=== PATIENT | female | born 1945 | race Caucasian/White ===

== ENCOUNTER 2020-01-03 16:15 | Emergency (ER) | payer MEDICARE, OTHER, SELFPAY ==
[2020-01-03 16:30] VITALS: BP 174/62; PULSE 79; RESP 16; TEMP 37.2; O2SAT 100
--- NOTE | 2020-01-03 16:47 | ED.SKABFB ---
HPI - Skin/Abscess/Foreign Bdy General Chief complaint: Skin/Abscess/Foreign Body Stated complaint: rash Time Seen by Provider: 01/03/20 16:33 Source: patient and RN notes reviewed Mode of arrival: ambulatory Limitations: no limitations History of Present Illness HPI narrative: Patient presents today complaining of widespread severely pruritic rash over her entire body for the past 4 months. Reports the symptoms wax and wane and state symptoms are better than they were yesterday. She has had her house checked twice for fleas and once for bedbugs without positive results. States she cannot stop scratching. States she has tried every [id number] treatment for rash that she can find, all without relief. She has not seen her health communications specialist or PCP since symptoms began. MD complaint: rash Related Data Home Medications Medication Instructions Recorded Confirmed carvedilol 12.5 mg tablet 12.5 mg PO Q12H 07/05/19 01/03/20 duloxetine 60 mg capsule,delayed 60 mg PO DAILY 07/05/19 07/06/19 release sprinkle sitagliptin 50 mg tablet 50 mg PO DAILY 07/05/19 07/06/19 tramadol 50 mg tablet 50 mg PO Q8H PRN tablet 07/05/19 07/06/19 clopidogrel 75 mg DAILY 01/03/20 01/03/20 duloxetine 60 mg PO 01/03/20 losartan-hydrochlorothiazide 50 tablet 01/03/20 Allergies Allergy/AdvReac Type Severity Reaction Status Date / Time adhesive tape Allergy Severe RASH Verified 07/06/19 13:23 amitriptyline Allergy Unknown Unknown Verified 07/06/19 13:23 ciprofloxacin Allergy Unknown Unknown Verified 07/06/19 13:23 levofloxacin Allergy Unknown Swelling Verified 07/06/19 13:23 Review of Systems Review of Systems: Narrative: CONSTITUTIONAL: Denies body aches, fever, chills, or sweats. EYES: Denies visual changes, redness, or discharge. ENT: Denies rhinorrhea, congestion, sore throat, or otalgia. CARDIOVASCULAR: Denies chest pain, palpitations, or edema. RESPIRATORY: Denies cough or dyspnea. GASTROINTESTINAL: Denies abdominal pain, nausea, vomiting, or diarrhea. GENITOURINARY: Denies dysuria or hematuria. SKIN: + Pruritic rash MUSCULOSKELETAL: Denies back pain, joint pain, or myalgia. NEUROLOGIC: Denies headache, numbness, tingling, or weakness. PSYCH: Denies depression or anxiety. [facility] Past Medical History Medical History (Updated 01/03/20 @ 17:02 by Yoko Rodrigez, [facility], ) Urinary incontinence Surgical History Surgical History History of knee replacement Social History Social History Smoking status: Never smoker Alcohol intake: current Gender identity (if verbalized by the patient): Female Comments At time of signature, I have reviewed and agree with nursing past medical, surgical, social and family history unless otherwise noted. Please see nursing chart for further information. There is no relevant family history pertinent to the presenting complaint Exam Narrative: Exam Narrative: GENERAL: Well-appearing, well-nourished, and in no acute distress. HEAD: Normocephalic, atraumatic. EYES: EOMI. No redness or drainage. Conjunctivae normal. ENT: Mucous membranes pink and moist. NECK: Normal AROM. Supple. No lymphadenopathy. CHEST: No respiratory distress. Clear to auscultation. HEART: Regular rate and rhythm. No murmur appreciated. Normal peripheral pulses. ABDOMEN: Soft, nontender, nondistended, normal active bowel sounds. MUSCULOSKELETAL: No bony tenderness. EXTREMITIES: Normal range of motion. No edema. SKIN: Warm, dry. Capillary refill normal. Normal skin turgor. Patient has multiple tiny, round scabs over her arms and upper back. No erythema, induration, fluctuance or signs of infection. She has a very small area of erythematous macular rash to the posterior right upper arm consistent with dermatitis. Patient was compulsively scratching her arms during entire exam, even after she had been asked to stop
== END 2020-01-03 17:07 | disposition home or self-care (01) ==
PROVIDERS: Emergency Provider Nurse Practitioner; PCP Internal Medicine
DX: R21 Rash and other nonspecific skin eruption (principal); E11.9 Type 2 diabetes mellitus without complications; I10 Essential (primary) hypertension; F03.90 Unspecified dementia, unspecified severity, without behavioral disturbance, psychotic disturbance, mood disturbance, and anxiety; Z86.73 Personal history of transient ischemic attack (TIA), and cerebral infarction without residual deficits; Z96.659 Presence of unspecified artificial knee joint
CPT/HCPCS: 99213; G0463

== ENCOUNTER 2020-01-07 08:57 | Outpatient (CLI) | payer MEDICARE, OTHER, SELFPAY ==
[2020-01-07 09:45] LABS: Alanine Aminotransferase 10 U/L (4-35); Albumin Level 4.2 g/dL (3.5-5.1); Alkaline Phosphatase 67 U/L (38-126); Aspartate Amino Transferase 21 U/L (14-36); Bilirubin,Total 0.5 mg/dL (0.2-1.3); Blood Urea Nitrogen 25 mg/dL (7-17); Calcium 9.3 mg/dL (8.4-10.2); Carbon Dioxide 26 mmol/L (22-30); Chloride 107 mmol/L (98-107); Cholesterol 208 mg/dL (0-200); Estimated Glomerular Filt Rate 37; Glucose 113 mg/dL (65-105); HDL Direct 39 mg/dL; Potassium 4.7 mmol/L (3.4-5.0); Sodium 140 mmol/L (137-145); Triglycerides 141 mg/dL (<150)
[2020-01-07 09:56] LABS: LDL Cholesterol Direct 131 mg/dL
[2020-01-07 10:08] LABS: Creatinine Urine 105.3 mg/dL
[2020-01-07 10:11] LABS: MALB Creatinine Ratio 79.7 mg/g (0-30); Microalbumin Urine Random 83.9 mg/L (0-16.7)
== END 2020-01-07 08:58 | disposition home or self-care (01) ==
PROVIDERS: PCP Internal Medicine; Visit Provider Nurse Practitioner
DX: E11.22 Type 2 diabetes mellitus with diabetic chronic kidney disease (principal); N18.1 Chronic kidney disease, stage 1; E78.5 Hyperlipidemia, unspecified
CPT/HCPCS: 36415; 80053; 80061; 82043; 83036

== ENCOUNTER 2020-01-18 14:13 | Outpatient (CLI) | payer MEDICARE, OTHER, SELFPAY ==
[2020-01-18 14:33] LABS: Hematocrit 33.7 % (37.0-47.0); Hemoglobin 10.6 g/dL (12.0-15.0)
== END 2020-01-18 14:14 | disposition home or self-care (01) ==
PROVIDERS: PCP Internal Medicine; Visit Provider Internal Medicine
DX: R53.83 Other fatigue (principal)
CPT/HCPCS: 36415; 82607; 85014; 85018

== ENCOUNTER 2020-01-21 14:23 | Outpatient (CLI) | payer MEDICARE, OTHER, SELFPAY ==
[2020-01-21 15:33] LABS: Iron 44 ug/dL (37-170)
[2020-01-21 15:42] LABS: Percent Iron Saturation 13 % (20-50)
== END 2020-01-21 14:24 | disposition home or self-care (01) ==
PROVIDERS: PCP Internal Medicine; Visit Provider Internal Medicine
DX: D64.9 Anemia, unspecified (principal)
CPT/HCPCS: 36415; 83540; 83550

== ENCOUNTER 2020-05-06 06:51 | Outpatient (NON) | payer MEDICARE, OTHER, SELFPAY ==
[2020-05-09 13:56] LABS: SARS-CoV-2 RNA PCR Negative
== END 2020-05-06 06:52 ==
PROVIDERS: PCP Internal Medicine; Visit Provider Internal Medicine
DX: Z20.828 Contact with and (suspected) exposure to other viral communicable diseases (principal); R68.89 Other general symptoms and signs
CPT/HCPCS: 87635; C9803; U0003

== ENCOUNTER 2020-06-22 13:08 | Outpatient (CLI) | payer MEDICARE, OTHER, SELFPAY ==
[2020-06-22 13:38] LABS: Hematocrit 33.6 % (37.0-47.0); Hemoglobin 10.5 g/dL (12.0-15.0); Mean Corpuscular HGB Conc 31.3 g/dl (32-36); Mean Corpuscular Hemoglobin 30.1 pg (26-34); Mean Corpuscular Volume 96.3 fl (80-100); Mean Platelet Volume 9.3 fl (7.4-10.4); Platelet Count Result 309 k/mm3 (150-375); Red Blood Count 3.49 M/mm3 (4.2-5.4); Red Cell Distribution Width 12.7 % (11.5-14.5); White Blood Count 7.9 K/mm3 (4.5-10.0)
[2020-06-22 13:51] LABS: Alanine Aminotransferase 11 U/L (4-35); Albumin Level 4.3 g/dL (3.5-5.1); Alkaline Phosphatase 65 U/L (38-126); Anion Gap 9 mmol/L (8-16); Aspartate Amino Transferase 28 U/L (14-36); Bilirubin,Total 0.5 mg/dL (0.2-1.3); Blood Urea Nitrogen 20 mg/dL (7-17); Carbon Dioxide 26 mmol/L (22-30); Chloride 107 mmol/L (98-107); Cholesterol 225 mg/dL (0-200); Estimated Glomerular Filt Rate 37; Glucose 104 mg/dL (65-105); HDL Direct 41 mg/dL; Potassium 5.1 mmol/L (3.4-5.0); Sodium 142 mmol/L (137-145); Triglycerides 113 mg/dL (<150)
[2020-06-22 13:53] LABS: Hemoglobin A1C 5.6 % (<5.7)
[2020-06-22 14:02] LABS: LDL Cholesterol Direct 162 mg/dL
== END 2020-06-22 13:09 | disposition home or self-care (01) ==
LOC: ANHLAB 13:11
PROVIDERS: PCP Internal Medicine; Visit Provider Nurse Practitioner
DX: E11.9 Type 2 diabetes mellitus without complications (principal); D64.9 Anemia, unspecified; E78.5 Hyperlipidemia, unspecified; R63.4 Abnormal weight loss
CPT/HCPCS: 36415; 80053; 80061; 83036; 84443; 85027

== ENCOUNTER 2020-06-28 08:35 | Outpatient (CLI) | payer MEDICARE, OTHER, SELFPAY ==
--- NOTE | ~2020-06-28 | CT_ITS ---
EXAMINATION: CT chest abdomen pelvis w con DATE: 06/28/2020 09:03 INDICATION: Abnormal weight loss TECHNIQUE: Computed tomography (CT) of the chest, abdomen, and pelvis was performed 100 cc Omnipaque 350 intravenous contrast. Automated exposure control and iterative reconstruction technique were empl oyed. Exam dose: 650.76 mGy-cm total exam DLP. COMPARISON: 09/08/2018 CT abdomen pelvis 03/12/2017 two-view chest FINDINGS: CHEST CT: No pulmonary consolidation or pulmonary mass lesion is detected. There is minimal right lower lobe pe rihilar infiltrate or atelectasis and mild discoid atelectasis or scarring at the left lung base, lef t lower lobe. Normal heart size. No pericardial or pleural effusion. No hilar or mediastinal mass lesion or lymphadenopathy. No thoracic aortic aneurysm or dissection. Coronary artery and mild aortic calcification. Very small sliding hiatal hernia. ABDOMEN/PELVIS CT: Diffuse hepatic steatosis. No hepatic space-occupying mass lesion is detected. Status post cholecystectomy. No significant bile duct or pancreatic duct dilatation. No pancreatic ma ss lesion or calcification. Normal morphology of the adrenal glands. Normal splenic size. No renal mass lesion or urinary tract calculus or hydroureteronephrosis. The urinary bladder is relat ively evacuated, essentially unremarkable. There is atherosclerotic calcification of the abdominal aorta and aortic branches but no abdominal ao rtic aneurysm or dissection. No intraperitoneal or retroperitoneal or pelvic mass lesion or adenopathy or ascites. There are numerous diverticula of the sigmoid and descending colon, splenic flexure; no CT evidence o f diverticulitis. No evidence of appendicitis. No bowel obstruction, bowel wall thickening, pneumatosis or intraperiton eal free air. Fat-containing right supraumbilical and bilateral infraumbilical fat-containing hernias. Small umbili sebastian fat-containing hernia. Degenerative changes of the thoracic and lumbar spine. No suspicious osteolytic or osteoblastic lesio ns are noted. IMPRESSION: No cause for abnormal weight loss is identified Very small sliding hiatal hernia Diffuse hepatic steatosis Status post cholecystectomy Diverticulosis of the left colon; no CT evidence of diverticulitis Reviewed, dictated and finalized at [facility] Reviewed, dictated and finalized at [facility]. [employer]
== END 2020-06-28 08:36 | disposition home or self-care (01) ==
PROVIDERS: PCP Internal Medicine; Visit Provider Nurse Practitioner
DX: R63.4 Abnormal weight loss (principal); K44.9 Diaphragmatic hernia without obstruction or gangrene; K76.0 Fatty (change of) liver, not elsewhere classified; Z90.49 Acquired absence of other specified parts of digestive tract; K57.90 Diverticulosis of intestine, part unspecified, without perforation or abscess without bleeding
CPT/HCPCS: 71260; 74177; Q9967

== ENCOUNTER 2020-07-03 13:28 | Outpatient (CLI) | payer MEDICARE, OTHER, SELFPAY ==
[2020-07-03 20:19] LABS: IFOB Positive Control Positive; Immunochemical Fecal Occult Bl Negative (N)
== END 2020-07-03 13:29 | disposition home or self-care (01) ==
PROVIDERS: PCP Internal Medicine; Visit Provider Nurse Practitioner
DX: R19.7 Diarrhea, unspecified (principal)
CPT/HCPCS: 82274; 87045; 87046; 87177; 87209; 87427

== ENCOUNTER → 2020-08-19 01:41 | Outpatient (CLI) | payer MEDICARE, OTHER, SELFPAY ==
[2020-08-19 19:42] LABS: SARS-CoV-2 RNA PCR Negative
== END ==
PROVIDERS: PCP Internal Medicine; Visit Provider Internal Medicine Gastroenterology
DX: Z01.812 Encounter for preprocedural laboratory examination (principal); Z20.822 Contact with and (suspected) exposure to COVID-19
CPT/HCPCS: C9803; U0003; U0005

== ENCOUNTER 2020-08-22 01:46 | Day surgery (SDC) | payer MEDICARE, OTHER, SELFPAY ==
[2020-08-07 10:27] VITALS: BMI 29.2
--- NOTE | 2020-08-09 15:36 | PC.NURSE ---
CALLED PT TO UPDATE ON DATE TO STOP PLAVIX PER DR. MILLER. SPOKE WITH DAUGHTER EFFIE WHO IS A PHARMACIST HERE AT [facility]. SHE STATES SHE TOOK HER MOM TO DR. LAND OFFICE AND SAY STEVEN POMPA IN OFFICE. MOM HAD TOLD HER A FEW DAYS AGO SHE HAD STOPPED ALL HER MEDS ABOUT A MONTH AGO BECAUSE SHE THOUGHT THEY WERE MAKING HER ILL. EFFIE AND HER MOTHER JORGE LUIS MET WITH STEVEN HERANNDEZ TODAY TO DISCUSS MEDS. HE HAS STOPPED SOME AND SHE IS TO RESUME TAKING THE OTHERS. SHE IS NO LONGER ON PLAVIX WHICH WE HAD RECEIVED CLEARANCE TO STOP PER DR. MILLER. PT HAS NOT TAKEN FOR AT LEAST A MONTH. SHE IS TO START A ENTERIC COATED BABY ASA 81MG.
[2020-08-22 08:45] VITALS: BP 167/78; PULSE 71; RESP 16; TEMP 36.1; O2SAT 99
[2020-08-22] MEDS: LACTATED RINGERS 1,000 ML 150 ML IV CONT (08:53)
--- NOTE | 2020-08-22 08:56 | WPDHPUPDATE1 ---
History and Physical Update Update Date/Time: 08/22/20 08:56 History and Physical has been reviewed, including an updated exam of the patient. There are NO changes in the patient's condition. Risks, benefits, and alternatives have been discussed and questions answered. Patient agrees to proceed with procedure.
--- NOTE | 2020-08-22 09:00 | WPDANESEPPF ---
Anes - Initial Pre Proc Eval Procedure: Operation Date: 08/22/20 09:30 Proposed Procedures p Esophagogastroduodenoscopy & Colonoscopy - Jameson Dhillon MD Date/Time: 08/22/20 09:00 Surgeon: Jameson Dhillon MD Pre Op Diagnosis: wt.Loss, Diarrhea Patient Data Age: 75 Gender: F Height: 5 ft Weight: 68.2 kg Last Vital Signs Temp 96.9 F L 08/22/20 08:45 Pulse 71 08/22/20 08:45 Resp 16 08/22/20 08:45 BP 167/78 H 08/22/20 08:45 Pulse Ox 99 08/22/20 08:45 Allergies Allergy/AdvReac Type Severity Reaction Status Date / Time adhesive tape Allergy Severe RASH Verified 08/22/20 08:43 amitriptyline Allergy Unknown Rash Verified 08/22/20 08:43 ciprofloxacin Allergy Unknown Dizziness Verified 08/22/20 08:43 levofloxacin Allergy Unknown Swelling Verified 08/22/20 08:43 Home Medications Medication Instructions Recorded Confirmed Type loperamide 2 mg capsule 2 mg PO BID PRN #60 cap 07/26/20 08/22/20 Rx sodium,potassium,mag sulfates 17.5 See Rx Instructions PO .COMPLEX 08/01/20 08/22/20 Rx gram-3.13 gram-1.6 gram oral soln #354 ml aspirin [Adult Aspirin EC Low 81 mg PO DAILY 08/09/20 08/22/20 History Strength] atorvastatin 10 mg tablet 10 mg PO DAILY #90 tablet 08/09/20 08/22/20 Rx cholecalciferol (vitamin D3) 25 25 mcg PO DAILY #30 tablet 08/09/20 08/22/20 Rx mcg (1,000 unit) tablet duloxetine 60 mg capsule,delayed 60 mg PO DAILY #90 cap 08/09/20 08/22/20 Rx release loratadine 10 mg tablet 10 mg PO .prn PRN tablet 08/09/20 08/22/20 History losartan-hydrochlorothiazide 1 tablet PO DAILY 08/09/20 08/22/20 History multivitamin 1 tablet PO DAILY 08/09/20 08/22/20 History Laboratory Tests 08/22/20 08:49 POC Capillary Glucose Pending Patient hx anesthesia problems: none Family hx anesthesia problems: none PMFSH Past Medical History Medical History Benign essential hypertension Hyperlipidemia, unspecified Statin intolerance Type 2 diabetes mellitus with stage 1 chronic kidney disease Urinary incontinence Surgical History Surgical History History of knee replacement History of laparoscopic cholecystectomy Family History Family History Mother Family history of osteoporosis Father Family history of diabetes mellitus in first degree relative Other Diabetes mellitus Family history of arthritis Family history of cardiovascular disease Hypertension Social History Social History Alcohol intake: current Drinks per week: 2 Living arrangements: alone Gender identity (if verbalized by the patient): Female Spiritual care concerns: No Anes - Eval Final PreProcedure Day of Procedure 08/22/20 09:00 Patient weight: overweight Heart: regular rate and rhythm Lungs: clear to auscultation Airway: Mallampati scale class II Neurological: alert and oriented Last oral intake: >/= 8 hours ASA classification: III Emergent: no Anesthetic plan: proceed Anesthesia type and monitoring: general GIVS and standard monitoring Informed Consent: The patient's anesthetic plan and its attendant risks and benefits were discussed with the patient/family/POA. Questions were solicited and answers provided to the satisfaction of the patient/family/POA.
[2020-08-22 09:01] LABS: Glucose Point of Care 94 (65-105)
[2020-08-22 09:36] VITALS: BP 119/40; PULSE 59; RESP 15; O2SAT 100
[2020-08-22 09:46] VITALS: BP 135/58; PULSE 61; RESP 17; O2SAT 100
--- NOTE | 2020-08-22 09:53 | SUR.OPER ---
EGD START 907, END 913 COLONOSCOPY START 918, END 930
[2020-08-22 09:56] VITALS: BP 152/69; PULSE 59; RESP 16; O2SAT 100
== END 2020-08-22 10:00 | disposition home or self-care (01) ==
PROVIDERS: PCP Internal Medicine; Visit Provider Internal Medicine Gastroenterology
PROC: 0DJ08ZZ Inspection of Upper Intestinal Tract, Via Natural or Artificial Opening Endoscopic (ICD-10-PCS; CPT 43235; principal; 2020-08-22 09:30)
DX: R19.7 Diarrhea, unspecified (principal); R63.4 Abnormal weight loss; D12.3 Benign neoplasm of transverse colon; K57.30 Diverticulosis of large intestine without perforation or abscess without bleeding; K62.3 Rectal prolapse; R63.0 Anorexia; K29.50 Unspecified chronic gastritis without bleeding; B96.81 Helicobacter pylori [H. pylori] as the cause of diseases classified elsewhere; K20.90 Esophagitis, unspecified without bleeding; E78.5 Hyperlipidemia, unspecified; I12.9 Hypertensive chronic kidney disease with stage 1 through stage 4 chronic kidney disease, or unspecified chronic kidney disease; N18.1 Chronic kidney disease, stage 1; E11.22 Type 2 diabetes mellitus with diabetic chronic kidney disease; R32 Unspecified urinary incontinence
CPT/HCPCS: 45380; 45385; 43239; 82948; 88305; 88312; 88342; J2001; J2704; J7120

== ENCOUNTER 2020-09-15 11:40 | Observation (INO) | payer MEDICARE, OTHER, SELFPAY ==
--- NOTE | ~2020-09-15 | CT_ITS ---
EXAMINATION: CT abdomen pelvis wo con DATE: 09/15/2020 12:38 INDICATION: Abdominal pain. Nausea for one year. TECHNIQUE: Computed tomography (CT) of the abdomen and pelvis was performed without intravenous contr ast. Automated exposure control and iterative reconstruction technique were employed. Exam dose: 459 .06 mGy-cm total exam DLP. COMPARISON: 06/28/2020 CT chest abdomen pelvis FINDINGS: The lung bases are clear of infiltrate or consolidation. Normal heart size. Coronary and aortic atherosclerosis. No pericardial or pleural effusion. Very small sliding hiatal hernia. Status post cholecystectomy. The liver, spleen, pancreas, and adrenal glands and kidneys are unremark able on this limited noncontrast examination. No bile duct or pancreatic duct dilatation. No renal mass lesion is evident on this limited noncontrast examination. No urinary tract calculus or hydroureteronephrosis. There is atherosclerotic calcification of the abdominal aorta but no aneurysm. There is prominent sebastian cification at the origins of the celiac and superior mesenteric and renal arteries as well as iliac a nd femoral artery calcifications. No intraperitoneal or retroperitoneal or pelvic mass lesion or adenopathy or ascites. The urinary bladder is unremarkable. Status post hysterectomy. There are innumerable diverticula of the sigmoid colon and descending colon; no CT evidence of divert iculitis. No bowel obstruction, bowel wall thickening, pneumatosis or intraperitoneal free air. Small fat-containing umbilical hernia. There are supraumbilical and infraumbilical ventral abdominal wall hernias variable size containing fat. No bowel herniation. Diffuse idiopathic skeletal hyperostosis of the thoracic spine. Grade 1 anterolisthesis at L3-4. There is degenerative disc disease of the lumbar and lumbosacral spi ne, involving particularly at L1-2, L2-3, L4-5 and L5-S1, with associated minimal retrolisthesis at L 2-3 and L4-5. Prominent degenerative spurring at the apophyseal joints. IMPRESSION: Status post cholecystectomy Status post hysterectomy Very small sliding hiatal hernia. Diverticulosis of the colon; no CT evidence of diverticulitis Small fat-containing umbilical hernia and multiple infraumbilical and supraumbilical ventral abdomina l wall hernias containing fat Degenerative changes of the thoracic and lumbar spine Reviewed, dictated and finalized at [facility]. Reviewed, dictated and finalized at [facility]. IMPRESSION: Status post cholecystectomy Status post hysterectomy Very small sliding hiatal hernia. Diverticulosis of the colon; no CT evidence of diverticulitis Small fat-containing umbilical hernia and multiple infraumbilical and supraumbi lical ventral abdominal wall hernias containing fat Degenerative changes of the thoracic and lumbar spine
[2020-09-15 11:50] VITALS: BP 173/92; PULSE 103; RESP 18; TEMP 36.6; O2SAT 100
[2020-09-15 12:08] LABS: Basophils Absolute Auto 0.1 K/mm3 (0.0-0.1); Basophils Percent Auto 1.1 % (0.2-1.2); Eosinophils Absolute Auto 0.6 K/mm3 (0-0.3); Eosinophils Percent Auto 7.2 % (0-4.4); Hematocrit 39.5 % (37.0-47.0); Hemoglobin 12.3 g/dL (12.0-15.0); Immature Granulocyte Absolute 0.02 K/mm3 (0.00-0.031); Immature Granulocyte Percent A 0.2 % (0-0.5); Lymphocytes Absolute Auto 2.53 K/mm3 (0.9-3.2); Lymphocytes Percent Auto 29.5 % (18.3-44.2); Mean Corpuscular HGB Conc 31.1 g/dl (32-36); Mean Corpuscular Hemoglobin 29.5 pg (26-34); Mean Corpuscular Volume 94.7 fl (80-100); Monocytes Absolute Auto 0.5 K/mm3 (0.1-0.6); Monocytes Percent Auto 6.3 % (2.6-8.5); Neutrophils Absolute Auto 4.8 K/mm3 (1.3-6.7); Neutrophils Percent Auto 55.7 % (45.5-73.1); Platelet Count Result 418 k/mm3 (150-375); Red Blood Count 4.17 M/mm3 (4.2-5.4); Red Cell Distribution Width 12.7 % (11.5-14.5); White Blood Count 8.6 K/mm3 (4.5-10.0)
[2020-09-15 12:15] LABS: Add Urine Microscopic? YES; Appearance Urine Cloudy (Clear); Bilirubin Urine Negative (Negative); Blood Urine Negative (Negative); Color Urine Yellow (Yellow); Glucose Urine UA Negative (Negative); Ketones Urine Negative (Negative); Leukocyte Esterase Ur Negative LEU/UL (Negative); Mucus Urine Rare /lpf; Nitrate Urine Negative (Negative); Protein Urine 2+ mg/dL (Negative); Specific Grav Ur 1.017 (1.001-1.035); Squamous Epithelial Cell Urine Few /hpf (Few); Urobilinogen Urine Negative mg/dL (<2.0); WBC Urine 0-3 /hpf
[2020-09-15 12:21] LABS: Alanine Aminotransferase 21 U/L (4-35); Alkaline Phosphatase 105 U/L (38-126); Anion Gap 15 mmol/L (8-16); Aspartate Amino Transferase 36 U/L (14-36); Bilirubin,Total 0.8 mg/dL (0.2-1.3); Blood Urea Nitrogen 57 mg/dL (7-17); Calcium 10.4 mg/dL (8.4-10.2); Carbon Dioxide 21 mmol/L (22-30); Chloride 106 mmol/L (98-107); Estimated CRCL calculation 18 ml/min; Estimated Glomerular Filt Rate 23; Glucose 156 mg/dL (65-105); Lipase 406 U/L (23-300); Potassium 4.5 mmol/L (3.4-5.0); Sodium 142 mmol/L (137-145)
[2020-09-15] MEDS: SODIUM CHLORIDE 0.9% IV 1,000 ML 999 ML IV CONT (12:43)
[2020-09-15] MEDS: ONDANSETRON INJ 4 MG/2 ML VIAL IV PUSH (12:44)
[2020-09-15 12:51] VITALS: BP 158/87; PULSE 110; RESP 18; O2SAT 97
--- NOTE | 2020-09-15 13:19 | ED.GENADULT ---
HPI - General Adult General Chief complaint: Abdominal Pain Stated complaint: abdominal pain Time Seen by Provider: 09/15/20 11:42 Source: RN notes reviewed History of Present Illness HPI narrative: Patient presents to emergency department from home for abdominal pain. Patient states that she has been having ongoing issues with abdominal pain for the past several weeks states that the pain is described as cramping with some burning as well is gotten worse over the past 2 days associated with nausea denies any fevers or chills chest pain shortness of breath vomiting. She states she has had intermittent diarrhea she states that she had an endoscopy and colonoscopy by Dr. Christian the beginning of August and is currently on 3 antibiotics for infections in her colon and her stomach states she not take any medications morning for the symptoms Related Data Home Medications Medication Instructions Recorded Confirmed aspirin [Adult Aspirin EC Low 81 mg PO DAILY 08/09/20 08/22/20 Strength] loratadine 10 mg tablet 10 mg PO .prn PRN tablet 08/09/20 08/22/20 losartan-hydrochlorothiazide 1 tablet PO DAILY 08/09/20 08/22/20 multivitamin 1 tablet PO DAILY 08/09/20 08/22/20 Allergies Allergy/AdvReac Type Severity Reaction Status Date / Time adhesive tape Allergy Severe RASH Verified 09/15/20 11:57 amitriptyline Allergy Unknown Rash Verified 09/15/20 11:57 ciprofloxacin Allergy Unknown Dizziness Verified 09/15/20 11:57 levofloxacin Allergy Unknown Swelling Verified 09/15/20 11:57 Review of Systems Review of Systems: Narrative: Gen.: Denies fevers or chills ENT: Denies congestion Respiratory: Denies shortness of breath or cough CV: Denies chest pain or palpitations GI: See HPI denies burning, urgency, frequency or hematuria Musculoskeletal: Denies back pain or muscle pain Neuro: Denies numbness, tingling, weakness or focal weakness Skin: Denies rash Except as documented, all other systems reviewed and negative PMF Past Medical History Medical History Benign essential hypertension Hyperlipidemia, unspecified Statin intolerance Type 2 diabetes mellitus with stage 1 chronic kidney disease Urinary incontinence Surgical History Surgical History History of knee replacement History of laparoscopic cholecystectomy Family History Family History Mother Family history of osteoporosis Father Family history of diabetes mellitus in first degree relative Other Diabetes mellitus Family history of arthritis Family history of cardiovascular disease Hypertension Social History Social History Alcohol intake: current Drinks per week: 2 Gender identity (if verbalized by the patient): Female Spiritual care concerns: No Exam Narrative: Exam Narrative: APPEARANCE: No acute distress, nontoxic, resting in bed HEENT: Normocephalic, atraumatic, OMM RESPIRATORY: No respiratory distress, clear to auscultation bilaterally with no rhonchi wheezing or rales CARDIOVASCULAR: RRR s murmur ABDOMINAL: Soft nondistended diffuse a turn palpation no rebound or guarding MUSCULOSKELETAl: Moves all extremities. No clubbing, cyanosis or edema. NEURO: Awake and alert. Following commands, speech normal, no focal deficits SKIN:: Warm, dry. Normal Color PSYCHIATRIC: Normal affect/mood Course Course Emergency Course: Reviewed old records Discussed with SARI Bustamante for Dr. Castellanos presentation work-up agrees with mission at this time Discussed with Dr. Christian presentation work-up agrees with consult at this time Discussed with patient and family results of workup and diagnosis. Discussed need for admission. Patient and family understand and agree to current treatment plan Vital Signs Vital signs: Vital Signs Temperature 97.8 F 0
[2020-09-15 14:13] VITALS: BP 154/74; PULSE 59; RESP 18; O2SAT 100
--- NOTE | 2020-09-15 14:39 | ADMGEN ---
This patient, Swetha Golden, was admitted to Medical Room 345-01. Patient/family oriented to hospital policies and general routines including ID bracelet, bed and alarms, visiting hours, pain management, procedures, bathroom and other care routines, personal items, smoking policy, room service/diet, and visiting hours. Information on how to activate the Rapid Response Team has been discussed. Patient/Family are encouraged to report perceived risks to care and to ask questions if they do not understand what they are told or what they should do.
[2020-09-15] MEDS: SODIUM CHLORIDE 0.9% IV 1,000 ML 125 ML IV CONT ×2 (14:47→23:49)
--- NOTE | 2020-09-15 15:30 | PM.IMHP ---
H&P: HPI History of Present Illness Date/Time: 09/15/20 15:30Thiviji is a 75-year-old female patient came to the emergency room from home for abdominal pain. The patient stated that she has been having diarrhea for many years since she had a cholecystectomy probably about 30 years ago. The patient stated that she did lose 50 some lb in the last year. She did have an endoscopy on 08/22/2020 due to weight loss. She had unintentional weight loss. The patient had 3 of the 3 mm to 5 mm - polyps in the transverse colon at that time. all 3 polyps were removed. she also had a small reducible rectal prolapse which was noted the anus. She has diverticulosis without rupture abscess. The patient was started on 3 different medications including an antibiotic. The patient had stool cultures sent which were all negative. Creatinine is 2.1 which her baseline is somewhere around 1.3 and 1.4. She denied any nausea vomiting. No fever or chills. Patient no longer has any diarrhea but has been having constipation. Calcium is 10.4. Urine was negative. Patient is CT of the abdomen and pelvis which was read as status post cholecystectomy. Status post hysterectomy. Very small sliding hiatal hernia. Diverticulosis of the colon; no CT evidence of diverticulitis. Small fat containing umbilical hernia and multiple infra umbilical and supraumbilical ventral abdominal wall hernias containing fat. Degenerative changes of the thoracic and lumbar spine. The patient was started on IV fluids, IV Tylenol and Zofran. The patient is being admitted for observation on the date of service of 09/15/2020. Chief Complaint: Abdominal pain Review of Systems Review of Systems: All systems reviewed & are unremarkable except as noted in HPI and below Constitutional: Constitutional: Reports as per HPI and Reports no additional constitutional complaints Eyes: Eyes: Reports as per HPI and Reports no additional eye complaints ENT: Reports system reviewed and no additional complaints, except as documented and Reports Normal hearing present Cardiovascular: Cardiovascular: Reports no additional cardiovascular complaints Respiratory: Respiratory: Reports no additional respiratory complaints and Reports no additional respiratory complaints Gastrointestinal: Gastrointestinal: Reports as per HPI and Reports no additional gastrointestinal complaints Musculoskeletal: Musculoskeletal: Reports no additional musculoskeletal complaints Integumentary/Breasts: Skin/Breast: Reports system reviewed and no additional complaints, except as docu and Reports as per HPI Neurologic: Reports system reviewed and no additional complaints, except as documented, Reports as per HPI and Reports Normal hearing present Psychiatric: Psychiatric: Reports no additional psychiatric complaints and Reports as per HPI Endocrine: Endocrine: Reports no additional endocrine complaints Hematologic/Lymphatic: Hematologic/Lymphatic: Reports no additional hematologic/lymphatic complaints Allergic/Immunologic: Allergic/Immunologic: Reports no additional allergic/immunologic complaints [facility] Past Medical History Medical History (Updated 09/15/20 @ 15:56 by Dianna Nur NP) Benign essential hypertension History of CVA (cerebrovascular accident) HTN (hypertension) with goal to be determined Hyperlipidemia, unspecified LUKE on CPAP Intolerant of a CPAP Statin intolerance Type 2 diabetes mellitus with stage 1 chronic kidney disease Urinary incontinence Surgical History Surgical History (Updated 09/15/20 @ 15:44 by Dianna Nur NP) H/O rectal polypectomy H/O: hysterectomy History of knee replacement bilateral knee replaced History of laparoscopic cholecystectomy Family History Family History (Updated 09/15/20 @ 15:45 by Dianna Nur NP) Mother Family history of osteoporosis Father Family history of diabetes mellitus in first degree relative Sibling Diabetes mellitus 2 sisters Ot
[2020-09-15 17:03] VITALS: BMI 29.3
[2020-09-15 17:58] LABS: Glucose Point of Care 72 (65-105)
--- NOTE | 2020-09-15 18:42 | PC.NURSE ---
Pt unable to confirm medications. Family member to bring in medication list.
--- NOTE | 2020-09-15 18:53 | PC.NURSE ---
Daughter Karma called and confirmed medication list.
[2020-09-15 20:21] VITALS: BP 178/76; PULSE 72; RESP 18; TEMP 36.2; O2SAT 100
[2020-09-15 21:36] VITALS: BP 185/62
[2020-09-15] MEDS: hydrALAZINE HCL 20 MG/ML VIAL 10 MG IV PUSH (21:37)
[2020-09-15 22:05] LABS: Glucose Point of Care 151 (65-105)
[2020-09-15 22:36] VITALS: BP 170/44
[2020-09-16 04:23] VITALS: BP 182/56; PULSE 65; RESP 18; TEMP 35.9; O2SAT 100
[2020-09-16 04:53] VITALS: BP 161/69
[2020-09-16 05:38] LABS: Basophils Absolute Auto 0.1 K/mm3 (0.0-0.1); Basophils Percent Auto 1.1 % (0.2-1.2); Eosinophils Absolute Auto 0.7 K/mm3 (0-0.3); Eosinophils Percent Auto 11.3 % (0-4.4); Hematocrit 34.9 % (37.0-47.0); Hemoglobin 10.8 g/dL (12.0-15.0); Immature Granulocyte Absolute 0.02 K/mm3 (0.00-0.031); Immature Granulocyte Percent A 0.3 % (0-0.5); Lymphocytes Absolute Auto 2.47 K/mm3 (0.9-3.2); Lymphocytes Percent Auto 39.3 % (18.3-44.2); Mean Corpuscular HGB Conc 30.9 g/dl (32-36); Mean Corpuscular Hemoglobin 29.5 pg (26-34); Mean Corpuscular Volume 95.4 fl (80-100); Monocytes Absolute Auto 0.5 K/mm3 (0.1-0.6); Monocytes Percent Auto 8.1 % (2.6-8.5); Neutrophils Absolute Auto 2.5 K/mm3 (1.3-6.7); Neutrophils Percent Auto 39.9 % (45.5-73.1); Platelet Count Result 296 k/mm3 (150-375); Red Blood Count 3.66 M/mm3 (4.2-5.4); Red Cell Distribution Width 12.8 % (11.5-14.5); White Blood Count 6.3 K/mm3 (4.5-10.0)
[2020-09-16 05:45] LABS: Hemoglobin A1C 5.5 % (<5.7)
[2020-09-16 05:56] LABS: Alanine Aminotransferase 21 U/L (4-35); Albumin Level 3.6 g/dL (3.5-5.1); Alkaline Phosphatase 87 U/L (38-126); Anion Gap 8 mmol/L (8-16); Aspartate Amino Transferase 35 U/L (14-36); Bilirubin,Total 0.6 mg/dL (0.2-1.3); Blood Urea Nitrogen 48 mg/dL (7-17); Calcium 9.2 mg/dL (8.4-10.2); Carbon Dioxide 21 mmol/L (22-30); Chloride 112 mmol/L (98-107); Estimated CRCL calculation 22 ml/min; Estimated Glomerular Filt Rate 29; Glucose 95 mg/dL (65-105); Lipase 386 U/L (23-300); Potassium 4.7 mmol/L (3.4-5.0); Sodium 141 mmol/L (137-145)
[2020-09-16 05:58] LABS: Lactic Acid Reflex 0.7 mmol/L (0.7-2.1)
[2020-09-16 08:00] VITALS: PULSE 65; RESP 18; O2SAT 100
[2020-09-16] MEDS: SODIUM CHLORIDE 0.9% IV 1,000 ML 125 ML IV CONT (08:05)
[2020-09-16] MEDS: PANTOPRAZOLE 40 MG TABLET PO ×2 (08:08→17:33)
[2020-09-16] MEDS: DULoxetine HCL 60 MG CAPSULE.DR PO (08:08)
[2020-09-16] MEDS: ASPIRIN 81 MG ENTERIC TABLET PO (08:09)
[2020-09-16 08:17] LABS: Glucose Point of Care 78 (65-105)
[2020-09-16] MEDS: ATORVASTATIN 10 MG TABLET PO (08:32)
[2020-09-16] MEDS: ACETAMINOPHEN 325 MG TABLET 650 MG PO ×2 (09:21→20:21)
[2020-09-16 10:06] VITALS: O2SAT 99
--- NOTE | 2020-09-16 10:36 | PM.IMPN ---
Progress Note: A&P Assessment and Plan (1) Abdominal pain: Qualifiers: Abdominal location: unspecified location Qualified Code(s): R10.9 - Unspecified abdominal pain Code(s): R10.9 - Unspecified abdominal pain Status: Acute Assessment and Plan: May be related to her known gastritis; may be side effects from medical regimen recently. EGD 08/22/[address] Christian - demonstrated anurag esophagitis (already completed 7-day course of fluconazole); h.pylori gastritis (completing abx therapy through 09/19 - continue tetracycline); microscopic lymphocytic colitis (continue oral budesonide). Continue tetracycline for h. pylori; increase PPI to BID; continue budesonide per Dr Christian recommendations. Otherwise continue supportive care, increase diet as tolerated. (2) Acute on chronic kidney failure: Qualifiers: Acute renal failure type: unspecified Chronic kidney disease stage: unspecified stage Qualified Code(s): N17.9 - Acute kidney failure, unspecified; N18.9 - Chronic kidney disease, unspecified Code(s): N17.9 - Acute kidney failure, unspecified; N18.9 - Chronic kidney disease, unspecified Status: Acute Assessment and Plan: Cr at baseline appears around 1.3 - 1.6 on review of previous labs. Cr 2.1 on arrival yesterday suspect related to poor oral intake; improving with IV hydration. Continue IV hydration, reduce the rate; avoid nephrotoxic agents - her HCTZ and losartan are held currently; monitor renal function daily. (3) Type 2 diabetes mellitus with stage 1 chronic kidney disease: Qualifiers: Diabetes mellitus termite control servicer insulin use: without termite control servicer use Qualified Code(s): E11.22 - Type 2 diabetes mellitus with diabetic chronic kidney disease; N18.1 - Chronic kidney disease, stage 1 Code(s): E11.22 - Type 2 diabetes mellitus with diabetic chronic kidney disease; N18.1 - Chronic kidney disease, stage 1 Status: Acute Assessment and Plan: Hgb 5.5%. She does not think she takes the Januvia anymore. Since her weight loss she has come off the medication. Continue to monitor with accu-cheks and adjust treatment as needed, cover with SSI. (4) Hyperlipidemia, unspecified: Qualifiers: Hyperlipidemia type: other hyperlipidemia Qualified Code(s): E78.49 - Other hyperlipidemia Code(s): E78.5 - Hyperlipidemia, unspecified Status: Acute Assessment and Plan: Maintained on home statin therapy. (5) Benign essential hypertension: Code(s): I10 - Essential (primary) hypertension Status: Chronic Assessment and Plan: Blood pressures elevated since holding her HCTZ and losartan due to renal failure. Monitor BP and adjust treatment as needed. PRN IV hydralazine with p. (6) Obstructive sleep apnea: Code(s): G47.33 - Obstructive sleep apnea (adult) (pediatric) Status: Acute Assessment and Plan: Intolerant to CPAP. Subjective Date/time seen: 09/16/20 10:30 Interval history: Ms. Golden is a 75yo F admitted for abdominal pain. She reports abdominal pain ongoing for several weeks that comes and goes, worse after she eats certain foods. She reports some intermittent mild nausea at times, none today. No vomiting today. She denies chest pain or shortness of breath. Wants more to eat than clear liquids. Review of Systems Review of Systems: All systems reviewed & are unremarkable except as noted in HPI and below Exam Narrative: Exam Narrative: General: Female resting comfortably supine in bed in no acute distress. HEENT: Normocephalic, EOMI, oral mucosa moist. Cardiovascular: Rate and rhythm are regular, some occasional ectopic beats
[2020-09-16] MEDS: BUDESONIDE 3 MG CAP.SR.24H PO (11:09)
[2020-09-16 11:50] LABS: Glucose Point of Care 95 (65-105)
--- NOTE | 2020-09-16 11:50 | WPDGICN ---
Assessment and Plan Assessment and plan (1) Upper abdominal pain: Code(s): R10.10 - Upper abdominal pain, unspecified Status: Acute Assessment and Plan: recent treatment for anurag esophagitis (completed) and also h pylori gastritis (about to complete) continue with ppi bid advance diet as tolerated probably also effect from new medical treatment (2) Acute renal insufficiency: Code(s): N28.9 - Disorder of kidney and ureter, unspecified Status: Acute Assessment and Plan: improved with fluids, monitor renal function (3) Dehydration: Code(s): E86.0 - Dehydration Status: Acute Assessment and Plan: treated (4) Microscopic colitis: Code(s): K52.839 - Microscopic colitis, unspecified Status: Acute Assessment and Plan: no more diarrhea continue with budesonide 3mg daily and she can follow up office in 6-8 weeks (5) Helicobacter pylori gastritis: Code(s): K29.70 - Gastritis, unspecified, without bleeding; B96.81 - Helicobacter pylori [H. pylori] as the cause of diseases classified elsewhere Status: Acute Assessment and Plan: we can check h pylori Ag in stool in 2-3 months to document eradication (6) Unintentional weight loss: Code(s): R63.4 - Abnormal weight loss Status: Acute Assessment and Plan: probably multifactorial but also had microscopic colitis and h pylori (7) Diarrhea: Qualifiers: Diarrhea type: unspecified type Qualified Code(s): R19.7 - Diarrhea, unspecified Code(s): R19.7 - Diarrhea, unspecified Status: Acute (8) Chronic fatigue: Code(s): R53.82 - Chronic fatigue, unspecified Status: Acute GI Consult Note Consult date/time: 09/16/20 11:50 Reason for consult: abdominal pain, microscopic colitis HPI: Swetha Golden is a 75 year old female wiht history of DM type 2, CKD, HLD, HTN, chronic anemia (since 2010), GERD, CVA (on Plavix), cholecystectomy and early memory loss who I met her last month when she was referred to us because 50 pound weight loss since August and diarrhea with decrease appetite, had negative stool sample for infection. Finally we scheduled her for outpatient EGD and colonoscopy, finding of H pylori gastritis, anurag esophagitis and microscopic colitis (confirmed by biopsies- reviewed), she was prescribed budesonide for microscopic colitis and now she denies any more diarrhea, also 7 days course of fluconazole and H pylori treatment (amoxicilin, tetracycline and ppi). She came here because just feeling tired in general, also some abdominal discomfort. ER evaluation showed elevated creatinine 2.1 (baseline 1.4), CT of the abdomen and pelvis reviewed, post cholecystectomy, post hysterectomy, small sliding hiatal hernia, diverticulosis of the colon; no CT evidence of diverticulitis, no major findings. She was admitted to hospital with dehydration. Review of Systems Constitutional: Constitutional: Denies chills, Reports fatigue and Reports lethargy Eyes: Eyes: Denies blurry vision ENT: Reports Normal hearing present Cardiovascular: Cardiovascular: Denies chest pain Respiratory: Respiratory: Denies dyspnea Gastrointestinal: Gastrointestinal: Reports abdominal pain Genitourinary: Genitourinary: Denies hematuria Musculoskeletal: Musculoskeletal: Denies neck pain Integumentary/Breasts: Skin/Breast: Denies dry skin Neurologic: Denies headache(s) Psychiatric: Psychiatric: Reports anxiety PMFSH Past Medical History Medical History (Updated 09/16/20 @ 11:59 by Jameson Dhillon MD) Benign essential hypertension Dehydration Helicobacter pylori gastritis History of CVA (cerebrovascular accident) HTN (hypertension) with goal to be determined Hyperlipidemia, unspecified Microscopic colitis LUKE on CPAP Intolerant of a CPAP Statin intolerance Type 2 diabetes mellitus with stage 1 chronic kidney disease Upper abdominal pain Urinary
[2020-09-16 15:11] VITALS: BP 159/74; PULSE 74; RESP 16; TEMP 36.4; O2SAT 99
[2020-09-16 16:32] LABS: Glucose Point of Care 94 (65-105)
[2020-09-16] MEDS: TETRACYCLINE HCL 250 MG CAPSULE 500 MG PO (17:32)
[2020-09-16] MEDS: SODIUM CHLORIDE 0.9% IV 1,000 ML 100 ML IV CONT (18:10)
[2020-09-16 22:00] VITALS: BP 148/90; PULSE 105; RESP 16; TEMP 36.6; O2SAT 99
[2020-09-16 22:07] LABS: Glucose Point of Care 104 (65-105)
[2020-09-17] MEDS: SODIUM CHLORIDE 0.9% IV 1,000 ML 100 ML IV CONT (04:59)
[2020-09-17 06:00] VITALS: BP 178/70; PULSE 65; RESP 16; TEMP 36.2; O2SAT 100
[2020-09-17 06:16] LABS: Anion Gap 10 mmol/L (8-16); Blood Urea Nitrogen 40 mg/dL (7-17); Carbon Dioxide 19 mmol/L (22-30); Chloride 112 mmol/L (98-107); Estimated CRCL calculation 23 ml/min; Estimated Glomerular Filt Rate 31; Glucose 88 mg/dL (65-105); Magnesium 1.3 mg/dL (1.6-2.3); Potassium 4.6 mmol/L (3.4-5.0); Sodium 141 mmol/L (137-145)
[2020-09-17 06:19] LABS: Basophils Absolute Auto 0.1 K/mm3 (0.0-0.1); Basophils Percent Auto 0.8 % (0.2-1.2); Eosinophils Absolute Auto 0.7 K/mm3 (0-0.3); Eosinophils Percent Auto 8.6 % (0-4.4); Hematocrit 34.7 % (37.0-47.0); Hemoglobin 10.9 g/dL (12.0-15.0); Immature Granulocyte Absolute 0.02 K/mm3 (0.00-0.031); Immature Granulocyte Percent A 0.2 % (0-0.5); Lymphocytes Absolute Auto 3.17 K/mm3 (0.9-3.2); Lymphocytes Percent Auto 37.8 % (18.3-44.2); Mean Corpuscular HGB Conc 31.4 g/dl (32-36); Mean Corpuscular Hemoglobin 29.7 pg (26-34); Mean Corpuscular Volume 94.6 fl (80-100); Mean Platelet Volume 10.5 fl (7.4-10.4); Monocytes Absolute Auto 0.6 K/mm3 (0.1-0.6); Monocytes Percent Auto 6.6 % (2.6-8.5); Neutrophils Absolute Auto 3.9 K/mm3 (1.3-6.7); Platelet Count Result 287 k/mm3 (150-375); Red Blood Count 3.67 M/mm3 (4.2-5.4); Red Cell Distribution Width 12.8 % (11.5-14.5); White Blood Count 8.4 K/mm3 (4.5-10.0)
[2020-09-17 07:29] LABS: HIV 1/2 Ab P24 Ag Result Negative (Negative)
[2020-09-17] MEDS: ACETAMINOPHEN 325 MG TABLET 650 MG PO (07:49)
[2020-09-17 07:57] LABS: Glucose Point of Care 88 (65-105)
[2020-09-17 08:00] VITALS: PULSE 65; RESP 16; O2SAT 100
[2020-09-17] MEDS: ASPIRIN 81 MG ENTERIC TABLET PO (08:27)
[2020-09-17] MEDS: TETRACYCLINE HCL 250 MG CAPSULE 500 MG PO (08:27)
[2020-09-17] MEDS: DULoxetine HCL 60 MG CAPSULE.DR PO (08:28)
[2020-09-17] MEDS: BUDESONIDE 3 MG CAP.SR.24H PO (08:28)
[2020-09-17] MEDS: ATORVASTATIN 10 MG TABLET PO (08:28)
[2020-09-17] MEDS: PANTOPRAZOLE 40 MG TABLET PO (08:28)
[2020-09-17] MEDS: MAGNESIUM SULF 2 GM/WATER 50ML 2 GM/50 ML BAG IVPB (08:37)
--- NOTE | 2020-09-17 09:42 | WPDGIPROGNO ---
Progress Note: A&P Assessment and Plan (1) Upper abdominal pain: Code(s): R10.10 - Upper abdominal pain, unspecified Status: Acute Assessment and Plan: improved, exam is benign and tolerated diet she can go home and follow-up office in 6-8 weeks (2) Helicobacter pylori gastritis: Code(s): K29.70 - Gastritis, unspecified, without bleeding; B96.81 - Helicobacter pylori [H. pylori] as the cause of diseases classified elsewhere Status: Acute Assessment and Plan: about to complete treatment we can check h pylori ag in stool in 8 weeks or so to confirm eradication (3) Microscopic colitis: Code(s): K52.839 - Microscopic colitis, unspecified Status: Acute Assessment and Plan: no more diarrhea, continue with 3 mg of budesonide daily (4) Acute on chronic kidney failure: Qualifiers: Acute renal failure type: unspecified Chronic kidney disease stage: unspecified stage Qualified Code(s): N17.9 - Acute kidney failure, unspecified; N18.9 - Chronic kidney disease, unspecified Code(s): N17.9 - Acute kidney failure, unspecified; N18.9 - Chronic kidney disease, unspecified Status: Acute Assessment and Plan: improved after fluids (5) Dehydration: Code(s): E86.0 - Dehydration Status: Acute Subjective Date/time seen: 09/17/20 09:42 Interval history: still had some abdominal pain but better and also had good night sleep, tolerated diet Review of Systems Review of Systems: All systems reviewed & are unremarkable except as noted in HPI and below Exam Const: General: comfortable and no acute distress Other: pleasant elderly HENMT: General nose exam: Normal nares present Eyes: General: appearance normal, both eyes and all related structures Neck: Neck: supple Resp: Auscultation: clear to auscultation bilaterally Cardio: Rate: regular rate GI: Inspection: non-distended GI Palp: Yes Soft to palpation, Yes Tenderness to palpation present (GI) (mild ttp epigastric, no rebound) and No Guarding due to palpation present (GI) Auscultation: normal bowel sounds Skin: General skin exam: normal color Neuro: Speech: normal speech Motor exam (neuro): Normal motor muscle tone present throughout Extrem: General: normal to inspection Psych: Affect: Anxious affect present Objective Data Vital Signs Vital Signs: Vital Signs - 24 hr 09/16/20 10:06 09/16/20 15:11 09/16/20 22:00 Temperature 97.6 F 97.8 F Pulse Rate 74 105 H Respiratory Rate 16 16 Blood Pressure 159/74 H 148/90 H Pulse Oximetry 99 99 99 09/17/20 06:00 Temperature 97.1 F L Pulse Rate 65 Respiratory Rate 16 Blood Pressure 178/70 H Pulse Oximetry 100 Intake/Output Intake/Output: Intake & Output 09/14/20 09/15/20 09/16/20 09/17/20 23:59 23:59 23:59 23:59 Intake Total 2100 3220 2040 Output Total 200 1200 200 Balance 1900 2020 1840 Meds/Results Medications: Active Medications Generic Name Dose Route Start Last Admin Trade Name Freq PRN Reason Stop Dose Admin Acetaminophen 650 mg 09/16/20 08:43 09/17/20 07:49 Acetaminophen 325 Mg Tablet PO 650 mg Q4H PRN Administration Pain or Fever Aspirin 81 mg 09/16/20 09:00 09/17/20 08:27 Aspirin 81 Mg Enteric Tablet PO 81 mg DAILY JEANA Administration Atorvastatin Calcium 10 mg 09/16/20 09:00 09/17/20 08:28 Atorvastatin 10 Mg Tablet PO 10 mg DAILY JEANA Administration Budesonide 3 mg 09/16/20 11:00 09/17/20 08:28 Budesonide 3 Mg Cap.Sr.24h PO 3 mg DAILY JEANA Administration Dextrose 12.5 gm 09/15/20 15:52 Dextrose 50% 25 Gm/50 Ml Syringe IV PUSH PRN PRN Hypoglycemia Protocol Duloxetine HCl 60 mg 09/16/20 09:00 09/17/20 08:28 Duloxetine Hcl 60 Mg Capsule.Dr PO 60 mg DAILY JEANA Administration Glucagon 1 mg 09/15/20 15:52 Glucagon For Inj 1 Mg Vial IM PRN PRN Hypoglycemia Protocol Glucose 15 gm 09/15
[2020-09-17 13:12] LABS: Glucose Point of Care 115 (65-105)
--- NOTE | 2020-09-17 14:27 | PM.DS ---
DS: Admitting Diagnosis Admitting Diagnosis Admitting Diagnosis: Abdominal pain DS: Discharge Diagnosis Discharge Diagnosis (1) Abdominal pain: Qualifiers: Abdominal location: unspecified location Qualified Code(s): R10.9 - Unspecified abdominal pain Code(s): R10.9 - Unspecified abdominal pain Status: Acute Assessment and Plan: Date of Admission 09/15/20 Date of Discharge 09/17/20 Ms. Golden is a 75yo F with history of CKD, hypertension, previous history of type 2 diabetes mellitus no longer on medications after recent weight loss, who presented to the ED for evaluation of abdominal pain. She recently had an outpatient EGD 08/22/[address] Christian which was performed due to unintentional 50 lb weight loss in the last 1 year, which demonstrated anurag esophagitis, h.pylori gastritis, and microscopic lymphocytic colitis. She completed 7-day course of fluconazole outpatient for the esophagitis. She was continued on tetracycline (started outpatient) for the h.pylori, and continued on oral budesonide inpatient. These 3 medications were prescribed by Dr Christian's office outpatient after her EGD. She presents now with abdominal pain which is suspected to be related to the above known issues, CT abdomen/pelvis detailed below. She was seen by Dr Christian here. She was treated with supportive care to include bowel rest and IV hydration. Creatinine was mildly elevated above her baseline and improved with IV fluids prior to discharge. Her symptoms were improved and her diet was advanced. GI recommended increasing her protonix to BID. She was evaluated by PT and walked 40' contact guard. She was discharged home in stable condition on 09/17/20 with instructions to continue her antibiotic therapy and follow up with Dr Christian outpatient. May be related to her known gastritis; may be side effects from medical regimen recently. EGD 08/22/[address] Christian - demonstrated anurag esophagitis (already completed 7-day course of fluconazole); h.pylori gastritis (completing abx therapy through 09/19 - continue tetracycline); microscopic lymphocytic colitis (continue oral budesonide). Continue tetracycline for h. pylori; increase PPI to BID; continue budesonide per Dr Christian recommendations. (2) Acute on chronic kidney failure: Qualifiers: Acute renal failure type: unspecified Chronic kidney disease stage: unspecified stage Qualified Code(s): N17.9 - Acute kidney failure, unspecified; N18.9 - Chronic kidney disease, unspecified Code(s): N17.9 - Acute kidney failure, unspecified; N18.9 - Chronic kidney disease, unspecified Status: Acute Assessment and Plan: Cr at baseline appears around 1.3 - 1.6 on review of previous labs. Cr 2.1 on arrival suspect related to poor oral intake; improved to 1.6 with IV hydration. Her HCTZ and losartan were held briefly and resumed once renal function improved. Monitor renal function outpatient. (3) Type 2 diabetes mellitus with stage 1 chronic kidney disease: Qualifiers: Diabetes mellitus chcf insulin use: without chcf use Qualified Code(s): E11.22 - Type 2 diabetes mellitus with diabetic chronic kidney disease; N18.1 - Chronic kidney disease, stage 1 Code(s): E11.22 - Type 2 diabetes mellitus with diabetic chronic kidney disease; N18.1 - Chronic kidney disease, stage 1 Status: Chronic Assessment and Plan: A1c 5.5%. She does not think she takes the Januvia anymore. Since her weight loss she has come off the medication. She was monitored with accu-cheks. (4) Hyperlipidemia, unspecified: Qualifiers: Hyperlipidemia type: other hyperlipidemia Qualified Code(s): E78.49 - Other hyperlipidemia Code(s): E78.5 - Hyperlipidemia, unspecified Status
== END 2020-09-17 16:30 | disposition home or self-care (01) ==
LOC: ANHED 13:21 → ANH3MED 13:38
PROVIDERS: Nurse Practitioner; Physician Assistant; Admitting Provider Family Medicine; Emergency Provider Emergency Medicine; PCP Internal Medicine; Visit Provider Internal Medicine
DX: R10.9 Unspecified abdominal pain (principal); K29.70 Gastritis, unspecified, without bleeding; B96.81 Helicobacter pylori [H. pylori] as the cause of diseases classified elsewhere; K52.839 Microscopic colitis, unspecified; E11.22 Type 2 diabetes mellitus with diabetic chronic kidney disease; E78.5 Hyperlipidemia, unspecified; G47.33 Obstructive sleep apnea (adult) (pediatric); I12.9 Hypertensive chronic kidney disease with stage 1 through stage 4 chronic kidney disease, or unspecified chronic kidney disease; N18.1 Chronic kidney disease, stage 1; N17.9 Acute kidney failure, unspecified; R63.4 Abnormal weight loss; Z90.49 Acquired absence of other specified parts of digestive tract; Z90.710 Acquired absence of both cervix and uterus; Z68.29 Body mass index [BMI] 29.0-29.9, adult; Z11.4 Encounter for screening for human immunodeficiency virus [HIV]
CPT/HCPCS: 36415; 74176; 80048; 80053; 81001; 82948; 83036; 83605; 83690; 83735; 84443; 85025; 86703; 96361; 96365; 96374; 96375; 97161; 97165; 99285; A9270; G0378; G0432; J0131; J0360; J2405; J3475; J7030

== ENCOUNTER 2020-09-22 15:29 | Inpatient (IN) | payer MEDICARE, OTHER, SELFPAY ==
--- NOTE | ~2020-09-22 | MR_ITS ---
EXAMINATION: MR abdomen wo/w con DATE: 09/27/2020 10:36 INDICATION: Worsening abdominal pain. Weight loss. TECHNIQUE: Magnetic resonance imaging (MRI) of the abdomen was performed without and with 14 mL Multi Gerson intravenous contrast. Sequences included coronal T2-weighted FS FSE, coronal and axial FS FIEST A, axial T2-weighted FSE, coronal LAVA-flex, axial STIR FSE, axial DWI, axial dual-echo T1-weighted F SPGR, and axial LAVA. Postcontrast sequences included coronal LAVA-flex and a time course of axial LA VA. COMPARISON: CT abdomen and pelvis 09/22/2020, 06/28/20 FINDINGS: There is heterogeneous hepatic steatosis. The gallbladder is absent. The spleen, pancreas, and adrena l glands are normal. There is cortical thinning of the kidneys. There is a 5 mm cyst in left kidney. There are no dilated loops of bowel. Aortic atherosclerosis is noted. There is mild stenosis of juan m c axis and moderate stenosis of superior mesenteric artery. There is severe stenosis of right renal a rtery. There are no pathologically enlarged lymph nodes. There is no free intraperitoneal fluid. Ther e are ventral hernias containing fat. IMPRESSION: 1. Right renal artery stenosis. 2. Ventral hernias containing fat. 3. Hepatic steatosis. Reviewed, dictated and finalized at location A.
--- NOTE | ~2020-09-22 | CT_ITS ---
EXAMINATION: CT abdomen pelvis wo con DATE: 09/22/2020 17:06 INDICATION: Abdominal pain. Nausea and vomiting. Diarrhea. TECHNIQUE: Computed tomography (CT) of the abdomen and pelvis was performed without intravenous contr ast. Automated exposure control and iterative reconstruction technique were employed. The dose-length product was 385.81 mGy-cm. COMPARISON: CT abdomen and pelvis 09/15/2020 FINDINGS: The visualized portions of the lung bases demonstrate mild atelectasis. No pleural effusion . The heart size is normal. There are coronary artery calcifications. There is a small pericardial ef fusion. There is diffuse hepatic steatosis. There are changes of cholecystectomy. The pancreas, adren al glands, and kidneys are normal. There is cortical thinning of the kidneys. There is no urolithiasi s. There is diverticulosis of the colon without evidence of diverticulitis. There are no dilated loop s of bowel. The appendix is not visualized. There are no pathologically enlarged lymph nodes. There i s no free intraperitoneal fluid. There are multiple supraumbilical and infraumbilical ventral hernias containing fat. There is severe thoracolumbar spondylosis. IMPRESSION: 1. Ventral hernias containing fat. 2. Diffuse hepatic steatosis. 3. New small pericardial effusion. Reviewed, dictated and finalized at location A.
--- NOTE | ~2020-09-22 | CT_ITS ---
EXAMINATION: CTA chest PE protocol DATE: 09/27/2020 13:38 INDICATION: Tachycardia. Elevated troponin. TECHNIQUE: Computed tomography angiography (CTA) of the chest was performed with 100 mL Omnipaque-350 intravenous contrast timed to evaluate the pulmonary arteries. Coronal maximum intensity projection 3D-reconstructions were created by the technologist. Automated exposure control and iterative reconst ruction technique were employed. Exam dose: 273.31 mGy-cm total exam DLP. COMPARISON: 06/28/2020 CT chest abdomen PA and lateral chest FINDINGS: There is diagnostic contrast enhancement of the pulmonary arteries. Intraluminal thrombus i s identified within posterior segment right upper lobe pulmonary artery. There is limited right lower lobe pulmonary embolism as well. There is thoracic aortic calcification and ectasia. No hilar or mediastinal mass lesion or lymphadeno lexus. Heart size is within normal range. There is coronary artery calcification. No pulmonary infiltrate or consolidation or pulmonary mass lesion. Small sliding hiatal hernia. Status post cholecystectomy. Diffuse idiopathic skeletal hyperostosis of the thoracic spine. Degenerative changes of the lower cer vical and upper lumbar spine. IMPRESSION: Mild right upper and lower lobe segmental pulmonary embolism Dr. Keyes telephoned the finding of right pulmonary embolism to the third mid third nurse Sissy on 09/27 at 1400 hours. Reviewed, dictated and finalized at [facility]. Reviewed, dictated and finalized at location A. IMPRESSION: Mild right upper and lower lobe segmental pulmonary embolism Dr. Keyes telephoned the finding of right pulmonary embolism to the third mid th ird nurse Sissy on 09/27/2020 at 1400 hours.
--- NOTE | ~2020-09-22 | US_ITS ---
EXAMINATION: US venous doppler [facility] EXAM DATE: 09/27/2020 15:55 INDICATION: Pulmonary embolism. Elevated troponin. TECHNIQUE: Multiple grayscale, color flow and Doppler images of the lower extremity deep venous syste ms bilaterally were obtained and reviewed. Comparison is made to prior examination from 02/07/2019. FINDINGS: Right side: The right common femoral, femoral and profunda veins demonstrate normal color flow, respi ratory variation, augmentation and compressibility. Compressibility, color flow confirmed within the right popliteal, posterior tibial, peroneal, and greater saphenous veins. Left side: The left common femoral, femoral and profunda veins demonstrate normal color flow, respira tory variation, augmentation and compressibility. Compressibility, color flow confirmed within the l eft popliteal, posterior tibial, peroneal, and greater saphenous veins. IMPRESSION: No lower extremity deep venous thrombosis bilaterally. Reviewed, dictated and finalized at location A.
--- NOTE | ~2020-09-22 | XR_ITS ---
EXAMINATION: XR chest 2V DATE: 09/27/2020 13:24 INDICATION: Tachycardia. TECHNIQUE: Frontal and lateral views of the chest were obtained. COMPARISON: Chest 2 views 07/14/2018 FINDINGS: The chest demonstrates clear lungs without pneumonia, pleural effusion, or pneumothorax. Th e heart size is normal. Surgical clips in the right upper quadrant are likely from cholecystectomy. IMPRESSION: 1. No acute cardiopulmonary disease. Reviewed, dictated and finalized at location A.
--- NOTE | ~2020-09-22 | US_ITS ---
EXAMINATION: US abdomen duplex complete DATE: 09/25/2020 09:07 INDICATION: Intractable abdominal pain. TECHNIQUE: Multiple grayscale and Doppler ultrasound images of the abdomen were obtained. COMPARISON: CT abdomen and pelvis 06/28/2020 FINDINGS: Peak systolic velocity is 167 cm/s diastolic axis, 297 cm/s in superior mesenteric artery, 114 cm/s in common hepatic artery, and 146 cm/s in splenic artery. IMPRESSION: 1. 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 Note that the CT from 06/28/20 d emonstrates moderate stenosis. Reviewed, dictated and finalized at location A. IMPRESSION: 1. 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 Note byron t the CT from 06/28/20 demonstrates moderate stenosis.
[2020-09-22 15:31] VITALS: BP 150/102; PULSE 96; RESP 20; TEMP 36.4; O2SAT 97
[2020-09-22] MEDS: SODIUM CHLORIDE 0.9% IV 500 ML 999 ML IV CONT (16:26)
[2020-09-22] MEDS: PANTOPRAZOLE SODIUM IV 40 MG VIAL IV PUSH (16:27)
[2020-09-22] MEDS: HYOSCYAMINE SULFATE 0.125 MG TABLET PO (16:27)
[2020-09-22 16:30] LABS: Basophils Absolute Auto 0.1 K/mm3 (0.0-0.1); Basophils Percent Auto 0.5 % (0.2-1.2); Eosinophils Percent Auto 0.3 % (0-4.4); Hematocrit 42.8 % (37.0-47.0); Hemoglobin 13.6 g/dL (12.0-15.0); Immature Granulocyte Absolute 0.04 K/mm3 (0.00-0.031); Immature Granulocyte Percent A 0.4 % (0-0.5); Lymphocytes Absolute Auto 2.58 K/mm3 (0.9-3.2); Lymphocytes Percent Auto 28.4 % (18.3-44.2); Mean Corpuscular HGB Conc 31.8 g/dl (32-36); Mean Corpuscular Hemoglobin 29.5 pg (26-34); Mean Corpuscular Volume 92.8 fl (80-100); Mean Platelet Volume 10.5 fl (7.4-10.4); Monocytes Absolute Auto 0.5 K/mm3 (0.1-0.6); Monocytes Percent Auto 4.9 % (2.6-8.5); Neutrophils Percent Auto 65.5 % (45.5-73.1); Platelet Count Result 283 k/mm3 (150-375); Red Blood Count 4.61 M/mm3 (4.2-5.4); Red Cell Distribution Width 12.8 % (11.5-14.5); White Blood Count 9.1 K/mm3 (4.5-10.0)
[2020-09-22 16:42] LABS: Alanine Aminotransferase 73 U/L (4-35); Albumin Level 4.2 g/dL (3.5-5.1); Alkaline Phosphatase 134 U/L (38-126); Anion Gap 15 mmol/L (8-16); Aspartate Amino Transferase 75 U/L (14-36); Bilirubin,Total 0.7 mg/dL (0.2-1.3); Blood Urea Nitrogen 55 mg/dL (7-17); Calcium 9.5 mg/dL (8.4-10.2); Carbon Dioxide 16 mmol/L (22-30); Chloride 106 mmol/L (98-107); Estimated Glomerular Filt Rate 21; Glucose 198 mg/dL (65-105); Lipase 517 U/L (23-300); Potassium 4.8 mmol/L (3.4-5.0); Sodium 137 mmol/L (137-145)
--- NOTE | 2020-09-22 16:42 | ED.GENADULT ---
HPI - General Adult General Chief complaint: Abdominal Pain Stated complaint: abd pain Time Seen by Provider: 09/22/20 15:34 Source: patient Mode of arrival: ambulatory Limitations: no limitations History of Present Illness HPI narrative: Patient is a 75-year-old female who presents to emergency department for evaluation of abdominal pain with nausea and vomiting today patient has been having for the last year bouts of abdominal pain noting history of diverticulitis patient had recent hospitalization with similar occurrence was sent home on antibiotics but notes she quit taking them due to nausea patient was seen by GI Dr. Christian and managed by primary care patient since her hospitalization has not followed up with her casting carrier. Patient denies any rectal bleeding or melena but does note loose stools. Patient lives at home by herself and notes that she has also had increasing weakness with her diarrhea. Patient denies fever Related Data Home Medications Medication Instructions Recorded Confirmed aspirin 81 mg PO DAILY 08/09/20 09/15/20 losartan-hydrochlorothiazide 1 tablet PO DAILY 08/09/20 09/15/20 tetracycline 500 mg PO BID 09/15/20 09/15/20 budesonide 3 mg PO DAILY 09/16/20 09/16/20 Allergies Allergy/AdvReac Type Severity Reaction Status Date / Time adhesive tape Allergy Severe RASH Verified 09/22/20 15:37 amitriptyline Allergy Unknown Rash Verified 09/22/20 15:37 ciprofloxacin Allergy Unknown Dizziness Verified 09/22/20 15:37 levofloxacin Allergy Unknown Swelling Verified 09/22/20 15:37 tetracycline AdvReac Nausea and Verified 09/22/20 15:38 Vomiting Review of Systems Review of Systems: All systems reviewed & are unremarkable except as noted in HPI and below PMFSH Past Medical History Medical History Benign essential hypertension Dehydration Helicobacter pylori gastritis History of CVA (cerebrovascular accident) HTN (hypertension) with goal to be determined Hyperlipidemia, unspecified Microscopic colitis LUKE on CPAP Intolerant of a CPAP Statin intolerance Type 2 diabetes mellitus with stage 1 chronic kidney disease Upper abdominal pain Urinary incontinence Surgical History Surgical History H/O rectal polypectomy H/O: hysterectomy History of knee replacement bilateral knee replaced History of laparoscopic cholecystectomy Family History Family History (Updated 09/15/20 @ 15:45 by Dianna Nur NP) Mother Family history of osteoporosis Father Family history of diabetes mellitus in first degree relative Sibling Diabetes mellitus 2 sisters Other Family history of arthritis Family history of cardiovascular disease Hypertension Social History Social History Social History: the patient has 4 children. She is . 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 She lives home alone with her little 6 lb dog. She rarely drinks. She is a lifelong nonsmoker. She does not use any marijuana or illicit drugs. Smoking status: Never smoker Alcohol intake: current Drinks per week: 2 Substance use: never Gender identity (if verbalized by the patient): Female Spiritual care concerns: No Exam Narrative: Exam Narrative: GENERAL: Well-appearing, well-nourished, and in no acute distress. HEAD: Normocephalic, atraumatic. EYES: PERRLA and EOMI. ENT: Nares clear, no rhinorrhea or epistaxis. Mucous membranes moist. CHEST: Clear to auscultation. No respiratory distress. No wheezes rales or rhonchi HEART: Regular rate and rhythm. No murmur heard. Normal peripheral pulses. ABDOMEN: Soft, generalized tenderness, nondistended, normal active bowel sounds. EXTREMITIES: Normal range of motion. No edema. SKIN: Warm, dry, no rash. NEURO: No focal deficits. Alert and oriented x3.
[2020-09-22 16:58] LABS: Add Urine Microscopic? YES; Appearance Urine Clear (Clear); Bilirubin Urine Negative (Negative); Blood Urine Negative (Negative); Color Urine Yellow (Yellow); Glucose Urine UA Negative (Negative); Ketones Urine Negative (Negative); Leukocyte Esterase Ur Negative LEU/UL (Negative); Mucus Urine Rare /lpf; Nitrate Urine Negative (Negative); Protein Urine 1+ mg/dL (Negative); RBC Urine 0-2 /hpf (0-2); Specific Grav Ur 1.016 (1.001-1.035); Squamous Epithelial Cell Urine Rare /hpf (Few); Urobilinogen Urine Negative mg/dL (<2.0); WBC Urine 0-3 /hpf
[2020-09-22 17:26] VITALS: BP 139/88; PULSE 76; RESP 18; O2SAT 100
[2020-09-22 18:41] VITALS: BP 137/95; PULSE 109; RESP 18; O2SAT 100
[2020-09-22 19:28] LABS: Reflex Lactic Acid Yes or No Add Lactic
[2020-09-22 19:48] VITALS: BP 146/81; PULSE 84; RESP 18; O2SAT 100
[2020-09-22 20:00] LABS: Lactic Acid 1.4 mmol/L (0.7-2.1)
--- NOTE | 2020-09-22 20:28 | PM.IMHP ---
H&P: HPI History of Present Illness Date/Time: 09/22/20 20:28 Chief Complaint: epigastric pain+ Narrative: This is a pleasant 75-year-old diabetic female with known history of chronic kidney disease stage III, chronic anemia, GERD, hypertension, among many other comorbidities who was just admitted to our hospitalist service and discharged this past weekend and now returned with similar complaints of severe epigastric pain and dyspepsia. During the patient's most recent hospitalization she had an endoscopy performed which demonstrated H pylori gastritis as well as Tess esophagitis. The patient remarks that she felt slightly better when she got home although she was too weak to do her normal activities of daily living and has not been able to tolerate much intake of food or fluid. She describes getting very nauseated and having abdominal pain with intake of any food. She reports vomiting for more than half an hour last night and having ongoing diarrhea which she states is chronic. Tonight she denies any fever, chills, chest pain, shortness of breath, cough, dysuria, hematuria, rectal bleeding, or focal neurological deficits. The patient was evaluated emergency room today and found to have acute renal failure with a creatinine of 2.30. It appears that her baseline creatinine is between 1.3-1.6. CT abdomen pelvis was obtained in the emergency room tonight and showed ventral hernias containing fat, diffuse hepatic steatosis, and a new small pericardial effusion. Patient has been treated emergency room with IV fluids, pain medication, Protonix and gastroenterology has been consulted by ER provider. We have been asked to admit the patient to the hospital for further care. She has no other complaints at this time. Review of Systems Review of Systems: All systems reviewed & are unremarkable except as noted in HPI and below PMFSH Past Medical History Medical History Benign essential hypertension Dehydration Helicobacter pylori gastritis History of CVA (cerebrovascular accident) HTN (hypertension) with goal to be determined Hyperlipidemia, unspecified Microscopic colitis LUKE on CPAP Intolerant of a CPAP Statin intolerance Type 2 diabetes mellitus with stage 1 chronic kidney disease Upper abdominal pain Urinary incontinence Surgical History Surgical History H/O rectal polypectomy H/O: hysterectomy History of knee replacement bilateral knee replaced History of laparoscopic cholecystectomy Family History Family History Mother Family history of osteoporosis Father Family history of diabetes mellitus in first degree relative Sibling Diabetes mellitus 2 sisters Other Family history of arthritis Family history of cardiovascular disease Hypertension Social History Social History Social History: the patient has 4 children. She is . 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 She lives home alone with her little 6 lb dog. She rarely drinks. She is a lifelong nonsmoker. She does not use any marijuana or illicit drugs. Smoking status: Never smoker Alcohol intake: current Drinks per week: 2 Substance use: never Gender identity (if verbalized by the patient): Female Spiritual care concerns: No Meds Home Medications and Allergies Home Medications Medication Instructions Recorded Confirmed Type aspirin 81 mg PO DAILY 08/09/20 09/15/20 History atorvastatin 10 mg tablet 10 mg PO DAILY #90 tablet 08/09/20 09/15/20 Rx duloxetine 60 mg capsule,delayed 60 mg PO DAILY #90 cap 08/09/20 09/15/20 Rx release losartan-hydrochlorothiazide 1 tablet PO DAILY 08/09/20 09/15/20 History tetracycline 500 mg PO BID 09/15/20 09/15/20 History budesonide 3 mg PO DAILY 09/16/20
[2020-09-22] MEDS: ONDANSETRON INJ 4 MG/2 ML VIAL IV PUSH (20:30)
[2020-09-22 20:54] VITALS: BP 137/99; PULSE 87; RESP 25; O2SAT 100
--- NOTE | 2020-09-22 21:20 | PC.NURSE ---
Report given to floor RN.
[2020-09-22 21:35] VITALS: BP 147/79; PULSE 84; RESP 18; TEMP 36.1; O2SAT 97; BMI 27.6
[2020-09-22] MEDS: LACTATED RINGERS 1,000 ML 80 ML IV CONT (22:13)
[2020-09-22 22:32] LABS: Glucose Point of Care 96 (65-105)
[2020-09-23 01:49] VITALS: PULSE 80; O2SAT 94
[2020-09-23 05:56] LABS: Glucose Point of Care 82 (65-105)
[2020-09-23 06:00] VITALS: BP 145/74; PULSE 76; RESP 18; TEMP 36.4; O2SAT 99
[2020-09-23 06:37] LABS: Basophils Absolute Auto 0.1 K/mm3 (0.0-0.1); Basophils Percent Auto 0.7 % (0.2-1.2); Eosinophils Absolute Auto 0.1 K/mm3 (0-0.3); Eosinophils Percent Auto 0.9 % (0-4.4); Hemoglobin 12.2 g/dL (12.0-15.0); Immature Granulocyte Absolute 0.05 K/mm3 (0.00-0.031); Immature Granulocyte Percent A 0.4 % (0-0.5); Lymphocytes Absolute Auto 4.08 K/mm3 (0.9-3.2); Lymphocytes Percent Auto 33.2 % (18.3-44.2); Mean Corpuscular HGB Conc 32.1 g/dl (32-36); Mean Corpuscular Hemoglobin 29.2 pg (26-34); Mean Corpuscular Volume 90.9 fl (80-100); Mean Platelet Volume 11.1 fl (7.4-10.4); Monocytes Absolute Auto 0.9 K/mm3 (0.1-0.6); Monocytes Percent Auto 7.5 % (2.6-8.5); Neutrophils Absolute Auto 7.1 K/mm3 (1.3-6.7); Neutrophils Percent Auto 57.3 % (45.5-73.1); Platelet Count Result 250 k/mm3 (150-375); Red Blood Count 4.18 M/mm3 (4.2-5.4); Red Cell Distribution Width 12.7 % (11.5-14.5); White Blood Count 12.3 K/mm3 (4.5-10.0)
[2020-09-23 06:45] LABS: Alanine Aminotransferase 62 U/L (4-35); Albumin Level 3.3 g/dL (3.5-5.1); Alkaline Phosphatase 120 U/L (38-126); Anion Gap 9 mmol/L (8-16); Aspartate Amino Transferase 58 U/L (14-36); Bilirubin,Total 0.6 mg/dL (0.2-1.3); Blood Urea Nitrogen 57 mg/dL (7-17); Calcium 9.1 mg/dL (8.4-10.2); Carbon Dioxide 19 mmol/L (22-30); Chloride 107 mmol/L (98-107); Estimated CRCL calculation 19 ml/min; Estimated Glomerular Filt Rate 24; Glucose 99 mg/dL (65-105); Potassium 4.7 mmol/L (3.4-5.0); Sodium 135 mmol/L (137-145)
--- NOTE | 2020-09-23 07:01 | ADMGEN ---
This patient, Swetha Golden, was admitted to 3 [facility] Room 330-01. Patient/family oriented to hospital policies and general routines including ID bracelet, bed and alarms, visiting hours, pain management, procedures, bathroom and other care routines, personal items, smoking policy, room service/diet, and visiting hours. Information on how to activate the Rapid Response Team has been discussed. Patient/Family are encouraged to report perceived risks to care and to ask questions if they do not understand what they are told or what they should do. Patient arrived at 2135, she was pleasant and her memory appeared to be intact in spite of a diagnosis of early dementia. She discussed her plans over the past year and that she had been unable to carry through with them r/t her condition. She states that she has lost 60 lbs in the past year and had chronic intermittent nausea and vomiting. We discussed hospital policy, call light use, and the importance of calling for assistance r/t mobility problems.
[2020-09-23] MEDS: PANTOPRAZOLE SODIUM IV 40 MG VIAL IV PUSH ×2 (08:39→21:06)
[2020-09-23] MEDS: ONDANSETRON INJ 4 MG/2 ML VIAL IV PUSH ×2 (09:50→18:10)
[2020-09-23] MEDS: MORPHINE SULFATE (*CRX) 2 MG/ML INJ IV PUSH ×2 (09:51→18:15)
--- NOTE | 2020-09-23 09:58 | P.PNIM_ITS ---
Progress Note: A&P Assessment and Plan (1) Epigastric pain: Code(s): R10.13 - Epigastric pain Status: Acute Assessment and Plan: Appears to be secondary to gastritis although other etiologies including acute vs chronic pancreatitis or gastroparesis in differential. Lipase mildly elevated although no correlation on CT imaging. GI consulted from ED and appreciate recommendations. T * NPO with sips with meds; Bowel rest. * Pain control as needed. * Continue PPI BID therapy. * Continue GI recommendations. * IV fluids for now * Pending GI rec, will consider further imaging * Lipase/amylase now; lipid panel tomorrow am (2) Acute on chronic renal failure: Code(s): N17.9 - Acute kidney failure, unspecified; N18.9 - Chronic kidney disease, unspecified Status: Acute Assessment and Plan: Secondary to nausea vomiting and diarrhea. Cr 2.00 today; improved with IV fluids * Continue IV fluid * Monitor renal function and urine output. * Avoid nephrotoxic agents, renally dose medications. (3) Acute dehydration: Code(s): E86.0 - Dehydration Status: Acute Assessment and Plan: * Continue IV fluids. * Monitor urine output and vital signs. (4) Helicobacter pylori gastritis: Code(s): K29.70 - Gastritis, unspecified, without bleeding; B96.81 - Helicobacter pylori [H. pylori] as the cause of diseases classified elsewhere Status: Chronic Assessment and Plan: * Continue GI recommendations for same (5) Transaminitis: Code(s): R74.01 - Elevation of levels of liver transaminase levels Status: Acute Assessment and Plan: Improving. Appears to be secondary to fatty liver disease. * Monitor LFTs * Hold statin (6) Type 2 diabetes mellitus with stage 1 chronic kidney disease: Qualifiers: Diabetes mellitus fdc insulin use: without intermediate card tender use Qualified Code(s): E11.22 - Type 2 diabetes mellitus with diabetic chronic kidney disease; N18.1 - Chronic kidney disease, stage 1 Code(s): E11.22 - Type 2 diabetes mellitus with diabetic chronic kidney disease; N18.1 - Chronic kidney disease, stage 1 Status: Chronic Assessment and Plan: A1c 5.5 * Accu-Cheks Q6hr, sliding scale insulin coverage, hypoglycemia protocol. * Monitor closely (7) Hyperlipidemia, unspecified: Qualifiers: Hyperlipidemia type: other hyperlipidemia Qualified Code(s): E78.49 - Other hyperlipidemia Code(s): E78.5 - Hyperlipidemia, unspecified Status: Chronic Assessment and Plan: * Resume atorvastatin when LFTs improved (8) Benign essential hypertension: Code(s): I10 - Essential (primary) hypertension Status: Chronic Assessment and Plan: BP 140s sys * Monitor blood pressure. * Resume losartan hydrochlorothiazide when the patient's renal function has improved. * P.r.n. IV antihypertensives as needed. (9) Gastroesophageal reflux disease: Qualifiers: Esophagitis presence: esophagitis presence not specified Qualified Code(s): K21.9 - Gastro-esophageal reflux disease without esophagitis Code(s): K21.9 - Gastro-esophageal reflux disease without esophagitis Status: Chronic Assessment and Plan: * C
--- NOTE | 2020-09-23 09:58 | PM.IMPN ---
Progress Note: A&P Assessment and Plan (1) Epigastric pain: Code(s): R10.13 - Epigastric pain Status: Acute Assessment and Plan: Appears to be secondary to gastritis although other etiologies including acute vs chronic pancreatitis or gastroparesis in differential. Lipase mildly elevated although no correlation on CT imaging. GI consulted from ED and appreciate recommendations. T NPO with sips with meds; Bowel rest. Pain control as needed. Continue PPI BID therapy. Continue GI recommendations. IV fluids for now Pending GI rec, will consider further imaging Lipase/amylase now; lipid panel tomorrow am (2) Acute on chronic renal failure: Code(s): N17.9 - Acute kidney failure, unspecified; N18.9 - Chronic kidney disease, unspecified Status: Acute Assessment and Plan: Secondary to nausea vomiting and diarrhea. Cr 2.00 today; improved with IV fluids Continue IV fluid Monitor renal function and urine output. Avoid nephrotoxic agents, renally dose medications. (3) Acute dehydration: Code(s): E86.0 - Dehydration Status: Acute Assessment and Plan: Continue IV fluids. Monitor urine output and vital signs. (4) Helicobacter pylori gastritis: Code(s): K29.70 - Gastritis, unspecified, without bleeding; B96.81 - Helicobacter pylori [H. pylori] as the cause of diseases classified elsewhere Status: Chronic Assessment and Plan: Continue GI recommendations for same (5) Transaminitis: Code(s): R74.01 - Elevation of levels of liver transaminase levels Status: Acute Assessment and Plan: Improving. Appears to be secondary to fatty liver disease. Monitor LFTs Hold statin (6) Type 2 diabetes mellitus with stage 1 chronic kidney disease: Qualifiers: Diabetes mellitus usp insulin use: without cracker sprayer use Qualified Code(s): E11.22 - Type 2 diabetes mellitus with diabetic chronic kidney disease; N18.1 - Chronic kidney disease, stage 1 Code(s): E11.22 - Type 2 diabetes mellitus with diabetic chronic kidney disease; N18.1 - Chronic kidney disease, stage 1 Status: Chronic Assessment and Plan: A1c 5.5 Accu-Cheks Q6hr, sliding scale insulin coverage, hypoglycemia protocol. Monitor closely (7) Hyperlipidemia, unspecified: Qualifiers: Hyperlipidemia type: other hyperlipidemia Qualified Code(s): E78.49 - Other hyperlipidemia Code(s): E78.5 - Hyperlipidemia, unspecified Status: Chronic Assessment and Plan: Resume atorvastatin when LFTs improved (8) Benign essential hypertension: Code(s): I10 - Essential (primary) hypertension Status: Chronic Assessment and Plan: BP 140s sys Monitor blood pressure. Resume losartan hydrochlorothiazide when the patient's renal function has improved. P.r.n. IV antihypertensives as needed. (9) Gastroesophageal reflux disease: Qualifiers: Esophagitis presence: esophagitis presence not specified Qualified Code(s): K21.9 - Gastro-esophageal reflux disease without esophagitis Code(s): K21.9 - Gastro-esophageal reflux disease without esophagitis Status: Chronic Assessment and Plan: Continue Protonix Q12 hr for now Subjective Date/time seen: 09/23/20 09:58 Interval history: Patient is a 75 yo F with history of diabetic female with known history of chronic kidney disease stage III, chronic anemia, GERD, hypertension, among many other comorbidities who was just admitted to our hospitalist service and discharged on 09/17 and now returned to hospital
[2020-09-23 10:22] LABS: Amylase 105 U/L (30-110); Lipase 456 U/L (23-300)
[2020-09-23] MEDS: LACTATED RINGERS 1,000 ML 80 ML IV CONT (10:57)
[2020-09-23 11:39] LABS: Glucose Point of Care 92 (65-105)
[2020-09-23 14:00] VITALS: BP 137/72; PULSE 82; RESP 18; TEMP 36.8; O2SAT 99
[2020-09-23] MEDS: SODIUM CHLORIDE 0.9% IV 500 ML IV CONT (14:09)
[2020-09-23 14:21] VITALS: BP 124/72; BP 132/78
[2020-09-23 18:36] LABS: Glucose Point of Care 83 (65-105)
[2020-09-23 21:36] VITALS: BP 143/72; PULSE 86; RESP 16; TEMP 36.2; O2SAT 100
[2020-09-23 22:22] VITALS: PULSE 85; O2SAT 99
[2020-09-24] MEDS: ONDANSETRON INJ 4 MG/2 ML VIAL IV PUSH ×3 (00:19→11:04)
[2020-09-24 00:24] LABS: Glucose Point of Care 98 (65-105)
[2020-09-24] MEDS: LACTATED RINGERS 1,000 ML 80 ML IV CONT ×2 (02:28→18:01)
[2020-09-24 06:00] VITALS: BP 151/80; PULSE 80; RESP 18; TEMP 36.4; O2SAT 97
[2020-09-24 06:07] LABS: Glucose Point of Care 82 (65-105)
[2020-09-24 06:09] LABS: Hematocrit 34.6 % (37.0-47.0); Hemoglobin 10.9 g/dL (12.0-15.0); Mean Corpuscular HGB Conc 31.5 g/dl (32-36); Mean Corpuscular Hemoglobin 29.5 pg (26-34); Mean Corpuscular Volume 93.5 fl (80-100); Mean Platelet Volume 11.2 fl (7.4-10.4); Platelet Count Result 213 k/mm3 (150-375); Red Cell Distribution Width 12.8 % (11.5-14.5); White Blood Count 9.3 K/mm3 (4.5-10.0)
[2020-09-24 06:21] LABS: Alanine Aminotransferase 54 U/L (4-35); Alkaline Phosphatase 109 U/L (38-126); Anion Gap 7 mmol/L (8-16); Aspartate Amino Transferase 56 U/L (14-36); Bilirubin,Total 0.5 mg/dL (0.2-1.3); Blood Urea Nitrogen 52 mg/dL (7-17); Calcium 8.5 mg/dL (8.4-10.2); Carbon Dioxide 22 mmol/L (22-30); Chloride 108 mmol/L (98-107); Cholesterol 63 mg/dL (0-200); Estimated CRCL calculation 20 ml/min; Estimated Glomerular Filt Rate 26; Glucose 83 mg/dL (65-105); HDL Direct 30 mg/dL; Magnesium 1.6 mg/dL (1.6-2.3); Potassium 5.1 mmol/L (3.4-5.0); Sodium 137 mmol/L (137-145); Triglycerides 56 mg/dL (<150)
--- NOTE | 2020-09-24 06:25 | PC.NURSE ---
Patient repetitively dry heaving this morning, vomited minimal amount, gave PRN Zofran. -AEW RN
[2020-09-24 06:35] LABS: LDL Cholesterol Direct < 30 mg/dL
[2020-09-24] MEDS: BUDESONIDE 3 MG CAP.SR.24H PO (10:04)
[2020-09-24] MEDS: ASPIRIN 81 MG ENTERIC TABLET PO (10:04)
[2020-09-24] MEDS: DULoxetine HCL 60 MG CAPSULE.DR PO (10:04)
[2020-09-24] MEDS: PANTOPRAZOLE SODIUM IV 40 MG VIAL IV PUSH ×2 (10:05→19:43)
[2020-09-24] MEDS: MORPHINE SULFATE (*CRX) 2 MG/ML INJ IV PUSH (11:04)
[2020-09-24 11:25] LABS: Hepatitis B Surface Antigen Negative (Negative)
[2020-09-24 11:30] LABS: HAV RESULT Negative (Negative); Hepatitis B Core IgM Result Negative (Negative)
[2020-09-24 11:42] LABS: Hepatitis C Virus Antibody Negative (Negative)
[2020-09-24 12:21] LABS: Glucose Point of Care 82 (65-105)
--- NOTE | 2020-09-24 12:38 | P.PNIM_ITS ---
Progress Note: A&P Assessment and Plan (1) Epigastric pain: Code(s): R10.13 - Epigastric pain Status: Acute Assessment and Plan: Appears to be secondary to gastritis as patient's daughter now believes she did not complete more than 5 days of treatment; although other etiologies including acute vs chronic pancreatitis vs gastroparesis vs ischemic bowel in differential. Lipase mildly elevated although no correlation on CT imaging in regards to her pancreas. GI consulted from ED and appreciate recommendations. Patient thinks celiac testing was negative; this has been redrawn today. * NPO with sips with meds; Bowel rest. * Pain control as needed. * Continue PPI BID therapy. * Continue GI recommendations. * IV fluids for now * Pending GI rec, will consider further imaging * Will likely need further treatment for H. Pyloir; await rec from GI (2) Acute on chronic renal failure: Code(s): N17.9 - Acute kidney failure, unspecified; N18.9 - Chronic kidney disease, unspecified Status: Acute Assessment and Plan: Secondary to nausea vomiting and diarrhea. Cr 1.90 today; improved with IV fluids * Continue IV fluid * Monitor renal function and urine output. * Avoid nephrotoxic agents, renally dose medications. (3) Acute dehydration: Code(s): E86.0 - Dehydration Status: Acute Assessment and Plan: * Continue IV fluids. * Monitor urine output and vital signs. (4) Helicobacter pylori gastritis: Code(s): K29.70 - Gastritis, unspecified, without bleeding; B96.81 - Helicobacter pylori [H. pylori] as the cause of diseases classified elsewhere Status: Chronic Assessment and Plan: * Continue GI recommendations for same (5) Transaminitis: Code(s): R74.01 - Elevation of levels of liver transaminase levels Status: Acute Assessment and Plan: Slowly improving/stable. Appears to be secondary to fatty liver disease. * Monitor LFTs * Hold statin for now (6) Type 2 diabetes mellitus with stage 1 chronic kidney disease: Qualifiers: Diabetes mellitus remote computer terminal operator insulin use: without remote computer terminal operator use Qualifi ed Code(s): E11.22 - Type 2 diabetes mellitus with diabetic chronic kidney disease; N18.1 - Chronic kidney disease, stage 1 Code(s): E11.22 - Type 2 diabetes mellitus with diabetic chronic kidney disease; N18.1 - Chronic kidney disease, stage 1 Status: Chronic Assessment and Plan: A1c 5.5 * Accu-Cheks Q6hr, sliding scale insulin coverage, hypoglycemia protocol. * Monitor closely (7) Hyperlipidemia, unspecified: Qualifiers: Hyperlipidemia type: other hyperlipidemia Qualified Code(s): E78.49 - Other hyperlipidemia Code(s): E78.5 - Hyperlipidemia, unspecified Status: Chronic Assessment and Plan: * Resume atorvastatin when LFTs improved (8) Benign essential hypertension: Code(s): I10 - Essential (primary) hypertension Status: Chronic Assessment and Plan: BP 150s sys * Monitor blood pressure. * Resume losartan hydrochlorothiazide when the patient's renal function has improved. * P.r.n. IV antihypertensives as needed. (9) Gastroesophageal reflux disease: Qualifiers: Esophagitis presence: esophagitis pre
--- NOTE | 2020-09-24 12:38 | PM.IMPN ---
Progress Note: A&P Assessment and Plan (1) Epigastric pain: Code(s): R10.13 - Epigastric pain Status: Acute Assessment and Plan: Appears to be secondary to gastritis as patient's daughter now believes she did not complete more than 5 days of treatment; although other etiologies including acute vs chronic pancreatitis vs gastroparesis vs ischemic bowel in differential. Lipase mildly elevated although no correlation on CT imaging in regards to her pancreas. GI consulted from ED and appreciate recommendations. Patient thinks celiac testing was negative; this has been redrawn today. NPO with sips with meds; Bowel rest. Pain control as needed. Continue PPI BID therapy. Continue GI recommendations. IV fluids for now Pending GI rec, will consider further imaging Will likely need further treatment for H. Pyloir; await rec from GI (2) Acute on chronic renal failure: Code(s): N17.9 - Acute kidney failure, unspecified; N18.9 - Chronic kidney disease, unspecified Status: Acute Assessment and Plan: Secondary to nausea vomiting and diarrhea. Cr 1.90 today; improved with IV fluids Continue IV fluid Monitor renal function and urine output. Avoid nephrotoxic agents, renally dose medications. (3) Acute dehydration: Code(s): E86.0 - Dehydration Status: Acute Assessment and Plan: Continue IV fluids. Monitor urine output and vital signs. (4) Helicobacter pylori gastritis: Code(s): K29.70 - Gastritis, unspecified, without bleeding; B96.81 - Helicobacter pylori [H. pylori] as the cause of diseases classified elsewhere Status: Chronic Assessment and Plan: Continue GI recommendations for same (5) Transaminitis: Code(s): R74.01 - Elevation of levels of liver transaminase levels Status: Acute Assessment and Plan: Slowly improving/stable. Appears to be secondary to fatty liver disease. Monitor LFTs Hold statin for now (6) Type 2 diabetes mellitus with stage 1 chronic kidney disease: Qualifiers: Diabetes mellitus local company intermodal truck driver insulin use: without residential use Qualified Code(s): E11.22 - Type 2 diabetes mellitus with diabetic chronic kidney disease; N18.1 - Chronic kidney disease, stage 1 Code(s): E11.22 - Type 2 diabetes mellitus with diabetic chronic kidney disease; N18.1 - Chronic kidney disease, stage 1 Status: Chronic Assessment and Plan: A1c 5.5 Accu-Cheks Q6hr, sliding scale insulin coverage, hypoglycemia protocol. Monitor closely (7) Hyperlipidemia, unspecified: Qualifiers: Hyperlipidemia type: other hyperlipidemia Qualified Code(s): E78.49 - Other hyperlipidemia Code(s): E78.5 - Hyperlipidemia, unspecified Status: Chronic Assessment and Plan: Resume atorvastatin when LFTs improved (8) Benign essential hypertension: Code(s): I10 - Essential (primary) hypertension Status: Chronic Assessment and Plan: BP 150s sys Monitor blood pressure. Resume losartan hydrochlorothiazide when the patient's renal function has improved. P.r.n. IV antihypertensives as needed. (9) Gastroesophageal reflux disease: Qualifiers: Esophagitis presence: esophagitis presence not specified Qualified Code(s): K21.9 - Gastro-esophageal reflux disease without esophagitis Code(s): K21.9 - Gastro-esophageal reflux disease without esophagitis Status: Chronic Assessment and Plan: Continue Protonix Q12 hr for now Subjective Date/time seen: 09/24/20 12:38 Interval history: Patient is a 75 yo F with his
[2020-09-24 14:00] VITALS: BP 150/75; PULSE 75; RESP 16; TEMP 36.6; O2SAT 97
--- NOTE | 2020-09-24 15:56 | WPDGIPROGNO ---
Progress Note: A&P Additional Plan Full consult dictated. Duplex U/S in am. Increase diet. Case r/w PEÑA Hughes. #[id number] Subjective Date/time seen: 09/24/20 15:56 Objective Data Vital Signs Vital Signs: Vital Signs - 24 hr 09/23/20 21:36 09/23/20 22:22 09/24/20 06:00 Temperature 36.2 C L 36.4 C L Pulse Rate 86 85 80 Respiratory Rate 16 18 Blood Pressure 143/72 H 151/80 H Pulse Oximetry 100 99 97 09/24/20 14:00 Temperature 36.6 C Pulse Rate 75 Respiratory Rate 16 Blood Pressure 150/75 H Pulse Oximetry 97 Intake/Output Intake/Output: Intake & Output 09/21/20 09/22/20 09/23/20 09/24/20 23:59 23:59 23:59 23:59 Intake Total 700 2700 300 Output Total 900 1000 Balance 700 1800 -700 Meds/Results Medications: Active Medications Generic Name Dose Route Start Last Admin Trade Name Freq PRN Reason Stop Dose Admin Aspirin 81 mg 09/23/20 09:00 09/24/20 10:04 Aspirin 81 Mg Enteric Tablet PO 81 mg DAILY JEANA Administration Atorvastatin Calcium 10 mg 09/23/20 09:00 Atorvastatin 10 Mg Tablet PO DAILY JEANA Budesonide 3 mg 09/23/20 09:00 09/24/20 10:04 Budesonide 3 Mg Cap.Sr.24h PO 3 mg DAILY JEANA Administration Dextrose 12.5 gm 09/22/20 20:56 Dextrose 50% 25 Gm/50 Ml Syringe IV PUSH PRN PRN Hypoglycemia Protocol Duloxetine HCl 60 mg 09/23/20 09:00 09/24/20 10:04 Duloxetine Hcl 60 Mg Capsule.Dr PO 60 mg DAILY JEANA Administration Glucagon 1 mg 09/22/20 20:56 Glucagon For Inj 1 Mg Vial IM PRN PRN Hypoglycemia Protocol Lactated Ringer's 1,000 mls @ 80 mls/hr 09/22/20 17:40 09/24/20 02:28 Lr - Lactated Ringers Iv IV CONT 80 mls/hr .[id number] JEANA Administration Dextrose 1,000 mls @ 100 mls/hr 09/22/20 20:56 Dextrose 5% 1,000 Ml IVPB PRN PRN Hypoglycemia Protocol Acetaminophen 1,000 mg in 100 mls @ 400 mls/hr 09/24/20 12:03 Ofirmev 1,000 Mg Ivpb IVPB 09/25/20 12:04 Q6H PRN Pain Rated 5 or Less Insulin Aspart 2 - 5 units 09/23/20 00:00 09/24/20 12:24 Insulin Aspart (*Bkc) 100 Units/Ml SUB-Q Not Given Q6HR [facility] Protocol Morphine Sulfate 2 mg 09/23/20 09:24 09/24/20 11:04 Morphine Sulfate (*Crx) 2 Mg/Ml Inj IV PUSH 2 mg Q4H PRN Administration Pain Rated 6-10 Non-Formulary Medication 1 tablet 09/23/20 09:00 Losartan-Hydrochlorothiazide PO 10/23/20 09:01 DAILY JEANA Ondansetron HCl 4 mg 09/23/20 09:24 09/24/20 11:04 Ondansetron Inj 4 Mg/2 Ml Vial IV PUSH 4 mg Q6H PRN Administration Nausea And Vomiting Pantoprazole Sodium 40 mg 09/23/20 09:00 09/24/20 10:05 Pantoprazole Sodium Iv 40 Mg Vial IV PUSH 40 mg Q12HR JEANA Administration Radiology Results: ITS Impressions Abdomen/Pelvis CT 09/22/20 17:14 IMPRESSION: 1. Ventral hernias containing fat. 2. Diffuse hepatic steatosis. 3. New small pericardial effusion. Labs Labs: Laboratory Results - last 24 hr 09/23/20 09/24/20 09/24/20 18:34 00:18 05:33 WBC 9.3 RBC 3.70 L Hgb 10.9 L Hct 34.6 L MCV 93.5 MCH 29.5 MCHC 31.5 L RDW 12.8 Plt Count 213 MPV 11.2 H Sodium Potassium Chloride Carbon Dioxide Anion Gap BUN Creatinine Estim Creat Clear Calc Estimated GFR Glucose POC Capillary Glucose 83 98 Calcium Magnesium Total Bilirubin AST ALT Alkaline Phosphatase Total Protein Albumin Triglycerides Cholesterol LDL Cholesterol Direct HDL Direct Hepatitis A IgM Ab Hep Bs Antigen Hep B Core IgM Ab Hepatitis C Ab Screen 09/24/20 09/24/20 09/24/20 05:33 06:03 08:13 WBC RBC Hgb Hct MCV MCH MCHC RDW Plt Count MPV Sodium 137 Potassium 5.1 H Chloride 108 H Carbon Dioxide 22 Anion Gap 7 L BUN 52 H Creatinine 1.90 H Estim Creat Clear Calc 20 Estimated GFR 26 L
[2020-09-24 18:01] LABS: Glucose Point of Care 89 (65-105)
[2020-09-24 19:44] VITALS: PULSE 76; RESP 15
[2020-09-24 22:00] VITALS: BP 149/89; PULSE 90; RESP 20; TEMP 36.6; O2SAT 95
[2020-09-24 22:03] VITALS: PULSE 95; O2SAT 97
--- NOTE | 2020-09-24 22:47 | CONS_ITS ---
DATE OF CONSULTATION: 09/24/2020 HISTORY OF PRESENT ILLNESS: 75-year-old female with history of diabetes, chronic kidney disease stage 3, chronic blood loss anemia, hypertension, hyperlipidemia, CVA, sleep apnea with CPAP, hysterectomy, cholecystectomy, and bilateral total knee replacement. She also has history of GERD, H pylori, and collagenous colitis diagnosed recently. PRIMARY CARE PROVIDER: Yinka Archer DO. PRIMARY BLOCKLAYER: Jameson Christian MD. I am now asked to provide GI evaluation at the request of the hospitalist service for abdominal pain. Patient saw Dr. Christian in early August of this year for 50-pound weight loss. On August 22, 2020, the patient had a colonoscopy with 3 small tubular adenomas and diverticulosis. Upper endoscopy showed esophageal candidiasis, proven on biopsy. Stomach was normal, but biopsies were positive for H pylori. Small bowel was biopsied and was negative. The patient was treated with Diflucan. The patient also had random colon biopsies positive for collagenous colitis. The patient was started on budesonide. Patient is a very poor historian. On admission, she was having severe abdominal pain that is now much improved. It sounds like she was treated for H pylori beginning only toward the end of August with tetracycline-based treatment and that seems to be when her severe abdominal pain started. She has nausea but no vomiting. She has poor appetite and has lost almost 60 pounds. She otherwise denies heartburn, trouble swallowing, diarrhea, constipation, hematochezia, melena, fever, jaundice, scleral icterus, dark urine, light stools, itching, hot or cold intolerance, chest pain, shortness of breath at rest, hematuria, dysuria, new cough or visual changes, easy bruising, tingling of the skin, bone pain, or tremors. No endocarditis risk factors. ALLERGIES: SEE LIST. MEDICATIONS: See list but includes baby aspirin, Plavix, Protonix 40 mg twice a day. It sounds like she had about 5 days of tetracycline. SOCIAL HISTORY: Nonsmoker, nondrinker. FAMILY HISTORY: Negative for GI malignancy. PHYSICAL EXAM: GENERAL: Well-developed, well-nourished female, lying in bed, no apparent distress. She has no lower extremity edema, jaundice, spider angioma, or palmar erythema. HEENT: Skull is normocephalic, atraumatic. Pupils nonicteric. Oropharynx clear. NECK: Supple without thyromegaly. LUNGS: Clear to auscultation. HEART: Rate and rhythm regular. S1, S2 normal. ABDOMEN: Normoactive bowel sounds. Soft, nontender, nonrigid, nondistended without hepatosplenomegaly or masses. RECTAL: Deferred. NEURO: Conscious and alert. IMAGING PROCEDURE: CT scan of the abdomen and the pelvis done September 22 has ventral hernia and hepatic steatosis. On September 26, CT scan shows hiatal hernia, diverticulosis coli, umbilical hernia, and ventral hernia. LABS: On September 24, hemoglobin 11, hematocrit 35, MCV 94. T bilirubin 0.5, alkaline phosphatase 109, AST is 56, ALT is 54. On 09/23, hematocrit 38, MCV 91, creatinine 2, lipase 456, amylase 105, T bilirubin 0.6, alkaline phosphatase 120, AST 58, ALT is 62. ASSESSMENT AND PLAN: 1. Abdominal pain, nausea, weight loss. Her acute abdominal pain sounds like it is most related to her acute tetracycline usage. This would not explain any chronic symptoms, especially weight loss. If she has been having this pain before and it is postprandial in nature, associated with her weight loss and poor appetite, I would be concerned about small-bowel intestinal ischemia. The patient has poor kidney function. So, case was discussed with PEÑA Hughes and would proceed with duplex ultrasound and follow up with other tests as needed. The patient appears to have been c
[2020-09-25 00:12] LABS: Glucose Point of Care 78 (65-105)
[2020-09-25] MEDS: LACTATED RINGERS 1,000 ML 80 ML IV CONT ×2 (03:36→15:11)
[2020-09-25 06:00] VITALS: BP 153/88; PULSE 76; RESP 20; TEMP 36.6; O2SAT 95
[2020-09-25 06:05] LABS: Hematocrit 31.3 % (37.0-47.0); Hemoglobin 10.1 g/dL (12.0-15.0); Mean Corpuscular HGB Conc 32.3 g/dl (32-36); Mean Corpuscular Hemoglobin 29.8 pg (26-34); Mean Corpuscular Volume 92.3 fl (80-100); Mean Platelet Volume 11.3 fl (7.4-10.4); Platelet Count Result 189 k/mm3 (150-375); Red Blood Count 3.39 M/mm3 (4.2-5.4); Red Cell Distribution Width 12.8 % (11.5-14.5); White Blood Count 8.3 K/mm3 (4.5-10.0)
[2020-09-25 06:19] LABS: Alanine Aminotransferase 47 U/L (4-35); Albumin Level 2.9 g/dL (3.5-5.1); Alkaline Phosphatase 105 U/L (38-126); Anion Gap 6 mmol/L (8-16); Aspartate Amino Transferase 51 U/L (14-36); Bilirubin,Total 0.5 mg/dL (0.2-1.3); Blood Urea Nitrogen 44 mg/dL (7-17); Calcium 8.8 mg/dL (8.4-10.2); Carbon Dioxide 22 mmol/L (22-30); Chloride 108 mmol/L (98-107); Estimated CRCL calculation 22 ml/min; Estimated Glomerular Filt Rate 29; Glucose 77 mg/dL (65-105); Magnesium 1.6 mg/dL (1.6-2.3); Potassium 4.6 mmol/L (3.4-5.0); Sodium 136 mmol/L (137-145)
[2020-09-25 06:50] LABS: Glucose Point of Care 71 (65-105)
[2020-09-25 07:53] LABS: Glucose Point of Care 77 (65-105)
[2020-09-25] MEDS: PANTOPRAZOLE SODIUM IV 40 MG VIAL IV PUSH ×2 (08:04→20:52)
[2020-09-25] MEDS: ONDANSETRON INJ 4 MG/2 ML VIAL IV PUSH (08:13)
[2020-09-25] MEDS: ASPIRIN 81 MG ENTERIC TABLET PO (10:34)
[2020-09-25] MEDS: DULoxetine HCL 60 MG CAPSULE.DR PO (10:35)
[2020-09-25] MEDS: BUDESONIDE 3 MG CAP.SR.24H PO (10:35)
[2020-09-25 11:31] LABS: Glucose Point of Care 104 (65-105)
[2020-09-25 14:00] VITALS: BP 109/70; PULSE 111; RESP 16; TEMP 36.3; O2SAT 96
[2020-09-25 14:57] VITALS: BMI 30.1
--- NOTE | 2020-09-25 17:39 | PM.IMPN ---
Progress Note: A&P Assessment and Plan (1) Epigastric pain: Code(s): R10.13 - Epigastric pain Status: Acute Assessment and Plan: Likely due to H pyelori and pt is not tolerating the initial treatment of this. Will ask GI their recommendations on further treatment options for this -vascular u/s and CT abd/pelv showed moderate stensosis of the SMA but doubt it is causing the pain since the other arteries are patent and 2 of the 3 arteries need to be affected before it typically causes limited blood flow cuasing pain -She also has Collagenous colitis. GI is considering increasing entocort from 3mg to 9mg. This may not help her epigastric pain but certainly may help further pain in her GI tract. -Continue PPI therapy -Await GI recs -Consider MRA of the abdomen _will advance diet as tolerated since pt is hungry today and pain is better (2) Acute on chronic renal failure: Code(s): N17.9 - Acute kidney failure, unspecified; N18.9 - Chronic kidney disease, unspecified Status: Acute Assessment and Plan: Secondary to nausea vomiting and diarrhea. Cr 1.70 today; improved with IV fluids -Continue IV fluid -Monitor renal function and urine output. -Avoid nephrotoxic agents, renally dose medications. (3) Acute dehydration: Code(s): E86.0 - Dehydration Status: Acute Assessment and Plan: Improving (4) Helicobacter pylori gastritis: Code(s): K29.70 - Gastritis, unspecified, without bleeding; B96.81 - Helicobacter pylori [H. pylori] as the cause of diseases classified elsewhere Status: Chronic Assessment and Plan: Continue GI recommendations as stated above (5) Transaminitis: Code(s): R74.01 - Elevation of levels of liver transaminase levels Status: Acute Assessment and Plan: Slowly improving/stable. Appears to be secondary to fatty liver disease. -Monitor LFTs (6) Type 2 diabetes mellitus with stage 1 chronic kidney disease: Qualifiers: Diabetes mellitus mcc insulin use: without intermediate designer use Qualified Code(s): E11.22 - Type 2 diabetes mellitus with diabetic chronic kidney disease; N18.1 - Chronic kidney disease, stage 1 Code(s): E11.22 - Type 2 diabetes mellitus with diabetic chronic kidney disease; N18.1 - Chronic kidney disease, stage 1 Status: Chronic Assessment and Plan: A1c 5.5 -Continue Accu-Cheks , sliding scale insulin coverage, hypoglycemia protocol. -Monitor closely (7) Hyperlipidemia, unspecified: Qualifiers: Hyperlipidemia type: other hyperlipidemia Qualified Code(s): E78.49 - Other hyperlipidemia Code(s): E78.5 - Hyperlipidemia, unspecified Status: Chronic Assessment and Plan: chronic, resume statin at discharge (8) Benign essential hypertension: Code(s): I10 - Essential (primary) hypertension Status: Chronic Assessment and Plan: last bp 109/70. -Resume losartan hydrochlorothiazide when the patient's renal function has improved. -P.r.n. IV antihypertensives as needed. (9) Gastroesophageal reflux disease: Qualifiers: Esophagitis presence: esophagitis presence not specified Qualified Code(s): K21.9 - Gastro-esophageal reflux disease without esophagitis Code(s): K21.9 - Gastro-esophageal reflux disease without esophagitis Status: Chronic Assessment and Plan: Continue Protonix Q12 hr for now Subjective Date/time seen: 09/25/20 17:39 Interval history: Patient is a 75 yo F with history of diabetic female here for abdominal pain. She recently was diagnosed with H pylori but only was able to complete 3 days of treatment. She continues to have nausea/vomiting and abdominal pain but did tolerate the clear liquids today. She says this abdominal pain has been long standing and has caused her to lose a significant amount of weight. She is afraid to eat at times. She
[2020-09-25 17:43] LABS: Glucose Point of Care 100 (65-105)
[2020-09-25 21:00] LABS: Glucose Point of Care 106 (65-105)
[2020-09-25 22:00] VITALS: BP 136/67; PULSE 103; RESP 20; TEMP 36.2; O2SAT 97
[2020-09-26] MEDS: LACTATED RINGERS 1,000 ML 80 ML IV CONT (03:08)
[2020-09-26 06:00] VITALS: BP 154/71; PULSE 73; RESP 16; TEMP 36.9; O2SAT 100
[2020-09-26 06:26] LABS: Anion Gap 4 mmol/L (8-16); Blood Urea Nitrogen 34 mg/dL (7-17); Calcium 8.7 mg/dL (8.4-10.2); Carbon Dioxide 27 mmol/L (22-30); Chloride 105 mmol/L (98-107); Estimated CRCL calculation 25 ml/min; Estimated Glomerular Filt Rate 34; Glucose 103 mg/dL (65-105); Magnesium 1.5 mg/dL (1.6-2.3); Phosphorus 3.1 mg/dL (2.5-4.5); Potassium 4.3 mmol/L (3.4-5.0); Sodium 136 mmol/L (137-145)
[2020-09-26 06:31] LABS: Glucose Point of Care 107 (65-105)
[2020-09-26 07:51] LABS: Glucose Point of Care 96 (65-105)
[2020-09-26] MEDS: ASPIRIN 81 MG ENTERIC TABLET PO (08:16)
[2020-09-26] MEDS: PANTOPRAZOLE SODIUM IV 40 MG VIAL IV PUSH ×2 (08:16→21:02)
[2020-09-26] MEDS: BUDESONIDE 3 MG CAP.SR.24H PO (08:16)
[2020-09-26] MEDS: DULoxetine HCL 60 MG CAPSULE.DR PO (08:16)
[2020-09-26] MEDS: MAGNESIUM SULF 2 GM/WATER 50ML 2 GM/50 ML BAG IVPB (08:20)
[2020-09-26] MEDS: CLARITHROMYCIN 500 MG TABLET PO ×2 (11:37→21:02)
[2020-09-26 14:00] VITALS: BP 139/79; PULSE 94; RESP 20; TEMP 36.3; O2SAT 100
[2020-09-26 15:28] LABS: Glucose Point of Care 154 (65-105)
--- NOTE | 2020-09-26 15:42 | PM.IMPN ---
Progress Note: A&P Assessment and Plan (1) Epigastric pain: Code(s): R10.13 - Epigastric pain Status: Acute Assessment and Plan: Likely due to H pyelori and pt is not tolerating the initial treatment of this -I started the PPI, clarithromycin, and flagyl treatment plan from [facility] as the pt states that she thinks she has an allergy to PCN although now is thinking she was getting it confused to tetracycline. -vascular u/s and CT abd/pelv showed moderate stannosis of the SMA but doubt it is causing the pain since the other arteries are patent and 2 of the 3 arteries need to be affected before it typically causes limited blood flow causing pain -She also has Collagenous colitis. GI is considering increasing entocort from 3mg to 9mg. This may not help her epigastric pain but certainly may help further pain in her GI tract although she is not having any further diarrhea -Continue PPI therapy -GI consulted -MRA of the abdomen (2) Acute on chronic renal failure: Code(s): N17.9 - Acute kidney failure, unspecified; N18.9 - Chronic kidney disease, unspecified Status: Acute Assessment and Plan: Secondary to nausea vomiting and diarrhea. Cr 1.50 today; improved with IV fluids -pt is now drinking, stop IV fluids -Monitor renal function and urine output. -Avoid nephrotoxic agents, renally dose medications. (3) Acute dehydration: Code(s): E86.0 - Dehydration Status: Acute Assessment and Plan: Improving (4) Helicobacter pylori gastritis: Code(s): K29.70 - Gastritis, unspecified, without bleeding; B96.81 - Helicobacter pylori [H. pylori] as the cause of diseases classified elsewhere Status: Chronic Assessment and Plan: as stated above (5) Transaminitis: Code(s): R74.01 - Elevation of levels of liver transaminase levels Status: Acute Assessment and Plan: Slowly improving/stable. Appears to be secondary to fatty liver disease. -Monitor LFTs (6) Type 2 diabetes mellitus with stage 1 chronic kidney disease: Qualifiers: Diabetes mellitus terminal clerk insulin use: without mcfp use Qualified Code(s): E11.22 - Type 2 diabetes mellitus with diabetic chronic kidney disease; N18.1 - Chronic kidney disease, stage 1 Code(s): E11.22 - Type 2 diabetes mellitus with diabetic chronic kidney disease; N18.1 - Chronic kidney disease, stage 1 Status: Chronic Assessment and Plan: A1c 5.5 -Continue Accu-Cheks , sliding scale insulin coverage, hypoglycemia protocol. -Monitor closely (7) Hyperlipidemia, unspecified: Qualifiers: Hyperlipidemia type: other hyperlipidemia Qualified Code(s): E78.49 - Other hyperlipidemia Code(s): E78.5 - Hyperlipidemia, unspecified Status: Chronic Assessment and Plan: chronic, resume statin at discharge (8) Benign essential hypertension: Code(s): I10 - Essential (primary) hypertension Status: Chronic Assessment and Plan: last bp 139/79 -Resume losartan hydrochlorothiazide when the patient's renal function has improved. -P.r.n. IV antihypertensives as needed. (9) Gastroesophageal reflux disease: Qualifiers: Esophagitis presence: esophagitis presence not specified Qualified Code(s): K21.9 - Gastro-esophageal reflux disease without esophagitis Code(s): K21.9 - Gastro-esophageal reflux disease without esophagitis Status: Chronic Assessment and Plan: Continue Protonix Q12 hr for now Subjective Date/time seen: 09/26/20 15:42 Interval history: Patient is a 75 yo F with history of diabetic female here for abdominal pain. She recently was diagnosed with H pylori but only was able to complete 3 days of treatment. She continues to have nausea/vomiting and abdominal pain that is really unchanged. She states she has been sick every day for the last year and nothing is making it bett
[2020-09-26] MEDS: metroNIDAZOLE 250 MG TABLET 500 MG PO ×2 (16:34→21:02)
[2020-09-26 16:50] LABS: Glucose Point of Care 115 (65-105)
--- NOTE | 2020-09-26 17:27 | WPDGIPROGNO ---
Progress Note: A&P Assessment and Plan (1) Nausea & vomiting: Code(s): R11.2 - Nausea with vomiting, unspecified Status: Acute Assessment and Plan: on admission with dehydration and kristin, now feeling better and eating more tetracycline discontinued altogether (she was using as part of treatment for h pylori)- patient believes that probably made her sick (2) Epigastric pain: Code(s): R10.13 - Epigastric pain Status: Acute (3) Acute on chronic renal failure: Code(s): N17.9 - Acute kidney failure, unspecified; N18.9 - Chronic kidney disease, unspecified Status: Acute Assessment and Plan: at baseline after treatment (4) Acute dehydration: Code(s): E86.0 - Dehydration Status: Acute (5) Acute on chronic kidney failure: Qualifiers: Acute renal failure type: unspecified Chronic kidney disease stage: unspecified stage Qualified Code(s): N17.9 - Acute kidney failure, unspecified; N18.9 - Chronic kidney disease, unspecified Code(s): N17.9 - Acute kidney failure, unspecified; N18.9 - Chronic kidney disease, unspecified Status: Acute (6) Helicobacter pylori gastritis: Code(s): K29.70 - Gastritis, unspecified, without bleeding; B96.81 - Helicobacter pylori [H. pylori] as the cause of diseases classified elsewhere Status: Chronic Assessment and Plan: now she can take another treatment (clarithromycin, flagyl and ppi) probably for another 7 days then we can check stool for h pylori ag in 2 months or so (7) Microscopic colitis: Code(s): K52.839 - Microscopic colitis, unspecified Status: Acute Assessment and Plan: no more diarrhea, on budesonide Subjective Date/time seen: 09/26/20 17:27 Interval history: she came with more nausea and vomiting, probably from recent treatment for H pylori but in any regards she is feeling better today and eating more. Review of Systems Review of Systems: All systems reviewed & are unremarkable except as noted in HPI and below Exam Const: General: comfortable and no acute distress HENMT: General nose exam: Normal nares present Eyes: General: appearance normal, both eyes and all related structures Neck: Neck: supple Resp: Auscultation: clear to auscultation bilaterally Cardio: Rate: regular rate GI: Inspection: non-distended GI Palp: Yes Soft to palpation Auscultation: normal bowel sounds Skin: General skin exam: normal color Neuro: Speech: normal speech Motor exam (neuro): Normal motor muscle tone present throughout Extrem: General: normal to inspection Psych: Affect: normal affect Objective Data Vital Signs Vital Signs: Vital Signs - 24 hr 09/25/20 22:00 09/26/20 06:00 09/26/20 14:00 Temperature 97.2 F L 98.4 F 97.4 F L Pulse Rate 103 H 73 94 Respiratory Rate 20 16 20 Blood Pressure 136/67 154/71 H 139/79 Pulse Oximetry 97 100 100 Intake/Output Intake/Output: Intake & Output 09/23/20 09/24/20 09/25/20 09/26/20 23:59 23:59 23:59 23:59 Intake Total 2700 1910 3330 1650 Output Total 900 5925 482 4455 Balance 5646 059 5317 -50 Meds/Results Medications: Active Medications Generic Name Dose Route Start Last Admin Trade Name Freq PRN Reason Stop Dose Admin Aspirin 81 mg 09/23/20 09:00 09/26/20 08:16 Aspirin 81 Mg Enteric Tablet PO 81 mg DAILY JEANA Administration Atorvastatin Calcium 10 mg 09/23/20 09:00 Atorvastatin 10 Mg Tablet PO DAILY JEANA Budesonide 3 mg 09/23/20 09:00 09/26/20 08:16 Budesonide 3 Mg Cap.Sr.24h PO 3 mg DAILY JEANA Administration Clarithromycin 500 mg 09/26/20 09:00 09/26/20 11:37 Clarithromycin 500 Mg Tablet PO 500 mg Q12HR JEANA Administration Dextrose 12.5 gm 09/22/20 20:56 Dextrose 50% 25 Gm/50 Ml Syringe IV PUSH PRN PRN Hypoglycemia Protocol Duloxetine HCl 60 mg 09/23/20 09:00 09/26/20 08:16 Duloxetine Hcl 60 Mg Capsule.Dr PO 60 mg VAN
[2020-09-26 18:42] VITALS: BP 137/77
[2020-09-26 18:43] VITALS: BP 140/67; BP 142/65
[2020-09-26 22:00] VITALS: BP 129/66; PULSE 86; RESP 20; TEMP 36.8; O2SAT 99
[2020-09-27] VITALS (14 sets, daily range): BP systolic 132–153; BP diastolic 78–99; PULSE 71–125; RESP 12–20; TEMP 36.5–36.8; O2SAT 99–100
--- NOTE | 2020-09-27 | ECHO_ITS ---
Patient Info Name: Swetha Golden Age: 75 years : 1945 Gender: Female Ht: 60 in Wt: 154 lbs BSA: 1.75 m2 HR: 111 bpm BP: 144 / 93 mmHg Heart Rhythm: Sinus Rhythm Technical Quality: Good Exam Date: 09/27/2020 2:26 PM Exam Location: [facility] Pulmonary Patient Status: Inpatient Admit Date: 09/23/2020 Staff Ordering Physician: Jackie Simpson PA-C Cuff Slitter: Emiliano Bauer RDCS, RT Attending Provider: Jackie Simpson PA-C Referring Physician: Calvin SAEED; Exam Type: CA echo dop color flow w con Study Info Indications R00.0 - Tachycardia, unspecified Complete two-dimensional, color flow and Doppler transthoracic echocardiogram is performed with contrast to opacify the left ventricle and to improve the deliniation of the left ventricle endocardial borders. Strain analysis performed. Summary 1. Left ventricular systolic function is moderately reduced, estimated at 35-40%. There is moderate to severe hypokinesis of the apex, apical septal, and apical anterior mahajan. 2. There is moderately increased left ventricular wall thickness. 3. There is mild aortic valve stenosis with a peak velocity of 163.62 cm/s, mean gradient of 4 mmHg, and aortic valve area of 1.76 cm2. 4. There is trace mitral valve regurgitation. 5. There is trace tricuspid valve regurgitation. 6. Unable to estimate PA systolic pressure due to poor spectral resolution of tricuspid regurgitant jet velocity. 7. There is a moderate pericardial effusion up to 1.3 cm with fibrinous material within the pericardial space most prominent in the anterior location. No tamponade physiology. Left Ventricle Left ventricular chamber dimension is normal. Left ventricular systolic function is moderately reduced, estimated at 35-40%. There is moderate to severe hypokinesis of the apex, apical septal, and apical anterior mahajan. There is moderately increased left ventricular wall thickness. The left ventricular diastolic function is abnormal. Global longitudinal strain is moderately elevated at -8 %. Right Ventricle Right ventricular chamber dimension is normal. Right ventricular systolic function is normal. Left Atria Left atrial chamber dimension is mildly enlarged. Right Atria Right atrial chamber dimension is normal. Aortic Valve The aortic valve is not well visualized. There is mild aortic valve stenosis with a peak velocity of 163.62 cm/s, mean gradient of 4 mmHg, and aortic valve area of 1.76 cm2. There is no aortic valve regurgitation. Pulmonic Valve The pulmonic valve is not well visualized. There is trace pulmonic regurgitation. Mitral Valve The mitral valve has thickened leaflets. There is trace mitral valve regurgitation. The mitral valve annulus is moderately calcified. Tricuspid Valve The tricuspid valve leaflets are normal. There is trace tricuspid valve regurgitation. Unable to estimate PA systolic pressure due to poor spectral resolution of tricuspid regurgitant jet velocity. Pericardium/Pleural The pericardium appears normal. There is a moderate pericardial effusion up to 1.3 cm with fibrinous material within the pericardial space most prominent in the anterior location. No tamponade physiology. Inferior Vena Cava Dilated inferior vena cava with >50% collapse upon inspiration consistent with elevated right atrial pressure, 10 mmHg. Aorta The aortic root size at the sinus of Valsalva is normal. There is mild aortic atherosclerosis. Left Ventricular Outflow Tract ----
[2020-09-27] MEDS: metroNIDAZOLE 250 MG TABLET 500 MG PO ×3 (05:21→21:12)
[2020-09-27 06:04] LABS: Glucose Point of Care 97 (65-105)
[2020-09-27 06:34] LABS: Anion Gap 5 mmol/L (8-16); Blood Urea Nitrogen 24 mg/dL (7-17); Calcium 8.6 mg/dL (8.4-10.2); Carbon Dioxide 30 mmol/L (22-30); Chloride 104 mmol/L (98-107); Estimated CRCL calculation 28 ml/min; Estimated Glomerular Filt Rate 40; Glucose 114 mg/dL (65-105); Magnesium 1.8 mg/dL (1.6-2.3); Potassium 3.8 mmol/L (3.4-5.0); Sodium 139 mmol/L (137-145)
[2020-09-27 07:56] LABS: Glucose Point of Care 112 (65-105)
[2020-09-27] MEDS: ONDANSETRON INJ 4 MG/2 ML VIAL IV PUSH (08:14)
--- NOTE | 2020-09-27 11:25 | ECG_ITS ---
Measurements Intervals Leslie Rate: 128 P: -8 UT: 145 QRS: -10 QRSD: 93 T: 160 QT: 316 QTc: 462 Interpretive Statements SINUS OR ECTOPIC ATRIAL TACHYCARDIA LEFT VENTRICULAR HYPERTROPHY AND ST-T CHANGE BORDERLINE R WAVE PROGRESSION, ANTERIOR LEADS ST-T WAVE ABNORMALITY IN HIGH LATERAL LEADS- CONSIDER ISCHEMIA ABNORMAL ECG Electronically Signed On 09-27-2020 11:50:18 CDT by Lopez Lacey D.O.
[2020-09-27 11:46] LABS: Glucose Point of Care 176 (65-105)
[2020-09-27] MEDS: ASPIRIN 81 MG ENTERIC TABLET PO (11:48)
[2020-09-27] MEDS: BUDESONIDE 3 MG CAP.SR.24H PO (11:48)
[2020-09-27] MEDS: DULoxetine HCL 60 MG CAPSULE.DR PO (11:48)
[2020-09-27] MEDS: CLARITHROMYCIN 500 MG TABLET PO ×2 (11:48→21:11)
[2020-09-27] MEDS: PANTOPRAZOLE SODIUM IV 40 MG VIAL IV PUSH ×2 (11:48→21:11)
--- NOTE | 2020-09-27 12:04 | PM.IMPN ---
Progress Note: A&P Assessment and Plan (1) Tachycardia: Code(s): R00.0 - Tachycardia, unspecified Status: Acute Assessment and Plan: patient became tachycardic today up to 135 on my exam - EKG reviewed which showed some T-wave changes - patient does not have any chest pain, shortness of breath, jaw pain or arm pain - no personal history of cardiac disease but has a long history of cardiac disease in her family. she said her last stress test was long ago - 2.5 mg of Lopressor now and check a stat D-dimer, troponin, BNP, and check echo -ddx: PE, underlying ACS, infection brewing ( nothing prevalent on exam), anxiety (less likely) or other cardiac disease, await echo and labs (2) Epigastric pain: Code(s): R10.13 - Epigastric pain Status: Acute Assessment and Plan: Likely due to H pyelori and pt is not tolerating the initial treatment of this -I started the PPI, clarithromycin, and flagyl treatment plan from [facility] as the pt states that she thinks she has an allergy to PCN although now is thinking she was getting it confused to tetracycline. -vascular u/s and CT abd/pelv showed moderate stannosis of the SMA but doubt it is causing the pain since the other arteries are patent and 2 of the 3 arteries need to be affected before it typically causes limited blood flow causing pain -She also has Collagenous colitis. GI is considering increasing entocort from 3mg to 9mg. This may not help her epigastric pain but certainly may help further pain in her GI tract although she is not having any further diarrhea -Continue PPI therapy -GI consulted -MR of the abdomen does not show any etiology (3) Acute on chronic renal failure: Code(s): N17.9 - Acute kidney failure, unspecified; N18.9 - Chronic kidney disease, unspecified Status: Acute Assessment and Plan: Secondary to nausea vomiting and diarrhea. Cr 1.30 today; improved with IV fluids - unilateral renal artery stenosis noted on MRA, continue on losartan at discharge -Monitor renal function and urine output. -Avoid nephrotoxic agents, renally dose medications. (4) Acute dehydration: Code(s): E86.0 - Dehydration Status: Acute Assessment and Plan: Improving (5) Helicobacter pylori gastritis: Code(s): K29.70 - Gastritis, unspecified, without bleeding; B96.81 - Helicobacter pylori [H. pylori] as the cause of diseases classified elsewhere Status: Chronic Assessment and Plan: as stated above (6) Transaminitis: Code(s): R74.01 - Elevation of levels of liver transaminase levels Status: Acute Assessment and Plan: Slowly improving/stable. Appears to be secondary to fatty liver disease. -Monitor LFTs (7) Type 2 diabetes mellitus with stage 1 chronic kidney disease: Qualifiers: Diabetes mellitus parts counterman insulin use: without parts counterman use Qualified Code(s): E11.22 - Type 2 diabetes mellitus with diabetic chronic kidney disease; N18.1 - Chronic kidney disease, stage 1 Code(s): E11.22 - Type 2 diabetes mellitus with diabetic chronic kidney disease; N18.1 - Chronic kidney disease, stage 1 Status: Chronic Assessment and Plan: A1c 5.5 -Continue Accu-Cheks , sliding scale insulin coverage, hypoglycemia protocol. -Monitor closely (8) Hyperlipidemia, unspecified: Qualifiers: Hyperlipidemia type: other hyperlipidemia Qualified Code(s): E78.49 - Other hyperlipidemia Code(s): E78.5 - Hyperlipidemia, unspecified Status: Chronic Assessment and Plan: chronic, resume statin at discharge (9) Benign essential hypertension: Code(s): I10 - Essential (primary) hypertension Status: Chronic Assessment and Plan: last bp 144/93 -Resume losartan hydrochlorothiazide when the patient's renal function has improved. -P.r.n. IV antihypertensives as needed. (10) Gastroesophageal ref
[2020-09-27 12:26] LABS: D Dimer 1.08 ug/mL (<0.48)
[2020-09-27 12:42] LABS: Creatine Kinase MB 3.1 ng/mL (0.0-2.37); NT Pro B Type Natriuretic Pept 12800 PG/ML (5-100); Troponin I 0.241 ng/mL (0.000-0.034)
--- NOTE | 2020-09-27 12:52 | PCPTNOTE ---
Per PA, hold therapy evaluation this AM due to rapid HR, awaiting EEG.
--- NOTE | 2020-09-27 13:08 | PCPTNOTE ---
Attempted PT evaluation this afternoon, patient transferring to IMU, will check back later.
--- NOTE | 2020-09-27 13:52 | PCOTNOTE ---
Attempted OT evaluation this afternoon, patient transferring to IMU. Hold this date per RN. Will attempt OT evaluation tomorrow if medically appropriate.
[2020-09-27] MEDS: ENOXAPARIN 80 MG/0.8 ML SYRINGE 70 MG SUB-Q (14:52)
--- NOTE | 2020-09-27 14:53 | ECG_ITS ---
Measurements Intervals Felda Rate: 98 P: 0 NC: 168 QRS: -3 QRSD: 94 T: 139 QT: 379 QTc: 486 Interpretive Statements SINUS RHYTHM ATRIAL PREMATURE COMPLEX LEFT VENTRICULAR HYPERTROPHY AND ST-T CHANGE T WAVE ABNORMALITY IN ANTEROLAT/HIGH LAT LEADS- CONSIDER ISCHEMIA ABNORMAL ECG Electronically Signed On 09-27-2020 19:14:20 CDT by Lopez Lacey D.O.
[2020-09-27 16:03] LABS: Troponin I 0.254 ng/mL (0.000-0.034)
--- NOTE | 2020-09-27 16:43 | PC.NURSE ---
1458 - Definity 1.5ml given per RIght arm IV for visualization for echo. IV site flushes easily with good blood return.
--- NOTE | 2020-09-27 16:49 | PM.CNCAR ---
Assessment and Plan Assessment and plan (1) Type 2 myocardial infarction: Code(s): I21.A1 - Myocardial infarction type 2 Status: Acute Assessment and Plan: Not likely acute coronary syndrome. Abnormal EKG with atypical chest pain in setting of elevated troponin with new diagnosis pulmonary embolism which is the most likely cause. However, given new diagnosis cardiomyopathy cannot exclude underlying CAD (but no prior known history). Troponin trend x2 flat thus far continue serial evaluation. Transferred to IMU. Telemetry. I would advise adding aspirin 81 mg daily, statin therapy and low-dose beta-dirk as tolerated. FANY-inhibitor or ARB as renal function allows. However, mild transaminitis noted and may potentially be problematic with statin therapy. Repeat LFT's in AM and EKG. (2) Cardiomyopathy: Code(s): I42.9 - Cardiomyopathy, unspecified Status: Acute Assessment and Plan: New diagnosis, Moderate LV systolic dysfunction EF 35-40% with apical apical septal wall motion abnormalities. Discussed ischemic evaluation options. Given acute on chronic renal failure only recently improved like to avoid significant contrast exposure particularly after CT angiogram. Serial troponins x2 flat thus far. Patient compensated at present. Clinically, patient is very complicated with multiple issues. We discussed at length given new LV dysfunction, elevated troponin possibility of coronary angiography. We discussed particular risk with regard to anemia, concern for bleeding risk from GI tract, acute renal insufficiency, stroke, and bleeding complication from procedure. Patient was understanding. Will attempt manage more conservatively if possible apparent however, the presence size etiology of her cardiomyopathy remains unknown be given wall motion abnormalities concern for significant obstructive CAD. Further recommendations to follow based on pain chills clinical course and response to therapy. Spent 70 minutes in the care of this patient at bedside, chart review. (3) Tachycardia: Code(s): R00.0 - Tachycardia, unspecified Status: Acute Assessment and Plan: Intermittent probable atrial tachycardia, asymptomatic. No evidence for atrial fibrillation atrial flutter thus far yet patient was not previously on telemetry. Continue telemetry for further clarification. Maintaining sinus rhythm generally. (4) Pulmonary embolism: Code(s): I26.99 - Other pulmonary embolism without acute cor pulmonale Status: Acute Assessment and Plan: CT angiogram today reveals right upper and lower lobe segmental pulmonary embolism. Continue systemic anticoagulation. Monitor H&H. Management per primary service. Lower extremity venous Doppler negative for DVT. (5) Acute on chronic renal failure: Code(s): N17.9 - Acute kidney failure, unspecified; N18.9 - Chronic kidney disease, unspecified Status: Acute Assessment and Plan: Improving. Continue to monitor closely. We need to exercise caution with additional contrast exposure and her resumption of ARB at this time. (6) Epigastric pain: Code(s): R10.13 - Epigastric pain Status: Acute Assessment and Plan: Chronic, complex considerations. GI involved. 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 She does not have an acute abdomen at this time or active suggestion of mesenteric ischemia. Continue aggressive atherosclerotic risk reduction. Patient has H pylori but was intolerant to initial therapy. Management per GI. Aspirin would be recommended given elevated troponin, cardiomyopathy and concern for underlying CAD if able to tolerate. Will need to clarify with GI. (7) Anemia, unspecified: Qualifiers: Anemia type: unspecified type Qualified Code(s): D64.9 - Anemia, unspecified Code(s): D64.9 - Anemia, unspecified
--- NOTE | 2020-09-27 16:51 | WPDGIPROGNO ---
Progress Note: A&P Assessment and Plan (1) Microscopic colitis: Code(s): K52.839 - Microscopic colitis, unspecified Status: Acute Assessment and Plan: no more diarrhea, on budesonide (2) Epigastric pain: Code(s): R10.13 - Epigastric pain Status: Acute (3) Nausea & vomiting: Code(s): R11.2 - Nausea with vomiting, unspecified Status: Acute Assessment and Plan: on admission with dehydration and kristin, now feeling better and eating more (4) Pulmonary embolism: Code(s): I26.99 - Other pulmonary embolism without acute cor pulmonale Status: Acute Assessment and Plan: new diagnosis found in CTA chest (5) Type 2 myocardial infarction: Code(s): I21.A1 - Myocardial infarction type 2 Status: Acute Assessment and Plan: cardiology to see, had elevated troponins (6) Helicobacter pylori gastritis: Code(s): K29.70 - Gastritis, unspecified, without bleeding; B96.81 - Helicobacter pylori [H. pylori] as the cause of diseases classified elsewhere Status: Chronic Assessment and Plan: now she can take another treatment (clarithromycin, flagyl and ppi) probably for another 7 days then we can check stool for h pylori ag in 2 months or so Subjective Date/time seen: 09/27/20 16:51 Interval history: she was tachycardic and work up revealed PE (had CTA chest- reviewed), now she is feeling better Review of Systems Review of Systems: All systems reviewed & are unremarkable except as noted in HPI and below Exam Const: General: comfortable and no acute distress HENMT: General nose exam: Normal nares present Eyes: General: appearance normal, both eyes and all related structures Neck: Neck: supple Resp: Auscultation: clear to auscultation bilaterally Cardio: Rate: regular rate GI: Inspection: non-distended GI Palp: Yes Soft to palpation Auscultation: normal bowel sounds Skin: General skin exam: normal color Neuro: Speech: normal speech Motor exam (neuro): Normal motor muscle tone present throughout Extrem: General: normal to inspection Psych: Affect: normal affect Objective Data Vital Signs Vital Signs: Vital Signs - 24 hr 09/26/20 18:42 09/26/20 18:43 09/26/20 22:00 Temperature 98.2 F Pulse Rate 86 Respiratory Rate 20 Blood Pressure 137/77 142/65 H 129/66 Pulse Oximetry 99 09/27/20 06:00 09/27/20 06:05 09/27/20 06:10 Temperature 97.9 F Pulse Rate 110 H 125 H 120 H Respiratory Rate 16 16 16 Blood Pressure 132/78 133/81 144/93 H Pulse Oximetry 99 100 99 09/27/20 14:00 09/27/20 15:22 09/27/20 15:30 Temperature 98.3 F Pulse Rate 105 H 100 Respiratory Rate 20 Blood Pressure 145/99 H Pulse Oximetry 99 99 09/27/20 16:00 Temperature 97.7 F Pulse Rate 88 Respiratory Rate 14 Blood Pressure 153/84 H Pulse Oximetry 100 Intake/Output Intake/Output: Intake & Output 09/24/20 09/25/20 09/26/20 09/27/20 23:59 23:59 23:59 23:59 Intake Total 1910 3330 1770 580 Output Total 9423 368 1568 500 Balance 570 2730 70 80 Meds/Results Medications: Active Medications Generic Name Dose Route Start Last Admin Trade Name Freq PRN Reason Stop Dose Admin Aspirin 81 mg 09/23/20 09:00 09/27/20 11:48 Aspirin 81 Mg Enteric Tablet PO 81 mg DAILY JEANA Administration Atorvastatin Calcium 10 mg 09/23/20 09:00 Atorvastatin 10 Mg Tablet PO DAILY JEANA Budesonide 3 mg 09/23/20 09:00 09/27/20 11:48 Budesonide 3 Mg Cap.Sr.24h PO 3 mg DAILY JEANA Administration Clarithromycin 500 mg 09/26/20 09:00 09/27/20 11:48 Clarithromycin 500 Mg Tablet PO 500 mg Q12HR JEANA Administration Dextrose 12.5 gm 09/22/20 20:56 Dextrose 50% 25 Gm/50 Ml Syringe IV PUSH PRN PRN Hypoglycemia Protocol Duloxetine HCl 60 mg 09/23/20 09:00 09/27/20 11:48 Duloxetine Hcl 60 Mg Capsule.Dr PO 60 mg DAILY JEANA Administration Enoxaparin Sodium 70 mg 0
[2020-09-27 17:17] LABS: Glucose Point of Care 147 (65-105)
[2020-09-27 19:09] LABS: Troponin I 0.206 ng/mL (0.000-0.034)
[2020-09-27 20:16] LABS: Glucose Point of Care 221 (65-105)
[2020-09-27] MEDS: METOPROLOL TARTRATE 12.5 MG TABLET PO (21:11)
[2020-09-28] VITALS (14 sets, daily range): BP systolic 115–148; BP diastolic 62–85; PULSE 69–103; RESP 16–20; TEMP 36.1–36.9; O2SAT 94–100
[2020-09-28] MEDS: metroNIDAZOLE 250 MG TABLET 500 MG PO ×3 (05:14→21:03)
[2020-09-28 05:30] LABS: Hematocrit 28.8 % (37.0-47.0); Hemoglobin 9.1 g/dL (12.0-15.0); Mean Corpuscular HGB Conc 31.6 g/dl (32-36); Mean Corpuscular Hemoglobin 29.4 pg (26-34); Mean Corpuscular Volume 92.9 fl (80-100); Mean Platelet Volume 11.4 fl (7.4-10.4); Platelet Count Result 191 k/mm3 (150-375); White Blood Count 7.5 K/mm3 (4.5-10.0)
[2020-09-28 05:57] LABS: Alanine Aminotransferase 35 U/L (4-35); Albumin Level 3.1 g/dL (3.5-5.1); Alkaline Phosphatase 88 U/L (38-126); Anion Gap 2 mmol/L (8-16); Aspartate Amino Transferase 33 U/L (14-36); Bilirubin,Total 0.2 mg/dL (0.2-1.3); Blood Urea Nitrogen 17 mg/dL (7-17); CRP 1.4 mg/dL (<1.0); Calcium 8.7 mg/dL (8.4-10.2); Carbon Dioxide 29 mmol/L (22-30); Chloride 105 mmol/L (98-107); Estimated CRCL calculation 31 ml/min; Estimated Glomerular Filt Rate 44; Glucose 110 mg/dL (65-105); Potassium 4.2 mmol/L (3.4-5.0); Sodium 136 mmol/L (137-145)
[2020-09-28 06:31] LABS: Thyroid Stimulating Hormone Reflex 0.715 uIU/mL (0.465-4.68)
[2020-09-28 09:04] LABS: Glucose Point of Care 102 (65-105)
[2020-09-28] MEDS: BUDESONIDE 3 MG CAP.SR.24H PO (09:19)
[2020-09-28] MEDS: PANTOPRAZOLE SODIUM IV 40 MG VIAL IV PUSH ×2 (09:19→21:05)
[2020-09-28] MEDS: DULoxetine HCL 60 MG CAPSULE.DR PO (09:19)
[2020-09-28] MEDS: CLARITHROMYCIN 500 MG TABLET PO ×2 (09:19→21:03)
[2020-09-28] MEDS: METOPROLOL TARTRATE 12.5 MG TABLET PO ×2 (09:20→21:05)
[2020-09-28] MEDS: ASPIRIN 81 MG ENTERIC TABLET PO (09:20)
--- NOTE | 2020-09-28 10:49 | PCDIET ---
Nutrition Follow-Up Complete: Nutrition Diagnosis: Altered GI function related to diarrhea, constipation as evidence by diagnosis of IBS and pt report of abdominal pain Nutrition Goal: PO intake of 50% with oral tolerance to foods Goal met. Patient consumed average of 70% of meals since 09/26/20 on diabetic, soft and bite size diet. Reports feeling much better and is eating more here than she has at home for the past year, she feels. Would like to stop Glucerna, as has not tried it and would prefer to eat food instead of supplements. Snacks between meals suggested to maximize intake. Last recorded weight is 70 kg which is stable with last review. Bowel Motility: Last documented BM on 09/27/20 x 1. Patient reports significant improvement in diarrhea. Labs Reviewed: Hgb (9.1), Hct (28.8), Glu (110), Cr (1.2), Na (136), Alb (3.1) Meds Noted: Lipitor, Entocort EC, Novolog, Lopressor, Flagyl, Morphine, Protonix Additional Notes: No documented skin breakdown. Will continue to monitor with same goal. Nutrition Monitoring and Evaluation: Follow up every 5 days.
--- NOTE | 2020-09-28 12:00 | PM.IMPN ---
Progress Note: A&P Assessment and Plan (1) Pulmonary embolism: Code(s): I26.99 - Other pulmonary embolism without acute cor pulmonale Status: Acute Assessment and Plan: Noted on CTA after pt experienced tachycardia 09/27/20 -Pt has no SOB or CP at this time -renally dosed lovenox started 09/27/20 -Awaiting on CC to [place] eliquis. Either start Eliquis or wafarin tonight -Echo detailed below (2) Type 2 myocardial infarction: Code(s): I21.A1 - Myocardial infarction type 2 Status: Acute Assessment and Plan: 2/ to PE in addition to undiagnosed cardiomyopathy that was not known to the pt -continue lovenox -no CP -will likely need cath outpt -aspirin started (3) Cardiomyopathy: Code(s): I42.9 - Cardiomyopathy, unspecified Status: Acute Assessment and Plan: Echo shows EF of 35-45% -Spoke with cardiology, metoprolol started -restart losartan if pt tolerates the metoprlol -plan for outpt evaluation at a later date (4) Tachycardia: Code(s): R00.0 - Tachycardia, unspecified Status: Acute Assessment and Plan: As above (5) Epigastric pain: Code(s): R10.13 - Epigastric pain Status: Acute Assessment and Plan: Likely due to H pyelori and pt is not tolerating the initial treatment of this -Pt states her stomach pain has improved since admission and is feeling better than she has in awhile -I started the PPI, clarithromycin, and flagyl treatment plan from [facility] as the pt states that she thinks she has an allergy to PCN although now is thinking she was getting it confused to tetracycline. -vascular u/s and CT abd/pelv showed moderate stannosis of the SMA but doubt it is causing the pain since the other arteries are patent and 2 of the 3 arteries need to be affected before it typically causes limited blood flow causing pain -She also has Collagenous colitis. GI is considering increasing entocort from 3mg to 9mg. This may not help her epigastric pain but certainly may help further pain in her GI tract although she is not having any further diarrhea -Continue PPI therapy -GI consulted -MR of the abdomen does not show any etiology (6) Acute on chronic renal failure: Code(s): N17.9 - Acute kidney failure, unspecified; N18.9 - Chronic kidney disease, unspecified Status: Acute Assessment and Plan: Secondary to nausea vomiting and diarrhea. Cr 1.20 today - unilateral renal artery stenosis noted on MRA, continue on losartan at discharge -Monitor renal function and urine output. -Avoid nephrotoxic agents, renally dose medications. (7) Acute dehydration: Code(s): E86.0 - Dehydration Status: Acute Assessment and Plan: Resolved (8) Helicobacter pylori gastritis: Code(s): K29.70 - Gastritis, unspecified, without bleeding; B96.81 - Helicobacter pylori [H. pylori] as the cause of diseases classified elsewhere Status: Chronic Assessment and Plan: as stated above (9) Transaminitis: Code(s): R74.01 - Elevation of levels of liver transaminase levels Status: Acute Assessment and Plan: Resolved (10) Type 2 diabetes mellitus with stage 1 chronic kidney disease: Qualifiers: Diabetes mellitus termite control technician insulin use: without group home use Qualified Code(s): E11.22 - Type 2 diabetes mellitus with diabetic chronic kidney disease; N18.1 - Chronic kidney disease, stage 1 Code(s): E11.22 - Type 2 diabetes mellitus with diabetic chronic kidney disease; N18.1 - Chronic kidney disease, stage 1 Status: Chronic Assessment and Plan: A1c 5.5 -Continue Accu-Cheks , sliding scale insulin coverage, hypoglycemia protocol. -Monitor closely (11) Hyperlipidemia, unspecified: Qualifiers: Hyperlipidemia type: other hyperlipidemia Qualified Code(s): E78.49 - Other hyperlipidemia Code(s): E78.5 - Hyperlipidemia
--- NOTE | 2020-09-28 12:51 | PM.PNCARD ---
Progress Note: A&P Assessment and Plan (1) Type 2 myocardial infarction: Code(s): I21.A1 - Myocardial infarction type 2 Status: Acute Assessment and Plan: Not likely acute coronary syndrome. Abnormal EKG with atypical chest pain in setting of elevated troponin with new diagnosis pulmonary embolism which is the most likely cause. However, given new diagnosis cardiomyopathy cannot exclude underlying CAD (but no prior known history). Troponin trend x2 flat thus far continue serial evaluation. Transferred to IMU. Telemetry. ASA 81mg daily, monitor for bleeding. Follow H/H which has declined since admission. (2) Cardiomyopathy: Code(s): I42.9 - Cardiomyopathy, unspecified Status: Acute Assessment and Plan: New diagnosis, Moderate LV systolic dysfunction EF 35-40% with apical apical septal wall motion abnormalities. Discussed ischemic evaluation options. Given acute on chronic renal failure only recently improved like to avoid significant contrast exposure particularly after CT angiogram. Serial troponins x2 flat thus far. Patient compensated at present. Clinically, patient is very complicated with multiple issues. Ischemic evaluation in future likely C, however, given PE continue A/C without interruption for now. Doing well at present. Resume losartan 25 mg daily in a.m.. Monitor renal function. Transition to Toprol XL 25 mg once daily tomorrow morning with discontinuation of metoprolol tartrate after this evening's dose. (3) Tachycardia: Code(s): R00.0 - Tachycardia, unspecified Status: Acute Assessment and Plan: Telemetry is most consistent with 1 episode of sinus tachycardia thus far. Will monitor. No evidence for atrial fibrillation atrial flutter thus far yet patient was not previously on telemetry. Continue telemetry for further clarification. Maintaining sinus rhythm generally. (4) Pulmonary embolism: Code(s): I26.99 - Other pulmonary embolism without acute cor pulmonale Status: Acute Assessment and Plan: CT angiogram today reveals right upper and lower lobe segmental pulmonary embolism. Continue systemic anticoagulation. Monitor H&H. Management per primary service. Lower extremity venous Doppler negative for DVT. (5) Acute on chronic renal failure: Code(s): N17.9 - Acute kidney failure, unspecified; N18.9 - Chronic kidney disease, unspecified Status: Acute Assessment and Plan: Improving. Continue to monitor closely. We need to exercise caution with additional contrast exposure and her resumption of ARB at this time. (6) Epigastric pain: Code(s): R10.13 - Epigastric pain Status: Acute Assessment and Plan: Per GI and primary service. (7) Anemia, unspecified: Qualifiers: Anemia type: unspecified type Qualified Code(s): D64.9 - Anemia, unspecified Code(s): D64.9 - Anemia, unspecified Status: Acute Assessment and Plan: With slow drift downward. Continue to monitor closely on systemic anticoagulation and aspirin. Subjective Date/time seen: Date of service: 09/28/20 12:51 Follow-up for elevated troponin, new diagnosis cardiomyopathy CT angiogram revealed pulmonary emboli for which she was started on systemic anticoagulation. She feels much better today less short of breath, more energy, denies chest pain at this time. Admits to some ongoing left flank discomfort. Appetite much improved. This is the best she has felt in quite some time she adds. Tolerating medications. Denies significant nausea vomiting. Minimal abdominal discomfort today. Review of Systems Review of Systems: All systems reviewed & are unremarkable except as noted in HPI and below Constitutional: Constitutional: Reports as per HPI, Reports no additional constitutional complaints and Reports weakness Eyes: Eyes: Reports as per HPI and Reports no additional eye complaints ENT: Reports system
[2020-09-28 12:57] LABS: Glucose Point of Care 144 (65-105)
[2020-09-28 16:03] LABS: Glucose Point of Care 119 (65-105)
[2020-09-28] MEDS: APIXABAN 5 MG TABLET 10 MG PO (16:46)
--- NOTE | 2020-09-28 17:00 | WPDGIPROGNO ---
Progress Note: A&P Assessment and Plan (1) Microscopic colitis: Code(s): K52.839 - Microscopic colitis, unspecified Status: Acute Assessment and Plan: no more diarrhea, on budesonide (2) Nausea & vomiting: Code(s): R11.2 - Nausea with vomiting, unspecified Status: Acute Assessment and Plan: on admission with dehydration and kristin, now feeling better and eating more no more nausea (3) Pulmonary embolism: Code(s): I26.99 - Other pulmonary embolism without acute cor pulmonale Status: Acute Assessment and Plan: new diagnosis found in CTA chest and started on eliquis (4) Type 2 myocardial infarction: Code(s): I21.A1 - Myocardial infarction type 2 Status: Acute Assessment and Plan: cardiology on board, had elevated troponins (5) Helicobacter pylori gastritis: Code(s): K29.70 - Gastritis, unspecified, without bleeding; B96.81 - Helicobacter pylori [H. pylori] as the cause of diseases classified elsewhere Status: Chronic Assessment and Plan: complete oral treatment, on ppi check stool H pylori in 2 months (6) Cardiomyopathy: Code(s): I42.9 - Cardiomyopathy, unspecified Status: Acute Assessment and Plan: new diagnosis with low EF by ECHO, cardiology on board Subjective Date/time seen: 09/28/20 17:00 Interval history: feeling better today, also good appetite and denies diarrhea Review of Systems Review of Systems: All systems reviewed & are unremarkable except as noted in HPI and below Exam Const: General: comfortable and no acute distress HENMT: General nose exam: Normal nares present Eyes: General: appearance normal, both eyes and all related structures Neck: Neck: supple Resp: Auscultation: clear to auscultation bilaterally Cardio: Rate: regular rate GI: Inspection: non-distended GI Palp: Yes Soft to palpation Auscultation: normal bowel sounds Skin: General skin exam: normal color Neuro: Speech: normal speech Motor exam (neuro): Normal motor muscle tone present throughout Extrem: General: normal to inspection Psych: Affect: normal affect Objective Data Vital Signs Vital Signs: Vital Signs - 24 hr 09/27/20 18:00 09/27/20 18:41 09/27/20 20:00 Temperature 98 F Pulse Rate 115 H 117 H 113 H Respiratory Rate 12 Blood Pressure 146/83 H Pulse Oximetry 100 100 09/27/20 21:11 09/27/20 22:00 09/27/20 23:54 Temperature Pulse Rate 71 77 Respiratory Rate Blood Pressure Pulse Oximetry 100 09/28/20 00:00 09/28/20 02:00 09/28/20 04:00 Temperature 97.9 F 97.9 F Pulse Rate 103 H 70 69 Respiratory Rate 20 20 Blood Pressure 115/76 148/82 H Pulse Oximetry 99 94 09/28/20 06:00 09/28/20 08:00 09/28/20 10:00 Temperature 97.6 F Pulse Rate 77 73 69 Respiratory Rate 16 Blood Pressure 140/85 Pulse Oximetry 97 09/28/20 12:00 09/28/20 16:00 Temperature 97.5 F L 98.5 F Pulse Rate 75 84 Respiratory Rate 18 16 Blood Pressure 141/75 H 128/73 Pulse Oximetry 95 99 Intake/Output Intake/Output: Intake & Output 09/25/20 09/26/20 09/27/20 09/28/20 23:59 23:59 23:59 23:59 Intake Total 3330 1770 1020 420 Output Total 600 1700 800 200 Balance 2730 70 220 220 Meds/Results Medications: Active Medications Generic Name Dose Route Start Last Admin Trade Name Freq PRN Reason Stop Dose Admin Apixaban 10 mg 09/28/20 15:00 09/28/20 16:46 Apixaban 5 Mg Tablet PO 10 mg Q12HR JEANA Administration Aspirin 81 mg 09/23/20 09:00 09/28/20 09:20 Aspirin 81 Mg Enteric Tablet PO 81 mg DAILY JEANA Administration Atorvastatin Calcium 10 mg 09/23/20 09:00 Atorvastatin 10 Mg Tablet PO DAILY [facility] Budesonide 3 mg 09/23/20 09:00 09/28/20 09:19 Budesonide 3 Mg Cap.Sr.24h PO 3 mg DAILY JEANA Administration Clarithromycin 500 mg 09/26/20 09:00 09/28/20 09:19 Clarithromycin 500 Mg Tablet PO 500 mg Q12HR [facility] Ad
[2020-09-28 20:30] LABS: Glucose Point of Care 179 (65-105)
[2020-09-29] VITALS (12 sets, daily range): BP systolic 124–154; BP diastolic 59–90; PULSE 63–84; RESP 12–22; TEMP 36.1–36.6; O2SAT 94–100
[2020-09-29 05:06] LABS: Hematocrit 29.7 % (37.0-47.0); Hemoglobin 9.5 g/dL (12.0-15.0); Mean Corpuscular Hemoglobin 30.2 pg (26-34); Mean Corpuscular Volume 94.3 fl (80-100); Mean Platelet Volume 12.1 fl (7.4-10.4); Platelet Count Result 168 k/mm3 (150-375); Red Blood Count 3.15 M/mm3 (4.2-5.4); Red Cell Distribution Width 13.1 % (11.5-14.5); White Blood Count 7.5 K/mm3 (4.5-10.0)
[2020-09-29 05:33] LABS: Anion Gap 5 mmol/L (8-16); Blood Urea Nitrogen 25 mg/dL (7-17); Calcium 8.2 mg/dL (8.4-10.2); Carbon Dioxide 26 mmol/L (22-30); Chloride 107 mmol/L (98-107); Estimated CRCL calculation 28 ml/min; Estimated Glomerular Filt Rate 40; Glucose 111 mg/dL (65-105); Magnesium 1.7 mg/dL (1.6-2.3); Phosphorus 3.4 mg/dL (2.5-4.5); Potassium 4.4 mmol/L (3.4-5.0); Sodium 138 mmol/L (137-145)
[2020-09-29] MEDS: metroNIDAZOLE 250 MG TABLET 500 MG PO ×3 (06:28→21:13)
[2020-09-29 08:13] LABS: Glucose Point of Care 98 (65-105)
--- NOTE | 2020-09-29 08:57 | PM.IMPN ---
Progress Note: A&P Assessment and Plan (1) Pulmonary embolism: Code(s): I26.99 - Other pulmonary embolism without acute cor pulmonale Status: Acute Assessment and Plan: Noted on CTA after pt experienced tachycardia 09/27/20. Pt has no SOB or CP at this time. Renally dosed lovenox started 09/27/20, transitioned to PO Eliquis 10 mg Q12 hr on pm of 09/28. Echo detailed below D/c on Eliquis 10 mg Q12hr through morning of 10/05; transition to 5 mg Q12hr thereafter F/u with PCP (2) Type 2 myocardial infarction: Code(s): I21.A1 - Myocardial infarction type 2 Status: Acute Assessment and Plan: 07/25 to PE in addition to undiagnosed cardiomyopathy that was not known to the pt. No CP Continue Eliquis Will likely need cath outpt Continue aspirin (3) Cardiomyopathy: Code(s): I42.9 - Cardiomyopathy, unspecified Status: Acute Assessment and Plan: Echo shows EF of 35-45%. Metoprolol succinate 25 mg started today. Losartan resumed. Appreciate Cardiology rec Continue metoprolol and losartan per Cardiology rec Plan for outpt evaluation at a later date (4) Tachycardia: Code(s): R00.0 - Tachycardia, unspecified Status: Acute Assessment and Plan: As above (5) Epigastric pain: Code(s): R10.13 - Epigastric pain Status: Acute Assessment and Plan: Likely due to H pyelori and pt is not tolerating the initial treatment of this. Pt states her stomach pain has improved since admission and is feeling better than she has in awhile. 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 MR of the abdomen does not show any etiology PPI, clarithromycin, and flagyl started; will continue for 2 weeks total unless rec by GI She also has Collagenous colitis. GI is considering increasing entocort from 3mg to 9mg. This may not help her epigastric pain but certainly may help further pain in her GI tract although she is not having any further diarrhea Continue PPI therapy after H pylori treatment -GI following and appreciate recommendations (6) Acute on chronic renal failure: Code(s): N17.9 - Acute kidney failure, unspecified; N18.9 - Chronic kidney disease, unspecified Status: Acute Assessment and Plan: Secondary to nausea vomiting and diarrhea. Cr 1.30 today. Unilateral renal artery stenosis noted on MRA continue on losartan at discharge Monitor renal function and urine output. Avoid nephrotoxic agents, renally dose medications. (7) Acute dehydration: Code(s): E86.0 - Dehydration Status: Resolved Assessment and Plan: Resolved (8) Helicobacter pylori gastritis: Code(s): K29.70 - Gastritis, unspecified, without bleeding; B96.81 - Helicobacter pylori [H. pylori] as the cause of diseases classified elsewhere Status: Chronic Assessment and Plan: as stated above (9) Transaminitis: Code(s): R74.01 - Elevation of levels of liver transaminase levels Status: Acute Assessment and Plan: Resolved (10) Type 2 diabetes mellitus with stage 1 chronic kidney disease: Qualifiers: Diabetes mellitus care home insulin use: without oysterman use Qualified Code(s): E11.22 - Type 2 diabetes mellitus with diabetic chronic kidney disease; N18.1 - Chronic kidney disease, stage 1 Code(s): E11.22 - Type 2 diabetes mellitus with diabetic chronic kidney
[2020-09-29] MEDS: APIXABAN 5 MG TABLET 10 MG PO ×2 (09:39→20:24)
[2020-09-29] MEDS: DULoxetine HCL 60 MG CAPSULE.DR PO (09:39)
[2020-09-29] MEDS: ASPIRIN 81 MG ENTERIC TABLET PO (09:39)
[2020-09-29] MEDS: METOPROLOL SUCCINATE EXT REL 25 MG TABCR PO (09:39)
[2020-09-29] MEDS: PANTOPRAZOLE SODIUM IV 40 MG VIAL IV PUSH ×2 (09:40→20:25)
[2020-09-29] MEDS: LOSARTAN POTASSIUM 25 MG TABLET PO (09:40)
[2020-09-29] MEDS: CLARITHROMYCIN 500 MG TABLET PO ×2 (09:40→20:24)
[2020-09-29] MEDS: BUDESONIDE 3 MG CAP.SR.24H PO (09:40)
[2020-09-29 12:47] LABS: Glucose Point of Care 113 (65-105)
--- NOTE | 2020-09-29 15:13 | PM.PNCARD ---
Progress Note: A&P Assessment and Plan (1) Type 2 myocardial infarction: Code(s): I21.A1 - Myocardial infarction type 2 Status: Acute Assessment and Plan: Not likely acute coronary syndrome. Abnormal EKG with atypical chest pain in setting of elevated troponin with new diagnosis pulmonary embolism which is the most likely cause. However, given new diagnosis cardiomyopathy cannot exclude underlying CAD (but no prior known history). Troponin trend x2 flat thus far continue serial evaluation. Transferred to IMU. Telemetry. Given systemic anticoagulation and decline in H&H will hold aspirin for now. Reconsider initiation as appropriate as an outpatient. ASA 81mg daily, monitor for bleeding. (2) Cardiomyopathy: Code(s): I42.9 - Cardiomyopathy, unspecified Status: Acute Assessment and Plan: New diagnosis, Moderate LV systolic dysfunction EF 35-40% with apical apical septal wall motion abnormalities. Discussed ischemic evaluation options. Given acute on chronic renal failure only recently improved like to avoid significant contrast exposure particularly after CT angiogram. Serial troponins x2 flat thus far. Patient compensated at present. Clinically, patient is very complicated with multiple issues. Ischemic evaluation in future with anticipated LHC, however, given PE continue A/C without interruption for now. Doing well at present. Continue losartan 25 mg daily and Toprol XL 25 mg once daily Follow with me as an outpatient within 4 weeks. (3) Tachycardia: Code(s): R00.0 - Tachycardia, unspecified Status: Acute Assessment and Plan: Resolved. No new issues. May discontinue telemetry. (4) Pulmonary embolism: Code(s): I26.99 - Other pulmonary embolism without acute cor pulmonale Status: Acute Assessment and Plan: CT angiogram today reveals right upper and lower lobe segmental pulmonary embolism. Continue systemic anticoagulation. Monitor H&H. Management per primary service. Lower extremity venous Doppler negative for DVT. (5) Acute on chronic renal failure: Code(s): N17.9 - Acute kidney failure, unspecified; N18.9 - Chronic kidney disease, unspecified Status: Acute Assessment and Plan: Improving. Continue to monitor closely. Tolerating losartan thus far. (6) Epigastric pain: Code(s): R10.13 - Epigastric pain Status: Acute Assessment and Plan: Per GI and primary service. Complicated history in this regard. Patient has a history of statin intolerance. And neck case consideration for Zetia 10 mg daily, however, given multiple GI issues will hold for the time being so as to not complicate her hard fought improvement. (7) Anemia, unspecified: Qualifiers: Anemia type: unspecified type Qualified Code(s): D64.9 - Anemia, unspecified Code(s): D64.9 - Anemia, unspecified Status: Acute Assessment and Plan: Initial declined but stable past 24 hours. Continue to monitor closely on systemic anticoagulation. As above, will hold aspirin for now. Subjective Date/time seen: Date of service: 09/29/20 15:13 Follow-up for elevated troponin, new cardiomyopathy Still feeling better overall. Feels weak but improving. Appetite stable. No chest pain or significant shortness of breath. No new issues overnight. Heart rate stable on telemetry. No dizziness. Abdominal discomfort persists but is mild. Review of Systems Review of Systems: All systems reviewed & are unremarkable except as noted in HPI and below Constitutional: Constitutional: Reports as per HPI, Reports no additional constitutional complaints, Reports fatigue and Reports weakness Eyes: Eyes: Reports as per HPI and Reports no additional eye complaints ENT: Reports system reviewed and no additional complaints, except as documented and Reports as per HPI Cardiovascular: Cardiovascular: Reports as per HPI, Reports no additional
[2020-09-29 17:06] LABS: Glucose Point of Care 155 (65-105)
--- NOTE | 2020-09-29 17:19 | PC.NURSE ---
Patient to room via hospital bed from room 232. Patient oriented to room and policies. Belongings with patient. Report given from ELTON Mercado.
--- NOTE | 2020-09-29 17:23 | PC.NURSE ---
This patient, Swetha Golden, was transferred to [facility] on 09/29/20 at 1724. Personal belongings sent with patient. Report given to ELTON Boyd. Appropriate documentation sent with patient.
[2020-09-29 21:42] LABS: Glucose Point of Care 207 (65-105)
[2020-09-30] VITALS: BP 124/86; PULSE 72; RESP 14; TEMP 36.2; O2SAT 98
[2020-09-30] MEDS: metroNIDAZOLE 250 MG TABLET 500 MG PO ×2 (05:49→15:03)
[2020-09-30 06:00] VITALS: BP 169/98; PULSE 78; RESP 14; TEMP 36.8; O2SAT 100
[2020-09-30 06:19] LABS: Hematocrit 27.9 % (37.0-47.0); Hemoglobin 8.6 g/dL (12.0-15.0); Mean Corpuscular HGB Conc 30.8 g/dl (32-36); Mean Corpuscular Hemoglobin 29.9 pg (26-34); Mean Corpuscular Volume 96.9 fl (80-100); Mean Platelet Volume 12.1 fl (7.4-10.4); Platelet Count Result 173 k/mm3 (150-375); Red Blood Count 2.88 M/mm3 (4.2-5.4); Red Cell Distribution Width 13.2 % (11.5-14.5); White Blood Count 6.8 K/mm3 (4.5-10.0)
[2020-09-30 06:34] LABS: Anion Gap 5 mmol/L (8-16); Blood Urea Nitrogen 23 mg/dL (7-17); Calcium 8.5 mg/dL (8.4-10.2); Carbon Dioxide 27 mmol/L (22-30); Chloride 106 mmol/L (98-107); Estimated CRCL calculation 31 ml/min; Estimated Glomerular Filt Rate 44; Glucose 114 mg/dL (65-105); Magnesium 1.6 mg/dL (1.6-2.3); Potassium 4.2 mmol/L (3.4-5.0); Sodium 138 mmol/L (137-145)
[2020-09-30 08:00] VITALS: PULSE 67; RESP 14; O2SAT 100
[2020-09-30 08:21] LABS: Glucose Point of Care 104 (65-105)
[2020-09-30 08:23] LABS: Glucose Point of Care 87 (65-105)
[2020-09-30] MEDS: BUDESONIDE 3 MG CAP.SR.24H PO (09:06)
[2020-09-30] MEDS: PANTOPRAZOLE SODIUM IV 40 MG VIAL IV PUSH (09:06)
[2020-09-30] MEDS: DULoxetine HCL 60 MG CAPSULE.DR PO (09:07)
[2020-09-30] MEDS: LOSARTAN POTASSIUM 25 MG TABLET PO (09:07)
[2020-09-30] MEDS: CLARITHROMYCIN 500 MG TABLET PO (09:07)
[2020-09-30 09:08] VITALS: PULSE 67
[2020-09-30] MEDS: APIXABAN 5 MG TABLET 10 MG PO (09:08)
[2020-09-30] MEDS: METOPROLOL SUCCINATE EXT REL 25 MG TABCR PO (09:08)
[2020-09-30 09:30] VITALS: BP 156/70; PULSE 73; RESP 18; TEMP 36.2; O2SAT 99
--- NOTE | 2020-09-30 10:00 | WPDGIPROGNO ---
Progress Note: A&P Assessment and Plan (1) Microscopic colitis: Code(s): K52.839 - Microscopic colitis, unspecified Status: Acute Assessment and Plan: on budesonide 3mg daily (ok to continue same dose) since no much of diarrhea follow-up office in 2 months ok to go home by GI standpoint (2) Nausea & vomiting: Code(s): R11.2 - Nausea with vomiting, unspecified Status: Acute Assessment and Plan: on admission with dehydration and kristin no more nausea and resolved had MRI abdomen (3) Pulmonary embolism: Code(s): I26.99 - Other pulmonary embolism without acute cor pulmonale Status: Acute Assessment and Plan: new diagnosis found in CTA chest and started on eliquis (4) Type 2 myocardial infarction: Code(s): I21.A1 - Myocardial infarction type 2 Status: Acute Assessment and Plan: cardiology on board, had elevated troponin (5) Helicobacter pylori gastritis: Code(s): K29.70 - Gastritis, unspecified, without bleeding; B96.81 - Helicobacter pylori [H. pylori] as the cause of diseases classified elsewhere Status: Chronic Assessment and Plan: complete oral treatment as outpatient then continue with ppi check stool H pylori in 2 months (6) Cardiomyopathy: Code(s): I42.9 - Cardiomyopathy, unspecified Status: Acute Assessment and Plan: new diagnosis with low EF by ECHO, cardiology on board Subjective Date/time seen: 09/30/20 10:00 Interval history: no more diarrhea, eating ok and overall better she is going home today Review of Systems Review of Systems: All systems reviewed & are unremarkable except as noted in HPI and below Exam Const: General: comfortable and no acute distress HENMT: General nose exam: Normal nares present Eyes: General: appearance normal, both eyes and all related structures Neck: Neck: supple Resp: Auscultation: clear to auscultation bilaterally Cardio: Rate: regular rate Heart sounds: Murmur heart sound present (soft) GI: Inspection: non-distended GI Palp: Yes Soft to palpation and No Guarding due to palpation present (GI) Auscultation: normal bowel sounds Skin: General skin exam: normal color Neuro: Speech: normal speech Motor exam (neuro): Normal motor muscle tone present throughout Extrem: General: normal to inspection Psych: Affect: normal affect Objective Data Vital Signs Vital Signs: Vital Signs - 24 hr 09/29/20 14:00 09/29/20 16:00 09/29/20 19:46 Temperature 97.6 F 97.1 F L Pulse Rate 68 77 77 Respiratory Rate 22 H 12 Blood Pressure 140/65 124/90 Pulse Oximetry 100 94 09/30/20 00:00 09/30/20 06:00 09/30/20 08:00 Temperature 97.2 F L 98.2 F Pulse Rate 72 78 67 Respiratory Rate 14 14 14 Blood Pressure 124/86 169/98 H Pulse Oximetry 98 100 100 09/30/20 09:08 09/30/20 09:30 Temperature 97.2 F L Pulse Rate 67 73 Respiratory Rate 18 Blood Pressure 156/70 H Pulse Oximetry 99 Intake/Output Intake/Output: Intake & Output 09/27/20 09/28/20 09/29/20 09/30/20 23:59 23:59 23:59 23:59 Intake Total 4571 656 5833 560 Output Total 800 600 950 600 Balance 220 190 910 -40 Meds/Results Medications: Active Medications Generic Name Dose Route Start Last Admin Trade Name Meirq PRN Reason Stop Dose Admin Apixaban 10 mg 09/28/20 15:00 09/30/20 09:08 Apixaban 5 Mg Tablet PO 10/05/20 09:01 10 mg Q12HR JEANA Administration Aspirin 81 mg 09/23/20 09:00 09/29/20 09:39 Aspirin 81 Mg Enteric Tablet PO 81 mg DAILY JEANA Administration Atorvastatin Calcium 10 mg 09/23/20 09:00 Atorvastatin 10 Mg Tablet PO DAILY JEANA Budesonide 3 mg 09/23/20 09:00 09/30/20 09:06 Budesonide 3 Mg Cap.Sr.24h PO 3 mg DAILY JEANA Administration Clarithromycin 500 mg 09/26/20 09:00 09/30/20 09:07 Clarithromycin 500 Mg Tablet PO 10/02/20 09:01 500 mg Q12HR JEANA Administration Dextrose 12.5 gm 09/22/20 20:56 D
--- NOTE | 2020-09-30 10:02 | PM.DS ---
DS: Admitting Diagnosis Admitting Diagnosis Admitting Diagnosis: Epigastric pain, acute on chronic renal failure, dehydration, h pylori gastritis DS: Discharge Diagnosis Discharge Diagnosis (1) Pulmonary embolism: Code(s): I26.99 - Other pulmonary embolism without acute cor pulmonale Status: Acute Assessment and Plan: Noted on CTA after pt experienced tachycardia 09/27/20. Pt has no SOB or CP at this time. Renally dosed lovenox started 09/27/20, transitioned to PO Eliquis 10 mg Q12 hr on pm of 09/28. Echo detailed below D/c on Eliquis 10 mg Q12hr through morning of 10/05; transition to 5 mg Q12hr thereafter F/u with PCP (2) Type 2 myocardial infarction: Code(s): I21.A1 - Myocardial infarction type 2 Status: Acute Assessment and Plan: 2/2 to PE in addition to undiagnosed cardiomyopathy that was not known to the pt. No CP Continue Eliquis Will likely need cath outpt Hold aspirin given risk for bleeding (3) Cardiomyopathy: Code(s): I42.9 - Cardiomyopathy, unspecified Status: Acute Assessment and Plan: Echo shows EF of 35-45%. Metoprolol succinate 25 mg started today. Losartan resumed. Appreciate Cardiology rec Continue metoprolol and losartan per Cardiology rec Plan for outpt evaluation at a later date (4) Tachycardia: Code(s): R00.0 - Tachycardia, unspecified Status: Acute Assessment and Plan: As above (5) Epigastric pain: Code(s): R10.13 - Epigastric pain Status: Acute Assessment and Plan: Likely due to H pylori and pt is not tolerating the initial treatment of this. Pt states her stomach pain has improved since admission and is feeling better than she has in awhile. Vascular u/s and CT abd/pelv showed moderate stenosis of the SMA but doubt it is causing the pain since the other arteries are patent and 2 of the 3 arteries need to be affected before it typically causes limited blood flow causing pain. MR of the abdomen does not show any etiology PPI, clarithromycin, and flagyl started; will continue for through 10 days total unless rec by GI (partial treatment of ~4 days prior to arrival) She also has Collagenous colitis. GI is considering increasing entocort from 3mg to 9mg. This may not help her epigastric pain but certainly may help further pain in her GI tract although she is not having any further diarrhea Continue PPI therapy after H pylori treatment GI following and appreciate recommendations F/u with GI as outpatient (6) Acute on chronic renal failure: Code(s): N17.9 - Acute kidney failure, unspecified; N18.9 - Chronic kidney disease, unspecified Status: Resolved Assessment and Plan: Secondary to nausea vomiting and diarrhea. Cr 1.20 today. Unilateral renal artery stenosis noted on MRA Continue on losartan at discharge Stop HCTZ f/u with PCP Outpatient labs in 1 week (7) Acute dehydration: Code(s): E86.0 - Dehydration Status: Resolved Assessment and Plan: Resolved (8) Helicobacter pylori gastritis: Code(s): K29.70 - Gastritis, unspecified, without bleeding; B96.81 - Helicobacter pylori [H. pylori] as the cause of diseases classified elsewhere Status: Chronic Assessment and Plan: Biopsy from stomach shows chronic gastritis; as stated above (9) Transaminitis: Code(s): R74.01 - Elevation of levels of liver transaminase levels Status: Acute Assessment and Plan: Resolved (10) Type 2 diabetes mellitus with stage 1 chronic kidney disease: Qualifiers: Diabetes david
--- NOTE | 2020-09-30 11:59 | PM.PNCARD ---
Progress Note: A&P Assessment and Plan (1) Type 2 myocardial infarction: Code(s): I21.A1 - Myocardial infarction type 2 Status: Acute Assessment and Plan: Not likely acute coronary syndrome. Abnormal EKG with atypical chest pain in setting of elevated troponin with new diagnosis pulmonary embolism which is the most likely cause. However, given new diagnosis cardiomyopathy cannot exclude underlying CAD (but no prior known history). Troponin trend x2 flat thus far continue serial evaluation. Transferred to IMU. Telemetry. Given systemic anticoagulation and decline in H&H will hold aspirin for now. Reconsider initiation as appropriate as an outpatient. ASA 81mg daily, monitor for bleeding. (2) Cardiomyopathy: Code(s): I42.9 - Cardiomyopathy, unspecified Status: Acute Assessment and Plan: New diagnosis, Moderate LV systolic dysfunction EF 35-40% with apical apical septal wall motion abnormalities. Discussed ischemic evaluation options. Given acute on chronic renal failure only recently improved like to avoid significant contrast exposure particularly after CT angiogram. Serial troponins x2 flat thus far. Patient compensated at present. Clinically, patient is very complicated with multiple issues. Ischemic evaluation in future with anticipated LHC, however, given PE continue A/C without interruption for now. Doing well at present. Continue losartan 25 mg daily and Toprol XL 25 mg once daily Follow with me as an outpatient within 4 weeks as Schedule. Stable for discharge home. (3) Tachycardia: Code(s): R00.0 - Tachycardia, unspecified Status: Acute Assessment and Plan: Resolved. No new issues. May discontinue telemetry. (4) Pulmonary embolism: Code(s): I26.99 - Other pulmonary embolism without acute cor pulmonale Status: Acute Assessment and Plan: CT angiogram today reveals right upper and lower lobe segmental pulmonary embolism. Continue systemic anticoagulation. Monitor H&H. Management per primary service. Lower extremity venous Doppler negative for DVT. (5) Acute on chronic renal failure: Code(s): N17.9 - Acute kidney failure, unspecified; N18.9 - Chronic kidney disease, unspecified Status: Resolved Assessment and Plan: Improving. Continue to monitor closely. Tolerating losartan thus far. (6) Epigastric pain: Code(s): R10.13 - Epigastric pain Status: Acute Assessment and Plan: Per GI and primary service. Complicated history in this regard. Patient has a history of statin intolerance. Consideration for Zetia 10 mg daily, however, given multiple GI issues will hold for the time being so as to not complicate her hard fought improvement. (7) Anemia, unspecified: Qualifiers: Anemia type: unspecified type Qualified Code(s): D64.9 - Anemia, unspecified Code(s): D64.9 - Anemia, unspecified Status: Acute Assessment and Plan: stable. Subjective Date/time seen: Date of service: 09/30/20 11:59 Follow-up for cardiomyopathy, elevated troponin. Patient feeling very well, much better from admission. still little tired but definitely improving. No diarrhea. Appetite improving. No chest pain, shortness of breath or dizziness. Tolerating medications. No new issues overnight. Review of Systems Review of Systems: All systems reviewed & are unremarkable except as noted in HPI and below Constitutional: Constitutional: Reports as per HPI, Reports no additional constitutional complaints and Reports weakness Eyes: Eyes: Reports as per HPI and Reports no additional eye complaints ENT: Reports system reviewed and no additional complaints, except as documented and Reports as per HPI Cardiovascular: Cardiovascular: Reports as per HPI, Reports no additional cardiovascular complaints, Denies chest pain, Denies diaphoresis, Denies leg edema, Denies lightheadedness, Denies palpita
[2020-09-30 12:37] LABS: Glucose Point of Care 99 (65-105)
[2020-09-30 13:50] VITALS: BP 122/65; PULSE 78; RESP 20; TEMP 36.8; O2SAT 100
[2020-09-30 17:27] LABS: Glucose Point of Care 135 (65-105)
[2020-10-04 00:15] LABS: Gliadin AB, IgG 3 Units (<20); Reticulin IgA Negative (Negative); TTG IGA AB 1 U/mL (<4)
== END 2020-09-30 16:40 | disposition home health service (06) | DRG 682 ==
LOC: ANHED 17:34 → ANH3MEDSUR 19:42 → ANHIMU 09-27 16:40 → ANH3MED 09-30 10:24 → ANH3MEDSUR 10-03 16:34 → ANHIMU 10-03 16:34
PROVIDERS: Emergency Medicine Emergency Medical Services; Physician Assistant; Admitting Provider Internal Medicine; Emergency Provider Emergency Medicine; PCP Internal Medicine; Visit Provider Physician Assistant
DX: N17.9 Acute kidney failure, unspecified (principal); I26.99 Other pulmonary embolism without acute cor pulmonale; I21.A1 Myocardial infarction type 2; I42.9 Cardiomyopathy, unspecified; E86.0 Dehydration; I12.9 Hypertensive chronic kidney disease with stage 1 through stage 4 chronic kidney disease, or unspecified chronic kidney disease; E11.22 Type 2 diabetes mellitus with diabetic chronic kidney disease; G47.33 Obstructive sleep apnea (adult) (pediatric); E78.5 Hyperlipidemia, unspecified; K29.70 Gastritis, unspecified, without bleeding; K21.9 Gastro-esophageal reflux disease without esophagitis; B96.81 Helicobacter pylori [H. pylori] as the cause of diseases classified elsewhere; K76.0 Fatty (change of) liver, not elsewhere classified; N18.30 Chronic kidney disease, stage 3 unspecified; D50.0 Iron deficiency anemia secondary to blood loss (chronic); K52.831 Collagenous colitis; Z86.73 Personal history of transient ischemic attack (TIA), and cerebral infarction without residual deficits
CPT/HCPCS: 36415; 71046; 71275; 74176; 74183; 80048; 80053; 80061; 80074; 80076; 81001; 82150; 82553; 82948; 83516; 83605; 83690; 83735; 83880; 84100; 84443; 84484; 85025; 85027; 85380; 86140; 86255; 93005; 93306; 93970; 93978; 96361; 96365; 96366; 96375; 96376; 97110; 97116; 97161; 97165; 97530; 97535; 99285; A9270; A9577; C8929; C9113; G0378; J0131; J1650; J2270; J2405; J3475; J7040; J7120; Q9957; Q9967

== ENCOUNTER 2020-10-03 23:56 | Emergency (ER) | payer MEDICARE, OTHER, SELFPAY ==
--- NOTE | ~2020-10-03 | CT_ITS ---
EXAMINATION: CT brain wo con EXAM DATE: 10/04/2020 01:22 INDICATION: Headache. TECHNIQUE: Spiral CT of the head was performed without contrast. Axial, coronal and sagittal images were reviewed. The dose-length product (DLP) for this examination was 681.00 mGy-cm. The exposure w as tailored according to patient size, and iterative reconstruction (ASIR) was used as additional dos e reduction technique. Comparison is made to prior examination from 07/14/2018. FINDINGS: There is no acute intraparenchymal hemorrhage. No evidence of intraparenchymal brain mass lesion. No evidence of acute infarction. Please note that initial head CT has limited sensitivity f or small or acute infarctions. There is mild periventricular and subcortical hypodensity, nonspecific but probably related to small vessel ischemic disease. There is mild prominence of the sulci and v entricles related to cerebral atrophy. There is intracranial carotid arteriosclerosis. There are n o extra-axial collections. There is no mass effect or midline shift. The orbits are unremarkable. Soft tissue is unremarkable. The visualized sinuses and mastoid air cells are well aerated. IMPRESSION: 1. No acute intracranial findings. 2. Chronic age related findings. Reviewed, dictated and finalized at location A.
[2020-10-04] VITALS: BP 183/90; PULSE 75; RESP 16; TEMP 37.1; O2SAT 100
[2020-10-04 00:34] LABS: Basophils Percent Auto 0.2 % (0.2-1.2); Eosinophils Absolute Auto 0.1 K/mm3 (0-0.3); Eosinophils Percent Auto 1.1 % (0-4.4); Hematocrit 26.8 % (37.0-47.0); Hemoglobin 8.6 g/dL (12.0-15.0); Immature Granulocyte Absolute 0.02 K/mm3 (0.00-0.031); Immature Granulocyte Percent A 0.2 % (0-0.5); Lymphocytes Absolute Auto 2.03 K/mm3 (0.9-3.2); Lymphocytes Percent Auto 21.6 % (18.3-44.2); Mean Corpuscular HGB Conc 32.1 g/dl (32-36); Mean Corpuscular Hemoglobin 30.5 pg (26-34); Mean Platelet Volume 10.4 fl (7.4-10.4); Monocytes Absolute Auto 0.7 K/mm3 (0.1-0.6); Monocytes Percent Auto 7.7 % (2.6-8.5); Neutrophils Absolute Auto 6.5 K/mm3 (1.3-6.7); Neutrophils Percent Auto 69.2 % (45.5-73.1); Platelet Count Result 330 k/mm3 (150-375); Red Blood Count 2.82 M/mm3 (4.2-5.4); Red Cell Distribution Width 13.8 % (11.5-14.5); White Blood Count 9.4 K/mm3 (4.5-10.0)
--- NOTE | 2020-10-04 00:36 | PC.NURSE ---
Per EDP Lipsmeyer via verbal order read-back, order BMP, CBC, and PT PTT INR.
[2020-10-04 00:37] LABS: Anion Gap 7 mmol/L (8-16); Blood Urea Nitrogen 26 mg/dL (7-17); Calcium 8.2 mg/dL (8.4-10.2); Carbon Dioxide 24 mmol/L (22-30); Chloride 108 mmol/L (98-107); Estimated CRCL calculation 32 ml/min; Estimated Glomerular Filt Rate 48; Glucose 109 mg/dL (65-105); Potassium 3.9 mmol/L (3.4-5.0); Sodium 139 mmol/L (137-145)
[2020-10-04 00:48] LABS: INR 1.9; Prothrombin Time 22.5 Seconds (11.1-14.7)
[2020-10-04 00:49] LABS: Partial Thromboplastin Time 33.7 SECONDS (22.3-36.8)
[2020-10-04 00:59] VITALS: PULSE 80; RESP 16; O2SAT 100
[2020-10-04 01:02] VITALS: BP 155/83
[2020-10-04 01:33] LABS: NT Pro B Type Natriuretic Pept 6950 PG/ML (5-100)
[2020-10-04] MEDS: ACETAMINOPHEN 500 MG TABLET 1000 MG PO (01:43)
[2020-10-04 01:45] VITALS: BP 162/64; PULSE 80; RESP 16; O2SAT 100
--- NOTE | 2020-10-04 01:57 | ED.GENADULT ---
HPI - General Adult General Chief complaint: Extremity Injury, Lower Stated complaint: right leg swelling Time Seen by Provider: 10/04/20 00:59 History of Present Illness HPI narrative: Patient is a 75-year-old female who presents to the emergency department with chief complaint of right lower extremity swelling. Patient was recently in the hospital and was diagnosed with pulmonary embolism. The patient is currently taking an oral anticoagulant which she has been pliant with patient reports that she had a little bit of a headache that developed while she normally to the emergency department. Patient also noticed that her right leg was a little bit more swollen since she was in the hospital and that the patient was concerned that she may have a team. Patient reports no new shortness of breath or chest pain. Related Data Home Medications Medication Instructions Recorded Confirmed aspirin 81 mg PO DAILY 08/09/20 09/22/20 budesonide 3 mg PO DAILY 09/16/20 09/22/20 Allergies Allergy/AdvReac Type Severity Reaction Status Date / Time adhesive tape Allergy Severe RASH Verified 10/04/20 00:06 amitriptyline Allergy Unknown Rash Verified 10/04/20 00:06 ciprofloxacin Allergy Unknown Dizziness Verified 10/04/20 00:06 levofloxacin Allergy Unknown Swelling Verified 10/04/20 00:06 tetracycline AdvReac Nausea and Verified 10/04/20 00:06 Vomiting Review of Systems Review of Systems: Narrative: A 10 system review of systems was completed on the patient and is negative except for what is stated in the HPI. Nursing and ancillary documentation was reviewed. [facility] Past Medical History Medical History Benign essential hypertension Dehydration Helicobacter pylori gastritis History of CVA (cerebrovascular accident) HTN (hypertension) with goal to be determined Hyperlipidemia, unspecified Microscopic colitis Nausea & vomiting LUKE on CPAP Intolerant of a CPAP Statin intolerance Type 2 diabetes mellitus with stage 1 chronic kidney disease Upper abdominal pain Urinary incontinence Surgical History Surgical History H/O rectal polypectomy H/O: hysterectomy History of knee replacement bilateral knee replaced History of laparoscopic cholecystectomy Family History Family History Mother Family history of osteoporosis Father Family history of diabetes mellitus in first degree relative Sibling Diabetes mellitus 2 sisters Other Family history of arthritis Family history of cardiovascular disease Hypertension Social History Social History Social History: the patient has 4 children. She is . 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 She lives home alone with her little 6 lb dog. She rarely drinks. She is a lifelong nonsmoker. She does not use any marijuana or illicit drugs. Smoking status: Never smoker Alcohol intake: current Drinks per week: 2 Substance use: never Gender identity (if verbalized by the patient): Female Spiritual care concerns: No Exam Narrative: Exam Narrative: GENERAL: Well-appearing, well-nourished, and in no acute distress. HEAD: Normocephalic, atraumatic. EYES: PERRLA and EOMI. ENT: Nares clear, no rhinorrhea or epistaxis. Mucous membranes moist. NECK: Supple. CHEST: Clear to auscultation. No respiratory distress. HEART: Regular rate and rhythm. No murmur heard. Normal peripheral pulses. ABDOMEN: Soft, nontender, nondistended, normal active bowel sounds. EXTREMITIES: Normal range of motion. +1 edema. SKIN: Warm, dry, no rash. NEURO: No focal deficits. Alert and oriented x3. PSYCH: Normal mood and affect. Course Vital Signs Vital signs: Vital Signs Temperature 37.1 C 10/04/20 00:00 Pulse
[2020-10-04 02:59] VITALS: BP 174/74; PULSE 78; RESP 20; O2SAT 100
== END 2020-10-04 03:01 | disposition home or self-care (01) ==
PROVIDERS: Emergency Provider Emergency Medicine; PCP Internal Medicine
DX: M79.89 Other specified soft tissue disorders (principal); M79.604 Pain in right leg; R51.9 Headache, unspecified; E78.5 Hyperlipidemia, unspecified; G47.33 Obstructive sleep apnea (adult) (pediatric); E11.22 Type 2 diabetes mellitus with diabetic chronic kidney disease; I12.9 Hypertensive chronic kidney disease with stage 1 through stage 4 chronic kidney disease, or unspecified chronic kidney disease; N18.1 Chronic kidney disease, stage 1; R32 Unspecified urinary incontinence; Z96.653 Presence of artificial knee joint, bilateral; Z79.82 Long term (current) use of aspirin; Z86.73 Personal history of transient ischemic attack (TIA), and cerebral infarction without residual deficits; Z86.711 Personal history of pulmonary embolism; Z79.01 Long term (current) use of anticoagulants
CPT/HCPCS: 36415; 70450; 80048; 83880; 85025; 85610; 85730; 93971; 99284; A9270

== ENCOUNTER 2020-10-04 09:23 | Outpatient (CLI) | payer MEDICARE, OTHER, SELFPAY ==
--- NOTE | ~2020-10-04 | US_ITS ---
EXAMINATION: US venous doppler LE RT DATE: 10/04/2020 10:05 INDICATION: Right lower limb pain and swelling TECHNIQUE: Garsia scale images without and with compression and Doppler images of the right lower extre mity veins were obtained. COMPARISON: 09/27/2020 FINDINGS: The right common femoral vein, profunda femoral vein, femoral vein, popliteal vein, peronea l trunk, posterior tibial veins, and greater saphenous vein are patent. IMPRESSION: 1. Patent right lower extremity veins. No evidence of deep venous thrombosis. Reviewed, dictated and finalized at location B.
== END 2020-10-04 09:24 | disposition home or self-care (01) ==
LOC: ANHIMG 09:24
PROVIDERS: PCP Internal Medicine; Visit Provider Internal Medicine
DX: M79.89 Other specified soft tissue disorders (principal)
CPT/HCPCS: 93971

== ENCOUNTER 2020-10-16 13:00 | Outpatient (CLI) | payer MEDICARE, OTHER, SELFPAY ==
[2020-10-16 13:29] LABS: Hematocrit 30.7 % (37.0-47.0); Hemoglobin 9.3 g/dL (12.0-15.0)
[2020-10-16 13:42] LABS: Anion Gap 5 mmol/L (8-16); Blood Urea Nitrogen 17 mg/dL (7-17); Calcium 8.6 mg/dL (8.4-10.2); Carbon Dioxide 28 mmol/L (22-30); Chloride 109 mmol/L (98-107); Estimated Glomerular Filt Rate 48; Glucose 110 mg/dL (65-105); Potassium 3.9 mmol/L (3.4-5.0); Sodium 142 mmol/L (137-145)
== END 2020-10-16 13:01 | disposition home or self-care (01) ==
PROVIDERS: PCP Internal Medicine; Visit Provider Physician Assistant
DX: N17.9 Acute kidney failure, unspecified (principal); N18.9 Chronic kidney disease, unspecified; D64.9 Anemia, unspecified
CPT/HCPCS: 36415; 80048; 85014; 85018

== ENCOUNTER 2020-12-11 12:55 | Outpatient (CLI) | payer MEDICARE, OTHER, SELFPAY ==
[2020-12-13 17:14] LABS: H pylori Ag Stool Not Detected (Not Detected)
== END 2020-12-11 12:56 | disposition home or self-care (01) ==
LOC: ANHLAB 13:01
PROVIDERS: PCP Internal Medicine; Visit Provider Internal Medicine Gastroenterology
DX: K29.70 Gastritis, unspecified, without bleeding (principal); B96.81 Helicobacter pylori [H. pylori] as the cause of diseases classified elsewhere
CPT/HCPCS: 87338

== ENCOUNTER 2021-01-02 13:55 | Outpatient (CLI) | payer MEDICARE, OTHER, SELFPAY ==
[2021-01-02 14:53] LABS: Basophils Absolute Auto 0.1 K/mm3 (0.0-0.1); Basophils Percent Auto 0.8 % (0.2-1.2); Eosinophils Absolute Auto 0.3 K/mm3 (0-0.3); Eosinophils Percent Auto 4.6 % (0-4.4); Hematocrit 34.4 % (37.0-47.0); Hemoglobin 10.3 g/dL (12.0-15.0); Immature Granulocyte Absolute 0.01 K/mm3 (0.00-0.031); Immature Granulocyte Percent A 0.1 % (0-0.5); Lymphocytes Absolute Auto 2.03 K/mm3 (0.9-3.2); Lymphocytes Percent Auto 28.4 % (18.3-44.2); Mean Corpuscular HGB Conc 29.9 g/dl (32-36); Mean Corpuscular Hemoglobin 29.5 pg (26-34); Mean Corpuscular Volume 98.6 fl (80-100); Mean Platelet Volume 9.3 fl (7.4-10.4); Monocytes Absolute Auto 0.5 K/mm3 (0.1-0.6); Monocytes Percent Auto 6.9 % (2.6-8.5); Neutrophils Absolute Auto 4.2 K/mm3 (1.3-6.7); Neutrophils Percent Auto 59.2 % (45.5-73.1); Platelet Count Result 304 k/mm3 (150-375); Red Blood Count 3.49 M/mm3 (4.2-5.4); Red Cell Distribution Width 12.9 % (11.5-14.5); White Blood Count 7.1 K/mm3 (4.5-10.0)
[2021-01-02 15:06] LABS: Anion Gap 9 mmol/L (8-16); Blood Urea Nitrogen 24 mg/dL (7-17); Calcium 9.4 mg/dL (8.4-10.2); Carbon Dioxide 25 mmol/L (22-30); Chloride 107 mmol/L (98-107); Estimated Glomerular Filt Rate 31; Glucose 97 mg/dL (65-105); Potassium 4.4 mmol/L (3.4-5.0); Sodium 141 mmol/L (137-145)
[2021-01-02 15:12] LABS: Platelet Estimate Adequate (Adequate)
[2021-01-02 15:13] LABS: Hypochromasia 1+ (NORMAL)
== END 2021-01-02 13:56 | disposition home or self-care (01) ==
PROVIDERS: PCP Internal Medicine; Visit Provider Internal Medicine Cardiovascular Disease
DX: I42.9 Cardiomyopathy, unspecified (principal)
CPT/HCPCS: 36415; 80048; 85025

== ENCOUNTER 2021-02-05 12:29 | Outpatient (CLI) | payer MEDICARE, OTHER, SELFPAY ==
[2021-02-05 14:04] LABS: Cholesterol 219 mg/dL (0-200); HDL Direct 56 mg/dL; Triglycerides 131 mg/dL (<150)
[2021-02-05 14:14] LABS: LDL Cholesterol Direct 118 mg/dL
[2021-02-05 18:37] LABS: Hemoglobin A1C 5.9 % (<5.7)
== END 2021-02-05 12:30 | disposition home or self-care (01) ==
PROVIDERS: PCP Internal Medicine; Visit Provider Internal Medicine
DX: E11.22 Type 2 diabetes mellitus with diabetic chronic kidney disease (principal); N18.1 Chronic kidney disease, stage 1; E78.5 Hyperlipidemia, unspecified; I25.10 Atherosclerotic heart disease of native coronary artery without angina pectoris
CPT/HCPCS: 36415; 80061; 83036

== ENCOUNTER 2021-02-12 12:16 | Outpatient (CLI) | payer MEDICARE, OTHER, SELFPAY ==
--- NOTE | ~2021-02-12 | XR_ITS ---
EXAMINATION: XR hip LT min 2V DATE: 02/12/2021 12:40 INDICATION: Left hip pain. TECHNIQUE: 2 views of left hip were obtained. COMPARISON: Left hip radiographs 01/08/2019 FINDINGS: Bone alignment is normal. No fracture. There is mild left hip osteoarthritis. IMPRESSION: 1. Mild left hip osteoarthritis. Reviewed, dictated and finalized at location A.
== END 2021-02-12 12:17 | disposition home or self-care (01) ==
PROVIDERS: PCP Internal Medicine; Visit Provider Internal Medicine
DX: M25.552 Pain in left hip (principal); M16.12 Unilateral primary osteoarthritis, left hip
CPT/HCPCS: 73502

== ENCOUNTER 2021-03-21 15:32 | Outpatient (CLI) | payer MEDICARE, OTHER, SELFPAY ==
[2021-03-21 16:28] LABS: Hemoglobin 10.1 g/dL (12.0-15.0); Mean Corpuscular HGB Conc 31.6 g/dl (32-36); Mean Corpuscular Hemoglobin 30.2 pg (26-34); Mean Corpuscular Volume 95.8 fl (80-100); Mean Platelet Volume 9.4 fl (7.4-10.4); Platelet Count Result 325 k/mm3 (150-375); Red Blood Count 3.34 M/mm3 (4.2-5.4); White Blood Count 6.6 K/mm3 (4.5-10.0)
[2021-03-21 16:49] LABS: Iron 31 ug/dL (37-170)
[2021-03-21 16:53] LABS: Albumin Level 4.6 g/dL (3.5-5.1); Anion Gap 12 mmol/L (8-16); Blood Urea Nitrogen 23 mg/dL (7-17); Calcium 9.1 mg/dL (8.4-10.2); Carbon Dioxide 25 mmol/L (22-30); Chloride 106 mmol/L (98-107); Estimated Glomerular Filt Rate 40; Glucose 84 mg/dL (65-110); Phosphorus 4.6 mg/dL (2.5-4.5); Potassium 4.1 mmol/L (3.4-5.0); Sodium 143 mmol/L (137-145)
[2021-03-21 16:57] LABS: Complement C3 113 mg/dL (88-165)
[2021-03-21 16:59] LABS: Creatinine Urine 144.2 mg/dL; Total Protein Urine Random 36 mg/dL; Ur Ttl Prot Creatinine Ratio 0.25 mg/mg (0-0.20)
[2021-03-21 17:02] LABS: Percent Iron Saturation 9 % (20-50)
[2021-03-21 17:14] LABS: Sodium Urine Random 91 meq/L
[2021-03-21 17:59] LABS: Folic Acid 15.2 ng/mL (2.76->20)
[2021-03-21 19:30] LABS: Eosinophil Urine None Seen % (None Seen)
[2021-03-23 21:34] LABS: ANCA Screen Negative (Negative)
[2021-03-25 07:03] LABS: Albumin 4.2 g/dL (3.8-4.8); Alpha 1 Globulin 0.4 g/dL (0.2-0.3); Alpha 2 Globulin 0.8 g/dL (0.5-0.9); Beta 1 Globulin 0.4 g/dL (0.4-0.6); Gamma Globulin 0.7 g/dL (0.8-1.7); Protein, Total 6.8 g/dL (6.1-8.1)
[2021-03-25 15:04] LABS: Chloride Rand Ur 82 mmol/L (32-290); Chloride/Creatinine Rand Ur 61 (38-318); Creatinine Random Urine 134 mg/dL (20-275)
[2021-03-26 15:14] LABS: Creatinine, Random Urine 136 mg/dL (20-275); Total Protein/Creatinine Ratio 221 mg/g creat (21-161)
[2021-03-28 12:52] LABS: Anti Glomerular Basement Memb <1.0 AI (<1.0)
== END 2021-03-21 15:33 | disposition home or self-care (01) ==
LOC: ANHLAB 15:35
PROVIDERS: PCP Internal Medicine; Visit Provider Internal Medicine Nephrology
DX: N18.32 Chronic kidney disease, stage 3b (principal); I12.9 Hypertensive chronic kidney disease with stage 1 through stage 4 chronic kidney disease, or unspecified chronic kidney disease; E11.29 Type 2 diabetes mellitus with other diabetic kidney complication; D63.1 Anemia in chronic kidney disease
CPT/HCPCS: 36415; 80069; 82436; 82570; 82607; 82728; 82746; 83520; 83540; 83550; 84155; 84156; 84165; 84166; 84300; 85027; 85999; 86021; 86038; 86160; 86225

== ENCOUNTER 2021-08-25 11:41 | Outpatient (CLI) | payer MEDICARE, OTHER, SELFPAY ==
[2021-08-25 12:17] LABS: Cholesterol 193 mg/dL (0-200); HDL Direct 47 mg/dL; Triglycerides 112 mg/dL (<150)
[2021-08-25 12:28] LABS: LDL Cholesterol Direct 112 mg/dL
[2021-08-25 12:43] LABS: Hemoglobin A1C 5.5 % (<5.7)
== END 2021-08-25 11:42 | disposition home or self-care (01) ==
LOC: ANHLAB 11:43
PROVIDERS: PCP Internal Medicine; Visit Provider Internal Medicine
DX: E11.22 Type 2 diabetes mellitus with diabetic chronic kidney disease (principal); N18.1 Chronic kidney disease, stage 1; E78.5 Hyperlipidemia, unspecified
CPT/HCPCS: 36415; 80061; 83036

== ENCOUNTER 2021-09-06 13:14 | Outpatient (CLI) | payer MEDICARE, OTHER, SELFPAY ==
[2021-09-06 13:44] LABS: Hematocrit 33.9 % (37.0-47.0); Hemoglobin 10.4 g/dL (12.0-15.0); Mean Corpuscular HGB Conc 30.7 g/dl (32-36); Mean Corpuscular Hemoglobin 30.2 pg (26-34); Mean Corpuscular Volume 98.5 fl (80-100); Mean Platelet Volume 9.3 fl (7.4-10.4); Platelet Count Result 365 k/mm3 (150-375); Red Blood Count 3.44 M/mm3 (4.2-5.4); Red Cell Distribution Width 12.8 % (11.5-14.5); White Blood Count 8.7 K/mm3 (4.5-10.0)
[2021-09-06 13:51] LABS: Creatinine Urine 122.1 mg/dL; Total Protein Urine Random 43 mg/dL; Ur Ttl Prot Creatinine Ratio 0.35 mg/mg (0-0.20)
[2021-09-06 13:54] LABS: Albumin Level 4.5 g/dL (3.5-5.1); Anion Gap 7 mmol/L (8-16); Blood Urea Nitrogen 26 mg/dL (7-17); Calcium 9.1 mg/dL (8.4-10.2); Carbon Dioxide 27 mmol/L (22-30); Chloride 106 mmol/L (98-107); Estimated Glomerular Filt Rate 31; Glucose 104 mg/dL (65-110); Phosphorus 5.9 mg/dL (2.5-4.5); Potassium 4.9 mmol/L (3.4-5.0); Sodium 140 mmol/L (137-145)
[2021-09-06 14:24] LABS: Parathyroid Intact 174.3 pg/mL (7.5-53.5)
[2021-09-06 14:53] LABS: Vitamin D 25 Hydroxy 31.2 ng/mL
== END 2021-09-06 13:15 | disposition home or self-care (01) ==
PROVIDERS: Nurse Practitioner; PCP Internal Medicine; Referring Provider Internal Medicine; Visit Provider Internal Medicine Nephrology
DX: I12.9 Hypertensive chronic kidney disease with stage 1 through stage 4 chronic kidney disease, or unspecified chronic kidney disease (principal); N18.32 Chronic kidney disease, stage 3b; E55.9 Vitamin D deficiency, unspecified
CPT/HCPCS: 36415; 80069; 82306; 82570; 83970; 84156; 85027

== ENCOUNTER 2021-09-10 10:05 | Emergency (ER) | payer MEDICARE, OTHER, SELFPAY ==
[2021-09-10] VITALS (18 sets, daily range): BP systolic 130–177; BP diastolic 63–91; PULSE 55–68; RESP 11–23; TEMP 36.4; O2SAT 96–100
--- NOTE | ~2021-09-10 | XR_ITS ---
EXAMINATION: XR shoulder LT min 2V INDICATION: Left shoulder pain TECHNIQUE: Four views of the left shoulder are submitted. COMPARISON: 09/30/2011 FINDINGS: Normal alignment. No fracture. Glenohumeral and acromioclavicular joint spaces are normal. Soft tissues are unremarkable. IMPRESSION: 1. No acute osseous abnormality. Reviewed, dictated and finalized at location B.
--- NOTE | ~2021-09-10 | XR_ITS ---
EXAMINATION: XR chest 2V 09/10/2021 10:47 INDICATION: Chest pressure. Left shoulder pain. PROCEDURE: PA and lateral views of the chest COMPARISON: Comparison to multiple prior studies sequentially, with oldest reviewed study dated 03/23. FINDINGS: The lungs are clear. The cardiomediastinal silhouette is within normal limits. There are no pleural effusions. There is no pneumothorax suspected. IMPRESSION: 1: NO ACUTE CARDIOPULMONARY DISEASE. Reviewed, dictated and finalized at location A.
--- NOTE | 2021-09-10 10:15 | ECG_ITS ---
Measurements Intervals [place] Rate: 61 P: 68 UT: 192 QRS: -3 QRSD: 93 T: 42 QT: 399 QTc: 403 Interpretive Statements SINUS RHYTHM MODERATE VOLTAGE CRITERIA FOR LVH, CONSIDER NORMAL VARIANT [MEETS CRITERIA IN ONE OF: R(aVL), S(V1), R(V5), R(V5/V6)+S(V1)] MODERATE ST DEPRESSION [0.05+ mV ST DEPRESSION] ABNORMAL ECG COMPARED TO ECG 09/27/2020 16:06:37 LATERAL T-WAVE ABNORMALITY IS IMPROVED Electronically Signed On 09-10-2021 15:42:45 CDT by Vamshi Gregory M.D.
[2021-09-10 10:30] LABS: Basophils Absolute Auto 0.1 K/mm3 (0.0-0.1); Basophils Percent Auto 0.8 % (0.2-1.2); Eosinophils Absolute Auto 0.4 K/mm3 (0-0.3); Eosinophils Percent Auto 5.8 % (0-4.4); Hematocrit 33.9 % (37.0-47.0); Hemoglobin 10.5 g/dL (12.0-15.0); Immature Granulocyte Absolute 0.03 K/mm3 (0.00-0.031); Immature Granulocyte Percent A 0.4 % (0-0.5); Lymphocytes Absolute Auto 1.93 K/mm3 (0.9-3.2); Lymphocytes Percent Auto 26.2 % (18.3-44.2); Mean Corpuscular Hemoglobin 29.9 pg (26-34); Mean Corpuscular Volume 96.6 fl (80-100); Mean Platelet Volume 9.3 fl (7.4-10.4); Monocytes Absolute Auto 0.4 K/mm3 (0.1-0.6); Monocytes Percent Auto 5.8 % (2.6-8.5); Neutrophils Absolute Auto 4.5 K/mm3 (1.3-6.7); Platelet Count Result 332 k/mm3 (150-375); Red Blood Count 3.51 M/mm3 (4.2-5.4); Red Cell Distribution Width 12.9 % (11.5-14.5); White Blood Count 7.4 K/mm3 (4.5-10.0)
[2021-09-10 10:40] LABS: INR 1.3; Prothrombin Time 15.8 Seconds (11.1-14.7)
[2021-09-10 10:42] LABS: Partial Thromboplastin Time 30.4 SECONDS (22.3-36.8)
[2021-09-10 10:44] LABS: Alanine Aminotransferase 13 U/L (4-35); Albumin Level 4.2 g/dL (3.5-5.1); Alkaline Phosphatase 60 U/L (38-126); Anion Gap 8 mmol/L (8-16); Aspartate Amino Transferase 27 U/L (14-36); Bilirubin,Total 0.3 mg/dL (0.2-1.3); Blood Urea Nitrogen 25 mg/dL (7-17); Carbon Dioxide 25 mmol/L (22-30); Chloride 106 mmol/L (98-107); Estimated CRCL calculation 23 ml/min; Estimated Glomerular Filt Rate 34; Glucose 106 mg/dL (65-110); Lipase 334 U/L (23-300); Potassium 4.6 mmol/L (3.4-5.0); Sodium 139 mmol/L (137-145)
[2021-09-10 10:54] LABS: Troponin I < 0.012 ng/mL (0.000-0.034)
[2021-09-10] MEDS: ACETAMINOPHEN 325 MG TABLET 650 MG PO (11:16)
--- NOTE | 2021-09-10 11:26 | ED.CHESTPAIN ---
HPI - Chest Pain General Chief Complaint: Chest Pain Stated Complaint: L shoulder pain/numbness with chest pressure Time Seen by Provider: 09/10/21 10:40 Source: patient Mode of arrival: ambulatory Limitations: no limitations History of Present Illness HPI narrative: 76-year-old female presents today with complaints of left shoulder pain with intermittent left chest pain. Patient denies any injuries, but after talking to the daughter she was removing some heavy floor tiles about a month ago. Patient with history significant for high blood pressure, diabetes, AK, PE currently on apixaban, and diabetes. Patient states the pain has been intermittent for the last couple weeks. She is unable to state any aggravating or alleviating factors. Denies shortness of breath, pain radiating to jaw, diaphoresis. Patient unable to state how long the pain lasts. When pain occurs patient states she normally just sits and waits it out. Related Data Home Medications Medication Instructions Recorded Confirmed calcium polycarbophil 625 mg tablet 1,250 mg PO DAILY 02/27/21 08/30/21 simethicone 125 mg capsule 125 mg PO DAILY PRN 02/27/21 08/30/21 losartan 25 mg tablet 50 mg PO QAM tablet 05/10/21 08/30/21 duloxetine 60 mg capsule,delayed 60 mg PO DAILY 08/28/21 08/30/21 release multivitamin 1 tablet PO DAILY 08/28/21 08/30/21 Allergies Allergy/AdvReac Type Severity Reaction Status Date / Time adhesive tape Allergy Severe RASH Verified 09/10/21 10:20 amitriptyline Allergy Unknown Rash Verified 09/10/21 10:20 ciprofloxacin Allergy Unknown Dizziness Verified 09/10/21 10:20 levofloxacin Allergy Unknown Swelling Verified 09/10/21 10:20 tetracycline AdvReac Nausea and Verified 09/10/21 10:20 Vomiting Review of Systems Review of Systems: CONSTITUTIONAL: Denies fever, chills, or sweats. EYES: Denies visual changes, redness, or discharge. ENT: Denies rhinorrhea, congestion, sore throat, or otalgia. CARDIOVASCULAR: Intermittent chest pain. Denies palpitations or edema. RESPIRATORY: Denies cough or dyspnea. GASTROINTESTINAL: Denies abdominal pain, nausea, vomiting, or diarrhea. GENITOURINARY: Denies dysuria or hematuria. SKIN: Denies rash or itching. MUSCULOSKELETAL: Left shoulder pain. Denies back pain or myalgia. NEUROLOGIC: Denies headache, numbness, dizziness, or weakness. PSYCHIATRIC: Denies anxiety or depression. [facility] Past Medical History Medical History Benign essential hypertension Dehydration Helicobacter pylori gastritis History of CVA (cerebrovascular accident) HTN (hypertension) with goal to be determined Hyperlipidemia, unspecified Microscopic colitis Nausea & vomiting LUKE on CPAP Intolerant of a CPAP Overweight (BMI 25.0-29.9) Statin intolerance Type 2 diabetes mellitus with stage 1 chronic kidney disease Upper abdominal pain Urinary incontinence Surgical History Surgical History H/O rectal polypectomy H/O: hysterectomy History of knee replacement bilateral knee replaced History of laparoscopic cholecystectomy Family History Family History Mother Family history of osteoporosis Father Family history of diabetes mellitus in first degree relative Sibling Diabetes mellitus 2 sisters Other Family history of arthritis Family history of cardiovascular disease Hypertension Social History Social History Social History: the patient has 4 children. She is . 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 She lives home alone with her little 6 lb dog. She rarely drinks. She is a lifelong nonsmoker. She does not use any marijuana or illicit drugs. Second hand tobacco smoke exposure: No Alcohol intake: current Alcohol use details: Not often Substance
--- NOTE | 2021-09-10 13:19 | PC.NURSE ---
Pt to xray.
[2021-09-10 13:39] LABS: Troponin I < 0.012 ng/mL (0.000-0.034)
== END 2021-09-10 14:53 | disposition home or self-care (01) ==
PROVIDERS: Emergency Medicine; Emergency Provider Nurse Practitioner Family; PCP Internal Medicine
DX: R07.9 Chest pain, unspecified (principal); M25.512 Pain in left shoulder; E78.5 Hyperlipidemia, unspecified; E11.22 Type 2 diabetes mellitus with diabetic chronic kidney disease; I12.9 Hypertensive chronic kidney disease with stage 1 through stage 4 chronic kidney disease, or unspecified chronic kidney disease; N18.1 Chronic kidney disease, stage 1; G47.33 Obstructive sleep apnea (adult) (pediatric); Z86.73 Personal history of transient ischemic attack (TIA), and cerebral infarction without residual deficits; E66.3 Overweight; Z68.28 Body mass index [BMI] 28.0-28.9, adult; R32 Unspecified urinary incontinence; Z87.19 Personal history of other diseases of the digestive system; Z96.653 Presence of artificial knee joint, bilateral; Z79.01 Long term (current) use of anticoagulants
CPT/HCPCS: 36415; 71046; 73030; 80053; 83690; 84484; 85025; 85610; 85730; 93005; 99284; A9270

== ENCOUNTER 2021-10-16 16:21 | Outpatient (CLI) | payer MEDICARE, OTHER, SELFPAY ==
--- NOTE | ~2021-10-16 | XR_ITS ---
XR hip BI 2V w AP pelvis DATE: 10/16/2021 16:50 INDICATION: Left hip pain. No known injury. TECHNIQUE: AP pelvis. AP and lateral views of each hip. COMPARISON: 02/12/2021 left hip FINDINGS: Osteopenia. No pelvic fracture or bone destruction. The pubic symphysis and sacroiliac join ts are intact. Mild bilateral hip osteoarthritis. No fracture or dislocation, avascular necrosis or bone destruction of either hip. There is dextroscoliosis and multilevel degenerative disc disease of the lumbar spine. IMPRESSION: Dextroscoliosis and multilevel degenerative disc disease of the lumbar spine Osteopenia Mild bilateral hip osteoarthritis Reviewed, dictated and finalized at location A. IMPRESSION: Dextroscoliosis and multilevel degenerative disc disease of the lum bar spine Osteopenia Mild bilateral hip osteoarthritis
== END 2021-10-16 16:22 | disposition home or self-care (01) ==
PROVIDERS: PCP Internal Medicine; Visit Provider Internal Medicine
DX: M16.0 Bilateral primary osteoarthritis of hip (principal); M47.816 Spondylosis without myelopathy or radiculopathy, lumbar region
CPT/HCPCS: 73521

== ENCOUNTER 2022-01-16 09:02 | Outpatient (CLI) | payer MEDICARE, OTHER, SELFPAY ==
[2022-01-16 09:52] LABS: Hematocrit 33.9 % (37.0-47.0); Hemoglobin 10.7 g/dL (12.0-15.0)
[2022-01-16 10:05] LABS: Alanine Aminotransferase 15 U/L (6-35); Albumin Level 4.3 g/dL (3.5-5.1); Alkaline Phosphatase 65 U/L (38-126); Anion Gap 10 mmol/L (8-16); Aspartate Amino Transferase 28 U/L (14-36); Bilirubin,Total 0.6 mg/dL (0.2-1.3); Blood Urea Nitrogen 24 mg/dL (7-17); Calcium 9.7 mg/dL (8.4-10.2); Carbon Dioxide 23 mmol/L (22-30); Chloride 108 mmol/L (98-107); Estimated Glomerular Filt Rate 31; Glucose 113 mg/dL (65-110); Potassium 4.4 mmol/L (3.4-5.0); Sodium 141 mmol/L (137-145)
[2022-01-16 11:05] LABS: Hemoglobin A1C 5.7 % (<5.7)
== END 2022-01-16 09:03 | disposition home or self-care (01) ==
LOC: ANHLAB 09:06
PROVIDERS: PCP Internal Medicine; Visit Provider Internal Medicine
DX: I12.9 Hypertensive chronic kidney disease with stage 1 through stage 4 chronic kidney disease, or unspecified chronic kidney disease (principal); N18.30 Chronic kidney disease, stage 3 unspecified; E11.22 Type 2 diabetes mellitus with diabetic chronic kidney disease; D64.9 Anemia, unspecified
CPT/HCPCS: 36415; 80053; 83036; 85014; 85018

== ENCOUNTER 2022-03-14 12:59 | Outpatient (CLI) | payer MEDICARE, OTHER, SELFPAY ==
[2022-03-14 13:43] LABS: Albumin Level 4.5 g/dL (3.5-5.1); Anion Gap 13 mmol/L (8-16); Blood Urea Nitrogen 19 mg/dL (7-17); Calcium 9.5 mg/dL (8.4-10.2); Carbon Dioxide 21 mmol/L (22-30); Chloride 107 mmol/L (98-107); Estimated Glomerular Filt Rate 34; Glucose 107 mg/dL (65-110); Phosphorus 4.8 mg/dL (2.5-4.5); Potassium 4.6 mmol/L (3.4-5.0); Sodium 141 mmol/L (137-145)
[2022-03-14 15:47] LABS: Total Protein Urine Random 40 mg/dL
[2022-03-14 15:56] LABS: Creatinine Urine 125.5 mg/dL; Ur Ttl Prot Creatinine Ratio 0.32 mg/mg (0-0.20)
== END 2022-03-14 13:00 | disposition home or self-care (01) ==
PROVIDERS: PCP Internal Medicine; Visit Provider Internal Medicine Nephrology
DX: N18.32 Chronic kidney disease, stage 3b (principal); I12.9 Hypertensive chronic kidney disease with stage 1 through stage 4 chronic kidney disease, or unspecified chronic kidney disease; E11.29 Type 2 diabetes mellitus with other diabetic kidney complication
CPT/HCPCS: 36415; 80069; 82570; 84156

== ENCOUNTER 2022-03-26 12:34 | Outpatient (CLI) | payer MEDICARE, OTHER, SELFPAY ==
--- NOTE | ~2022-03-26 | XR_ITS ---
XR abdomen/kub 1V 03/26/2022 12:52 INDICATION: Constipation TECHNIQUE: KUB COMPARISON: 08/29/2006 FINDINGS: Bowel gas pattern is normal. Moderate colonic fecal loading. There are cholecystectomy clip s. There is no evidence of free air, mass, organomegaly, ascites or obstruction. No abnormal calculi are seen. The bones appear intact. There is severe lumbar spondylosis. There are cholecystectomy cl ips. IMPRESSION: 1: No acute abdominal abnormality identified. Reviewed, dictated and finalized at location A.
== END 2022-03-26 12:35 | disposition home or self-care (01) ==
LOC: ANHLAB 12:39
PROVIDERS: PCP Internal Medicine; Visit Provider Nurse Practitioner Family
DX: R14.0 Abdominal distension (gaseous) (principal); K59.00 Constipation, unspecified
CPT/HCPCS: 74018

== ENCOUNTER 2022-05-05 02:54 | Emergency (ER) | payer MEDICARE, OTHER, SELFPAY ==
[2022-05-05 02:57] VITALS: BP 127/90; PULSE 76; RESP 16; TEMP 36.8; O2SAT 100
--- NOTE | 2022-05-05 03:36 | ED.ANIMALBIT ---
HPI - Animal Bite General Chief Complaint: Animal Bite Stated Complaint: dog bite Time Seen by Provider: 05/05/22 03:11 History of Present Illness HPI narrative: 76-year-old female presented to the emergency department for evaluation of multiple skin tears on her right arm from a dog bite. Patient states she was attempting to put her dog to bed with her small dog became aggressive. Patient reports that the dog's immunizations are all up-to-date. Patient has multiple skin tears to the right arm. Related Data Home Medications Medication Instructions Recorded Confirmed simethicone 125 mg capsule (Gas 125 mg PO DAILY PRN 02/27/21 05/08/22 Relief (simethicone)) Gastrointestinal Spasms Or Cramping losartan 25 mg tablet 50 mg PO QAM 05/10/21 05/08/22 multivitamin (Daily Multi-Vitamin 1 tablet PO DAILY 08/28/21 05/08/22 tablet) aspirin 81 mg tablet,delayed 81 mg PO DAILY 12/31/21 05/08/22 release (Adult Aspirin Regimen) cholecalciferol (vitamin D3) 25 25 mcg PO DAILY 05/08/22 05/08/22 mcg (1,000 unit) capsule loratadine 10 mg tablet (Allergy 10 mg PO DAILY 05/08/22 05/08/22 Relief (loratadine)) rosuvastatin 10 mg tablet 10 mg PO DAILY 05/08/22 05/08/22 Allergies Allergy/AdvReac Type Severity Reaction Status Date / Time adhesive tape Allergy Severe RASH Verified 05/08/22 09:50 amitriptyline Allergy Unknown Rash Verified 05/08/22 09:50 ciprofloxacin Allergy Unknown Dizziness Verified 05/08/22 09:50 levofloxacin Allergy Unknown Swelling Verified 05/08/22 09:50 tetracycline AdvReac Nausea and Verified 05/08/22 09:50 Vomiting Review of Systems Review of Systems: CONSTITUTIONAL: Denies fever, chills, or sweats. EYES: Denies visual changes, redness, or discharge. ENT: Denies rhinorrhea, congestion, sore throat, or otalgia. CARDIOVASCULAR: Denies chest pain, palpitations, or edema. RESPIRATORY: Denies cough or dyspnea. GASTROINTESTINAL: Denies abdominal pain, nausea, vomiting, or diarrhea. GENITOURINARY: Denies dysuria or hematuria. SKIN: Skin tears to right arm, see HPI MUSCULOSKELETAL: Denies back pain, joint pain, or myalgia. NEUROLOGIC: Denies headache, numbness, or weakness. [facility] Past Medical History Medical History (Updated 05/08/22 @ 10:41 by WILBERTO Wallis) Benign essential hypertension Constipation Dehydration Helicobacter pylori gastritis History of CVA (cerebrovascular accident) HTN (hypertension) with goal to be determined Hyperlipidemia, unspecified Microscopic colitis Nausea & vomiting LUKE on CPAP Intolerant of a CPAP Overweight (BMI 25.0-29.9) Statin intolerance Type 2 diabetes mellitus with stage 1 chronic kidney disease Upper abdominal pain Urinary incontinence Surgical History Surgical History H/O rectal polypectomy H/O: hysterectomy History of knee replacement bilateral knee replaced History of laparoscopic cholecystectomy Family History Family History Mother Family history of osteoporosis Father Family history of diabetes mellitus in first degree relative Sibling Diabetes mellitus 2 sisters Other Family history of arthritis Family history of cardiovascular disease Hypertension Social History Social History Social History: the patient has 4 children. She is . 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 She lives home alone with her little 6 lb dog. She rarely drinks. She is a lifelong nonsmoker. She does not use any marijuana or illicit drugs. Smoking status: Never smoker Second hand tobacco smoke exposure: No Alcohol intake: current Alcohol use details: Not often Substance use: never Gender identity (if verbalized by the patient): Female Spiritual care concerns: No Exam Narrative: APPEARANCE: Well appearing, no pain, no di
[2022-05-05] MEDS: AMOXICILLIN/CLAVULANATE K 875-125 MG TAB 1 TABLET PO (03:41)
[2022-05-05] MEDS: TETANUS,DIPHTHERIA,AC PERTUSSIS ADULT (0.5 ML) BOOSTRIX IM (03:41)
== END 2022-05-05 03:50 | disposition home or self-care (01) ==
PROVIDERS: Emergency Provider Emergency Medicine; PCP Internal Medicine
DX: S51.851A Open bite of right forearm, initial encounter (principal); Z23 Encounter for immunization; E78.5 Hyperlipidemia, unspecified; E11.22 Type 2 diabetes mellitus with diabetic chronic kidney disease; I12.9 Hypertensive chronic kidney disease with stage 1 through stage 4 chronic kidney disease, or unspecified chronic kidney disease; N18.1 Chronic kidney disease, stage 1; R32 Unspecified urinary incontinence; E66.3 Overweight; G47.33 Obstructive sleep apnea (adult) (pediatric); Z86.73 Personal history of transient ischemic attack (TIA), and cerebral infarction without residual deficits; Z87.19 Personal history of other diseases of the digestive system; Z96.653 Presence of artificial knee joint, bilateral; Z90.710 Acquired absence of both cervix and uterus; Z79.82 Long term (current) use of aspirin; W54.0XXA Bitten by dog, initial encounter
CPT/HCPCS: 90471; 90715; 99283; A9270

== ENCOUNTER 2022-05-20 17:01 | Emergency (ER) | payer MEDICARE, OTHER, SELFPAY ==
[2022-05-20] VITALS (14 sets, daily range): BP systolic 157–207; BP diastolic 54–116; PULSE 51–70; RESP 12–21; TEMP 36.9; O2SAT 73–100
--- NOTE | ~2022-05-20 | CT_ITS ---
EXAMINATION: CT facial & cervical spine wo DATE: 05/20/2022 17:44 INDICATION: head injury s/p fall TECHNIQUE: Computed tomography (CT) of the maxillofacial region and cervical spine was performed with out intravenous contrast. Automated exposure control and iterative reconstruction technique were empl oyed. The dose-length product was 264.89 mGy-cm. COMPARISON: CT brain, same date; CT cervical spine 07/14/2018 FINDINGS: CERVICAL: Vertebral Body Alignment: Intact. Multilevel mild listheses, likely on a degenerative basis. Craniocervical and atlantoaxial alignment: Moderate degenerative change. Alignment intact. Osseous structures/fracture: No evidence of a lytic or blastic process in the visualized spine. No e vidence of acute fracture. Bilateral C2-3 facet fusion. Cervical soft tissues: The paraspinal soft tissues planes are maintained. Degenerative changes: Multilevel degenerative disc disease. Multilevel severe facet arthropathy. Mult ilevel bilateral severe neural foraminal narrowing. FACE: Soft Tissues: Large right frontal soft tissue contusion/laceration. Question of mild soft tissue swe lling over the bridge of the nose. Facial bones: Subtle flattening and irregularity of the anterior nasal bones and anterior maxillary spine. No lytic or blastic process. Eyes: The globes are intact. The soft tissue planes of the orbits are maintained. Paranasal Sinuses: The visualized aerated spaces are clear. Foreign Bodies: No radiopaque foreign bodies. Other Findings: None. IMPRESSION: No acute fracture or traumatic malalignment in the cervical spine. Question of nondisplaced anterior nasal bone and anterior maxillary spine fractures, correlate with clinical findings of nasal injury. Reviewed, dictated and finalized at location K. TAL PRINTER OPERATOR IMPRESSION: No acute fracture or traumatic malalignment in the cervical spine. Question of nondisplaced anterior nasal bone and anterior maxillary spine fractures, correl ate with clinical findings of nasal injury.
--- NOTE | ~2022-05-20 | CT_ITS ---
EXAMINATION: CT brain wo con DATE: 05/20/2022 17:43 INDICATION: head injury s/p fall . TECHNIQUE: Computed tomography (CT) of the head was performed without intravenous contrast. The mA wa s adjusted according to patient size. Iterative reconstruction technique was employed. The dose-lengt h product was 681.00 mGy-cm. COMPARISON: None FINDINGS: No acute intracranial hemorrhage or extra-axial fluid collection. No hydrocephalus, mass, or herniation. No acute ischemic infarct. Unremarkable dural venous sinus attenuation. No acute osseous abnormality. Large left frontal skin contusion/laceration. Small retention cyst or polyp in the left sphenoid sinus, the remaining aerated spaces are clear. Mild atrophy and chronic white matter change. Atherosclerotic intracranial calcification. Tiny old le ft basal ganglia lacunar infarct. IMPRESSION: No acute intracranial process. Reviewed, dictated and finalized at location K. H ASSEMBLER ELECTRICAL
--- NOTE | ~2022-05-20 | XR_ITS ---
EXAM: XR shoulder RT min 2V DATE: 05/20/2022 19:26 HISTORY: shoulder pain s/p fall . COMPARISON: None available. FINDINGS: Decreased mineralization. No fracture or dislocation. No lytic or blastic lesion. Degenera tive changes at the acromioclavicular and glenohumeral joints. No erosion or periosteal change. Soft tissues within normal limits. IMPRESSION: No acute osseous finding in the right shoulder. Reviewed, dictated and finalized at location K. IER DRIVER
--- NOTE | ~2022-05-20 | XR_ITS ---
EXAM: XR hip RT 2V w AP pelvis DATE: 05/20/2022 19:27 HISTORY: hip pain s/p, FELL OUTSIDE . COMPARISON: 10/16/2021. FINDINGS: Decreased mineralization. No fracture or dislocation. No lytic or blastic lesion. Degenera tive change in the lumbar spine. Bilateral hip osteoarthritis. No erosion or periosteal change. Soft tissues within normal limits. IMPRESSION: No acute osseous finding in the pelvis or right hip. Reviewed, dictated and finalized at location K. EN TENDER
--- NOTE | 2022-05-20 17:50 | ED.FALL ---
HPI - Fall General Chief Complaint: Fall Stated Complaint: syncope Time Seen by Provider: 05/20/22 17:17 History of Present Illness HPI Narrative: 76-year-old female history of hypertension, dyslipidemia, CVA, depression and takes baby aspirin daily presents to the emergency room for injury sustained in a fall. Patient states that she was taking her dog out for a walk when the dog ran off, causing the leash to anchor forward leading her to fall on the ground. Patient states that she struck her face and forehead on the concrete. Unknown LOC. Patient states that she was dizzy and lightheaded following the injury, has not experienced any vomiting. Denies vision or hearing changes. Patient states that she was able to stand up off the ground and sit and to the EMS bed. Related Data Home Medications Medication Instructions Recorded Confirmed simethicone 125 mg capsule (Gas 125 mg PO DAILY PRN 02/27/21 05/08/22 Relief (simethicone)) Gastrointestinal Spasms Or Cramping losartan 25 mg tablet 50 mg PO QAM 05/10/21 05/20/22 multivitamin (Daily Multi-Vitamin 1 tablet PO DAILY 08/28/21 05/08/22 tablet) aspirin 81 mg tablet,delayed 81 mg PO DAILY 12/31/21 05/20/22 release (Adult Aspirin Regimen) cholecalciferol (vitamin D3) 25 25 mcg PO DAILY 05/08/22 05/08/22 mcg (1,000 unit) capsule loratadine 10 mg tablet (Allergy 10 mg PO DAILY 05/08/22 05/20/22 Relief (loratadine)) rosuvastatin 10 mg tablet 10 mg PO DAILY 05/08/22 05/20/22 Allergies Allergy/AdvReac Type Severity Reaction Status Date / Time adhesive tape Allergy Severe RASH Verified 05/20/22 17:15 amitriptyline Allergy Unknown Rash Verified 05/20/22 17:15 ciprofloxacin Allergy Unknown Dizziness Verified 05/20/22 17:15 levofloxacin Allergy Unknown Swelling Verified 05/20/22 17:15 tetracycline AdvReac Nausea and Verified 05/20/22 17:15 Vomiting Review of Systems Review of Systems: CONSTITUTIONAL: Denies fever, chills, or sweats. EYES: Denies visual changes, redness, or discharge. ENT: Denies rhinorrhea, congestion, sore throat, or otalgia. CARDIOVASCULAR: Denies chest pain, palpitations, or edema. RESPIRATORY: Denies cough or dyspnea. GASTROINTESTINAL: Denies abdominal pain, nausea, vomiting, or diarrhea. GENITOURINARY: Denies dysuria or hematuria. SKIN: Denies rash or itching. MUSCULOSKELETAL: Denies back pain, joint pain, or myalgia. NEUROLOGIC: Denies headache, numbness, dizziness, or weakness. PSYCHIATRIC: Denies anxiety or depression. [facility] Past Medical History Medical History Benign essential hypertension Constipation Dehydration Helicobacter pylori gastritis History of CVA (cerebrovascular accident) HTN (hypertension) with goal to be determined Hyperlipidemia, unspecified Microscopic colitis Nausea & vomiting LUKE on CPAP Intolerant of a CPAP Overweight (BMI 25.0-29.9) Statin intolerance Type 2 diabetes mellitus with stage 1 chronic kidney disease Upper abdominal pain Urinary incontinence Surgical History Surgical History H/O rectal polypectomy H/O: hysterectomy History of knee replacement bilateral knee replaced History of laparoscopic cholecystectomy Family History Family History Mother Family history of osteoporosis Father Family history of diabetes mellitus in first degree relative Sibling Diabetes mellitus 2 sisters Other Family history of arthritis Family history of cardiovascular disease Hypertension Social History Social History Social History: the patient has 4 children. She is . 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 She lives home alone with her little 6 lb dog. She rarely drinks. She is a lifelong nonsmoker. She does not use any marijuana or illicit drugs.
--- NOTE | 2022-05-20 19:13 | PC.NURSE ---
Assumed care of pt. Pt in imaging at this time.
== END 2022-05-20 21:13 | disposition home or self-care (01) ==
PROVIDERS: Emergency Provider Nurse Practitioner Family; PCP Internal Medicine
DX: S00.83XA Contusion of other part of head, initial encounter (principal); S00.511A Abrasion of lip, initial encounter; S00.31XA Abrasion of nose, initial encounter; S40.011A Contusion of right shoulder, initial encounter; S70.01XA Contusion of right hip, initial encounter; E11.22 Type 2 diabetes mellitus with diabetic chronic kidney disease; I12.9 Hypertensive chronic kidney disease with stage 1 through stage 4 chronic kidney disease, or unspecified chronic kidney disease; N18.1 Chronic kidney disease, stage 1; E78.5 Hyperlipidemia, unspecified; G47.33 Obstructive sleep apnea (adult) (pediatric); E66.3 Overweight; Z68.29 Body mass index [BMI] 29.0-29.9, adult; Z86.73 Personal history of transient ischemic attack (TIA), and cerebral infarction without residual deficits; Z90.710 Acquired absence of both cervix and uterus; Z96.653 Presence of artificial knee joint, bilateral; Z79.82 Long term (current) use of aspirin; W18.39XA Other fall on same level, initial encounter; Y93.K1 Activity, walking an animal
CPT/HCPCS: 70450; 70486; 72125; 73030; 73502; 99284

== ENCOUNTER 2022-09-10 14:06 | Outpatient (CLI) | payer MEDICARE, OTHER, SELFPAY ==
[2022-09-10 14:57] LABS: Basophils Absolute Auto 0.1 K/mm3 (0.0-0.1); Basophils Percent Auto 0.9 % (0.2-1.2); Eosinophils Absolute Auto 0.6 K/mm3 (0-0.3); Eosinophils Percent Auto 7.7 % (0-4.4); Hematocrit 33.5 % (37.0-47.0); Hemoglobin 10.2 g/dL (12.0-15.0); Immature Granulocyte Absolute 0.03 K/mm3 (0.00-0.031); Immature Granulocyte Percent A 0.4 % (0-0.5); Lymphocytes Absolute Auto 1.83 K/mm3 (0.9-3.2); Lymphocytes Percent Auto 24.4 % (18.3-44.2); Mean Corpuscular HGB Conc 30.4 g/dl (32-36); Mean Corpuscular Hemoglobin 29.7 pg (26-34); Mean Corpuscular Volume 97.7 fl (80-100); Mean Platelet Volume 9.7 fl (7.4-10.4); Monocytes Absolute Auto 0.4 K/mm3 (0.1-0.6); Monocytes Percent Auto 5.5 % (2.6-8.5); Neutrophils Absolute Auto 4.6 K/mm3 (1.3-6.7); Neutrophils Percent Auto 61.1 % (45.5-73.1); Platelet Count Result 363 k/mm3 (150-375); Red Blood Count 3.43 M/mm3 (4.2-5.4); Red Cell Distribution Width 13.5 % (11.5-14.5); White Blood Count 7.5 K/mm3 (4.5-10.0)
[2022-09-10 15:03] LABS: Appearance Urine Clear (Clear); Bacteria Urine None Seen /hpf; Bilirubin Urine Negative (Negative); Blood Urine Negative (Negative); Color Urine Yellow (Yellow); Glucose Urine UA Negative (Negative); Hyaline Casts Urine Present /lpf; Ketones Urine Trace mg/dL (Negative); Leukocyte Esterase Ur 1+ LEU/UL (NEGATIVE); Need Manual Microscopic Reviewed; Nitrate Urine Negative (Negative); Protein Urine 1+ mg/dL (Negative); Specific Grav Ur 1.015 (1.001-1.035); Squamous Epithelial Cell Urine Few /hpf (Few); WBC Urine 0-5 /hpf (0-3); pH Urine 5.5 (5.0-9.0)
[2022-09-10 15:04] LABS: Add Urine Microscopic? YES
[2022-09-10 15:07] LABS: Alanine Aminotransferase 14 U/L (6-35); Albumin Level 4.5 g/dL (3.5-5.1); Alkaline Phosphatase 77 U/L (38-126); Anion Gap 6 mmol/L (8-16); Aspartate Amino Transferase 23 U/L (14-36); Bilirubin,Total 0.7 mg/dL (0.2-1.3); Blood Urea Nitrogen 20 mg/dL (7-17); Calcium 9.2 mg/dL (8.4-10.2); Carbon Dioxide 27 mmol/L (22-30); Chloride 107 mmol/L (98-107); Estimated Glomerular Filt Rate 33; Glucose 99 mg/dL (65-110); Potassium 4.5 mmol/L (3.4-5.0); Sodium 140 mmol/L (137-145)
[2022-09-10 15:09] LABS: Albumin Level 4.4 g/dL (3.5-5.1); Anion Gap 8 mmol/L (8-16); Blood Urea Nitrogen 20 mg/dL (7-17); Calcium 9.2 mg/dL (8.4-10.2); Carbon Dioxide 26 mmol/L (22-30); Chloride 108 mmol/L (98-107); Estimated Glomerular Filt Rate 33; Glucose 100 mg/dL (65-110); Phosphorus 4.9 mg/dL (2.5-4.5); Potassium 4.6 mmol/L (3.4-5.0); Sodium 142 mmol/L (137-145)
[2022-09-10 15:45] LABS: Parathyroid Intact 169.3 pg/mL (7.5-53.5)
[2022-09-10 15:50] LABS: Vitamin D 25 Hydroxy 45.9 ng/mL
[2022-09-10 22:46] LABS: Creatinine Urine 140.9 mg/dL; Total Protein Urine Random 39 mg/dL; Ur Ttl Prot Creatinine Ratio 0.28 mg/mg (0-0.20)
== END 2022-09-10 14:07 | disposition home or self-care (01) ==
PROVIDERS: PCP Internal Medicine; Referring Provider Nurse Practitioner Family; Visit Provider Internal Medicine Nephrology
DX: R41.3 Other amnesia (principal); N25.81 Secondary hyperparathyroidism of renal origin; N18.32 Chronic kidney disease, stage 3b; I12.9 Hypertensive chronic kidney disease with stage 1 through stage 4 chronic kidney disease, or unspecified chronic kidney disease; E55.9 Vitamin D deficiency, unspecified; E11.22 Type 2 diabetes mellitus with diabetic chronic kidney disease; I10 Essential (primary) hypertension; R41.89 Other symptoms and signs involving cognitive functions and awareness
CPT/HCPCS: 36415; 80053; 80069; 81001; 82306; 82570; 83970; 84156; 84443; 85025; 87086

== ENCOUNTER 2022-12-20 12:01 | Outpatient (CLI) | payer MEDICARE, OTHER, SELFPAY ==
--- NOTE | 2022-12-20 12:08 | ECHO_ITS ---
Patient Info Name: Swetha Golden Age: 77 years : 1945 Gender: Female Ht: 60 in Wt: 130 lbs BSA: 1.59 m2 HR: 60 bpm BP: 172 / 76 mmHg Heart Rhythm: Sinus Rhythm Technical Quality: Fair Exam Date: 12/20/2022 12:15 PM Exam Location: [facility] Patient Status: Outpatient Admit Date: 12/20/2022 Staff Ordering Physician: Kiran Keyes MD [employer] Director: Kelly Shafer RDCS Attending Provider: Kiran Keyes MD Referring Physician: Wali FRAGOSO; Exam Type: CA echo doppler color flow Study Info Indications - heart murmur, htn Complete two-dimensional, color flow and Doppler transthoracic echocardiogram is performed. Summary 1. Complete two-dimensional, color flow and Doppler transthoracic echocardiogram is performed. 2. Left ventricular chamber dimension is normal. 3. Left ventricular systolic function is normal, estimated at 55-60%. 4. Left ventricular septal wall motion is abnormal with septal motion related to bundle branch block. 5. The left ventricular diastolic function is grade I diastolic dysfunction. 6. Right ventricular systolic function is normal. 7. Left atrial chamber dimension is mildly enlarged. 8. There is moderate aortic valve calcification. 9. There is mild aortic valve stenosis with a peak velocity of 174 cm/s, mean gradient of 5 mmHg, and aortic valve area of 1.6 cm2. 10. There is trace aortic valve regurgitation. 11. The mitral valve has thickened leaflets. 12. The mitral valve annulus is moderately calcified. 13. There is mild mitral valve regurgitation. 14. There is mild tricuspid valve regurgitation. Left Ventricle Left ventricular chamber dimension is normal. Left ventricular systolic function is normal, estimated at 55-60%. There is no increased left ventricular wall thickness. Left ventricular septal wall motion is abnormal with septal motion related to bundle branch block. The left ventricular diastolic function is grade I diastolic dysfunction. Right Ventricle Right ventricular chamber dimension is normal. Right ventricular systolic function is normal. Left Atria Left atrial chamber dimension is mildly enlarged. Right Atria Right atrial chamber dimension is normal. Atrial Septum Intact interatrial septum visualized by color flow imaging. Aortic Valve The aortic valve is trileaflet. There is mild aortic valve stenosis with a peak velocity of 174 cm/s, mean gradient of 5 mmHg, and aortic valve area of 1.6 cm2. There is trace aortic valve regurgitation. There is moderate aortic valve calcification. Pulmonic Valve The pulmonic valve is not well visualized. Mitral Valve The mitral valve has thickened leaflets. There is mild mitral valve regurgitation. The mitral valve annulus is moderately calcified. Tricuspid Valve There is mild tricuspid valve regurgitation. Pericardium/Pleural There is trivial pericardial effusion. Inferior Vena Cava Normal inferior vena cava with >50% collapse upon inspiration consistent with normal right atrial pressure, 3 mmHg. Aorta The aortic root size at the sinus of Valsalva is normal. Left Ventricular Outflow Tract Name Value Normal LVOT 2D LVOT Diameter 1.9 cm LVOT Doppler LVOT Peak Gradient
== END 2022-12-20 12:02 | disposition home or self-care (01) ==
LOC: ANHCARD 12:03
PROVIDERS: PCP Family Medicine; Visit Provider Family Medicine
DX: I08.3 Combined rheumatic disorders of mitral, aortic and tricuspid valves (principal); I12.9 Hypertensive chronic kidney disease with stage 1 through stage 4 chronic kidney disease, or unspecified chronic kidney disease; E11.22 Type 2 diabetes mellitus with diabetic chronic kidney disease; N18.32 Chronic kidney disease, stage 3b; R41.3 Other amnesia; G47.33 Obstructive sleep apnea (adult) (pediatric); Z86.73 Personal history of transient ischemic attack (TIA), and cerebral infarction without residual deficits; R53.82 Chronic fatigue, unspecified; K21.9 Gastro-esophageal reflux disease without esophagitis; F32.A Depression, unspecified
CPT/HCPCS: 93306

== ENCOUNTER 2023-01-09 12:44 | Emergency (ER) | payer MEDICARE, OTHER, SELFPAY ==
--- NOTE | ~2023-01-09 | CT_ITS ---
EXAMINATION: CTA chest PE protocol DATE: 01/09/2023 17:58 INDICATION: elev d-dimer, R chest pain TECHNIQUE: Computed tomography angiography (CTA) of the chest was performed with 100 mL Omnipaque-350 intravenous contrast timed to evaluate the pulmonary arteries. Coronal maximum intensity projection 3D-reconstructions were created by the technologist. The dose-length product (DLP) was 269.85 mGy-cm. Automated exposure control and iterative reconstruction technique were employed. COMPARISON: 09/27/2020. FINDINGS: Lung parenchyma and airways: Senescent change. Dependent atelectasis. Pleura: Unremarkable. Thoracic inlet, axillae and chest wall: Unremarkable. Thoracic aorta: No significant dilation. Mild arch calcification. Mediastinum: Enlarged central pulmonary arteries as can be seen with pulmonary arterial hypertension. Heart and pericardium: Mild aortic and mitral calcification. Coronary artery calcifications: Mild. Upper abdomen: No significant finding. Bones: No acute osseous finding. Pulmonary arteries: Study quality: Adequate. No pulmonary emboli detected. IMPRESSION: No CT evidence of acute pulmonary embolus. No acute process detected in the chest. Reviewed, dictated and finalized at location K. IMPRESSION: No CT evidence of acute pulmonary embolus. No acute process detected in the [address].
--- NOTE | ~2023-01-09 | XR_ITS ---
Right ankle Technique: AP, oblique, and lateral views were obtained. Clinical History: Pain Findings: No acute fracture or dislocation is seen. Osseous alignment is anatomic. Ankle mortise and other visualized joint spaces are preserved. Plantar calcaneal spur present. Soft tissues are otherwi se unremarkable. Impression: Plantar calcaneal spur, otherwise unremarkable exam. Reviewed, dictated and finalized at location . Impression: Plantar calcaneal spur, otherwise unremarkable exam.
--- NOTE | ~2023-01-09 | CT_ITS ---
EXAMINATION: CT cervical spine wo con DATE: 01/09/2023 13:34 INDICATION: Head injury. TECHNIQUE: Computed tomography (CT) of the cervical spine was performed without intravenous contrast. Automated exposure control and iterative reconstruction technique were employed. The dose-length pro duct was 159.95 mGy-cm. COMPARISON: CT cervical spine 05/20/2022 FINDINGS: There is 8 degrees dextrocurvature of cervical spine. There is 2 mm anterolisthesis of C5 o n C6 and C7 on T1. Vertebral body heights are normal. There is mildly decreased disc height at C5-C6 and moderately decreased disc height at C6-C7. The following disc levels are specifically discussed: C2-C3: There is ankylosis of the uncovertebral joint hypertrophy. There is ankylosis of the facet lashawn nts with mild hypertrophy. There is no neural foraminal stenosis. There is no central canal stenosis. C3-C4: There is no uncovertebral joint osteoarthritis. There is severe bilateral facet joint osteoart hritis. There is mild bilateral neural foraminal stenosis. There is mild central canal stenosis. C4-C5: There is no uncovertebral joint osteoarthritis. There is severe bilateral facet joint osteoart hritis. There is moderate left neural foraminal stenosis. There is no central canal stenosis. C5-C6: There is mild right and moderate left uncovertebral joint osteoarthritis. There is severe bila teral facet joint osteoarthritis. There is mild bilateral neural foraminal stenosis. There is mild ce ntral canal stenosis. C6-C7: There is mild right and moderate left uncovertebral joint osteoarthritis. There is severe bila teral facet joint osteoarthritis. There is mild bilateral neural foraminal stenosis. There is mild ce ntral canal stenosis. C7-T1: There is no uncovertebral joint osteoarthritis. There is severe bilateral facet joint osteoart hritis. There is mild bilateral neural foraminal stenosis. There is no central canal stenosis. IMPRESSION: 1. No fracture. 2. Moderate cervical spondylosis. Reviewed, dictated and finalized at location A.
--- NOTE | ~2023-01-09 | XR_ITS ---
EXAMINATION: XR knee RT 3V DATE: 01/09/2023 13:24 INDICATION: Right knee pain. Fall. TECHNIQUE: 3 views of right knee were obtained. COMPARISON: None. FINDINGS: There is a total right knee arthroplasty in near-anatomic alignment with patellar resurfaci ng. No fracture. No periprosthetic lucency to suggest loosening or infection. There is a small knee j oint effusion. IMPRESSION: 1. Total right knee arthroplasty in near-anatomic alignment. 2. Small right knee joint effusion. Reviewed, dictated and finalized at location A.
--- NOTE | ~2023-01-09 | CT_ITS ---
EXAMINATION: CT brain wo con DATE: 01/09/2023 13:33 INDICATION: Head injury. TECHNIQUE: Computed tomography (CT) of the head was performed without intravenous contrast. The mA wa s adjusted according to patient size. Iterative reconstruction technique was employed. The dose-lengt h product was 681.00 mGy-cm. COMPARISON: Head CT 05/20/2022 FINDINGS: There are scattered areas of low attenuation in the cerebral white matter. There is no intr acranial hemorrhage, acute infarction, or abnormal intracranial mass lesion. The ventricles are whitley l in size. The paranasal sinuses are clear. The orbits are normal. The mastoid air cells are normal. IMPRESSION: 1. Stable mild nonspecific cerebral white matter disease, which likely represents chronic small vesse l ischemic disease. Reviewed, dictated and finalized at location A. IMPRESSION: 1. Stable mild nonspecific cerebral white matter disease, which likely represen ts chronic small vessel ischemic disease.
--- NOTE | ~2023-01-09 | XR_ITS ---
AP view of the pelvis and AP and lateral views of the right hip Clinical history: Pain Findings: No acute fracture or dislocation is seen. Osseous alignment is anatomic. There is minimal d egenerative spurring of the right hip joint. Soft tissues are unremarkable. Impression: Minimal degenerative change at the right hip joint. Reviewed, dictated and finalized at location . Impression: Minimal degenerative change at the right hip joint.
--- NOTE | ~2023-01-09 | XR_ITS ---
Right elbow Technique: AP, oblique, and lateral views were obtained. Clinical History: Pain Findings: No acute fracture or dislocation is seen. Osseous alignment is anatomic. Joint spaces are p reserved. There is no displacement of the fat pads, and soft tissues are unremarkable. Impression: Unremarkable radiographs. Reviewed, dictated and finalized at location . Impression: Unremarkable radiographs.
[2023-01-09 12:47] VITALS: BP 145/89; PULSE 90; RESP 18; TEMP 36.6; O2SAT 98
--- NOTE | 2023-01-09 14:10 | ED.FALL ---
HPI - Fall General Chief Complaint: Fall Stated Complaint: fall Time Seen by Provider: 01/09/23 12:49 History of Present Illness HPI Narrative: Patient states that she was taking her dog to the vet when she tripped on the sidewalk and fell, landing on her right side, especially her elbow and knee, she thinks she also may have lost consciousness and hit her head. She is endorsing pain in her right hip, knee, ankle and elbow. No focal numbness or weakness, no difficulty breathing or chest pain. Related Data Home Medications Medication Instructions Recorded Confirmed simethicone 125 mg capsule (Gas 125 mg PO DAILY PRN 02/27/21 09/19/22 Relief (simethicone)) Gastrointestinal Spasms Or Cramping losartan 25 mg tablet 50 mg PO QAM 05/10/21 09/19/22 aspirin 81 mg tablet,delayed 81 mg PO DAILY 12/31/21 09/19/22 release (Adult Aspirin Regimen) rosuvastatin 10 mg tablet 10 mg PO DAILY 05/08/22 09/19/22 triamcinolone acetonide 0.1 % 1 applic topical BID 09/19/22 09/19/22 topical cream Allergies Allergy/AdvReac Type Severity Reaction Status Date / Time adhesive tape Allergy Severe RASH Verified 11/01/22 09:20 amitriptyline Allergy Unknown Rash Verified 11/01/22 09:20 ciprofloxacin Allergy Unknown Dizziness Verified 11/01/22 09:20 levofloxacin Allergy Unknown Swelling Verified 11/01/22 09:20 tetracycline AdvReac Nausea and Verified 11/01/22 09:20 Vomiting Review of Systems Review of Systems: CONST: No fever. HEENT: Head trauma without neck pain C/V: No chest pain RESP: No cough GI: No abdominal pain : No dysuria. M/S: Right elbow, knee, hip pain. SKIN: Bruising R elbow NEURO: [No headache or focal numbness or weakness]; +LOC PSYCH: [No depression] [facility] Past Medical History Medical History Benign essential hypertension Blood clots in biliary tract following procedure Constipation Dehydration Heart attack Helicobacter pylori gastritis History of CVA (cerebrovascular accident) HTN (hypertension) with goal to be determined Hyperlipidemia, unspecified Microscopic colitis Nausea & vomiting LUKE on CPAP Intolerant of a CPAP Overweight (BMI 25.0-29.9) Statin intolerance Type 2 diabetes mellitus with stage 1 chronic kidney disease Upper abdominal pain Urinary incontinence Surgical History Surgical History H/O rectal polypectomy H/O: hysterectomy History of knee replacement bilateral knee replaced History of laparoscopic cholecystectomy Family History Family History Mother Family history of osteoporosis Father Family history of diabetes mellitus in first degree relative Sibling Diabetes mellitus 2 sisters Other Family history of arthritis Family history of cardiovascular disease Hypertension Social History Social History Social History: the patient has 4 children. She is . 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 She lives home alone with her little 6 lb dog. She rarely drinks. She is a lifelong nonsmoker. She does not use any marijuana or illicit drugs. Caffeine-soda daily Smoking status: Never smoker Second hand tobacco smoke exposure: No Alcohol intake: current Alcohol use details: occasionally Substance use: never Substance use type: does not use Lack of Transportation: No Lack of Food: Never True Current Housing: I Have Housing Concerned About Future Housing: No Difficulty Paying Gas/Electric Bills: No Difficulty Paying for Meds: No Currently Unemployed: No Education: Grade School Difficulty w/ Childcare or Family Care: No Living arrangements: alone Gender identity (if verbalized by the patient): Female Spiritual care concerns: No Exam Narrative: EXAMINATION OF O
[2023-01-09 14:42] VITALS: BP 154/72; O2SAT 100
[2023-01-09 14:46] VITALS: BP 171/71; O2SAT 100
[2023-01-09 15:00] VITALS: O2SAT 100
[2023-01-09 15:34] LABS: Basophils Percent Auto 0.5 % (0.2-1.2); Eosinophils Absolute Auto 0.5 K/mm3 (0-0.3); Eosinophils Percent Auto 6.3 % (0-4.4); Hematocrit 31.4 % (37.0-47.0); Hemoglobin 9.5 g/dL (12.0-15.0); Immature Granulocyte Absolute 0.03 K/mm3 (0.00-0.031); Immature Granulocyte Percent A 0.4 % (0-0.5); Lymphocytes Absolute Auto 2.17 K/mm3 (0.9-3.2); Lymphocytes Percent Auto 28.3 % (18.3-44.2); Mean Corpuscular HGB Conc 30.3 g/dl (32-36); Mean Corpuscular Hemoglobin 29.1 pg (26-34); Mean Corpuscular Volume 96.3 fl (80-100); Mean Platelet Volume 9.8 fl (7.4-10.4); Monocytes Absolute Auto 0.4 K/mm3 (0.1-0.6); Monocytes Percent Auto 5.4 % (2.6-8.5); Neutrophils Absolute Auto 4.5 K/mm3 (1.3-6.7); Neutrophils Percent Auto 59.1 % (45.5-73.1); Platelet Count Result 291 k/mm3 (150-375); Red Blood Count 3.26 M/mm3 (4.2-5.4); Red Cell Distribution Width 13.4 % (11.5-14.5); White Blood Count 7.7 K/mm3 (4.5-10.0)
[2023-01-09 15:42] LABS: Prothrombin Time 13.8 Seconds (11.1-14.7)
[2023-01-09 15:43] LABS: Partial Thromboplastin Time 27.1 SECONDS (22.3-36.8)
[2023-01-09 15:44] LABS: Anion Gap 6 mmol/L (8-16); Blood Urea Nitrogen 24 mg/dL (7-17); Carbon Dioxide 24 mmol/L (22-30); Chloride 109 mmol/L (98-107); Estimated CRCL calculation 24 ml/min; Estimated Glomerular Filt Rate 36; Glucose 86 mg/dL (65-110); Potassium 4.9 mmol/L (3.4-5.0); Sodium 139 mmol/L (137-145)
[2023-01-09 16:03] LABS: D Dimer 1.42 ug/mL (<0.48)
[2023-01-09 18:45] VITALS: BP 171/71; PULSE 70; RESP 18; O2SAT 100
== END 2023-01-09 18:47 | disposition home or self-care (01) ==
PROVIDERS: Emergency Provider Emergency Medicine; PCP Family Medicine
DX: S50.01XA Contusion of right elbow, initial encounter (principal); S83.91XA Sprain of unspecified site of right knee, initial encounter; I10 Essential (primary) hypertension; I25.2 Old myocardial infarction; E78.5 Hyperlipidemia, unspecified; E11.9 Type 2 diabetes mellitus without complications; Z86.73 Personal history of transient ischemic attack (TIA), and cerebral infarction without residual deficits; W01.0XXA Fall on same level from slipping, tripping and stumbling without subsequent striking against object, initial encounter
CPT/HCPCS: 36415; 70450; 71275; 72125; 73080; 73502; 73562; 73610; 80048; 85025; 85380; 85610; 85730; 99284; Q9967

== ENCOUNTER 2023-03-03 14:04 | Outpatient (CLI) | payer MEDICARE, OTHER, SELFPAY ==
[2023-03-03 14:50] LABS: Creatinine Urine 148.2 mg/dL; Total Protein Urine Random 27 mg/dL; Ur Ttl Prot Creatinine Ratio 0.18 mg/mg (0-0.20)
[2023-03-03 14:51] LABS: Albumin Level 4.1 g/dL (3.5-5.1); Anion Gap 6 mmol/L (8-16); Blood Urea Nitrogen 18 mg/dL (7-17); Calcium 9.1 mg/dL (8.4-10.2); Carbon Dioxide 25 mmol/L (22-30); Chloride 109 mmol/L (98-107); Estimated Glomerular Filt Rate 36; Glucose 97 mg/dL (65-110); Phosphorus 4.6 mg/dL (2.5-4.5); Potassium 4.7 mmol/L (3.4-5.0); Sodium 140 mmol/L (137-145)
[2023-03-03 15:04] LABS: Parathyroid Intact 58.9 pg/mL (7.5-53.5)
== END 2023-03-03 14:05 | disposition home or self-care (01) ==
LOC: ANHLAB 14:06
PROVIDERS: PCP Family Medicine; Visit Provider Internal Medicine Nephrology
DX: I12.9 Hypertensive chronic kidney disease with stage 1 through stage 4 chronic kidney disease, or unspecified chronic kidney disease (principal); N18.32 Chronic kidney disease, stage 3b; N25.81 Secondary hyperparathyroidism of renal origin
CPT/HCPCS: 36415; 80069; 82570; 83970; 84156

== ENCOUNTER 2023-04-11 11:50 | Outpatient (CLI) | payer MEDICARE, OTHER, SELFPAY ==
[2023-04-11 12:28] LABS: Hematocrit 30.2 % (37.0-47.0); Hemoglobin 9.1 g/dL (12.0-15.0); Mean Corpuscular HGB Conc 30.1 g/dl (32-36); Mean Corpuscular Hemoglobin 29.4 pg (26-34); Mean Corpuscular Volume 97.7 fl (80-100); Mean Platelet Volume 9.9 fl (7.4-10.4); Platelet Count Result 325 k/mm3 (150-375); Red Blood Count 3.09 M/mm3 (4.2-5.4); Red Cell Distribution Width 12.8 % (11.5-14.5); White Blood Count 7.2 K/mm3 (4.5-10.0)
[2023-04-11 12:42] LABS: Alanine Aminotransferase 15 U/L (6-35); Alkaline Phosphatase 60 U/L (38-126); Anion Gap 7 mmol/L (8-16); Aspartate Amino Transferase 29 U/L (14-36); Bilirubin,Total 0.5 mg/dL (0.2-1.3); Blood Urea Nitrogen 21 mg/dL (7-17); Carbon Dioxide 25 mmol/L (22-30); Chloride 108 mmol/L (98-107); Estimated Glomerular Filt Rate 33; Glucose 97 mg/dL (65-110); Potassium 4.9 mmol/L (3.4-5.0); Sodium 140 mmol/L (137-145)
== END 2023-04-11 11:51 | disposition home or self-care (01) ==
PROVIDERS: PCP Family Medicine; Visit Provider Nurse Practitioner Family
DX: R19.7 Diarrhea, unspecified (principal)
CPT/HCPCS: 36415; 80053; 85027

== ENCOUNTER 2023-04-15 12:59 | Outpatient (CLI) | payer MEDICARE, OTHER, SELFPAY | END 2023-04-15 13:00 | disposition home or self-care (01) | LOC: ANHLAB 13:01 | PROVIDERS: PCP Family Medicine; Visit Provider Nurse Practitioner Family | DX: R19.7 Diarrhea, unspecified (principal) | CPT/HCPCS: 87045; 87177; 87209; 87427; 87449 ==

== ENCOUNTER 2023-07-03 14:50 | Outpatient (CLI) | payer MEDICARE, OTHER, SELFPAY ==
--- NOTE | ~2023-07-03 | DEXA_ITS ---
Bone Density Report Name: NAM GIBBS Age: 77 Sex: Female Ethnicity: White Date of : 1945 Indication: postmenopausal; screening for osteoporosis; height loss; prior fracture; hysterectomy; Referring Provider: ALEX BUNCH Study: Bone densitometry was performed. Exam Date: July 03, 2023 Accession number: [id number] Bone Density: Region BMD T-score Z-score Classification AP Spine(L1-L4) 1.054 0.1 2.7 Normal Femoral Neck (Left) 0.502 -3.1 -0.8 Osteoporosis Total Hip (Left) 0.699 -2.0 0.1 Osteopenia Femoral Neck (Right) 0.501 -3.1 -0.8 Osteoporosis Total Hip (Right) 0.677 -2.2 -0.1 Osteopenia Total Hip Mean 0.688 -2.1 0.0 Osteopenia World Health Organization criteria for BMD impression classify patients as: Normal (T-score at or above -1.0), Osteopenia (T-score between -1.0 and -2.5), or Osteoporosis (T-score at or below -2.5). 10-year Fracture Risk: FRAX not reported because: Some T-score for Spine Total or Hip Total or Femoral Neck at or below -2.5 Prior hip or vertebral fracture Clinical Information Provided by Patient: Have had a previous hip or vertebral fracture Has had a low trauma fracture Has the following medical conditions: Hysterectomy Patient maximum height was 62 Does not regularly consume dairy products Drinks caffeinated beverages Onset of menses at age 9 Number of children 4 Impression: The patient has established osteoporosis, based on the Left Femoral Neck T-score and the existence of a prior fracture. The patient has risk factors, including: previous fracture. Discussion: HIGH RISK OF FRACTURE. BONE DENSITY IS UNDESIRABLY LOW AT ONE OR MORE SKELETAL SITES, CONSISTENT WITH POSTMENOPAUSAL OSTEOPOROSIS. This patient's lowest T-score, in a patient who has previously fractured, meets the World Health Organization's (WHO) criteria for severe osteoporosis. In untreated patients, the risk of osteoporotic fracture increases approximately two-fold for each 1.0 SD decrease in T-score. Low bone density is not the only risk factor for fracture; also consider factors such as patient's age, frailty or poor health, risk of falling, risk of injury, previous osteoporotic fracture, family history of osteoporosis, cigarette smoking, low body weight, etc. Not everyone with low bone mineral density has osteoporosis; osteomalacia and other metabolic bone disorders should also be considered. Patients who have osteoporosis should be evaluated for specific diseases and conditions (secondary causes) that may cause or contribute to bone loss. The [place] [employer]ocrinologists (AACE) and National Osteoporosis Foundation (NOF) recommend pharmacologic intervention for all postmenopausal women with a previous hip or vertebral fracture and a T-score in this range. The pat
== END 2023-07-03 14:51 | disposition home or self-care (01) ==
PROVIDERS: PCP Family Medicine; Visit Provider Family Medicine
DX: Z78.0 Asymptomatic menopausal state (principal); M81.0 Age-related osteoporosis without current pathological fracture; M85.89 Other specified disorders of bone density and structure, multiple sites
CPT/HCPCS: 77080

== ENCOUNTER 2023-07-31 00:15 | Day surgery (SDC) | payer MEDICARE, OTHER, SELFPAY ==
[2023-05-14 08:54] VITALS: BMI 25.2
[2023-07-17 11:58] VITALS: BMI 25.2
--- NOTE | 2023-07-29 10:03 | PC.NURSE ---
Spoke with daughter Ruth regarding upcoming procedure. Reviewed preop instructions, appointment times, and procedure prep.
--- NOTE | 2023-07-31 10:33 | WPDANESEPPF ---
Anes - Initial Pre Proc Eval Procedure: Operation Date: 07/31/23 11:00 Proposed Procedures p Colonoscopy - Jameson Dhillon MD Date/Time: 07/31/23 10:33 Surgeon: Jameson Dhillon MD Pre Op Diagnosis: hemorrhage of anus and rectum Patient Data Age: 78 Gender: F Height: 1.52 m Weight: 58.6 kg Allergies Allergy/AdvReac Type Severity Reaction Status Date / Time adhesive tape Allergy Severe RASH Verified 06/03/23 09:51 amitriptyline Allergy Unknown Rash Verified 06/03/23 09:51 ciprofloxacin Allergy Unknown Dizziness Verified 06/03/23 09:51 levofloxacin Allergy Unknown Swelling Verified 06/03/23 09:51 tetracycline AdvReac Nausea and Verified 06/03/23 09:51 Vomiting Home Medications Medication Instructions Recorded Confirmed Type simethicone 125 mg capsule (Gas 125 mg PO DAILY PRN 02/27/21 05/14/23 History Relief (simethicone)) Gastrointestinal Spasms Or Cramping losartan 25 mg tablet 50 mg PO HS 05/10/21 07/17/23 History aspirin 81 mg tablet,delayed 81 mg PO DAILY 12/31/21 05/14/23 History release (Adult Aspirin Regimen) rosuvastatin 10 mg tablet 5 mg PO HS 05/08/22 07/17/23 History triamcinolone acetonide 0.1 % 1 applic topical BID PRN Rash 09/19/22 05/14/23 History topical cream calcitriol 0.25 mcg capsule 0.25 mcg PO 3XW #12 caps 01/20/23 05/14/23 Rx B-complex with vitamin C 1 cap PO DAILY 03/06/23 05/14/23 History metoprolol succinate 25 mg See Rx Instructions .Route 04/04/23 05/14/23 Rx tablet,extended release 24 hr .COMPLEX #90 tabs calcium polycarbophil 625 mg tablet 1,250 mg PO DAILY 04/10/23 05/14/23 History thiamine HCl (vitamin B1) 100 mg 100 mg PO HS 04/10/23 07/17/23 History tablet amlodipine 10 mg tablet 10 mg PO DAILY 3 months #90 tabs 06/03/23 07/17/23 Rx duloxetine 60 mg capsule,delayed 60 mg PO DAILY #90 caps 07/04/23 07/17/23 Rx release quetiapine 25 mg tablet (Seroquel) 25 mg PO BID 07/17/23 07/17/23 History ondansetron HCl 4 mg tablet 4 mg PO Q6H PRN Nausea #4 tabs 07/29/23 Rx Patient hx anesthesia problems: none Family hx anesthesia problems: none Results Review: All pre-operative results and documents have been reviewed as part of the pre-operative evaluation. [facility] Past Medical History Medical History (Updated 04/10/23 @ 14:07 by FRIDA Norris) Benign essential hypertension Blood clots in biliary tract following procedure BMI 26.0-26.9,adult Constipation Dehydration Heart attack Helicobacter pylori gastritis History of CVA (cerebrovascular accident) HTN (hypertension) with goal to be determined Hyperlipidemia, unspecified Microscopic colitis Nausea & vomiting LUKE on CPAP Intolerant of a CPAP Overweight (BMI 25.0-29.9) Statin intolerance Type 2 diabetes mellitus with stage 1 chronic kidney disease Upper abdominal pain Urinary incontinence Surgical History Surgical History H/O rectal polypectomy H/O: hysterectomy History of knee replacement bilateral knee replaced History of laparoscopic cholecystectomy Family History Family History (Updated 04/10/23 @ 14:11 by FRIDA Norris) Mother Family history of osteoporosis Heart disease Hypertension Father Family history of diabetes mellitus in first degree relative Diabetes mellitus DVT (deep venous thrombosis) Guillain Bassett? syndrome Sibling Diabetes mellitus 2 sisters Sibling , overdose CKD (chronic kidney disease) Tobacco abuse Other Family history of arthritis Family history of cardiovascular disease Social History Social History Social History: the patient has 4 children. She is . 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 She lives home alone with her little 6 lb dog. She rarely drinks. She is a lifelong nonsmoker. She does not use any marijuana or illi
[2023-07-31 10:34] VITALS: BP 140/62; PULSE 64; RESP 18; TEMP 36.2; O2SAT 100
--- NOTE | 2023-07-31 10:38 | SUR.PREOP ---
Pt having liquid stools with some soft brown stool present and bright red blood. Dr. Christian notified and would like to proceed with colonoscopy Pt has dementia and is unable to recall whether or not she completed the bowel prep. Pt's son is at bedside informed.
[2023-07-31] MEDS: LACTATED RINGERS 1,000 ML 150 ML IV CONT (10:46)
--- NOTE | 2023-07-31 11:00 | PM.HPGS ---
History of Present Illness History of Present Illness Consent: Risks, benefits, and alternatives have been discussed and questions answered. Patient agrees to proceed with procedure. Chief complaint: hemorrhage of anus and rectum Narrative: Swetha Golden is a 78 year old female here for colonoscopy because intermittent rectal bleeding, she has dementia and is here with son. Colonoscopy 2020 with rectal prolapse, small polyps, no gross abnormalities otherwise but random bx c/w microscopic colitis. Review of Systems Constitutional: Constitutional: Denies headache(s) and Denies weakness Eyes: Eyes: Denies blurry vision ENT: Reports Normal hearing present, Denies headache(s) and Denies neck pain Cardiovascular: Cardiovascular: Denies chest pain and Denies dyspnea Respiratory: Respiratory: Denies dyspnea Gastrointestinal: Gastrointestinal: Reports no additional gastrointestinal complaints Genitourinary: Genitourinary: Denies dysuria Musculoskeletal: Musculoskeletal: Denies neck pain Integumentary/Breasts: Skin/Breast: Denies dry skin Neurologic: Reports Normal hearing present and Denies headache(s) Psychiatric: Psychiatric: Denies anxiety Endocrine: Endocrine: Denies change in body appearance Allergic/Immunologic: Allergic/Immunologic: Denies urticaria PMFSH Past Medical History Medical History (Updated 07/31/23 @ 11:02 by Jameson Dhillon MD) Benign essential hypertension Blood clots in biliary tract following procedure BMI 26.0-26.9,adult Constipation Dehydration Heart attack Helicobacter pylori gastritis History of CVA (cerebrovascular accident) HTN (hypertension) with goal to be determined Hyperlipidemia, unspecified Microscopic colitis Nausea & vomiting LUKE on CPAP Intolerant of a CPAP Overweight (BMI 25.0-29.9) Rectal bleeding Statin intolerance Type 2 diabetes mellitus with stage 1 chronic kidney disease Upper abdominal pain Urinary incontinence Surgical History Surgical History H/O rectal polypectomy H/O: hysterectomy History of knee replacement bilateral knee replaced History of laparoscopic cholecystectomy Family History Family History (Updated 04/10/23 @ 14:11 by FRIDA Norris) Mother Family history of osteoporosis Heart disease Hypertension Father Family history of diabetes mellitus in first degree relative Diabetes mellitus DVT (deep venous thrombosis) Guillain Bassett? syndrome Sibling Diabetes mellitus 2 sisters Sibling , overdose CKD (chronic kidney disease) Tobacco abuse Other Family history of arthritis Family history of cardiovascular disease Social History Social History Social History: the patient has 4 children. She is . 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 She lives home alone with her little 6 lb dog. She rarely drinks. She is a lifelong nonsmoker. She does not use any marijuana or illicit drugs. Caffeine-soda daily Smoking status: Never smoker Second hand tobacco smoke exposure: No Alcohol intake: current Drinks per week: 3 Alcohol use details: occasionally Substance use: never Substance use type: does not use Lack of Transportation: No Lack of Food: Never True Current Housing: I Have Housing Concerned About Future Housing: No Difficulty Paying Gas/Electric Bills: No Difficulty Paying for Meds: No Currently Unemployed: No Education: Trade/Vocational Certificate Difficulty w/ Childcare or Family Care: No Living arrangements: alone Occupation/Education: retired Additional occupation/education comments: beautician Gender identity (if verbalized by the patient): Female Spiritual care concerns: No Meds Home Medications and Allergies Home Medications Medication Instructions Recorded Reynaldo
[2023-07-31 11:24] VITALS: BP 104/49; PULSE 57; RESP 17; O2SAT 100
[2023-07-31 11:34] VITALS: BP 120/55; PULSE 59; RESP 15; O2SAT 100
[2023-07-31 11:44] VITALS: BP 137/78; PULSE 58; RESP 19; O2SAT 100
== END 2023-07-31 11:52 | disposition home or self-care (01) ==
PROVIDERS: PCP Family Medicine; Visit Provider Internal Medicine Gastroenterology
PROC: 0DJD8ZZ Inspection of Lower Intestinal Tract, Via Natural or Artificial Opening Endoscopic (ICD-10-PCS; CPT 45378; principal; 2023-07-31 11:00)
DX: K57.30 Diverticulosis of large intestine without perforation or abscess without bleeding (principal); K62.3 Rectal prolapse; I12.9 Hypertensive chronic kidney disease with stage 1 through stage 4 chronic kidney disease, or unspecified chronic kidney disease; E11.22 Type 2 diabetes mellitus with diabetic chronic kidney disease; N18.1 Chronic kidney disease, stage 1; F03.90 Unspecified dementia, unspecified severity, without behavioral disturbance, psychotic disturbance, mood disturbance, and anxiety; I25.2 Old myocardial infarction; E78.5 Hyperlipidemia, unspecified; G47.33 Obstructive sleep apnea (adult) (pediatric); Z79.82 Long term (current) use of aspirin; Z86.73 Personal history of transient ischemic attack (TIA), and cerebral infarction without residual deficits
CPT/HCPCS: 45380; 88305; J2001; J2704; J7120

== ENCOUNTER 2023-08-19 10:27 | Outpatient (CLI) | payer MEDICARE, OTHER, SELFPAY ==
[2023-08-19 11:10] LABS: Hematocrit 28.6 % (37.0-47.0); Hemoglobin 8.7 g/dL (12.0-15.0); Mean Corpuscular HGB Conc 30.4 g/dl (32-36); Mean Corpuscular Hemoglobin 30.3 pg (26-34); Mean Corpuscular Volume 99.7 fl (80-100); Mean Platelet Volume 9.7 fl (7.4-10.4); Platelet Count Result 299 k/mm3 (150-375); Red Blood Count 2.87 M/mm3 (4.2-5.4); Red Cell Distribution Width 13.2 % (11.5-14.5); White Blood Count 7.5 K/mm3 (4.5-10.0)
[2023-08-19 11:20] LABS: Albumin Level 4.3 g/dL (3.5-5.1); Anion Gap 11 mmol/L (8-16); Blood Urea Nitrogen 30 mg/dL (7-17); Calcium 9.1 mg/dL (8.4-10.2); Carbon Dioxide 18 mmol/L (22-30); Chloride 111 mmol/L (98-107); Estimated Glomerular Filt Rate 27; Glucose 91 mg/dL (65-110); Phosphorus 5.9 mg/dL (2.5-4.5); Potassium 4.9 mmol/L (3.4-5.0); Sodium 140 mmol/L (137-145)
[2023-08-19 11:21] LABS: Creatinine Urine 155.5 mg/dL; Total Protein Urine Random 24 mg/dL; Ur Ttl Prot Creatinine Ratio 0.15 mg/mg (0-0.20)
[2023-08-19 11:31] LABS: Parathyroid Intact 142.6 pg/mL (7.5-53.5)
[2023-08-19 11:46] LABS: Iron 61 ug/dL (37-170)
[2023-08-19 11:56] LABS: Percent Iron Saturation 17 % (20-50)
[2023-08-19 12:04] LABS: Vitamin D 25 Hydroxy 29.2 ng/mL
== END 2023-08-19 10:28 | disposition home or self-care (01) ==
LOC: ANHLAB 10:37
PROVIDERS: PCP Family Medicine; Visit Provider Internal Medicine Nephrology
DX: K21.9 Gastro-esophageal reflux disease without esophagitis (principal); K62.5 Hemorrhage of anus and rectum; E55.9 Vitamin D deficiency, unspecified; E11.22 Type 2 diabetes mellitus with diabetic chronic kidney disease; I12.9 Hypertensive chronic kidney disease with stage 1 through stage 4 chronic kidney disease, or unspecified chronic kidney disease; N18.32 Chronic kidney disease, stage 3b; N25.81 Secondary hyperparathyroidism of renal origin; G47.33 Obstructive sleep apnea (adult) (pediatric); I21.A1 Myocardial infarction type 2; I35.1 Nonrheumatic aortic (valve) insufficiency; I42.9 Cardiomyopathy, unspecified; R32 Unspecified urinary incontinence; R41.3 Other amnesia
CPT/HCPCS: 36415; 80069; 82306; 82570; 83540; 83550; 83970; 84156; 85027

== ENCOUNTER 2023-10-02 11:14 | Outpatient (CLI) | payer MEDICARE, OTHER, SELFPAY ==
[2023-10-02 11:58] LABS: Hematocrit 30.3 % (37.0-47.0); Hemoglobin 9.1 g/dL (12.0-15.0); Mean Corpuscular Hemoglobin 30.1 pg (26-34); Mean Corpuscular Volume 100.3 fl (80-100); Mean Platelet Volume 9.8 fl (7.4-10.4); Platelet Count Result 318 k/mm3 (150-375); Red Blood Count 3.02 M/mm3 (4.2-5.4); Red Cell Distribution Width 13.2 % (11.5-14.5); White Blood Count 6.2 K/mm3 (4.5-10.0)
== END 2023-10-02 11:15 | disposition home or self-care (01) ==
LOC: ANHLAB 11:16
PROVIDERS: PCP Family Medicine; Visit Provider Family Medicine
DX: E11.22 Type 2 diabetes mellitus with diabetic chronic kidney disease (principal); N18.1 Chronic kidney disease, stage 1
CPT/HCPCS: 36415; 85027

== ENCOUNTER 2023-10-06 15:40 | Outpatient (CLI) | payer MEDICARE, OTHER, SELFPAY ==
[2023-10-06 16:06] LABS: Basophils Absolute Auto 0.1 K/mm3 (0.0-0.1); Basophils Percent Auto 1.2 % (0.2-1.2); Eosinophils Absolute Auto 0.5 K/mm3 (0-0.3); Eosinophils Percent Auto 8.2 % (0-4.4); Hematocrit 26.7 % (37.0-47.0); Hemoglobin 8.3 g/dL (12.0-15.0); Immature Granulocyte Absolute 0.01 K/mm3 (0.00-0.031); Immature Granulocyte Percent A 0.2 % (0-0.5); Immature Reticulocyte Fraction 8.4 % (3.0-15.9); Lymphocytes Absolute Auto 1.93 K/mm3 (0.9-3.2); Lymphocytes Percent Auto 33.8 % (18.3-44.2); Mean Corpuscular HGB Conc 31.1 g/dl (32-36); Mean Corpuscular Hemoglobin 30.9 pg (26-34); Mean Corpuscular Volume 99.3 fl (80-100); Mean Platelet Volume 8.4 fl (7.4-10.4); Monocytes Absolute Auto 0.4 K/mm3 (0.1-0.6); Monocytes Percent Auto 7.5 % (2.6-8.5); Neutrophils Absolute Auto 2.8 K/mm3 (1.3-6.7); Neutrophils Percent Auto 49.1 % (45.5-73.1); Platelet Count Result 248 k/mm3 (150-375); Red Blood Count 2.69 M/mm3 (4.2-5.4); Reticulocyte Hemoglobin Conten 32.7 pg (28.2-36.6); Reticulocyte Percent 1.28 % (0.7-4.3); Reticulocytes Absolute 0.03 10^6/uL (0.02-0.10); White Blood Count 5.7 K/mm3 (4.5-10.0)
[2023-10-06 21:25] LABS: Iron 48 ug/dL (37-170)
[2023-10-06 21:36] LABS: Percent Iron Saturation 15 % (20-50)
[2023-10-06 21:50] LABS: Alanine Aminotransferase 15 U/L (6-35); Albumin Level 4.1 g/dL (3.5-5.1); Alkaline Phosphatase 53 U/L (38-126); Anion Gap 10 mmol/L (4-12); Aspartate Amino Transferase 25 U/L (14-36); Bilirubin,Total 0.4 mg/dL (0.2-1.3); Blood Urea Nitrogen 27 mg/dL (7-17); Calcium 9.5 mg/dL (8.4-10.2); Carbon Dioxide 19 mmol/L (22-30); Chloride 113 mmol/L (98-107); Estimated Glomerular Filt Rate 27; Glucose 79 mg/dL (65-110); Lactate Dehydrogenase 153 U/L (120-246); Potassium 5.1 mmol/L (3.4-5.0); Sodium 142 mmol/L (137-145)
[2023-10-06 22:56] LABS: Folic Acid 9.3 ng/mL (2.76->20)
[2023-10-10 12:43] LABS: Soluble Transferrin Receptor 1.35 mg/L (0.76-1.76)
[2023-10-10 15:29] LABS: Methylmalonic Acid 368 nmol/L (87-318)
== END 2023-10-06 15:41 | disposition home or self-care (01) ==
PROVIDERS: Nurse Practitioner Family; PCP Family Medicine; Visit Provider Internal Medicine Hematology & Oncology
DX: N18.9 Chronic kidney disease, unspecified (principal); D63.1 Anemia in chronic kidney disease; D72.10 Eosinophilia, unspecified
CPT/HCPCS: 36415; 80053; 82607; 82728; 82746; 83540; 83550; 83615; 83921; 84238; 85025; 85046

== ENCOUNTER 2023-12-08 09:03 | Emergency (ER) | payer MEDICARE, OTHER, SELFPAY ==
--- NOTE | ~2023-12-08 | CT_ITS ---
CT brain wo con Ordering provider: Hernandez Montoya MD History: 78 years Female with . trauma . Comparison: None. Technique: CT of the head without contrast. Radiation reduction technique utilized. DLP is 681 mGy. FINDINGS: BRAIN PARENCHYMA AND CSF SPACES: Mild brain atrophy with deep white matter ischemic change. No midlin e shift, mass effect or hemorrhage. The brain parenchyma and CSF spaces are otherwise normal. Empty sella turcica. VISUALIZED PARANASAL SINUSES: Mucosal thickening of the left sphenoid sinus. MASTOIDS: Well aerated. BONES: The bones appear intact. SOFT TISSUES: Subgaleal hematoma in the frontal scalp. Otherwise, Visualized nasopharynx is normal. S uperficial soft tissues are normal. IMPRESSION: No acute intracranial findings. Reviewed, dictated and finalized at location A.
--- NOTE | ~2023-12-08 | CT_ITS ---
EXAMINATION: CT cervical spine wo con DATE: 12/08/2023 09:42 INDICATION: Head injury. TECHNIQUE: Computed tomography (CT) of the cervical spine was performed without intravenous contrast. Automated exposure control and iterative reconstruction technique were employed. The dose-length pro duct was 199.34 mGy-cm. COMPARISON: CT cervical spine 01/09/2023 FINDINGS: There is 7 degrees levocurvature of cervicothoracic spine. There is 2 mm anterolisthesis of C5 on C6 and C7 on T1. Vertebral body heights are normal. There is mildly decreased disc height at C 4-C5 and C5-C6, moderately decreased disc height at C6-C7, and mildly decreased disc height at C7-T1. The following disc levels are specifically discussed: C2-C3: There is ankylosis of the uncovertebral joints without hypertrophy. There is ankylosis of the facet joints with moderate hypertrophy. There is mild bilateral neural foraminal stenosis. There is n o central canal stenosis. C3-C4: There is mild bilateral uncovertebral joint osteoarthritis. There is severe bilateral facet stephy int osteoarthritis. There is mild left neural foraminal stenosis. There is no central canal stenosis. C4-C5: There is no uncovertebral joint osteoarthritis. There is severe bilateral facet joint osteoart hritis. There is mild right and moderate left neural foraminal stenosis. There is no central canal st enosis. C5-C6: There is mild bilateral uncovertebral joint osteoarthritis. There is severe bilateral facet stephy int osteoarthritis. There is mild bilateral neural foraminal stenosis. There is mild central canal st enosis. C6-C7: There is mild right and severe left uncovertebral joint osteoarthritis. There is severe bilate ral facet joint osteoarthritis. There is mild right and moderate left neural foraminal stenosis. Ther e is mild central canal stenosis. C7-T1: There is mild bilateral uncovertebral joint osteoarthritis. There is severe bilateral facet stephy int osteoarthritis. There is mild bilateral neural foraminal stenosis. There is no central canal sten osis. IMPRESSION: 1. No fracture. 2. Moderate cervical spondylosis. Reviewed, dictated and finalized at location E.
[2023-12-08 09:02] VITALS: BP 132/49; PULSE 63; RESP 15; O2SAT 100
--- NOTE | 2023-12-08 09:14 | ED.FALL ---
HPI - Fall General Chief Complaint: Fall Stated Complaint: FALL History of Present Illness HPI Narrative: 78-year-old female presenting to the emergency department for evaluation after having a ground level fall. Patient does dementia at baseline and was walking at her care facility when the patient in front of her also fell closing the patient to fall down. Patient does have a hematoma to her forehead and was complaining of head neck pain to EMS. Related Data Home Medications Medication Instructions Recorded Confirmed losartan 25 mg tablet 25 mg PO HS 05/10/21 12/02/23 aspirin 81 mg tablet,delayed 81 mg PO QHS 08/27/23 12/02/23 release (Adult Aspirin Regimen) duloxetine 60 mg capsule,delayed 60 mg PO QHS 08/27/23 12/02/23 release calcium polycarbophil 625 mg 625 mg PO DAILY 10/02/23 12/02/23 tablet (FiberCon) vitamin B complex (Complex B-100 1 tablet PO DAILY 10/02/23 12/02/23 tablet,extended release) quetiapine 25 mg tablet (Seroquel) 25 mg PO BID 11/12/23 12/02/23 metoprolol succinate 25 mg 25 mg PO HS 11/18/23 12/02/23 tablet,extended release 24 hr quetiapine 50 mg tablet 50 mg PO HS 11/18/23 12/02/23 mecobalamin (vitamin B12) 1,000 1,000 mcg PO DAILY 11/20/23 12/02/23 mcg chewable tablet Allergies Allergy/AdvReac Type Severity Reaction Status Date / Time adhesive tape Allergy Severe RASH Verified 12/08/23 09:18 amitriptyline Allergy Unknown Rash Verified 12/08/23 09:18 ciprofloxacin Allergy Unknown Dizziness Verified 12/08/23 09:18 levofloxacin Allergy Unknown Swelling Verified 12/08/23 09:18 tetracycline AdvReac Nausea and Verified 12/08/23 09:18 Vomiting Review of Systems Review of Systems: All systems reviewed & are unremarkable except as noted in HPI and below PMFSH Past Medical History Medical History Benign essential hypertension Blood clots in biliary tract following procedure BMI 26.0-26.9,adult Constipation Dehydration Heart attack Helicobacter pylori gastritis History of CVA (cerebrovascular accident) HTN (hypertension) with goal to be determined Hyperlipidemia, unspecified Microscopic colitis Nausea & vomiting LUKE on CPAP Intolerant of a CPAP Overweight (BMI 25.0-29.9) Rectal bleeding Statin intolerance Type 2 diabetes mellitus with stage 1 chronic kidney disease Upper abdominal pain Urinary incontinence Surgical History Surgical History H/O rectal polypectomy H/O: hysterectomy History of knee replacement bilateral knee replaced History of laparoscopic cholecystectomy Family History Family History Mother Family history of osteoporosis Heart disease Hypertension Father Family history of diabetes mellitus in first degree relative Diabetes mellitus DVT (deep venous thrombosis) Guillain Bassett? syndrome Sibling Diabetes mellitus 2 sisters Sibling , overdose CKD (chronic kidney disease) Tobacco abuse Other Family history of arthritis Family history of cardiovascular disease Social History Social History Social History: the patient has 4 children. She is . 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 She lives home alone with her little 6 lb dog. She rarely drinks. She is a lifelong nonsmoker. She does not use any marijuana or illicit drugs. Caffeine-soda daily Smoking status: Never smoker Second hand tobacco smoke exposure: No Alcohol intake: current Drinks per week: 3 Alcohol use details: occasionally Substance use: never Substance use type: does not use Do You Feel Safe in your Home?: Yes Lack of Transportation: No Lack of Food: Never True Current Housing: I Have Housing Concerned About Future Housing: No Difficulty Paying Gas/Elect
--- NOTE | 2023-12-08 10:07 | PC.NURSE ---
Pt C Collar removed by EDP Dr Montoya following imaging results.
--- NOTE | 2023-12-08 10:10 | PC.NURSE ---
This RN attempted to call nurse to nurse report to [facility] and was unsuccessful x 3. Spoke w/ Gretchen who answered phone and is aware pt will be returning to the facility.
[2023-12-08 10:18] VITALS: BP 120/60; PULSE 60; RESP 15; O2SAT 97
== END 2023-12-08 10:40 ==
PROVIDERS: Emergency Provider Emergency Medicine; PCP Family Medicine
DX: S00.81XA Abrasion of other part of head, initial encounter (principal); I25.2 Old myocardial infarction; Z86.73 Personal history of transient ischemic attack (TIA), and cerebral infarction without residual deficits; E78.5 Hyperlipidemia, unspecified; G47.30 Sleep apnea, unspecified; E11.22 Type 2 diabetes mellitus with diabetic chronic kidney disease; I12.9 Hypertensive chronic kidney disease with stage 1 through stage 4 chronic kidney disease, or unspecified chronic kidney disease; N18.1 Chronic kidney disease, stage 1; W01.0XXA Fall on same level from slipping, tripping and stumbling without subsequent striking against object, initial encounter
CPT/HCPCS: 70450; 72125; 99284

== ENCOUNTER 2023-12-11 17:03 | Outpatient (CLI) | payer MEDICARE, OTHER, SELFPAY ==
[2023-12-11 17:35] LABS: Creatinine Urine 62.7 mg/dL; Total Protein Urine Random 22 mg/dL; Ur Ttl Prot Creatinine Ratio 0.35 mg/mg (0-0.20)
[2023-12-11 17:37] LABS: Albumin Level 4.6 g/dL (3.5-5.1); Anion Gap 8 mmol/L (4-12); Blood Urea Nitrogen 23 mg/dL (7-17); Calcium 9.1 mg/dL (8.4-10.2); Carbon Dioxide 22 mmol/L (22-30); Chloride 111 mmol/L (98-107); Estimated Glomerular Filt Rate 27; Glucose 98 mg/dL (65-110); Potassium 4.8 mmol/L (3.4-5.0); Sodium 141 mmol/L (137-145)
== END 2023-12-11 17:04 | disposition home or self-care (01) ==
PROVIDERS: PCP Family Medicine; Visit Provider Internal Medicine Nephrology
DX: E11.22 Type 2 diabetes mellitus with diabetic chronic kidney disease (principal); I12.9 Hypertensive chronic kidney disease with stage 1 through stage 4 chronic kidney disease, or unspecified chronic kidney disease; N18.32 Chronic kidney disease, stage 3b
CPT/HCPCS: 36415; 80069; 82570; 84156

== ENCOUNTER 2023-12-13 11:45 | Outpatient (NON) | payer MEDICARE, OTHER, SELFPAY ==
[2023-12-13 12:12] LABS: Appearance Urine Clear (Clear); Bacteria Urine None Seen /hpf; Bilirubin Urine Negative (Negative); Blood Urine Negative (Negative); Color Urine Yellow (Yellow); Glucose Urine UA Negative (Negative); Ketones Urine Negative (Negative); Leukocyte Esterase Ur Trace LEU/UL (Negative); Nitrate Urine Negative (Negative); Protein Urine Negative (Negative); RBC Urine 0-2 /hpf (0-2); Specific Grav Ur 1.014 (1.001-1.035); Squamous Epithelial Cell Urine None Seen /hpf (Few); WBC Urine 0-5 /hpf (0-3); pH Urine 5.5 (5.0-9.0)
[2023-12-13 12:20] LABS: Add Urine Microscopic? YES
== END 2023-12-13 11:46 | disposition home or self-care (01) ==
PROVIDERS: PCP Family Medicine; Visit Provider Nurse Practitioner
DX: R39.9 Unspecified symptoms and signs involving the genitourinary system (principal)
CPT/HCPCS: 81001

== ENCOUNTER 2024-04-06 09:13 | Outpatient (CLI) | payer MEDICARE, OTHER, SELFPAY ==
[2024-04-06 10:30] LABS: Hemoglobin A1C 5.7 % (<5.7)
== END 2024-04-06 09:14 | disposition home or self-care (01) ==
LOC: ANHLAB 09:18
PROVIDERS: PCP Internal Medicine; Visit Provider Internal Medicine Hematology & Oncology
DX: R73.9 Hyperglycemia, unspecified (principal)
CPT/HCPCS: 36415; 83036

== ENCOUNTER 2024-05-08 13:53 | Emergency (ER) | payer MEDICARE, OTHER, SELFPAY ==
[2024-05-08] VITALS (10 sets, daily range): BP systolic 118–149; BP diastolic 48–90; PULSE 62–77; RESP 12–26; TEMP 36.4; O2SAT 93–100
[2024-05-08 14:21] LABS: Basophils Percent Auto 0.4 % (0.2-1.2); Eosinophils Absolute Auto 0.4 K/mm3 (0-0.3); Hematocrit 31.5 % (37.0-47.0); Hemoglobin 9.1 g/dL (12.0-15.0); Immature Granulocyte Absolute 0.03 K/mm3 (0.00-0.031); Immature Granulocyte Percent A 0.4 % (0-0.5); Lymphocytes Absolute Auto 1.18 K/mm3 (0.9-3.2); Lymphocytes Percent Auto 16.5 % (18.3-44.2); Mean Corpuscular HGB Conc 28.9 g/dl (32-36); Mean Corpuscular Hemoglobin 27.9 pg (26-34); Mean Corpuscular Volume 96.6 fl (80-100); Mean Platelet Volume 9.5 fl (7.4-10.4); Monocytes Absolute Auto 0.6 K/mm3 (0.1-0.6); Monocytes Percent Auto 8.9 % (2.6-8.5); Neutrophils Absolute Auto 4.9 K/mm3 (1.3-6.7); Neutrophils Percent Auto 68.8 % (45.5-73.1); Platelet Count Result 347 k/mm3 (150-375); Red Blood Count 3.26 M/mm3 (4.2-5.4); Red Cell Distribution Width 16.5 % (11.5-14.5); White Blood Count 7.2 K/mm3 (4.5-10.0)
[2024-05-08 14:29] LABS: Alanine Aminotransferase 11 U/L (6-35); Albumin Level 3.7 g/dL (3.5-5.1); Alkaline Phosphatase 61 U/L (38-126); Anion Gap 8 mmol/L (4-12); Aspartate Amino Transferase 20 U/L (14-36); Bilirubin,Total 0.3 mg/dL (0.2-1.3); Blood Urea Nitrogen 21 mg/dL (7-17); Carbon Dioxide 23 mmol/L (22-30); Chloride 108 mmol/L (98-107); Estimated Glomerular Filt Rate 39; Glucose 101 mg/dL (65-110); Potassium 5.7 mmol/L (3.4-5.0); Sodium 139 mmol/L (137-145)
[2024-05-08 14:32] LABS: Prothrombin Time 13.7 Seconds (11.1-14.7)
[2024-05-08 14:33] LABS: Partial Thromboplastin Time 29.3 Seconds (22.3-36.8)
[2024-05-08 14:45] LABS: Platelet Estimate Adequate (Adequate)
[2024-05-08 14:46] LABS: Anisocytosis 1+
[2024-05-08 14:47] LABS: Hypochromasia 1+
[2024-05-08 14:48] LABS: Ovalocytes 1+; Schistocytes None Seen
--- NOTE | 2024-05-08 16:50 | ED.GIBLEED ---
HPI - GI Bleed General Chief complaint: GI Bleed Stated complaint: GI Bleed Time Seen by Provider: 05/08/24 14:00 History of Present Illness HPI Narrative: 78-year-old female presenting with rectal bleeding. Has a history of dementia and resides in a memory care facility. She was noted to have blood on her bathroom floor so a nurse social human services assistants called their on-call nurse as they do not have nurses on weekends and they were advised to come to the ER. Her daughter is at bedside and states that she has a history of hemorrhoids and rectal prolapse. Patient denies any complaints other than having to pee. Related Data Home Medications Medication Instructions Recorded Confirmed aspirin 81 mg tablet,delayed 81 mg PO QHS 08/27/23 05/03/24 release (Adult Aspirin Regimen) duloxetine 60 mg capsule,delayed 60 mg PO QHS 08/27/23 05/03/24 release calcium polycarbophil 625 mg 625 mg PO DAILY 10/02/23 05/03/24 tablet (FiberCon) metoprolol succinate 25 mg 25 mg PO HS 11/18/23 05/03/24 tablet,extended release 24 hr acetaminophen 325 mg capsule 650 mg PO Q6H PRN Pain 12/31/23 05/03/24 cyanocobalamin (vitamin B-12) 1,000 mcg PO DAILY 12/31/23 05/03/24 1,000 mcg tablet rosuvastatin 5 mg tablet 5 mg PO HS 12/31/23 05/03/24 olanzapine 5 mg tablet (Zyprexa) 10 mg PO DAILY 01/28/24 05/03/24 simethicone 125 mg chewable tablet 125 mg PO QID PRN Gastrointestinal 03/18/24 05/03/24 (Gas Relief (simethicone)) Spasms Or Cramping Ferrous Bisglycinate 25 mg PO DAILY 05/03/24 05/03/24 Allergies Allergy/AdvReac Type Severity Reaction Status Date / Time adhesive tape Allergy Severe RASH Verified 05/08/24 14:03 amitriptyline Allergy Unknown Rash Verified 05/08/24 14:03 ciprofloxacin Allergy Unknown Dizziness Verified 05/08/24 14:03 levofloxacin Allergy Unknown Swelling Verified 05/08/24 14:03 tetracycline AdvReac Nausea and Verified 05/08/24 14:03 Vomiting Review of Systems Review of Systems: All systems reviewed & are unremarkable except as noted in HPI and below PMFSH Past Medical History Medical History Benign essential hypertension Blood clots in biliary tract following procedure BMI 26.0-26.9,adult Constipation Dehydration Heart attack Helicobacter pylori gastritis History of CVA (cerebrovascular accident) HTN (hypertension) with goal to be determined Hyperlipidemia, unspecified Microscopic colitis Nausea & vomiting LUKE on CPAP Intolerant of a CPAP Overweight (BMI 25.0-29.9) Rectal bleeding Statin intolerance Type 2 diabetes mellitus with stage 1 chronic kidney disease Upper abdominal pain Urinary incontinence Surgical History Surgical History H/O rectal polypectomy H/O: hysterectomy History of knee replacement bilateral knee replaced History of laparoscopic cholecystectomy Family History Family History Mother Family history of osteoporosis Heart disease Hypertension Father Family history of diabetes mellitus in first degree relative Diabetes mellitus DVT (deep venous thrombosis) Guillain Bassett? syndrome Sibling Diabetes mellitus 2 sisters Sibling , overdose CKD (chronic kidney disease) Tobacco abuse Other Family history of arthritis Family history of cardiovascular disease Social History Social History Social History: the patient has 4 children. She is . 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 She lives home alone with her little 6 lb dog. She rarely drinks. She is a lifelong nonsmoker. She does not use any marijuana or illicit drugs. Caffeine-soda daily Smoking status: Never smoker Second hand tobacco smoke exposure: No Alcohol intake: current Drinks per week: 3 Alcohol use details: occasionally Substance use: never Substance use type: does not use Do You Feel Safe in your Home?: Yes Lack of Transportation: No Lack of Food: Never True Current Housing: I Have Housing Concerned About Future Housing: No Difficulty Paying Gas/Electric Bills: No Difficulty Paying for Meds: No Currently Unemployed: No Education: Trade/Vocational Certificate Difficulty w/ Childcare or Family Care: No Living arrangements: alone Occupation/Education: retired Additional occupation/education comments: beautician Gender identity (if verbalized by the patient): Female Spiritual care concerns: No Exam Narrative: GENERAL: Chronically ill-appearing female lying in bed in no acute distress HEAD: Normocephalic, atraumatic. EYES: PERRLA and EOMI. ENT: Mucous membranes moist. NECK: Supple. CHEST: No respiratory distress. HEART: Regular rate and rhythm ABDOMEN: Soft, nontender, nondistended RECTAL: large palpable internal hemorrhoid, nontender; stool is light brown EXTREMITIES: Normal range of motion SKIN: Warm, dry, no rash. NEURO: Alert and oriented x1-2. PSYCH: Normal mood and affect. Course Vital Signs Vital signs: Vital Signs Temperature 97.5 F L 05/08/24 13:54 Pulse Rate 72 05/08/24 13:54 Respiratory Rate 26 H 05/08/24 13:54 Blood Pressure 125/56 L 05/08/24 13:54 Pulse Oximetry 100 05/08/24 13:54 Oxygen Delivery Room Air 05/08/24 13:54 Temperature 97.5 F L 05/08/24 13:54 Pulse Rate 63 05/08/24 18:31 Respiratory Rate 23 H 05/08/24 18:31 Blood Pressure 147/90 H 05/08/24 18:31 Pulse Oximetry 99 05/08/24 18:31 Oxygen Delivery Room Air 05/08/24 13:54 MDM - GI Bleed MDM Narrative Medical decision making narrative: 78-year-old female presenting with rectal bleeding. Vitals are stable. Exam remarkable for the above. Vitals are stable. Blood work with mild hyperkalemia. Hydrating with IV fluids currently. Hemoglobin is stable. She has a very large palpable internal hemorrhoid on exam, I suspect this is the cause of her rectal bleeding. UA is unremarkable. Patient's daughter feels comfortable bringing her back to her memory care center. I think this is reasonable. Recommend PCP follow-up. Appropriate return precautions given. Discharged in stable condition. Lab Data 05/08/24 14:12 05/08/24 14:12 Labs: Lab Results 05/08/24 05/08/24 Range/Units 14:12 18:28 WBC 7.2 (4.5-10.0) K/mm3 RBC 3.26 L (4.2-5.4) M/mm3 Hgb 9.1 L (12.0-15.0) g/dL Hct 31.5 L (37.0-47.0) % MCV 96.6 (80-100) fl MCH 27.9 (26-34) pg MCHC 28.9 L (32-36) g/dl RDW 16.5 H (11.5-14.5) % Plt Count 347 (150-375) k/mm3 MPV 9.5 (7.4-10.4) fl Immature Gran % (Auto) 0.4 (0-0.5) % Neut % (Auto) 68.8 (45.5-73.1) % Lymph % (Auto) 16.5 L (18.3-44.2) % Cannon % (Auto) 8.9 H (2.6-8.5) % Eos % (Auto) 5.0 H (0-4.4) % Baso % (Auto) 0.4 (0.2-1.2) % Lymph # (Auto) 1.18 (0.9-3.2) K/mm3 Cannon # (Auto) 0.6 (0.1-0.6) K/mm3 Eos # (Auto) 0.4 H (0-0.3) K/mm3 Baso # (Auto) 0.0 (0.0-0.1) K/mm3 Abs Immat Gran (auto) 0.03 (0.00-0.031) K/mm3 Absolute Neuts (auto) 4.9 (1.3-6.7) K/mm3 Absolute Nucleated RBC 0.000 (0.0-0.012) K/mm3 Nucleated RBC % 0.0 (0.0-0.2) % Platelet Estimate Adequate (Adequate) Hypochromasia 1+ Anisocytosis 1+ Ovalocytes 1+ Schistocytes None seen PT 13.7 (11.1-14.7) Seconds INR 1.0 APTT 29.3 (22.3-36.8) Seconds Sodium 139 (137-145) mmol/L Potassium 5.7 H (3.4-5.0) mmol/L Chloride 108 H (98-107) mmol/L Carbon Dioxide 23 (22-30) mmol/L Anion Gap 8 (4-12) mmol/L BUN 21 H (7-17) mg/dL Creatinine 1.30 H (0.7-1.0) mg/dL Estim Creat Clear Calc Not Reportable Estimated GFR 39 L (59 - ) Glucose 101 (65-110) mg/dL Calcium 7.0 L (8.4-10.2) mg/dL Total Bilirubin 0.3 (0.2-1.3) mg/dL AST 20 (14-36) U/L ALT 11 (6-35) U/L Alkaline Phosphatase 61 (38-126) U/L Total Protein 7.0 (6.3-8.2) g/dL Albumin 3.7 (3.5-5.1) g/dL Urine Color Yellow (Yellow) Urine Appearance Clear (Clear) Urine pH 7.5 (5.0-9.0) Ur Specific [place] 1.008 (1.001-1.035) Urine Protein Negative (Negative) mg/dL Urine Glucose (UA) Negative (Negative) mg/dL Urine Ketones Negative (Negative) mg/dL Ur Blood (Man) Negative (Negative) Urine Nitrate Negative (Negative) Urine Bilirubin Negative (Negative) Urine Urobilinogen 0.2 (<2.0) mg/dL Leukocyte Esterase Rfl Negative (Negative) AYAH/UL Blood Type A Positive Antibody Screen Negative Critical Care Time Critical Care Time Critical Care Time: No Discharge Plan Discharge Clinical Impression: Internal hemorrhoid, Rectal bleeding [facility] Condition: Stable Instructions: Antibiotic Form, Hemorrhoids (ED) Additional Instructions: Your workup today is reassuring. Your hemoglobin is stable. We have found a large internal hemorrhoid on exam and we suspect this is the cause of the bleeding. Please follow-up closely with your PCP. If your symptoms worsen or other concerning symptoms arise, please return to the ER. Prescriptions: No Action metoprolol succinate 25 mg tablet extended release 24 hr 25 mg PO HS Rx Instructions: TAKE 1 TABLET BY MOUTH QHS cyanocobalamin (vitamin B-12) 1,000 mcg Tablet 1,000 mcg PO DAILY rosuvastatin 5 mg tablet 5 mg PO HS Rx Instructions: at bedtime acetaminophen 325 mg Capsule 650 mg PO Q6H PRN (Reason: Pain) Ferrous Bisglycinate 25 mg PO DAILY aspirin [Adult Aspirin Regimen] 81 mg tablet,delayed release (DR/EC) 81 mg PO QHS duloxetine 60 mg capsule,delayed release(DR/EC) 60 mg PO QHS FiberCon 625 mg tablet 625 mg PO DAILY simethicone [Gas Relief (simethicone)] 125 mg tablet,chewable 125 mg PO QID PRN (Reason: Gastrointestinal Spasms Or Cramping) olanzapine [Zyprexa] 5 mg tablet 10 mg PO DAILY losartan 25 mg tablet 25 mg PO HS Qty: 90 0RF Patient Comments: Pt only takes 1 tablet, which is 50 mg trazodone 50 mg tablet See Rx Instructions .ROUTE .COMPLEX Qty: 30 4RF Dose Instruction: TAKE 1 TABLET BY MOUTH EVERY DAY AT BEDTIME Rx Instructions: TAKE 1 TABLET BY MOUTH EVERY DAY AT BEDTIME Follow-up/Referrals: Yinka Archer DO [Primary Care Provider] -
[2024-05-08] MEDS: SODIUM CHLORIDE 0.9% IV 1,000 ML 999 ML IV CONT (16:59)
[2024-05-08 18:56] LABS: Add Urine Microscopic? NO; Appearance Urine Clear (Clear); Bilirubin Urine Negative (Negative); Blood Urine Negative (Negative); Color Urine Yellow (Yellow); Glucose Urine UA Negative (Negative); Ketones Urine Negative (Negative); Leukocyte Esterase Ur Negative LEU/UL (Negative); Nitrate Urine Negative (Negative); Protein Urine Negative (Negative); Specific Grav Ur 1.008 (1.001-1.035); Urobilinogen Urine 0.2 mg/dL (<2.0); pH Urine 7.5 (5.0-9.0)
--- NOTE | 2024-05-08 19:25 | PC.NURSE ---
1923-CALLED TO [facility] ([phone]). SPOKE WITH JEANETTE. REQUESTED TO GIVE REPORT TO NURSE. SHE STATES NO NURSE IS ON DUTY DURING THE WEEKENDS AND RESIDENTS ARE NOT ALLOWED TO RETURN DURING WEEKENDS. I ASKED HER WHAT WE WERE TO DO WITH PATIENT SHE DID NOT REQUIRE ADMISSION. JEANETTE STATES TO GIVE HER 15 MINUTES TO CALL THE NURSE AND SHE WILL CALL ME BACK.
--- NOTE | 2024-05-08 19:46 | PC.NURSE ---
1945-CALLED TO [facility]. SPOKE AGAIN WITH JEANETTE. STATES HER MANUFACTURING BAKER ADVISED HER PATIENT WAS NOT TO RETURN TO FACILITY THERE IS NO NURSE AT FACILITY. SHE STATES PATIENT CANNOT RETURN UNTIL FRIDAY. I REQUESTED CONTACT INFORMATION FOR MANUFACTURING BAKER AND WAS TOLD I COULD NOT SPEAK WITH MANUFACTURING BAKER. I TRANSFERRED THE PHONE CALL TO LULU FLYNN, CHARGE NURSE.
--- NOTE | 2024-05-08 20:03 | PC.NURSE ---
2002-CALLED BACK TO [facility]. PATIENT'S DAUGHTER SPOKE WITH FACILITY. EXPLAINED SHE WOULD BE RETURNING WITH PATIENT TO FACILITY. FACILITY STATED TO DAUGHTER NO NURSE AVAILABLE TO TAKE REPORT UNTIL FRIDAY.
--- NOTE | 2024-05-08 20:53 | PC.NURSE ---
This mortgage or loan underwriter called to [facility] to inquire about getting this patient back to her memory care bed [facility]. Per Tiera, the patient can come back tonight, but requests that Moses call and speak to the nurse on Friday for a brief summary of the care provided during her ED visit. This request has been passed on to Meaghan Ramesh, ED charge.
== END 2024-05-08 20:07 ==
PROVIDERS: Emergency Provider Emergency Medicine; PCP Internal Medicine
DX: K64.8 Other hemorrhoids (principal); E11.22 Type 2 diabetes mellitus with diabetic chronic kidney disease; I12.9 Hypertensive chronic kidney disease with stage 1 through stage 4 chronic kidney disease, or unspecified chronic kidney disease; N18.1 Chronic kidney disease, stage 1; I25.2 Old myocardial infarction; E66.3 Overweight; Z68.29 Body mass index [BMI] 29.0-29.9, adult; G47.33 Obstructive sleep apnea (adult) (pediatric); Z96.653 Presence of artificial knee joint, bilateral; Z86.73 Personal history of transient ischemic attack (TIA), and cerebral infarction without residual deficits; Z86.0100 Personal history of colon polyps, unspecified; Z90.710 Acquired absence of both cervix and uterus; Z90.49 Acquired absence of other specified parts of digestive tract; Z79.82 Long term (current) use of aspirin; Z79.899 Other long term (current) drug therapy
CPT/HCPCS: 36415; 80053; 81003; 85025; 85610; 85730; 86850; 86900; 86901; 96360; 96361; 99283; J7030

== ENCOUNTER 2024-05-15 08:37 | Emergency (ER) | payer MEDICARE, OTHER, SELFPAY ==
[2024-05-15] VITALS (12 sets, daily range): BP systolic 147–159; BP diastolic 56–64; PULSE 52–86; RESP 12–20; TEMP 36.4; O2SAT 98–100
--- NOTE | ~2024-05-15 | CT_ITS ---
EXAMINATION: CT brain wo con DATE: 05/15/2024 09:10 INDICATION: Head injury TECHNIQUE: Computed tomography (CT) of the head was performed without intravenous contrast. Sagittal and coronal reconstructions were performed. The mA was adjusted according to patient size. Iterative reconstruction technique was employed. The dose-length product was 681.00 mGy-cm. COMPARISON: head CT dated 12/08/2023 FINDINGS: No fracture. No acute intracranial hemorrhage, acute infarction or abnormal extra axial fluid collect ion. There is mild scattered white matter hypoattenuation consistent with chronic small vessel ischem ic disease. Symmetric prominence of the sulci and ventricles consistent with mild age-appropriate dif fuse cerebral volume loss. Ventricles are normal and symmetric. No mass/mass effect. The orbits, para nasal sinuses and mastoid air cells are normal. IMPRESSION: 1. Normal aging brain. No fracture or acute intracranial process. Reviewed, dictated and finalized at location A. GER PHARMAC[facility]
--- NOTE | ~2024-05-15 | CT_ITS ---
EXAMINATION: CT cervical spine wo con DATE: 05/15/2024 09:10 INDICATION: Head injury TECHNIQUE: Computed tomography (CT) of the cervical spine was performed without intravenous contrast. Automated exposure control and iterative reconstruction technique were employed. The dose-length pro duct was 235.46 mGy-cm. COMPARISON: None FINDINGS: Severe osteoarthritis at the atlantoaxial articulation. 5 degrees cervicothoracic levocurvature. 2 mm anterolisthesis C5 on C6 and C7 on T1 and 1 mm anterolisthesis T2 on T3. Vertebral body heights are normal. No fracture. Severe disc height loss at T1-T2. Moderate disc height loss at C6-C7 and C7-T1. Mild disc height loss at C2-C3 and C5-C6. Multilevel severe cervical and upper thoracic facet osteoar thritis. There is moderate neural foraminal stenosis on the left at C4-C5, C6 and C6-C7 and on the ri ght at C5-C6 through C7-T1. Mild neural from stenosis remaining cervical neural foramina. Atheroscler otic calcifications at the bilateral carotid bulbs. Cervical soft tissues are otherwise unremarkable. Visualized apices of lungs are clear. IMPRESSION: 1. Moderate cervical spondylosis with no acute osseous abnormality. Reviewed, dictated and finalized at location A. DESIGNER
--- NOTE | 2024-05-15 09:31 | ED.FALL ---
HPI - Fall General Chief Complaint: Fall Stated Complaint: fall Time Seen by Provider: 05/15/24 08:41 History of Present Illness HPI Narrative: patient is an 78-year-old female who presents ER after a fall. [place] x1 at baseline and no change in mental status. She was last seen trying to put on her shoes in her room. They then found her on the floor in her room. She has a bruise to her forehead on the right side. She is on a baby aspirin. She has no complaints of pain. She moves all extremities well. Related Data Home Medications Medication Instructions Recorded Confirmed aspirin 81 mg tablet,delayed 81 mg PO QHS 08/27/23 05/03/24 release (Adult Aspirin Regimen) duloxetine 60 mg capsule,delayed 60 mg PO QHS 08/27/23 05/03/24 release calcium polycarbophil 625 mg 625 mg PO DAILY 10/02/23 05/03/24 tablet (FiberCon) metoprolol succinate 25 mg 25 mg PO HS 11/18/23 05/03/24 tablet,extended release 24 hr acetaminophen 325 mg capsule 650 mg PO Q6H PRN Pain 12/31/23 05/03/24 cyanocobalamin (vitamin B-12) 1,000 mcg PO DAILY 12/31/23 05/03/24 1,000 mcg tablet rosuvastatin 5 mg tablet 5 mg PO HS 12/31/23 05/03/24 olanzapine 5 mg tablet (Zyprexa) 10 mg PO DAILY 01/28/24 05/03/24 simethicone 125 mg chewable tablet 125 mg PO QID PRN Gastrointestinal 03/18/24 05/03/24 (Gas Relief (simethicone)) Spasms Or Cramping Ferrous Bisglycinate 25 mg PO DAILY 05/03/24 05/03/24 Allergies Allergy/AdvReac Type Severity Reaction Status Date / Time adhesive tape Allergy Severe RASH Verified 05/08/24 14:03 amitriptyline Allergy Unknown Rash Verified 05/08/24 14:03 ciprofloxacin Allergy Unknown Dizziness Verified 05/08/24 14:03 levofloxacin Allergy Unknown Swelling Verified 05/08/24 14:03 tetracycline AdvReac Nausea and Verified 05/08/24 14:03 Vomiting Review of Systems Review of Systems: ROS unobtainable: Yes unobtainable due to mental status PMFSH Past Medical History Medical History Benign essential hypertension Blood clots in biliary tract following procedure BMI 26.0-26.9,adult Constipation Dehydration Heart attack Helicobacter pylori gastritis History of CVA (cerebrovascular accident) HTN (hypertension) with goal to be determined Hyperlipidemia, unspecified Microscopic colitis Nausea & vomiting LUKE on CPAP Intolerant of a CPAP Overweight (BMI 25.0-29.9) Rectal bleeding Statin intolerance Type 2 diabetes mellitus with stage 1 chronic kidney disease Upper abdominal pain Urinary incontinence Surgical History Surgical History H/O rectal polypectomy H/O: hysterectomy History of knee replacement bilateral knee replaced History of laparoscopic cholecystectomy Family History Family History Mother Family history of osteoporosis Heart disease Hypertension Father Family history of diabetes mellitus in first degree relative Diabetes mellitus DVT (deep venous thrombosis) Guillain Bassett? syndrome Sibling Diabetes mellitus 2 sisters Sibling , overdose CKD (chronic kidney disease) Tobacco abuse Other Family history of arthritis Family history of cardiovascular disease Social History Social History Social History: the patient has 4 children. She is . 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 She lives home alone with her little 6 lb dog. She rarely drinks. She is a lifelong nonsmoker. She does not use any marijuana or illicit drugs. Caffeine-soda daily Smoking status: Never smoker Second hand tobacco smoke exposure: No Alcohol intake: current Drinks per week: 3 Alcohol use details: occasionally Substance use: never Substance use type: does not use Do You Feel Safe in your Home?: Yes Lack of Transportation: No Lack of Food: Never True Current Housing: I Have Housing Concerned About Future Housing: No Difficulty Paying Gas/Electric Bills: No Difficulty Paying for Meds: No Currently Unemployed: No Education: Trade/Vocational Certificate Difficulty w/ Childcare or Family Care: No Living arrangements: alone Occupation/Education: retired Additional occupation/education comments: beautician Gender identity (if verbalized by the patient): Female Spiritual care concerns: No Exam Narrative: GENERAL: Well-appearing, well-nourished, and in no acute distress. HEAD: Normocephalic, Right forehead bruising. ENT: Mucous membranes moist. NECK: Supple. No midline tenderness. C-spine immobilized. CHEST: Clear to auscultation. No respiratory distress. HEART: Regular rate and rhythm. Normal peripheral pulses. EXTREMITIES: Normal range of motion. No edema. SKIN: Warm, dry, no rash. NEURO: Alert and oriented x3. PSYCH: Normal mood and affect. Course Course Emergency Course: No cervical fracture or head bleed. Patient will be discharged back to facility. Vital Signs Vital signs: Vital Signs Temperature 97.6 F 05/15/24 08:41 Pulse Rate 62 05/15/24 08:41 Respiratory Rate 18 05/15/24 08:41 Blood Pressure 150/58 H 05/15/24 08:41 Pulse Oximetry 98 05/15/24 08:41 Oxygen Delivery Room Air 05/15/24 08:41 Temperature 97.6 F 05/15/24 08:41 Pulse Rate 62 05/15/24 08:41 Respiratory Rate 18 05/15/24 08:41 Blood Pressure 150/58 H 05/15/24 08:41 Pulse Oximetry 98 05/15/24 08:41 Oxygen Delivery Room Air 05/15/24 08:41 Discharge Plan Discharge Clinical Impression: Contusion of forehead Patient Disposition: Home, Self-Care Condition: Stable Instructions: Contusion in Adults (ED) Additional Instructions: Return ER if you suffer a new injury, you develop chest pain, or have fever over 100.4? F. Prescriptions: No Action metoprolol succinate 25 mg tablet extended release 24 hr 25 mg PO HS Rx Instructions: TAKE 1 TABLET BY MOUTH QHS cyanocobalamin (vitamin B-12) 1,000 mcg Tablet 1,000 mcg PO DAILY rosuvastatin 5 mg tablet 5 mg PO HS Rx Instructions: at bedtime acetaminophen 325 mg Capsule 650 mg PO Q6H PRN (Reason: Pain) Ferrous Bisglycinate 25 mg PO DAILY aspirin [Adult Aspirin Regimen] 81 mg tablet,delayed release (DR/EC) 81 mg PO QHS duloxetine 60 mg capsule,delayed release(DR/EC) 60 mg PO QHS FiberCon 625 mg tablet 625 mg PO DAILY simethicone [Gas Relief (simethicone)] 125 mg tablet,chewable 125 mg PO QID PRN (Reason: Gastrointestinal Spasms Or Cramping) olanzapine [Zyprexa] 5 mg tablet 10 mg PO DAILY losartan 25 mg tablet 25 mg PO HS Qty: 90 0RF Patient Comments: Pt only takes 1 tablet, which is 50 mg trazodone 50 mg tablet See Rx Instructions .ROUTE .COMPLEX Qty: 30 4RF Dose Instruction: TAKE 1 TABLET BY MOUTH EVERY DAY AT BEDTIME Rx Instructions: TAKE 1 TABLET BY MOUTH EVERY DAY AT BEDTIME Follow-up/Referrals: Yinak Archer DO [Primary Care Provider] - 1 Week
--- NOTE | 2024-05-15 09:48 | PC.NURSE ---
updated POA on POC and dc back to facility
== END 2024-05-15 10:34 ==
PROVIDERS: Emergency Provider Emergency Medicine; PCP Internal Medicine
DX: S00.83XA Contusion of other part of head, initial encounter (principal); E11.22 Type 2 diabetes mellitus with diabetic chronic kidney disease; I12.9 Hypertensive chronic kidney disease with stage 1 through stage 4 chronic kidney disease, or unspecified chronic kidney disease; N18.1 Chronic kidney disease, stage 1; I25.2 Old myocardial infarction; E78.5 Hyperlipidemia, unspecified; G47.33 Obstructive sleep apnea (adult) (pediatric); E66.3 Overweight; Z68.26 Body mass index [BMI] 26.0-26.9, adult; R32 Unspecified urinary incontinence; Z96.653 Presence of artificial knee joint, bilateral; Z86.73 Personal history of transient ischemic attack (TIA), and cerebral infarction without residual deficits; Z86.0100 Personal history of colon polyps, unspecified; Z90.710 Acquired absence of both cervix and uterus; Z90.49 Acquired absence of other specified parts of digestive tract; Z79.82 Long term (current) use of aspirin; Z79.899 Other long term (current) drug therapy; W19.XXXA Unspecified fall, initial encounter
CPT/HCPCS: 70450; 72125; 99284

== ENCOUNTER 2024-05-18 15:15 | Emergency (ER) | payer MEDICARE, OTHER, SELFPAY ==
--- NOTE | ~2024-05-18 | XR_ITS ---
XR knee LT min 4V Ordering provider: Kassandra Armendariz History: . L knee injury following fall . Comparison: None. FINDINGS: BONES: No acute fracture or dislocation. JOINT SPACES: Total knee arthroplasty. SOFT TISSUES: Vascular atherosclerotic changes. IMPRESSION: No acute osseous abnormality left knee. Total knee arthroplasty. Reviewed, dictated and finalized at location A. R DIAMETER TECHNICIAN
--- NOTE | ~2024-05-18 | US_ITS ---
EXAMINATION: US venous doppler LE RT DATE: 05/18/2024 16:22 INDICATION: pain, swelling behind calf R leg . TECHNIQUE: Grayscale images without and with compression and Doppler images of the right lower extrem ity veins were obtained. COMPARISON: None FINDINGS: The right common femoral vein, profunda (deep) femoral vein, femoral vein, popliteal vein, peroneal v ein, posterior tibial veins, gastrocnemius vein, and greater saphenous vein are patent. IMPRESSION: Patent right lower extremity veins. No evidence of deep venous thrombosis. Reviewed, dictated and finalized at location K. REPRESENTATIVE
--- NOTE | ~2024-05-18 | XR_ITS ---
XR knee RT min 4V Ordering provider: Kassandra Armendariz APRN History: . R knee injury following fall . Comparison: None. FINDINGS: BONES: No acute fracture or dislocation. JOINT SPACES: Total knee arthroplasty. SOFT TISSUES: Atherosclerotic changes. IMPRESSION: No acute osseous abnormality right knee. Total knee arthroplasty. Reviewed, dictated and finalized at location A. TANKER
[2024-05-18 15:20] VITALS: BP 113/82; PULSE 62; RESP 16; TEMP 36.6; O2SAT 100
[2024-05-18] MEDS: ACETAMINOPHEN 325 MG TABLET 650 MG PO (18:44)
--- NOTE | 2024-05-18 19:20 | ED.LOWEXIN ---
HPI - Extremity Injury (Lower) General Chief Complaint: Extremity Injury, Lower Stated Complaint: knee pain Time Seen by Provider: 05/18/24 18:21 Source: patient and family Mode of arrival: wheelchair Limitations: dementia History of Present Illness HPI Narrative: This is an 78-year-old female that presents to the emergency department for right knee pain. Reportedly patient had a fall over the weekend and hit her head. Was evaluated after this with images of her brain and neck. Over the last couple of days she has been having some difficulty walking due to pain in bilateral knees. Mostly her right knee. This prompted her daughter to bring her in for evaluation. Related Data Home Medications Medication Instructions Recorded Confirmed aspirin 81 mg tablet,delayed 81 mg PO QHS 08/27/23 05/18/24 release (Adult Aspirin Regimen) duloxetine 60 mg capsule,delayed 60 mg PO QHS 08/27/23 05/18/24 release calcium polycarbophil 625 mg 625 mg PO DAILY 10/02/23 05/18/24 tablet (FiberCon) metoprolol succinate 25 mg 25 mg PO HS 11/18/23 05/18/24 tablet,extended release 24 hr acetaminophen 325 mg capsule 650 mg PO Q6H PRN Pain 12/31/23 05/18/24 cyanocobalamin (vitamin B-12) 1,000 mcg PO DAILY 12/31/23 05/18/24 1,000 mcg tablet rosuvastatin 5 mg tablet 5 mg PO HS 12/31/23 05/18/24 olanzapine 5 mg tablet (Zyprexa) 10 mg PO DAILY 01/28/24 05/18/24 simethicone 125 mg chewable tablet 125 mg PO QID PRN Gastrointestinal 03/18/24 05/18/24 (Gas Relief (simethicone)) Spasms Or Cramping Ferrous Bisglycinate 25 mg PO DAILY 05/03/24 05/18/24 Allergies Allergy/AdvReac Type Severity Reaction Status Date / Time adhesive tape Allergy Severe RASH Verified 05/18/24 14:40 amitriptyline Allergy Unknown Rash Verified 05/18/24 14:40 ciprofloxacin Allergy Unknown Dizziness Verified 05/18/24 14:40 levofloxacin Allergy Unknown Swelling Verified 05/18/24 14:40 tetracycline AdvReac Nausea and Verified 05/18/24 14:40 Vomiting Review of Systems Review of Systems: ROS unobtainable: Yes unobtainable due to medical condition COUNT INCLUDES THE [facility] Past Medical History Medical History Benign essential hypertension Blood clots in biliary tract following procedure BMI 26.0-26.9,adult Constipation Dehydration Heart attack Helicobacter pylori gastritis History of CVA (cerebrovascular accident) HTN (hypertension) with goal to be determined Hyperlipidemia, unspecified Microscopic colitis Nausea & vomiting [place] on CPAP Intolerant of a CPAP Overweight (BMI 25.0-29.9) Rectal bleeding Statin intolerance Type 2 diabetes mellitus with stage 1 chronic kidney disease Upper abdominal pain Urinary incontinence Surgical History Surgical History H/O rectal polypectomy H/O: hysterectomy History of knee replacement bilateral knee replaced History of laparoscopic cholecystectomy Family History Family History Mother Family history of osteoporosis Heart disease Hypertension Father Family history of diabetes mellitus in first degree relative Diabetes mellitus DVT (deep venous thrombosis) Guillain Bassett? syndrome Sibling Diabetes mellitus 2 sisters Sibling , overdose CKD (chronic kidney disease) Tobacco abuse Other Family history of arthritis Family history of cardiovascular disease Social History Social History Social History: the patient has 4 children. She is . 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 She lives home alone with her little 6 lb dog. She rarely drinks. She is a lifelong nonsmoker. She does not use any marijuana or illicit drugs. Caffeine-soda daily Smoking status: Never smoker Second hand tobacco smoke exposure: No Alcohol intake: current Drinks per week: 3 Alcohol use details: occasionally Substance use: never Substance use type: does not use Do You Feel Safe in your Home?: Yes Lack of Transportation: No Lack of Food: Never True Current Housing: I Have Housing Concerned About Future Housing: No Difficulty Paying Gas/Electric Bills: No Difficulty Paying for Meds: No Currently Unemployed: No Education: Trade/Vocational Certificate Difficulty w/ Childcare or Family Care: No Living arrangements: alone Occupation/Education: retired Additional occupation/education comments: beautician Gender identity (if verbalized by the patient): Female Spiritual care concerns: No Exam Narrative: GENERAL: Elderly, well-nourished, and in no acute distress. HEAD: Normocephalic. Old bruise to the right forehead EYES: PERRLA and EOMI. ENT: Nares clear, no rhinorrhea or epistaxis. Mucous membranes moist. Oropharynx without tonsillar hypertrophy exudate or other lesions. NECK: Supple. No adenopathy or masses. CHEST: Clear to auscultation. No respiratory distress. No wheezes rales or rhonchi HEART: Regular rate and rhythm. No murmur heard. Normal peripheral pulses. ABDOMEN: Soft, nontender, nondistended, normal active bowel sounds. EXTREMITIES: Normal range of motion. No edema or obvious deformity. SKIN: Warm, dry, no rash. NEURO: No focal deficits. Alert and oriented x1. PSYCH: Normal mood and affect Course Course Emergency Course: Patient and daughter updated on work and agree with plan of care Vital Signs Vital signs: Vital Signs Temperature 97.9 F 05/18/24 15:20 Pulse Rate 62 05/18/24 15:20 Respiratory Rate 16 05/18/24 15:20 Blood Pressure 113/82 05/18/24 15:20 Pulse Oximetry 100 05/18/24 15:20 Temperature 97.9 F 05/18/24 15:20 Pulse Rate 62 05/18/24 15:20 Respiratory Rate 16 05/18/24 15:20 Blood Pressure 113/82 05/18/24 15:20 Pulse Oximetry 100 05/18/24 15:20 MDM - Extremity Injury (Lower) MDM Narrative Medical decision making narrative: Patient presents to the emergency department for knee pain. Reporting a recent fall over the weekend. She was evaluated initially for the fall after having head injury with negative imaging of her brain and neck. Was having worsening pain in her bilateral knees, right greater than left. Today she was having difficulty ambulating due to the pain in her right knee. Bilateral knee x-rays are without acute osseous abnormalities. She also had a right lower extremity venous Doppler without evidence of DVT. She is able to ambulate in the ED with her walker after a dose of Tylenol. Spoke with patient and her daughter about her workup, agree with discharge back to her facility Differential Diagnosis Differential diagnosis: Likely acute internal derangement of knee and other (per-prosthetic fracture, arthritis) Imaging Data Radiologist's impression: ITS Impressions Knee X-Ray 05/18/24 15:59 IMPRESSION: No acute osseous abnormality left knee. Total knee arthroplasty. Knee X-Ray 05/18/24 16:01 IMPRESSION: No acute osseous abnormality right knee. Total knee arthroplasty. Venous Doppler Study 05/18/24 16:23 IMPRESSION: Patent right lower extremity veins. No evidence of deep venous thrombosis. Critical Care Time Critical Care Time Critical Care Time: No Discharge Plan Discharge Clinical Impression: Acute pain of right knee, Hyperkalemia Patient Disposition: NH Shelter/Asst Living Condition: Stable Instructions: Knee Sprain (ED), Hyperkalemia (ED) Additional Instructions: Return to the ER if you experience fever, redness and swelling of your extremity, numbness or any other symptoms that are concerning to you Ice and elevate extremity. Tylenol or Ibuprofen as needed for pain Your potassium was a little high on your outpatient blood work today, this should be followed with further lab work to make sure this does not worsen Follow up with your doctor for further care. Prescriptions: No Action metoprolol succinate 25 mg tablet extended release 24 hr 25 mg PO HS Rx Instructions: TAKE 1 TABLET BY MOUTH QHS cyanocobalamin (vitamin B-12) 1,000 mcg Tablet 1,000 mcg PO DAILY rosuvastatin 5 mg tablet 5 mg PO HS Rx Instructions: at bedtime acetaminophen 325 mg Capsule 650 mg PO Q6H PRN (Reason: Pain) Ferrous Bisglycinate 25 mg PO DAILY aspirin [Adult Aspirin Regimen] 81 mg tablet,delayed release (DR/EC) 81 mg PO QHS duloxetine 60 mg capsule,delayed release(DR/EC) 60 mg PO QHS FiberCon 625 mg tablet 625 mg PO DAILY simethicone [Gas Relief (simethicone)] 125 mg tablet,chewable 125 mg PO QID PRN (Reason: Gastrointestinal Spasms Or Cramping) olanzapine [Zyprexa] 5 mg tablet 10 mg PO DAILY losartan 25 mg tablet 25 mg PO HS Qty: 90 0RF Patient Comments: Pt only takes 1 tablet, which is 50 mg trazodone 50 mg tablet See Rx Instructions .ROUTE .COMPLEX Qty: 30 4RF Dose Instruction: TAKE 1 TABLET BY MOUTH EVERY DAY AT BEDTIME Rx Instructions: TAKE 1 TABLET BY MOUTH EVERY DAY AT BEDTIME Follow-up/Referrals: Yinka Archer DO [Primary Care Provider] - Stand Alone Forms: [facility] Discharge
[2024-05-18 20:56] VITALS: BP 156/78; PULSE 77; RESP 18; O2SAT 96
== END 2024-05-18 20:58 ==
PROVIDERS: Emergency Provider Physician Assistant; PCP Internal Medicine
DX: M25.561 Pain in right knee (principal); E87.5 Hyperkalemia; R22.41 Localized swelling, mass and lump, right lower limb; E11.22 Type 2 diabetes mellitus with diabetic chronic kidney disease; I12.9 Hypertensive chronic kidney disease with stage 1 through stage 4 chronic kidney disease, or unspecified chronic kidney disease; N18.1 Chronic kidney disease, stage 1; I25.2 Old myocardial infarction; E78.5 Hyperlipidemia, unspecified; E66.3 Overweight; Z68.27 Body mass index [BMI] 27.0-27.9, adult; G47.33 Obstructive sleep apnea (adult) (pediatric); R32 Unspecified urinary incontinence; Z96.653 Presence of artificial knee joint, bilateral; Z86.0100 Personal history of colon polyps, unspecified; Z86.73 Personal history of transient ischemic attack (TIA), and cerebral infarction without residual deficits; Z90.710 Acquired absence of both cervix and uterus; Z79.899 Other long term (current) drug therapy; Z79.82 Long term (current) use of aspirin
CPT/HCPCS: 73564; 93971; 99284; A9270

== ENCOUNTER 2024-06-01 08:55 | Outpatient (CLI) | payer MEDICARE, OTHER, SELFPAY ==
[2024-06-01 14:06] LABS: Albumin Level 3.9 g/dL (3.5-5.1); Anion Gap 7 mmol/L (4-12); Blood Urea Nitrogen 23 mg/dL (7-17); Calcium 7.8 mg/dL (8.4-10.2); Carbon Dioxide 18 mmol/L (22-30); Chloride 115 mmol/L (98-107); Estimated Glomerular Filt Rate 33; Glucose 92 mg/dL (65-110); Phosphorus 3.6 mg/dL (2.5-4.5); Potassium 5.1 mmol/L (3.4-5.0); Sodium 140 mmol/L (137-145)
[2024-06-01 14:13] LABS: Parathyroid Intact 685.5 pg/mL (14.5-75.2)
[2024-06-01 14:40] LABS: Vitamin D 25 Hydroxy 24.8 ng/mL
== END 2024-06-01 08:56 | disposition home or self-care (01) ==
LOC: ANHLAB 08:57
PROVIDERS: PCP Internal Medicine; Visit Provider Internal Medicine Nephrology
DX: I12.9 Hypertensive chronic kidney disease with stage 1 through stage 4 chronic kidney disease, or unspecified chronic kidney disease (principal); N18.32 Chronic kidney disease, stage 3b; N25.81 Secondary hyperparathyroidism of renal origin; E55.9 Vitamin D deficiency, unspecified
CPT/HCPCS: 36415; 80069; 82306; 83970

== ENCOUNTER 2024-07-06 23:59 | Emergency (ER) | payer MEDICARE, OTHER, SELFPAY ==
--- NOTE | ~2024-07-06 | CT_ITS ---
Noncontrast CT scan of the cervical spine Technique: Multiple contiguous axial [address] images of the cervical spine were obtained and rec onstructed in 2D sagittal and coronal planes on the acquisition scanner. Dose reduction technique was used on this scan by utilizing automated exposure control, adjustment of the mA and/or kV according to patient size. The dose-length product (DLP) was 175.06 mGy-cm. Clinical History: Pain COMPARISON: 05/15/2024 Findings: No acute fractures or dislocations. Osseous alignment is unchanged from prior exam. Stable minimal grade 1 anterolisthesis of C5 over C6. Stable minimal grade 1 anterolisthesis of C7 over T1. Stable mild degenerative disc changes. Extensive facet joint arthropathy is unchanged. Probable bila teral neural foraminal narrowing at C4-C5 and C5-C6. No prevertebral soft tissue swelling. Impression: No acute fracture or acute subluxation of the cervical spine. Stable degenerative spondylosis. Reviewed, dictated and finalized at [facility]. TAL SALES EXECUTIVE Impression: No acute fracture or acute subluxation of the cervical spine. Stable degenerative spondylosis.
--- NOTE | ~2024-07-06 | CT_ITS ---
CT head without contrast Indication: Status post fall COMPARISON: 05/15/2024 Technique: Serial scans were obtained through the brain without the administration of contrast. Dose reduction technique was used on this scan by utilizing automated exposure control and iterative recon struction technique. The dose-length product (DLP) was 832.33 mGy-cm. Findings: There is no evidence of intracranial hemorrhage, mass lesion, or acute infarct. The ventri cles and subarachnoid spaces are dilated, consistent with mild atrophy. Low attenuation regions are seen within the periventricular white matter bilaterally, likely representing changes from chronic mi crovascular ischemic disease. There is no evidence of edema, mass effect or midline shift. The visu alized paranasal sinuses and mastoid air cells are clear. Impression: No intracranial hemorrhage, mass, or acute infarct. Atrophy and chronic white matter changes, as above. Reviewed, dictated and finalized at [facility]. LACER Impression: No intracranial hemorrhage, mass, or acute infarct. Atrophy and chronic white matter changes, as above.
[2024-07-07 00:04] VITALS: BP 122/68; O2SAT 95
[2024-07-07 00:05] VITALS: BP 122/68; PULSE 96; RESP 19; TEMP 36.9; O2SAT 96
[2024-07-07 00:16] VITALS: BP 123/62; O2SAT 95
[2024-07-07 00:31] VITALS: BP 130/63; O2SAT 97
--- NOTE | 2024-07-07 07:15 | ED_ITS ---
HPI - General Adult General Chief complaint: Fall Stated complaint: FALL Time Seen by Provider: 07/07/24 02:28 History of Present Illness HPI narrative: This is an 78-year-old female with dementia presenting after ground level fall. Patient has severe dementia and cannot provide any meaningful history. She is denying any pain. She has no other complaints Related Data Home Medications ?Medication ?Instructions ?Recorded ?Confirmed ?Last Taken ?Type calcium polycarbophil 625 mg 625 mg PO DAILY 10/02/23 06/10/24 Unknown History tablet (FiberCon) metoprolol succinate 25 mg 25 mg PO HS 11/18/23 06/10/24 Unknown History tablet,extended release 24 hr acetaminophen 325 mg capsule 650 mg PO Q6H PRN Pain 12/31/23 06/10/24 Unknown History cyanocobalamin (vitamin B-12) 1,000 mcg PO DAILY 12/31/23 06/10/24 Unknown History 1,000 mcg tablet rosuvastatin 5 mg tablet 5 mg PO HS 12/31/23 06/10/24 Unknown History olanzapine 5 mg tablet (Zyprexa) 10 mg PO DAILY 01/28/24 06/10/24 Unknown History simethicone 125 mg chewable tablet 125 mg PO QID PRN Gastrointestinal 03/18/24 06/10/24 Unknown History (Gas Relief (simethicone)) Spasms Or Cramping Ferrous Bisglycinate 25 mg PO DAILY 05/03/24 06/10/24 Unknown History aspirin 81 mg tablet,delayed 81 mg PO DAILY 05/31/24 06/10/24 Unknown History release (Adult Aspirin Regimen) mecobalamin (vitamin B12) 1,000 1,000 mcg PO DAILY 06/10/24 06/15/24 Unknown History mcg chewable tablet (B12 Active) Allergies Allergy/AdvReac Type Severity Reaction Status Date / Time adhesive tape Allergy Severe RASH Verified 06/15/24 11:00 amitriptyline Allergy Unknown Rash Verified 06/15/24 11:00 ciprofloxacin Allergy Unknown Dizziness Verified 06/15/24 11:00 levofloxacin Allergy Unknown Swelling Verified 06/15/24 11:00 tetracycline AdvReac Nausea and Verified 06/15/24 11:00 Vomiting PMFSH Past Medical History Medical History Rectal bleeding BMI 26.0-26.9,adult Heart attack Blood clots in biliary tract following procedure Constipation Overweight (BMI 25.0-29.9) Nausea & vomiting Helicobacter pylori gastritis Microscopic colitis Dehydration Upper abdominal pain HTN (hypertension) with goal to be determined History of CVA (cerebrovascular accident) LUKE on CPAP Intolerant of a CPAP Urinary incontinence Benign essential hypertension Hyperlipidemia, unspecified Statin intolerance 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 syndrome Sibling Diabetes mellitus 2 sisters Sibling , overdose CKD (chronic kidney disease) Tobacco abuse Other Family history of arthritis Family history of cardiovascular disease Social History Social History Social History: the patient has 4 children. She is . 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 She lives home alone with her little 6 lb dog. She rarely drinks. She is a lifelong nonsmoker. She does not use any marijuana or illicit drugs. Caffeine-soda daily Smoking status: Never smoker Second hand tobacco smoke exposure: No Alcohol intake: current Drinks per week: 3 Alcohol use details: occasionally Substance use: never Substance use type: does not use Do You Feel Safe in your Home?: Yes Lack of Transportation: No Lack of Food: Never True Current Housing: I Have Housing Concerned About Future Housing: No Difficulty Paying Gas/Electric Bills: No Difficulty Paying for Meds: No Currently Unemployed: No Education: Trade/Vocational Certificate Difficulty w/ Childcare or Family Care: No Living arrangements: alone Occupation/Education: retired Additional occupation/education comments: beautician Gender identity (if verbalized by the patient): Female Spiritual care concerns: No Exam Narrative: APPEARANCE: No apparent distress. Head: atraumatic. EYES: EOMI, NOSE: Atraumatic NECK: Trachea midline RESPIRATORY: No increased rate of breathing CTAB CARDIOVASCULAR: RRR, ABDOMINAL: Non-distended MUSCULOSKELETAl: Head to toe trauma exam performed with no areas of deformity, tenderness or bruising. NEURO: Alert. Moving 4/4 extremities. SKIN:: Warm, dry. Normal color PSYCHIATRIC: Normal affect Course Vital Signs Vital signs: Vital Signs Blood Pressure 122/68 07/07/24 00:04 Pulse Oximetry 95 07/07/24 00:04 Temperature 98.4 F 07/07/24 00:05 Pulse Rate 96 07/07/24 00:05 Respiratory Rate 19 07/07/24 00:05 Blood Pressure 130/63 07/07/24 00:31 Pulse Oximetry 97 07/07/24 00:31 Oxygen Delivery Room Air 07/07/24 00:05 Medical Decision Making MDM Narrative Medical decision making narrative: -Course: 78-year-old with severe dementia presenting ground level fall. No injuries on physical exam. CT head and C-spine negative for fracture bleed. Patient discharged back to half-way. Vital Signs Vital Signs: Vital Signs Blood Pressure 122/68 07/07/24 00:04 Pulse Oximetry 95 07/07/24 00:04 Temperature 98.4 F 07/07/24 00:05 Pulse Rate 96 07/07/24 00:05 Respiratory Rate 19 07/07/24 00:05 Blood Pressure 130/63 07/07/24 00:31 Pulse Oximetry 97 07/07/24 00:31 Oxygen Delivery Room Air 07/07/24 00:05 Discharge Plan Discharge Clinical Impression: Fall, Dementia Patient Disposition: Home, Self-Care Condition: Stable Instructions: Antibiotic Form, Fall Prevention (ED) Additional Instructions: Please return to ED if you develop any new or worsening symptoms. Patient Language: Surinamese Prescriptions: No Action metoprolol succinate 25 mg tablet extended release 24 hr 25 mg PO HS Rx Instructions: TAKE 1 TABLET BY MOUTH QHS cyanocobalamin (vitamin B-12) 1,000 mcg Tablet 1,000 mcg PO DAILY rosuvastatin 5 mg tablet 5 mg PO HS Rx Instructions: at bedtime acetaminophen 325 mg Capsule 650 mg PO Q6H PRN (Reason: Pain) Patient Comments: . Ferrous Bisglycinate 25 mg PO DAILY FiberCon 625 mg tablet 625 mg PO DAILY mecobalamin (vitamin B12) [B12 Active] 1,000 mcg tablet,chewable 1,000 mcg PO DAILY calcitriol 0.25 mcg capsule 0.25 mcg PO 3XW Qty: 36 3RF Rx Instructions: take on Mondays, Wednesdays, and Fridays simethicone [Gas Relief (simethicone)] 125 mg tablet,chewable 125 mg PO QID PRN (Reason: Gastrointestinal Spasms Or Cramping) trazodone 50 mg tablet See Rx Instructions .ROUTE .COMPLEX Qty: 30 4RF Dose Instruction: TAKE 1 TABLET BY MOUTH EVERY DAY AT BEDTIME Rx Instructions: TAKE 1 TABLET BY MOUTH EVERY DAY AT BEDTIME aspirin [Adult Aspirin Regimen] 81 mg tablet,delayed release (DR/EC) 81 mg PO DAILY olanzapine [Zyprexa] 5 mg tablet 10 mg PO DAILY losartan 25 mg tablet 25 mg PO HS Qty: 90 0RF Patient Comments: Pt only takes 1 tablet, which is 50 mg duloxetine 60 mg capsule,delayed release(DR/EC) 60 mg PO QHS Qty: 90 1RF Follow-up/Referrals: Yinka Archer DO [Primary Care Provider] -
[2024-07-07 07:39] VITALS: BP 164/64; PULSE 62; RESP 18; O2SAT 97
[2024-07-07 12:54] VITALS: BP 150/67; PULSE 68; RESP 17; O2SAT 99
== END 2024-07-07 12:55 ==
PROVIDERS: Emergency Provider Emergency Medicine; PCP Internal Medicine
DX: F03.90 Unspecified dementia, unspecified severity, without behavioral disturbance, psychotic disturbance, mood disturbance, and anxiety (principal); I25.2 Old myocardial infarction; I10 Essential (primary) hypertension; E11.22 Type 2 diabetes mellitus with diabetic chronic kidney disease; N18.1 Chronic kidney disease, stage 1; E78.5 Hyperlipidemia, unspecified; G47.30 Sleep apnea, unspecified; W19.XXXA Unspecified fall, initial encounter
CPT/HCPCS: 70450; 72125; 99284

== ENCOUNTER 2025-01-09 19:46 | Emergency (ER) | payer MEDICARE, OTHER, SELFPAY ==
[2025-01-09] VITALS (14 sets, daily range): BP systolic 140–174; BP diastolic 65–93; PULSE 65–74; RESP 16–18; TEMP 36.4; O2SAT 95–100
--- NOTE | ~2025-01-09 | CT_ITS ---
EXAMINATION: CT brain wo con DATE: 01/09/2025 20:48 INDICATION: fall, hx brain bleed . TECHNIQUE: Computed tomography (CT) of the head was performed without intravenous contrast. The mA wa s adjusted according to patient size. Iterative reconstruction technique was employed. The dose-lengt h product was 681.00 mGy-cm. COMPARISON: 07/07/2024. FINDINGS: No acute intracranial hemorrhage or extra-axial fluid collection. No hydrocephalus, mass, or herniation. No acute ischemic infarct. Unremarkable dural venous sinus attenuation. No acute osseous abnormality. Posterior scalp contusion/laceration. Small retention cyst/polyp in the sphenoid sinus, the remaining aerated spaces are clear. Moderate atrophy and chronic white matter change. Atherosclerotic intracranial calcification. Empty s artemio. IMPRESSION: No acute intracranial process. Reviewed, dictated and finalized at location K.
--- NOTE | ~2025-01-09 | XR_ITS ---
EXAM: XR hip RT 2V w AP pelvis DATE: 01/09/2025 20:52 HISTORY: fall . COMPARISON: 01/09/2023. FINDINGS: Osteopenia. Lumbar degenerative disc disease. Mild bilateral hip osteoarthritis. No fractu re or dislocation. No lytic or blastic lesions. Scattered vascular calcifications. IMPRESSION: No acute osseous finding in the pelvis or right hip. Reviewed, dictated and finalized at location K.
--- NOTE | ~2025-01-09 | CT_ITS ---
EXAMINATION: CT cervical spine wo con DATE: 01/09/2025 20:48 INDICATION: fall TECHNIQUE: Computed tomography (CT) of the cervical spine was performed without intravenous contrast. Automated exposure control and iterative reconstruction technique were employed. The dose-length pro duct was 150.54 mGy-cm. COMPARISON: 07/07/2024. FINDINGS: Vertebral Body Alignment: Stable multilevel grade 1 degenerative listheses. Craniocervical and atlantoaxial alignment: Moderate degenerative change with fusion. Alignment intact . Osseous structures/fracture: No evidence of a lytic or blastic process in the visualized spine. No e vidence of acute fracture. Bilateral C2-3 facet fusion. Cervical soft tissues: The paraspinal soft tissues planes are maintained. Degenerative changes: Multilevel severe facet arthropathy. Multilevel degenerative neural foraminal n arrowing. No severe central canal narrowing. Multilevel degenerative disc disease, severe at T1-2. IMPRESSION: No acute fracture or traumatic malalignment in the cervical spine. Reviewed, dictated and finalized at location K.
--- OUTSIDE RECORDS SUMMARY | 2025-01-09 20:03 | XMS_ITS | Patient Health Record ---
Author Organization [facility] [email or web address] [facility] Address [address] [place] [address] Care Team Providers Care Lime Kiln Tender Name Role Phone Agatha Lopez Unavailable [phone] Reason For Referral No Information Medications Medication SIG (Take, Route, Frequency, Duration) Notes Start Date End Date Status DULoxetine HCl 60 MG Oral Active Calcitriol 0.25 MCG Oral Active Triamcinolone Acetonide 0.10% External Active QUEtiapine Fumarate 25 MG Oral Active Budesonide 3 MG Oral Acti ve Prolia 60 MG/ML Subcutaneous *Pick strength-form from Alexandre de [place] for eRX* Active Triamcinolone Acetonide 0.1% External Active Cetirizine HCl 10 MG Oral Active Losartan Potassium 50 MG Oral Active predniSONE 20 MG Oral Act dario amLODIPine Besylate 10 MG Oral Active QUEtiapine Fumarate 50 MG Oral Active Ondansetron HCl 4 MG Oral Active Metoprolol Succinate ER 25 MG Oral Active Rosuvastatin Calcium 5 MG Oral Active Permethrin 5% External Active Plan Of Treatment No Information Insurance Providers Payer Name Payer Address Payer Phone Subscriber Number Group Number Insured Name Patient Relationship to Insured Coverage Start Date Coverage End Date [place] [address] [place] [phone] [id number] NAM GIBBS Self - patient is the insured [place] Medicare Supplement [address] [employer] [place] [phone] [id number] NAM GIBBS Self - patient is the insured
--- OUTSIDE RECORDS SUMMARY | 2025-01-09 20:03 | XMS_ITS | Clinical Summary ---
Author Organization [facility] Andria hallman [facility] Address [address] [facility] [place] [address] Care Team Providers Care News Production Assistant Name Role Phone Yinka Archer DO Primary Care Provider [phone] Allergies Active Allergy Reactions Criticality Noted Date Comments Ciprofloxacin Rash Medium 01/21/2018 Medications acetaminophen (TYLENOL) 325 mg tablet Take 650 mg by mouth every 6 hours as needed for Pain. Active aspirin (ECOTRIN EC) 81 mg Tablet, Delayed Release (E.C.) Take 1 Tablet (81 mg) by mouth daily at bedtime. 30 Tablet 4 Active cyanocobalamin 1,000 mcg Tablet Take 1 Tablet (1,000 mcg) by mouth daily. 30 Tablet 4 Active DULoxetine (CYMBALTA) 60 mg Capsule, Delayed Release(E.C.) Take 1 Capsule (60 mg) by mouth daily at bedtime. 30 Capsule 4 Active losartan (COZAAR) 25 mg tablet Take 1 Tablet (25 mg) by mouth daily at bedtime. 30 Tablet 4 Active metoprolol succinate (TOPROL XL) 25 mg Extended Release 24 hour tablet Take 1 Tablet (25 mg) by mouth daily at bedtime. 30 Tablet 4 Active OLANZapine (ZyPREXA) 7.5 mg tablet Take 1 Tablet (7.5 mg) by mouth daily at bedtime. 45 Tablet 4 Active Additional Information Patient taking differently: 10 mgOral DAILY AT BEDTIME, Reported on 03/23/2024 polycarbophil calcium (FIBERCON) 625 mg tablet Take 1 Tablet (625 mg) by mouth daily. 30 Tablet 4 Active rosuvastatin (CRESTOR) 5 mg tablet Take 1 Tablet (5 mg) by mouth daily at bedtime. 30 Tablet Active traZODone (DESYREL) 150 mg tabletIndicatio ns:insomnia Take 0.5 Tablets (75 mg) by mouth daily at bedtime. 15 Tablet Active Additional Information Patient taking differently: 50 mgOral DAILY AT BEDTIME, Indications: insomnia, Reported on 06/01/2024 simethicone 125 mg Tablet, Chewable Take 125 mg by mouth 1 time daily as needed for Gas. Active VITAMIN B COMPLEX ORAL Take by mouth. Ac tive OTHER Ferrous bisglycinate 25mg daily Active Active Problems Problem Noted Date Diagnosed Date Severe major depression with psychotic features 02/03/2024 Major depressive disorder, recurrent episode, mo derate 01/30/2024 Assessment & Plan (02/03/2024 4:01 PM CDT): Suboptimal control -cymbalta 60 mg AM Severe dementia with psychotic disturbance 01/29 Assessment & Plan (02/03/2024 4:03 PM CDT): Suboptimal control -zyprexa 7.5 mg HS Anxiety disorder 01/30/2024 Assessment & Plan (02/03/2024 4:02 PM CDT): Suboptimal control -cymbalta 60 mg AM Routine medical exam 01/29/2024 Essential hypertension 01/29/2024 Hyperlipidemia 01/29/2024 Stage 3b chronic kidney disease 01/29/2024 Psychosis 01/29/2024 Encounters Date Type Department Care Team Description 11/30/2024 External Device Data STL ABSTRACTION Provider, Abstract 11/15/2024 Orders Only [facility] - [address] [place] [address] Pepe Chaparro MD Chronic anemia 11/12/2024 External Device Data STL ABSTRACTION Provider, Abstract 11/01/2024 Orders Only [facility] - [address] [place] [id number] Pepe Chaparro MD Chronic anemia 10/26/2024 External Device Data STL ABSTRACTION Provider, Abstract 10/18/2024 Orders Only [facility] - [address] [place] [phone] Pepe Chaparro MD Chronic anemia from Last 3 Months Family History Medical History Relation Name Comments No Known Problems Brother No Known Problems Child 1 No Known Problems Child 2 No Known Problems Child 3 No Known Problems Child 4 Diabetes Father Heart Disease Mother Kidney Disease Sister 1 Diabetes Sister 2 Heart Disease Sister 2 Kidney Disease Sister 2 Relation Name Status Comments Brother Child 1 Alive Child 2 Alive Child 3 Alive Child 4 Alive Father Mother Sister 1 Sister 2 Alive Social History Tobacco Use Types Packs/Day Years Used Date Smoking Tobacco: Never Smokeless Tobacco: Never Tobacco Cessation:Counseling Given: Not Answered Alcohol Use Standard Drinks/Week Comments Not Currently 0 (1 standard drink = 0.6 oz pur e alcohol) Comments Unknown Sex and Gender Information Value Date Recorded Sex Assigned at Not on file Legal Sex Female 12:44 PM CDT Gender Identity Not on file Sexual Orientation Not on file Last Filed Vital Signs Vital Sign Reading Time Taken Comments Blood Pressure 125/77 06/01/2024 9:22 AM NETWORK CONTROL SUPERVISOR Pulse 80 06/01/2024 9:22 AM NETWORK CONTROL SUPERVISOR Temperature 36.5 C (97.7 F) 06/01/2024 9:22 AM NETWORK CONTROL SUPERVISOR Respiratory Rate 16 06/01/2024 9:22 AM NETWORK CONTROL SUPERVISOR Oxygen Saturation 93% 06/01/2024 9:22 AM NETWORK CONTROL SUPERVISOR Inhaled Oxygen Concentration - - Weight 59.4 kg (131 lb) 06/01/2024 9:22 AM NETWORK CONTROL SUPERVISOR Height 149.9 cm (4' 11) 01/29/2024 6:42 PM CDT Body Mass Index 26.46 01/29/2024 6:42 PM CDT Plan of Treatment Health Maintenance Due Date Last Done Comments DIABETES ANNUAL FOOT EXAM 1961 DIABETES ANNUAL RETINAL EXAM 1961 DIABETES MICROALBUMIN ANNUAL SCREEN 1961 DTAP/TDAP/TD VACCINES (1 - Tdap) 1962 ZOSTER VACCINE (1 of 2) 1993 OSTEOPOROSIS SCREENING 2008 PNEUMOCOCCAL VACCINE 50+ YEA RS (2 of 2 - PCV) 02/16/2010 02/16/2009 RSV VACCINE (60+ or ) (1 - 1-dose 75+ series) 2018 DIABETES HBA1C Q 6 MONTHS 10/05/20242023, 04/06/2024, 01/28/2024 INFLUENZA VACCINE (#1) 2025 LDL CHOLESTEROL ANNUAL 01/28/2025 01/29/2024 Procedures Procedure Name Priority Date/Time Associated Diagnosis Comments HEMOGLOBIN A1C Routine 04/06/2024 1:45 PM CDT LIPID PANEL Routine 01/29/2024 10:04 AM CDT from Last 3 Months or Most Recently Relevant to Health Maintenance Results * HEMOGLOBIN A1C (04/06/2024 1:45 PM CDT) Blood us Pepe Chaparro MD CHEMISTRY ORDERABLES Final Resu lt * LIPID PANEL (01/29/2024 10:04 AM CDT) CHOLESTEROL 119 <200 mg/dL 01/29/2024 5:15 PM CDT [facility] TRIGLYCERIDE 90 <150 mg/dL 01/29/2024 5:15 PM CDT [email or web address] HDL 49 40 - 59 mg/dL 01/29/2024 5:15 PM CDT [facility] LDL CALCULATED 52 <100 mg/dL 01/29/2024 5:15 PM CDT [facility] NON-HDL CHOLESTEROL 70 <130 mg/dL 01/29/2024 5:15 PM CDT [facility] Blood Venipuncture / Unknown 01/29/2024 10:04 AM CDT 01/29/2024 10:07 AM CDT [facility] - 01/29/2024 5:15 PM CDT TOTAL CHOLESTEROL mg/dL Desirable <200 Borderline high 200-239 High >=240 TRIGLYCERIDES mg/dL Normal <150 Borderline high 150-199 High 200-499 Very high >=500 HDL CHOLESTEROL mg/dL Low <40 Normal 40-59 Desirable >=60 NON HDL CHOLESTEROL mg/dL Optimal <130 Near Optimal 130-159 Borderline High 160-189 Very High >=190 CALCULATED LDL mg/dL LDL <70, OPTIMAL if have Atherosclerotic cardiovascular disease (ASCVD) or intermediate or higher (>7.5%) 10 year risk of ASCVD including most adults with diabetes. LDL <100, Optimal in adult patients with low (<7.5%) 10 year ASCVD risk LDL 100-160, Suboptimal LDL >160, High LDL >190, Very high ATPIII Guidelines Reference Ranges for Lipid Panels (NCEP/AMA) . Kristopher Alaniz MD CHEMISTRY ORDERABLES Final Resul t [facility]# [id number] [address] [place] [place] [id number] from Last 3 Months or Most Recently Relevant to Health Maintenance Insurance MEDICARE PART A AND B [employer] MEDICARE PART A AND B [employer] MED[employer]ARE PART A AND B [employer] Advance Directives For more information, please contact: [phone] Documents on File Type Date Recorded Patient Measurement And Verification Engineer Expl anation Advance Directive POA 02/24/2024 11:10 AM A dvance Directive POA Advance Directive Living Will 02/24/2024 11:10 AM Advance Directive Living Will * Full Code (Latest Code Status on File) Date Activated Date Inactivated Comments 01/29/2024 4:41 PM 02/10/2024 3:35 PM Care Teams News Production Assistant Relationship Specialty Start Date End Date Yinka Archer DO [address] [facility] [address] [facility] [address] [place] [id number] PCP - General Internal Medicine 03/23/24
--- OUTSIDE RECORDS SUMMARY | 2025-01-09 20:03 | XMS_ITS | Referral Summary ---
Author Organization [facility] [address] Address [address] [place] [address] Care Team Providers Care Acid Treater Name Role Phone Morteza Meza MD Unavailable [phone] Naseem Bob MD Unavailable [phone] Yinka Archer DO Primary Care Provider [phone] Allergies Active Allergy Reactions Criticality Noted Date Comments Amitriptyline Rash Medium 01/21/2018 Ciprofloxacin Rash Medium 01/21/2018 Levofloxacin Anaphylaxis,Hives High 01/21/2018 Tetracycline Vomiting Low 03/06/2021 Medications DULoxetine (CYMBALTA) 60 mg capsuleIndicati ons:Anxiety with Depression Take 1 capsule (60 mg total) by mouth nightly Active simethicone (GAS-X ORAL) Take 125 mg by mouth daily as needed (gas) Active polycarbophil (FIBERCON) 625 mg tablet Take 1 tablet (625 mg total) by mouth daily Active calcitRIOL (ROCALTROL) 0.25 mcg capsule TAKE ONE CAPSULE BY MOUTH 3 TIMES A WEEK ON FRIDAY, FRIDAY, Friday 3 Active acetaminophen (TYLENOL) 325 mg tablet Take 2 tablets (650 mg total) by mouth every 6 (six) hours as needed for pain Active cyanocobalamin (Vitamin B-12) 1,000 mcg tablet Take 1 tablet (1,000 mcg total) by mouth daily 4 Active OLANZapine (ZyPREXA) 10 mg tablet Take 1 tablet (10 mg total) by mouth nightly 4 Active ferrous fumarate 325 mg (106 mg iron) tablet Take 1 tablet (325 mg total) by mouth daily with breakfast Active rosuvastatin (CRESTOR) 5 mg tablet Take 1 tablet (5 mg total) by mouth nightly Active metoprolol XL (TOPROL-XL) 25 mg extended release tablet Take 1 tablet (25 mg total) by mouth nightly Active losartan (COZAAR) 25 mg tablet Take 1 tablet (25 mg total) by mouth daily Active Active Problems Problem Noted Date Diagnosed Date Right Shoulder pain 07/26/2024 Assessment & Plan (07/27/2024 11:55 AM GRADER OPERATOR): - 2/3 Pain with therapy, bruising noted - Xray negative for acute injury Neck pain 07/22/2024 Assessment & Plan (07/23/2024 1:25 PM GRADER OPERATOR): - CT head/neck (07/21): Osseous fusion of the bilateral C2-C3 facet joints. Ligamentum flavum hypertrophy causes mild spinal canal stenosis at the level of C4-C5. Multilevel blbj-oy-mgeupcyn neural foraminal stenosis, prominent at C4-C5 on the left. Severe facet arthropathy at C3-C4 and C4-C5 bilaterally - [place] collar in place - 07/23: cervical collar cleared over PM. No midline tenderness to palpation. Intraparenchymal hematoma of brain 07/22/2024 Assessment & Plan (07/27/2024 12:11 PM GRADER OPERATOR): - Neurosurgery consult - Repeat CT head (07/21): Unchanged right frontal intraparenchymal hemorrhage measuring up to 1.4 cm, Decreased conspicuity of subarachnoid hemorrhage within the right sylvian fissure, Trace intraventricular blood products layering in right occipital horn, unchanged, unchanged right frontal scalp hematoma. - Keppra 500 BID x7days - SBP<160 - BI consult, PM&R consult - F/u clinic in 4-[address] scan of the brain without contrast. Please hold all antiplatelet/anticoagulation until neurosurgery follow-up Acute traumatic pain 07/22/2024 Assessment & Plan (07/22/2024 2:36 PM GRADER OPERATOR): - Tylenol 1g q6h - Robaxin 500mg TID - Oxycodone 2.5mg q4h PRN Discharge planning issues 07/22/2024 Assessment & Plan (08/01/2024 10:36 AM GRADER OPERATOR): - 07/22: awaiting BI consult and PM&R - 07/23: awaiting BI consult, treatment note complete - 07/24-current referrals sent by CM. Patient is medically stable for discharge, SW/CM updated. Discharge pending facility acceptance Covid precautions until 07/31, ADD 08/01 - 08/01: Patient is medically stable for discharge, SW/CM updated. Discharge pending facility acceptance Treatment note 07/22 [x] Fall, initial encounter 07/21/2024 UTI (urinary tract infection) 07/21/2024 Assessment & Plan (07/27/2024 11:52 AM GRADER OPERATOR): - Urine culture (07/21): Proteus mirabilis - ceftriaxone 2g q24h x3d Course completed and verified S/S COVID-19 07/21/2024 Assessment & Plan (07/26/2024 12:52 PM GRADER OPERATOR): Supportive care -IS -Isolation expires 07/31 Alzheimer dementia 07/21/2024 Assessment & Plan (07/23/2024 1:38 PM GRADER OPERATOR): #baseline to self only -Delirium precautions - Continue Zyprexa 10mg HS Anemia 07/21/2024 Assessment & Plan (07/27/2024 11:53 AM GRADER OPERATOR): Admitted Hgb 11.1 - Hgb (07/22): 11.7g/dL - Hgb (07/23): 12.1g/dL MDD (major depressive disorder) 07/21/2024 Assessment & Plan (07/21/2024 4:04 PM GRADER OPERATOR): -continue PETROLEUM REFINING EQUIPMENT OPERATOR Cymbalta HLD (hyperlipidemia) 07/21/2024 Assessment & Plan (07/21/2024 4:04 PM GRADER OPERATOR): -continue PETROLEUM REFINING EQUIPMENT OPERATOR rosuvastatin 5mg CKD (chronic kidney disease) 07/21/2024 Assessment & Plan (07/27/2024 11:55 AM GRADER OPERATOR): #CKD 1, 07/21 admission Cr 1.28 -Renal dose medications - Creatinine (07/22): 1.31mg/dL - Creatinine (07/23): 1.43mg/dL - Creatinine (07/25) 1.2 mg/dl Nonrheumatic aortic valve stenosis 06/10/2024 Abnormal stress test 05/30/2021 Mixed diabetic hyperlipidemi a associated with type 2 diabetes mellitus 05/30/2021 HTN (hypertension) 05/30/2021 Assessment & Plan (07/22/2024 2:53 PM GRADER OPERATOR): -Continue PETROLEUM REFINING EQUIPMENT OPERATOR metoprolol 25 mg - Continue Losartan 25mg daily Cardiomyopathy 01/02/2021 Other chest pain 01/02/2021 Chronic fatigue 01/02/2021 Chronic pulmonary embolism without acute cor pul monale 01/02/2021 Chronic anticoagulation 01/02/2021 Ptosis of both eyelids 01/22/2018 Overview (01/22/2018): Added automatically from request for surgery [id number] Dermatochalasis of both upper eyelids 01/22/2018 Overview (01/22/2018): Added automatically from request for surgery [id number] Knee joint replacement by other means 11/30/2013 Osteoarthrosis involving lower leg 09/27/2013 Overview (01/21/2018): Overview: 2015 IMO Updt Social History Tobacco Use Types Packs/Day Years Used Date Smoking Tobacco: Never Smokeless Tobacco: Never Tobacco Cessation:Counseling Given: Not Answered Alcohol Use Standard Drinks/Week Comments Yes 4 (1 standard drink = 0.6 oz pur e alcohol) [facility] Utilities Answer Date Recorded In the past 12 months has [employer], gas, oil, or water [employer] threatened to shut off services in your home? No 07/27/2024 Social Connection and Isolation Panel [NHANES] A nswer Date Recorded In a typical week, how many times do you talk on the phone with family, friends, or neighbors? Never 07/27/2024 How often do you get together with friends or re latives? Once a week 07/27/2024 How often do you attend nondenominational or christianity serv ices? Never 07/27/2024 Do you belong to any clubs o r organizations such as nondenominational groups, unions, fraternal or athletic groups, or school groups? No 07/27/2024 How often do you attend meet ings of the clubs or organizations you belong to? Never 07/27/2024 Are you , , di vorced, , never , or living with a partner? 07/27/2024 Overall Financial Resource Strain (CARDIA) Answe r Date Recorded How hard is it for you to pa y for the very basics like food, housing, medical care, and heating? Not hard at all 07/27/2024 PHQ-2 Answer Date Recorded PHQ-2 Total Score 0 07/27/2024 Hunger Vital Sign Answer Date Recorded Within the past 12 months, y ou worried that your food would run out before you got the money to buy more. Never true 07/27/19 25 Within the past 12 months, t he food you bought just didn't last and you didn't have money to get more. Never true 07/27/2024 PRAPARE - Transportation Answer Date Re corded In the past 12 months, has l ack of transportation kept you from medical appointments or from getting medications? No 09/2024 In the past 12 months, has l ack of transportation kept you from meetings, work, or from getting things needed for daily living? No 07/27/2024 Housing Stability Vital Sign Answer Winston e Recorded In the last 12 months, was t here a time when you were not able to pay the mortgage or rent on time? No 07/27/2024 In the past 12 months, how m any times have you moved where you were living? 1 07/27/2024 At any time in the past 12 m [facility], were you homeless or living in a fdc (including now)? No 07/27/2024 Personal Safety Answer Date Recorded Have you ever been in or are you currently in a harmful physical or emotional relationship or is someone making you feel afraid or unsafe? Denies 07/21/2024 Comments No Sex and Gender Information Value Date Recorded Sex Assigned at Not on file Legal Sex Female 11:12 AM GRADER OPERATOR Gender Identity Not on file Sexual Orientation Not on file Last Filed Vital Signs Vital Sign Reading Time Taken Comments Blood Pressure 122/88 08/02/2024 12:00 PM GRADER OPERATOR Pulse 97 08/02/2024 12:00 PM GRADER OPERATOR Temperature 36.3 C (97.3 F) 08/02/2024 12:00 PM GRADER OPERATOR Respiratory Rate 20 08/02/2024 12:00 PM GRADER OPERATOR Oxygen Saturation 99% 08/02/2024 12:00 PM GRADER OPERATOR Inhaled Oxygen Concentration - - Weight 60.8 kg (134 lb) 07/21/2024 8:32 AM GRADER OPERATOR Height 152.4 cm (5') 07/21/2024 8:32 AM GRADER OPERATOR Body Mass Index 26.17 07/21/2024 8:32 AM GRADER OPERATOR Plan of Treatment Not on file Procedures Procedure Name Priority Date/Time Associated Diagnosis Comments EGFR Routine 08/01/2024 10:35 PM GRADER OPERATOR POCT LIPID PANEL Routine 12/13/2021 11:1 3 AM CDT Dyslipidemia from Last 3 Months or Most Recently Relevant to Health Maintenance Results * (ABNORMAL) eGFR (08/01/2024 10:35 PM GRADER OPERATOR) eGFR 45(L) >=60 mL/min/1. 73 m2 Comment: Interpretive Data Reference Interval Normal >/= 90 mL/min/1.73m2 Mildly decreased* 60 - 89 mL/min/1.73m2 Mildly to moderately decreased 45 - 59 mL/min/1.73m2 Moderately to severely decreased 30 - 44 mL/min/1.73m2 Severely decreased 15 - 29 mL/min/1.73m2 Kidney Failure < 15 mL/min/1.73m2 *Relative to young adult level Estimated glomerular filtration rate is determined by the 2020 CKD-EPI equation recommended by the National Kidney Foundation (A Unifying Approach to GFR Estimation: Recommendations of the NKF-ASK Task Force on Reassessing the Inclusion of Race in Diagnosing Kidney Disease, JASN 2020). The CKD-EPI equation should not be used for patients with unstable renal function and has not been validated in children and those over 70. Current interpretive data was last reviewed 2021. Blood 08/01/2024 10:3 5 PM GRADER OPERATOR 08/01/2024 11:27 PM GRADER OPERATOR Antonette Guadarrama NP LAB BLOOD ORDERABLES F inal Result [facility] Department [place] [address] * POCT lipid panel (12/13/2021 11:13 AM CDT) Cholesterol, POC 215 mg/dL HDL, POC 53 mg/dL Triglycerides, POC 150 mg/dL LDL Cholesterol POC 132 mg/dL Chol/HDL Ratio, POC 4.1 Non-HDL Cholesterol, POC 162 mg/dL Cholesterol Total, POC 215 mg/dL Capillary blood 12/13/2021 1 1:13 AM CDT us Lisa Francis NP POINT OF CARE TEST ORDERA BLES Final Result from Last 3 Months or Most Recently Relevant to Health Maintenance Insurance MEDICARE [facility] Member Subscriber Plan / Payer (Ef fective 2008-Present) Name:Jesenia Golden Relation to Subscriber:Self Name:Jesenia Golden Payer ID:[id number] Group ID:[id number] Type:Hydra Dx Address: [address] [place] [address] MEDICARE [facility] MEDICARE [facility] Advance Directives For more information, please contact: [phone] Documents on File Type Date Recorded Patient Cook Morning Expl anation ADVANCE DIRECTIVE 08/03/2024 10:09 PM RAFIQ R OF ROOF TRUSS MACHINE TENDER-MEDICAL ADVANCE DIRECTIVE 07/23/2024 1:39 PM POWER OF ROOF TRUSS MACHINE TENDER-MEDICAL * LIMITED - No CPR (Latest Code Status on File) Date Activated Date Inactivated Comments 07/23/2024 1:16 PM 08/02/2024 8:56 PM Question Answer Comments Provide aggressive medical m anagement before a full cardiopulmonary arrest occurs. Use antibiotics, IV Fluids, and medical treatment unless specifically selected below: No intubationNo non-invasive ventilation Discussed with the following attending physician: Vinny Parada * Full Code Date Activated Date Inactivated Comments 07/22/2024 1:30 PM 07/23/2024 1:16 PM * Full Code Date Activated Date Inactivated Comments 01/22/2018 12:48 PM 01/26/2018 11:20 AM Care Teams Acid Treater Relationship Specialty Start Date End Date Yinka Archer DO [address] [place] [address] PCP - General Internal Medicine 01/01/24 Morteza Meza MD [address] [place] [address] Internal Medicine 09/27/20 Naseem Bob MD [address] [facility] [address] [place] [address] Referring Physician Ophthalmology 01/21/18
--- OUTSIDE RECORDS SUMMARY | 2025-01-09 20:03 | XMS_ITS | Continuity of Care Document ---
Author Organization [facility] Address [address] [place] [address] Phone Care Team Providers Care Property Claims Adjuster Name Role Phone Marcell Cox Unavailable Unavailable Procedures Procedure Date Eye Exam & Treatment Dilated Retinal Exam W Interpretation Ap Refraction Eye Exam & Treatment Refraction Dilated Retinal Exam W Interpretation Ma No Evidence Of Retinopathy In Prior Year No Script Eye Exam & Treatment Refraction Special Reports Or Forms Advance Directives Directive Yes / No Effective Date File Name No Information Encounters Encounter Description Practice Location Reason(s) For Visit Diagnoses Date Provider Providers Copied on Encounter [facility], [address] [place] [address] [address], [place], [place], [id number], [place] tel:[phone] [facility] [place] No Information 0-201 0 Krishnasamy Marcell. [address] [facility] [facility] [address], [place], [address], [place]. tel:[phone] [facility], [address], [place], [place], [id number], [place] tel:[phone] [facility] [place] No Information 7-200 9 Krishnasamy Marcell. [address] [facility] [facility] [address], [place], [address], [place]. tel:[phone] [facility] Eye [facility], [address], [place], [place], [address], tel:[phone] [address] [facility] No Information [address] Wankxiomara Puga. [address] [facility], [facility] [place], [place], [id number], . tel:[phone] Referring Provider: Morteza Meza MD , [address], [place], [address]. tel:[phone] [facility] Eye [facility], [address], [place], [place], [address], tel:[phone] [address] [facility] No Information [address] Puga. [address] [facility], [facility] [place], [place], [address], [place]. tel:[phone] Family History Family Member Type Diagnosis Age At Onset No Information Payers Payer name Insurance type Covered libertarian ID Authoriza tion(s) [place] [id number] [facility] [id number] Social History Type Description Quantity Date Captured Comments Sex Female Smoking Status No Information Chief Complaint And Reason For Visit No Information Reason For Referral Reason For Referral No Information History Of Present Illness Encounter Date Complaint History Of Prese nt Illness No Information Functional Status Date Functional Assessmen t No Information Instructions Date Instruction Additional Infor mation No Information Assessments Type Assessment Date No Information Patient Care Teams Name Effective Dates (start - stop) Status Members No Information
--- OUTSIDE RECORDS SUMMARY | 2025-01-09 20:03 | XMS_ITS | Clinical Summary ---
Author Organization [facility] Address [address] [facility] [place] [address] Care Team Providers Care Nuclear Physicist Name Role Phone Mina Branch MD Unavailable [phone] Kiran Keyes MD Primary Care Provider [phone] Source Comments [facility],non-owned Affiliates and Associated Physician Practices is amultiple site organization consisting of ambulatory clinics and hospital sitesin [place], [place], [place] and [place]. This disclosure is being madepursuant to the Care Everywhere program and may not contain all information available regarding this patient. Last updated 18.[facility] Allergies No known active allergies Medications * This document contains information received from the source organization and may not represent a complete record from that organization. * Be aware that medications may not be up to date on this document. Alwaysverify current medications with the patient. duloxetine (CYMBALTA) 60 MG capsule Take 1 (one) capsule by mouth once daily Active aspirin EC (Ecotrin) 81 MG tablet Take 1 (one) tablet by mouth once daily 09/15/19 21 Active losartan (Cozaar) 50 MG tablet Take 0.5 (one-half) tablet by mouth once daily 09/15/19 21 Active metoprolol succinate XL 24hr (Toprol XL) 25 MG tablet Take 1 (one) tablet by mouth every morning 04/04/20 23 Active rosuvastatin (Crestor) 5 MG tablet Take 1 (one) tablet by mouth once daily 30 tablet 24 01/01/20 22 Active cyanocobalamin (Vitamin B-12) 1000 MCG tablet Take 1 (one) tablet by mouth once daily Active calcium polycarbophil (Fibercon) 625 MG tablet Take by mouth at bedtime Active acetaminophen (Tylenol) 325 MG tablet Take 1 (one) tablet by mouth every 4 hours as needed for Fever or Pain Maximum allowable Acetaminophen amount = 4 Grams (4000 mg) / 24 hours. Active traZODone (Desyrel) 100 MG tablet Take 1 (one) tablet by mouth at bedtime 30 tablet 04/13/20 24 Active OLANZapine (ZyPREXA) 10 MG tablet Take 1 (one) tablet by mouth at bedtime 30 tablet 5 04/14/20 24 Active Active Problems Problem Noted Date Diagnosed Date Cognitive decline 08/28/2022 Knee joint replacement by other means 11/30/2013 Osteoarthrosis involving lower leg 09/27/2013 Overview (09/16/2015): 2015 IMO Updt Preoperative examination 08/22/2009 Immunizations Immunization Administration Dates Next Due PNEUMOCOCCAL PPSV23 02/16/2009 Social History Tobacco Use Types Packs/Day Years Used Date Smoking Tobacco: Never Smokeless Tobacco: Never Tobacco Cessation:Counseling Given: Not Answered Alcohol Use Standard Drinks/Week Comments Yes 1.7 (1 standard drink = 0.6 oz p ure alcohol) OCCASIONAL PHQ-2 Answer Date Recorded Patient Health Questionnaire-2 Score 1 02/18/2024 Comments No Sex and Gender Information Value Date Recorded Sex Assigned at Not on file Legal Sex Female 12:19 PM POLICY DIRECTOR Gender Identity Not on file Sexual Orientation Straight 09/09/2022 11 :55 PM CDT Last Filed Vital Signs Vital Sign Reading Time Taken Comments Blood Pressure 147/82 04/13/2024 11:21 AM CDT Pulse 75 04/13/2024 11:21 AM CDT Temperature 36.3 C (97.4 F) 11/11/2023 9:20 AM CDT Respiratory Rate 18 11/11/2013 5:51 AM CDT Oxygen Saturation 94% 01/15/2024 10:13 AM CDT Inhaled Oxygen Concentration - - Weight 62.4 kg (137 lb 8 oz) 04/13/2024 11:21 AM CDT Height 149.9 cm (4' 11) 04/13/2024 11:21 AM CDT Body Mass Index 27.77 04/13/2024 11:21 AM CDT Plan of Treatment Health Maintenance Due Date Last Done Comments BONE DENSITY TESTING 1945 MEDICARE AWV 12 MONTHS 1945 DTAP/TDAP/TD VACCINES (1 - Tdap) 1962 ZOSTER VACCINE (1 of 2) 1993 PNEUMOCOCCAL VACCINE 50+ (2 of 2 - PCV) 02/16/2010 02/16/2009 Respiratory Syncytial Virus (RSV) Vaccine Pt: or over 60 yrs (1 - 1-dose 75+ series) 2018 COVID-19 VACCINE (2023-2 5 season) 2024 DEPRESSION SCREENING 06/23/2024 07/23/2023, 01/23/2023 INFLUENZA VACCINE (#1) 2025 HEPATITIS B VACCINE Aged Out No longe r eligible based on patient's age to complete this topic HIB VACCINE Aged Out No longer eligi ble based on patient's age to complete this topic HPV VACCINE Aged Out No longer eligi ble based on patient's age to complete this topic MENINGOCOCCAL (Group B) VACCINE SHARED DECISION-MAKING Aged Out No longer eligible based on patient's age to complete this topic MENINGOCOCCAL GROUPS A/C/Y/W VACCINE Aged Out No longer eligible b ased on patient's age to complete this topic Medical Devices Implanted Type Area Strap Making Machine Operator Device Identifier Shelf Expiration Date Model / Serial / Lot Guillermo Bone [place] Hv Implanted:Qty: 1 on 11/08/2013 by Mina Branch MD at [facility] Right: [employer] 11/08/2013 [id number] / / [id number] Ins Aliyah Antunez Fem Cocr R-Intlok 65.0mm Implanted:Qty: 1 on 11/08/2013 by Mina Branch MD at [facility] Right: [employer] 07/24/2023 [id number] / / [id number] Ty Tibial I Beam Fix Bar 71mm Implanted:Qty: 1 on 11/08/2013 by Mina Branch MD at [facility] Right: [employer] 08/22/2023 [id number] / / [id number] Rj Mayen Arcom Wire Polyeth Sm 31 X 8mm Implanted:Qty: 1 on 11/08/2013 by Mina Branch MD at [facility] Right: [employer] 08/21/2018 [id number] / / [id number] Brdg Tib Cecily Stbl Implanted:Qty: 1 on 11/08/2013 by Mina Branch MD at [facility] Right: [employer] 08/21/2018 [id number] / / [id number] Insurance [facility] MEDICARE [facility] MEDICARE [facility] MEDICARE [facility] MEDICARE [facility] SPECIALTY RISK * Guarantor: NAM GIBBS Account Type Relation to Patient Date of Phone Billing Address Personal/Family Spouse [address] [place] [address] MEDICARE [facility] SPECIALTY RISK MEDICARE SPECIALTY RISK MEDICARE [facility] SPECIALTY RISK MEDICARE [facility] [place] [address] MEDICARE Member Subscriber Plan / Payer (Ef fective 2008-Present) Name:Nam Gibbs Member ID:[id number] Relation to Subscriber:Self Name:Nam Gibbs Subscriber ID:[id number] Payer ID:Not on file Group ID:Not on file Type:Medicare Address: [place] [phone] MEDICARE [facility] Advance Directives Documents on File Type Date Recorded Patient Cash Applications Specialist Expl anation Adv Directive/Living Will/POA 11/08/2013 7:24 AM Adv Directive/Living Will/POA 09/01/2009 3:16 PM * Full Code (Latest Code Status on File) Date Activated Date Inactivated Comments 11/08/2013 10:49 AM 11/11/2013 1:37 PM * Full Code Date Activated Date Inactivated Comments 02/15/2010 12:11 PM 02/20/2010 12:44 AM Care Teams Nuclear Physicist Relationship Specialty Start Date End Date Kiran Keyes MD [address] [place], [place] [id number] PCP - General Family Medicine 11/11/23 [place] [address] [facility] [address] [place] [address] Orthopedic Surgery 09/27/13
--- OUTSIDE RECORDS SUMMARY | 2025-01-09 20:03 | XMS_ITS | Clinical Summary ---
Author Organization [facility] [place] [address] Address [address] [place] [address] Care Team Providers Care Automotive Service Writer Name Role Phone Morteza Meza MD Unavailable [phone] Naseem Bbo MD Unavailable [phone] Yinka Archer DO Primary Care Provider [phone] Allergies Active Allergy Reactions Criticality Noted Date [...] 07/26/2024 Assessment & Plan (07/27/2024 11:55 AM INTERIOR SYSTEMS CARPENTER): - 2/3 Pain with therapy, bruising noted - Xray negative for acute injury Neck pain 07/22/2024 Assessment & Plan (07/23/2024 1:25 PM INTERIOR SYSTEMS CARPENTER): - CT head/neck (07/21): Osseous fusion of the bilateral C2-C3 facet joints. Ligamentum flavum hypertrophy causes mild spinal canal stenosis at the level of C4-C5. Multilevel [id number] neural foraminal stenosis, prominent at C4-C5 on the left. Severe facet arthropathy at C3-C4 and C4-C5 bilaterally - [place] collar in place - 07/23: cervical collar cleared over PM. No midline tenderness to palpation. Intraparenchymal hematoma of brain 07/22/2024 Assessment & Plan (07/27/2024 12:11 PM INTERIOR SYSTEMS CARPENTER): - Neurosurgery consult - Repeat CT head [...] 07/22/2024 Assessment & Plan (07/22/2024 2:36 PM INTERIOR SYSTEMS CARPENTER): - Tylenol 1g q6h - Robaxin 500mg TID - Oxycodone 2.5mg q4h PRN Discharge planning issues 07/22/2024 Assessment & Plan (08/01/2024 10:36 AM INTERIOR SYSTEMS CARPENTER): - 07/22: awaiting BI consult and PM&R [...] 07/21/2024 Assessment & Plan (07/27/2024 11:52 AM INTERIOR SYSTEMS CARPENTER): - Urine culture (07/21): Proteus mirabilis - ceftriaxone 2g q24h x3d Course completed and verified S/S COVID-19 07/21/2024 Assessment & Plan (07/26/2024 12:52 PM INTERIOR SYSTEMS CARPENTER): Supportive care -IS -Isolation expires 07/31 Alzheimer dementia 07/21/2024 Assessment & Plan (07/23/2024 1:38 PM INTERIOR SYSTEMS CARPENTER): #baseline to self only -Delirium precautions - Continue Zyprexa 10mg HS Anemia 07/21/2024 Assessment & Plan (07/27/2024 11:53 AM INTERIOR SYSTEMS CARPENTER): Admitted Hgb 11.1 - Hgb (07/22): 11.7g/dL - Hgb (07/23): 12.1g/dL MDD (major depressive disorder) 07/21/2024 Assessment & Plan (07/21/2024 4:04 PM INTERIOR SYSTEMS CARPENTER): -continue ANODIC TREATER Cymbalta HLD (hyperlipidemia) 07/21/2024 Assessment & Plan (07/21/2024 4:04 PM INTERIOR SYSTEMS CARPENTER): -continue ANODIC TREATER rosuvastatin 5mg CKD (chronic kidney disease) 07/21/2024 Assessment & Plan (07/27/2024 11:55 AM INTERIOR SYSTEMS CARPENTER): #CKD 1, 07/21 admission Cr 1.28 -Renal dose medications - Creatinine (07/22): 1.31mg/dL - Creatinine (07/23): 1.43mg/dL - Creatinine (07/25) 1.2 mg/dl Nonrheumatic aortic valve stenosis 06/10/2024 Abnormal stress test 05/30/2021 Mixed diabetic hyperlipidemi a associated with type 2 diabetes mellitus 05/30/2021 HTN (hypertension) 05/30/2021 Assessment & Plan (07/22/2024 2:53 PM INTERIOR SYSTEMS CARPENTER): -Continue ANODIC TREATER metoprolol 25 mg - Continue Losartan 25mg daily Cardiomyopathy 01/02/2021 Other chest pain 01/02/2021 Chronic fatigue 01/02/2021 Chronic pulmonary embolism without acute cor pul monale 01/02/2021 Chronic anticoagulation 01/02/2021 Ptosis of both eyelids 01/22/2018 Overview (01/22/2018): Added automatically from request for surgery [id number] Dermatochalasis of both upper eyelids 01/22/2018 Overview (01/22/2018): Added automatically from request for surgery [id number] Knee joint replacement by other means 11/30/2013 Osteoarthrosis involving lower leg 09/27/2013 Overview (01/21/2018): Overview: 2015 O Updt Surgical History Surgery Date Site/Laterality Comments KNEE SURGERY Bilateral TEMPORAL ARTERY BIOPSY / LIGATION 06/23/2014 - 5 Left APPENDECTOMY HYSTERECTOMY Medical History Medical History Date Comments Cataract Herpes zoster FEVER BLISTERS CVA (cerebral vascular accident) (HCC) Hyperlipidemia Hypertension Diabetes mellitus (HCC) Sleep apnea Type 2 diabetes mellitus (HCC) Family History Medical History Relation Name Comments Glaucoma Father Stroke Father Fatal Glaucoma Father's Brother Glaucoma Maternal Grandfather Heart attack Mother multiple, first in her 70s Anesthesia problems Neg Hx Relation Name Status Comments Father (Age 74) Father's Brother Maternal Grandfather Mother (Age 90s) Social History Tobacco Use Types Packs/Day Years Used Date Smoking Tobacco: Never Smokeless Tobacco: Never Tobacco Cessation:Counseling Given: Not Answered Alcohol Use Standard Drinks/Week Comments Yes 4 (1 standard drink = 0.6 oz pur e alcohol) [facility] Utilities Answer Date Recorded In the past 12 months has th e [employer], gas, oil, or water [email or web address] threatened to shut off services in your home? No 07/27/2024 Social Connection and Isolation Panel [NHANES] A nswer Date Recorded In a typical week, how many times do you talk on the phone with family, friends, or neighbors? Never 07/27/2024 How often do you get together with friends or re latives? Once a week 07/27/2024 How often do you attend judaism or mormonism serv ices? Never 07/27/2024 Do you belong to any clubs o r organizations such as judaism groups, unions, fraternal or athletic groups, or [...] any time in the past 12 m [facility], were you homeless or living in a half-way (including now)? No 07/27/2024 Personal Safety Answer Date Recorded Have you ever been in or are you currently in a harmful physical or emotional relationship or is someone making you feel afraid or unsafe? Denies 07/21/2024 Comments No Sex and Gender Information Value Date Recorded Sex Assigned at Not on file Legal Sex Female 11:12 AM INTERIOR SYSTEMS CARPENTER Gender Identity Not on file Sexual Orientation Not on file Obstetrics History Last Filed Vital Signs Vital Sign Reading Time Taken Comments Blood Pressure 122/88 08/02/2024 12:00 PM INTERIOR SYSTEMS CARPENTER Pulse 97 08/02/2024 12:00 PM INTERIOR SYSTEMS CARPENTER Temperature 36.3 C (97.3 F) 08/02/2024 12:00 PM INTERIOR SYSTEMS CARPENTER Respiratory Rate 20 08/02/2024 12:00 PM INTERIOR SYSTEMS CARPENTER Oxygen Saturation 99% 08/02/2024 12:00 PM INTERIOR SYSTEMS CARPENTER Inhaled Oxygen Concentration - - Weight 60.8 kg (134 lb) 07/21/2024 8:32 AM INTERIOR SYSTEMS CARPENTER Height 152.4 cm (5') 07/21/2024 8:32 AM INTERIOR SYSTEMS CARPENTER Body Mass Index 26.17 07/21/2024 8:32 AM INTERIOR SYSTEMS CARPENTER Plan of Treatment Health Maintenance Due Date Last Done Comments Albumin Creatinine Ratio, Urine 1943 Osteoporosis Screening-Bone Density Scan 1943 Dilated Eye Exam 1943 Foot Exam 1943 DTaP/Tdap/Td Vaccine (1 - Tdap) 1954 Hepatitis B Screening 1961 Zoster Vaccine (1 of 2) 1993 Well Visit 65+ 2008 Hemoglobin A1C 2024 01/28/2024 Lipid Panel 01/28/2025 01/29/2024, 12/13/2021 Influenza Vaccine (Season Ended) 2025 04/19/20 19 Depression Screening 07/21/2025 07/21/2024 eGFR 08/01/2025 08/01/2024, 07/2024, 07/24/2024, Additional history exists Fall Risk Assessment 08/02/2025 08/02/2024 Pneumococcal vaccine 65+ Completed 07/14/2017, 01/22 Procedures Procedure Name Priority Date/Time Associated Diagnosis Comments EGFR Routine 08/01/2024 10:35 PM INTERIOR SYSTEMS CARPENTER POCT LIPID PANEL Routine 12/13/2021 11:1 3 AM CDT Dyslipidemia from Last 3 Months or Most Recently Relevant to Health Maintenance Results * (ABNORMAL) eGFR (08/01/2024 10:35 PM INTERIOR SYSTEMS CARPENTER) eGFR 45(L) >=60 mL/min/1. 73 m2 Comment: [...] reviewed 2021. Blood 08/01/2024 10:3 5 PM INTERIOR SYSTEMS CARPENTER 08/01/2024 11:27 PM INTERIOR SYSTEMS CARPENTER Antonette Guadarrama NP LAB BLOOD ORDERABLES F inal Result [facility] Department [place] [address] * POCT lipid panel (12/13/2021 11:13 AM CDT) Cholesterol, POC 215 mg/dL HDL, POC 53 mg/dL Triglycerides, POC 150 mg/dL LDL Cholesterol POC 132 mg/dL Chol/HDL Ratio, POC 4.1 Non-HDL Cholesterol, POC 162 mg/dL Cholesterol Total, POC 215 mg/dL Capillary blood 12/13/2021 1 1:13 AM CDT Lisa Francis NP POINT OF CARE TEST ORDERA BLES Final Result from Last 3 Months or Most Recently Relevant to Health Maintenance Insurance MEDICARE [facility] [place] [id number] MEDICARE [employer]ICARE [employer] Advance Directives For more information, please contact: [phone] Documents on File Type Date Recorded Patient Environmental Director Expl anation ADVANCE DIRECTIVE 08/03/2024 10:09 PM RAFIQ R OF CONTACT CENTER MANAGER-MEDICAL ADVANCE DIRECTIVE 07/23/2024 1:39 PM POWER OF CONTACT CENTER MANAGER-MEDICAL * LIMITED - No CPR (Latest Code [...] 12:48 PM 01/26/2018 11:20 AM Care Teams Automotive Service Writer Relationship Specialty Start Date End Date Yinka Archer DO [address] [facility] [address] [place] [address] PCP - General Internal Medicine 01/01/24 Morteza Meza MD [address] [place] [address] [place] [address] Internal Medicine 09/27/20 Naseem Bob MD [address] [facility] [address] [place] [address] Referring Physician Ophthalmology 01/21/18
--- NOTE | 2025-01-09 20:51 | ED_ITS ---
HPI - Fall General Chief Complaint: Fall Stated Complaint: fall Time Seen by Provider: 01/09/25 19:50 History of Present Illness HPI Narrative: 79-year-old female with history of advanced dementia currently residing in a memory care facility. Patient is not able to walk without significant assistance and wheelchair/walker. She presents after trying to get up and walking unassisted. She fell and hit her back of her head. No reported loss of consciousness. Patient is not able to provide any meaningful history as she is thinks she was at work when this happened. No change in mental status and no vomiting. Tetanus is up today. Patient endorses pain in the back of the head where she struck the ground as well as pain in her right hip but is able to move both her lower extremities without any difficulty. No other complaints. Related Data Home Medications ?Medication ?Instructions ?Recorded ?Confirmed ?Last Taken ?Type calcium polycarbophil 625 mg 625 mg PO DAILY 10/02/23 06/10/24 Unknown History tablet (FiberCon) metoprolol succinate 25 mg 25 mg PO HS 11/18/23 06/10/24 Unknown History tablet,extended release 24 hr acetaminophen 325 mg capsule 650 mg PO Q6H PRN Pain 12/31/23 06/10/24 Unknown History cyanocobalamin (vitamin B-12) 1,000 mcg PO DAILY 12/31/23 06/10/24 Unknown History 1,000 mcg tablet rosuvastatin 5 mg tablet 5 mg PO HS 12/31/23 06/10/24 Unknown History olanzapine 5 mg tablet (Zyprexa) 5 mg PO HS 01/28/24 12/29/24 Unknown History simethicone 125 mg chewable tablet 125 mg PO QID PRN Gastrointestinal 03/18/24 06/10/24 Unknown History (Gas Relief (simethicone)) Spasms Or Cramping mecobalamin (vitamin B12) 1,000 1,000 mcg PO DAILY 06/10/24 12/29/24 Unknown History mcg chewable tablet (B12 Active) cholecalciferol (vitamin D3) 1,250 50,000 unit PO WEEKLY 12/29/24 12/29/24 Unknown History mcg (50,000 unit) capsule citalopram 10 mg tablet (Celexa) 10 mg PO DAILY 12/29/24 12/29/24 Unknown History melatonin 5 mg capsule 5 mg PO HS 12/29/24 12/29/24 Unknown History ondansetron 4 mg disintegrating 4 mg PO Q8H PRN nausea and vomiting 12/29/24 12/29/24 Unknown History tablet polysaccharide iron complex 50 mg 150 mg PO BID 12/29/24 12/29/24 Unknown History iron tablet Allergies Allergy/AdvReac Type Severity Reaction Status Date / Time adhesive tape Allergy Severe RASH Verified 12/29/24 13:48 amitriptyline Allergy Unknown Rash Verified 12/29/24 13:48 ciprofloxacin Allergy Unknown Dizziness Verified 12/29/24 13:48 levofloxacin Allergy Unknown Swelling Verified 12/29/24 13:48 tetracycline AdvReac Nausea and Verified 12/29/24 13:48 Vomiting Review of Systems Review of Systems: As reviewed above in [facility] Past Medical History Medical History Rectal bleeding BMI 26.0-26.9,adult Heart attack Blood clots in biliary tract following procedure Constipation Overweight (BMI 25.0-29.9) Nausea & vomiting Helicobacter pylori gastritis Microscopic colitis Dehydration Upper abdominal pain HTN (hypertension) with goal to be determined History of CVA (cerebrovascular accident) LUKE on CPAP Intolerant of a CPAP Urinary incontinence Benign essential hypertension Hyperlipidemia, unspecified Statin intolerance 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 syndrome Sibling Diabetes mellitus 2 sisters Sibling , overdose CKD (chronic kidney disease) Tobacco abuse Other Family history of arthritis Family history of cardiovascular disease Social History Social History Social History: the patient has 4 children. She is . 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 She lives home alone with her little 6 lb dog. She rarely drinks. She is a lifelong nonsmoker. She does not use any marijuana or illicit drugs. Caffeine-soda daily Smoking status: Never smoker Second hand tobacco smoke exposure: No Alcohol intake: current Drinks per week: 3 Alcohol use details: occasionally Substance use: never Substance use type: does not use Do You Feel Safe in your Home?: Yes Lack of Transportation: No Lack of Food: Never True Current Housing: I Have Housing Concerned About Future Housing: No Difficulty Paying Gas/Electric Bills: No Difficulty Paying for Meds: No Currently Unemployed: No Education: Trade/Vocational Certificate Difficulty w/ Childcare or Family Care: No Living arrangements: alone Occupation/Education: retired Additional occupation/education comments: beautician Gender identity (if verbalized by the patient): Female Spiritual care concerns: No Exam Narrative: GENERAL: [Well-appearing, well-nourished, and in no acute distress.] HEAD: Normocephalic, posterior scalp laceration x2, 2 cm and 1.5 cm respectively near posterior occipital scalp EYES: [PERRLA and EOMI.] ENT: Nares clear, no rhinorrhea or epistaxis. Mucous membranes moist. NECK: Supple. CHEST: [Clear to auscultation. No respiratory distress.] HEART: [Regular rate and rhythm]. No murmur heard. [Normal peripheral pulses.] ABDOMEN: [Soft, nondistended], [nontender], [No rigidity or guarding] EXTREMITIES: Normal range of motion. [No edema.] SKIN: Warm, dry, no rash. NEURO: Moving all extremities at baseline. Alert and oriented x1 which is her baseline PSYCH: [Normal mood and affect.] Course Vital Signs Vital signs: Vital Signs Temperature 36.4 C 01/09/25 19:46 Pulse Rate 70 01/09/25 19:46 Respiratory Rate 16 01/09/25 19:46 Blood Pressure 172/93 H 01/09/25 19:46 Pulse Oximetry 100 01/09/25 19:46 Oxygen Delivery Room Air 01/09/25 19:46 Temperature 36.4 C 01/09/25 19:46 Pulse Rate 70 01/09/25 19:46 Respiratory Rate 16 01/09/25 19:46 Blood Pressure 172/93 H 01/09/25 19:46 Pulse Oximetry 100 01/09/25 19:46 Oxygen Delivery Room Air 01/09/25 19:46 Procedures Laceration Laceration 1: Date: 01/09/25 Time: 22:05 Site: scalp Side (If applicable): left Size (cm): 2 Description: linear and clean Depth: simple, single layer Local Anesthetic: lidocaine 1% (LET gel) Amount of anesthesia used (mL): 3 Pre-repair: wound explored, irrigated extensively, minor debridement and deep structures intact ====== Skin Level ====== Skin layer closed with: carlos (5) ====== Subcutaneous Layer ====== ====== Muscle Layer ====== ====== Tendon Layer ====== Dressing: non-adherent dressing Laceration 2: Date: 01/09/25 Time: 22:06 Site: scalp Side (If applicable): right Size (cm): 1.5 Description: linear and clean Depth: simple, single layer Local Anesthetic: lidocaine 1% (LET) Pre-repair: wound explored, irrigated extensively, minor debridement and deep structures intact ====== Skin Level ====== Skin layer closed with: carlos (2) ====== Subcutaneous Layer ====== ====== Muscle Layer ====== ====== Tendon Layer ====== Dressing: non-adherrent MDM - Fall MDM Narrative Medical decision making narrative: 79-year-old female with history of advanced dementia currently residing in a memory care facility. Patient is not able to walk without significant assistance and wheelchair/walker. She presents after trying to get up and w alking unassisted. She fell and hit her back of her head. No reported loss of consciousness. Patient is not able to provide any meaningful history as she is thinks she was at work when this happened. No change in mental status and no vomiting. Tetanus is up today. Patient endorses pain in the back of the head where she struck the ground as well as pain in her right hip but is able to move both her lower extremities without any difficulty. No other complaints. Patient has a laceration to her left-sided posterior occipital/parietal scalp, bleeding is controlled. At her baseline mentation and moving all extremities. C-collar placed by EMS. No midline tenderness. Neurologically intact, vital signs unremarkable. CT of the head and cervical spine were obtained given patient's age and risk factors with her fall. She was also given pain control with oxycodone and Tylenol. X-ray of the right hip was obtained as she was complaining of some right hip pain but is able to move her extremities spontaneously without any signs of overt fracture or dislocation. Patient has 2 lacerations were repaired with carlos. Bleeding under control. Non adherent dressing applied over top. Patient is safe for discharge home at this time. CT scans unremarkable, no signs of trach injuries in the head, neck or hip/pelvis. Patient felt improved after pain control medications. BLS ambulance will be arranged back to her skilled care facility and with instructions to have carlos removed in 10-14 days time. Patient's tetanus is up-to-date. Patient's family's questions were answered and she was discharged. Medical Records Attestation: I reviewed the patient's medical records. Imaging Data Attestation: I personally reviewed and interpreted this imaging study as follows: My impression: Impressions Head CT 01/09/25 20:52 IMPRESSION: No acute intracranial process. Cervical Spine CT 01/09/25 20:56 IMPRESSION: No acute fracture or traumatic malalignment in the cervical spine. Hip/Pelvis X-Ray 01/09/25 21:00 IMPRESSION: No acute osseous finding in the pelvis or right hip. Discharge Plan Discharge Clinical Impression: CHI (closed head injury), Laceration of scalp, Dementia Patient Disposition: NH Snf/Asst Living Condition: Stable Instructions: Antibiotic Form, Head Injury (ED), Staple Care (ED), Head Laceration (ED) Additional Instructions: No sustained injuries during her CT scans or x-rays. We did repair your lacerations which have 2 of in the back your scalp. Have the carlos removed in 10-14 days. He can have this done at the facility, urgent care, emergency department or your primary doctor. Take Tylenol and ibuprofen for aches and pains. Careful with washing her hair as they can become loose if scrubbed vigorously. Patient Language: Tamazight Prescriptions: No Action metoprolol succinate 25 mg tablet extended release 24 hr 25 mg PO HS Rx Instructions: TAKE 1 TABLET BY MOUTH QHS cyanocobalamin (vitamin B-12) 1,000 mcg Tablet 1,000 mcg PO DAILY rosuvastatin 5 mg tablet 5 mg PO HS Rx Instructions: at bedtime acetaminophen 325 mg Capsule 650 mg PO Q6H PRN (Reason: Pain) Patient Comments: .. citalopram [Celexa] 10 mg tablet 10 mg PO DAILY cholecalciferol (vitamin D3) 1,250 mcg (50,000 unit) capsule 50,000 unit PO WEEKLY Patient Comments: saturdays melatonin 5 mg capsule 5 mg PO HS polysaccharide iron complex 50 mg iron tablet 150 mg PO BID ondansetron 4 mg tablet,disintegrating 4 mg PO Q8H PRN (Reason: nausea and vomiting) FiberCon 625 mg tablet 625 mg PO DAILY mecobalamin (vitamin B12) [B12 Active] 1,000 mcg tablet,chewable 1,000 mcg PO DAILY calcitriol 0.25 mcg capsule 0.25 mcg PO 3XW Qty: 36 3RF Rx Instructions: take on Mondays, Wednesdays, and Fridays simethicone [Gas Relief (simethicone)] 125 mg tablet,chewable 125 mg PO QID PRN (Reason: Gastrointestinal Spasms Or Cramping) olanzapine [Zyprexa] 5 mg tablet 5 mg PO HS losartan 25 mg tablet 25 mg PO HS Qty: 90 0RF Follow-up/Referrals: Yinka Archer DO [Primary Care Provider] - Stand Alone Forms: [facility] Discharge Time of Disposition: 22:10
[2025-01-09] MEDS: oxyCODONE HCL (*CRX) 2.5 MG TAB IR PO (21:08)
[2025-01-09] MEDS: ACETAMINOPHEN 500 MG TABLET 1000 MG PO (21:08)
[2025-01-09] MEDS: LIDOCAINE, EPINEPHRINE, TETRACAINE VISCOUS SOLN 3 ML TOPICAL (21:13)
[2025-01-09] MEDS: HYDROGEN PEROXIDE 3% SOLN(*SP) 473 ML BOTTLE 946 ML (21:38)
== END 2025-01-09 23:04 ==
PROVIDERS: Emergency Provider Student in an Organized Health Care Education/Training Program; PCP Internal Medicine
DX: S01.01XA Laceration without foreign body of scalp, initial encounter (principal); F03.90 Unspecified dementia, unspecified severity, without behavioral disturbance, psychotic disturbance, mood disturbance, and anxiety; E11.22 Type 2 diabetes mellitus with diabetic chronic kidney disease; I12.9 Hypertensive chronic kidney disease with stage 1 through stage 4 chronic kidney disease, or unspecified chronic kidney disease; N18.1 Chronic kidney disease, stage 1; I25.2 Old myocardial infarction; G47.33 Obstructive sleep apnea (adult) (pediatric); E78.5 Hyperlipidemia, unspecified; Z96.653 Presence of artificial knee joint, bilateral; Z86.73 Personal history of transient ischemic attack (TIA), and cerebral infarction without residual deficits; Z86.0100 Personal history of colon polyps, unspecified; Z90.710 Acquired absence of both cervix and uterus; Z90.49 Acquired absence of other specified parts of digestive tract; Z79.899 Other long term (current) drug therapy; W18.30XA Fall on same level, unspecified, initial encounter
CPT/HCPCS: 12002; 70450; 72125; 73502; 99284; A9270